=== PATIENT | female | born 1935 | race Caucasian/White ===

== ENCOUNTER 2016-12-28 15:11 | Emergency (ER) | payer BC ==
[2016-12-28 15:56] VITALS: TEMP 98; BMI 20.1
[2016-12-28] MEDS ORDERED: ACETAMINOPHEN 325 MG TABLET (FP) PO ONE (16:03)
--- NOTE | 2016-12-28 16:12 | PDOC ---
History of Present Illness - General Chief Complaint: Injury Stated Complaint: FALL (PCP SENT) Time Seen by Provider: 12/28/16 15:20 History Source: Patient Exam Limitations: No Limitations - History of Present Illness Initial Comments: 81 yo female with h/o Parkinsons (on levodopa-carbidopa) and chronic back pain ( on Toradol) who was brought in by her neighbor 7 days after suffering a GLF. She tripped and fell last Saturday and landed on her left lower ribs, and also hit her left forehead lightly. Her neighbor visited her on Saturday and noted mild bruising to the left forehead and eyebrow at that time. The patient states that she had no pain until this morning when she awoke. She now notes 4/10 pain to her left lower ribs directly under the armpit. It is throbbing, worsening since the onset this morning, and radiating to her back. It worsens with deep breathing, and improves with hot compress or shower and with Toradol. She states that it feels the same as her prior rib fracture on the opposite side. She denies any new symptoms of illness or any change in her baseline frequency of falls. She has struggled with frequent falls for the past 7 years and attributes these to her Parkinsons disease. She has been having her normal baseline constipation (last BM 3-4 days ago), but denies any fever, chills, nausea, vomiting, diarrhea, bloody urine, painful urination, black/bloody stool , cough, sore throat, runny nose, chest pain, or shortness of breath. The patient was seen Neurologist Dr. Shoemaker but she recently learned that he is no longer available to be her doctor, and she would like contact info for a new neurologist. Past History - Past Medical History Allergies/Adverse Reactions: Allergies Allergy/AdvReac Type Severity Reaction Status Date / Time No Known Allergies Allergy Verified 12/28/16 15:32 Home Medications: Ambulatory Orders Alprazolam [Xanax] 0.25 mg PO DAILY PRN 03/25/12 Carbidopa/Levodopa 25/100 [Sinemet 25/100 -] 1 each PO BID 12/28/16 Anemia: No Asthma: No Cancer: No Cardiac Disorders: Yes (SVT) CVA: No COPD: No CHF: No Dementia: No Diabetes: No GI Disorders: Yes (?stomach ulcer) Disorders: No HTN: Yes (NO MED) Hypercholesterolemia: No Liver Disease: No Suicide Attempt (Hx): No Seizures: No Thyroid Disease: No Other medical history: parkinson - Surgical History Abdominal Surgery: Yes (ulcers) Appendectomy: No Cardiac Surgery: No Cholecystectomy: No Lung Surgery: No Neurologic Surgery: No Orthopedic Surgery: No - Psycho/Social/Smoking Cessation Hx Anxiety: No Suicidal Ideation: No Smoking Status: No Smoking History: Never smoked Have you smoked in the past 12 months: No Number of Cigarettes Smoked Daily: 0 Information on smoking cessation initiated: No Hx Alcohol Use: No Drug/Substance Use Hx: No Substance Use Type: None Hx Substance Use Treatment: No Review of Systems - Review of Systems Able to Perform ROS?: Yes Constitutional: No: Chills, Fever, Unexplained wgt Loss HEENTM: No: Nose Congestion, Throat Pain Respiratory: No: Cough, Shortness of Breath Cardiac (ROS): Yes: Other (left rib pain). No: Palpitations ABD/GI: Yes: Constipated (per baseline). No: Diarrhea, Nausea, Vomiting : No: Burning, Dysuria, Hematuria, Pain Musculoskeletal: Yes: Back Pain. No: Neck Pain Integumentary: No: Bruising, Rash Neurological: No: Headache, Numbness, Tingling, Weakness, Dizziness Endocrine: No: Unexplained Weight Gain, Unexplained Weight Loss *Physical Exam - Vital Signs Last Vital Signs Temp Pulse Resp BP Pulse Ox 98.0 F 96 H 18 140/73 96 12/28/16 15:33 12/28/16 15:33 12/28/16 15:33 12/28/16 15:33 12/28/16 15:33 - Physical Exam General Appearance: Yes: Nourished, Appropriately Dressed, Other (nontoxic and well-appearing, left upper eyelid and left frontal area with almost-completely- healed ecchymosis which is now light yellow, answering questions appropriately) . No: Apparent Distress HEENT: positive: EOMI, TRINID[place], Normal Voice, Hearing Grossly Normal, Other (no hemotympanum, no gonzalez sign, no raccoon eyes). negative: Scleral Icterus (R), Scleral Icterus (L), Nasal Congestion Neck: positive: Trachea midline, Supple. negative: Tender, Rigid, Tender midline Respiratory/Chest: positive: Lungs Clear, Normal Breath Sounds, Other (left inferolateral ribs with overlying 6x6 cm healing ecchymosis with tenderness to palpation of the inferolateral costal margin, no crepitus, no bony deformity). negative: Respiratory Distress, Crackles, Rhonchi, Stridor, Wheezing Cardiovascular: positive: Regular Rhythm, Regular Rate. negative: Murmur Gastrointestinal/Abdominal: positive: Normal Bowel Sounds, Soft. negative: Tender, Organomegaly, Pulsatile Mass, Guarding Musculoskeletal: positive: Normal Inspection. negative: Decreased Range of Motion, Vertebral Tenderness Extremity: positive: Normal Capillary Refill, Normal Inspection, Normal Range of Motion. negative: Tender, Cyanosis Integumentary: positive: Normal Color, Dry, Warm. negative: Erythema, Rash, Bruising Neurologic: positive: manager lighting II-XII NML intact, Fully Oriented, Alert, Normal Mood/ Affect, Normal Response, Motor Strength 5/5 ED Treatment Course - RADIOLOGY Radiograph Interpretation: EXAM#: TYPE/EXAM: RESULT: RAD/CHEST PA LAT RAD/RIBS-LEFT SIDE Chest 3 views Left RIBS 5 views Clinical information: left chest pain; status post fall No pneumothorax is seen. There is no discrete infiltrate or pleural effusion. The heart, froylan and mediastinum demonstrate no obvious abnormality. Evaluation the left ribs demonstrates no radiographic evidence of fracture. Several healed right-sided rib fractures are noted. IMPRESSION: The left ribs demonstrate no radiographic abnormality. Healed right rib fractures are seen. There is no evidence of pneumothorax, pleural fluid or pulmonary contusion. Small stable bilateral pulmonary nodules described on CT studies of 04/15/2016 and 12/02/2014 cannot be appreciated on radiography. Reported By: Darian Alcaraz MD 12/28/16 9733 Medical Decision Making - Medical Decision Making 81 yo female with Parkinson's disease and frequent mechanical falls presents 1 week s/p GLF. Left lower rib pain, healing bruises to left lower lateral ribs and left forehead. Vitals are wnl, heart and lungs normal with symmetric breath sounds, no crepitus , no rib deformities palpable. Mild tenderness to palpation of left lateral costal margin, no CVA tenderness, no abdominal tenderness. Pt's neuro exam is normal, no raccoon eyes, no gonzalez sign, no hemotympanum. Ordered is CXR PA and Lat and Left Rib X-ray, also Tylenol for sxs control. Pt's pain is well controlled with Tylenol. Her CXR PA/Lat and left rib xrays return without e/o rib fracture or acute cardiopulmonary process. She wishes to go home, return precautions are discussed, and she will follow up as outpatient. *DC/Admit/Observation/Transfer Diagnosis at time of Disposition: Rib contusion Qualifiers: Encounter type: initial encounter Laterality: left Qualified Code(s): S20.212A - Contusion of left front wall of thorax, initial encounter - Discharge Dispostion Disposition: HOME Condition at time of disposition: Stable Admit: No - Referrals Referrals: Kenroy Mcrae MD [Primary Care Provider] - - Patient Instructions Printed Discharge Instructions: DI for Rib Contusion Additional Instructions: You were seen today for left rib pain following a fall last week. We saw some bruising and ordered x-rays of the chest and left ribs. There were no fractures and no other abnormalities seen on the x-rays. Please take [id number] Tylenol and Naproxen for the pain. Please follow up with your regular doctor, or return to the emergency room for any shortness of breath or other new or worsening symptoms. - Attestations Physician Attestion: I, Dr. Ludmila Chambers, attest that this document has been prepared under my direction and personally reviewed by me in its entirety. I further attest, that it accurately reflects all work, treatment, procedures and medical decision -making performed by me.
[2016-12-28] MEDS ORDERED: ACETAMINOPHEN 325 MG TABLET (FP) ONE (16:18)
--- NOTE | 2016-12-28 16:34 | PDOC ---
Attending Attestation - Resident Resident Name: ChambersLudmila - ED Attending Attestation I have performed the following: I have examined & evaluated the patient, The case was reviewed & discussed with the resident, I agree w/resident's findings & plan, Exceptions are as noted - HPI HPI: 12/28/16 16:30 81-year-old female with past medical history of Parkinson's disease, prior falls , chronic back pain presents with mechanical fall. 5 days ago, patient had a mechanical fall and landed on her left ribs. Stated complaint of persistent left rib pain since then. Denies loss of consciousness. Patient has mild ecchymosis of the left forehead but denies headache. Does not take any anticoagulants and denies any neurological deficits. Patient was concerned for rib fracture and came to the ED. Denies chest pain or difficulty breathing. - Physicial Exam PE: 12/28/16 16:32 GENERAL: Awake, alert, and fully oriented, in no acute distress. HEAD: No signs of trauma EYES: PERRLA, EOMI, sclera anicteric, conjunctiva clear ENT: Auricles normal inspection, hearing grossly normal, nares patent, oropharynx clear without exudates. NECK: Normal ROM, supple, no lymphadenopathy, JVD, or masses LUNGS: Breath sounds equal, clear to auscultation bilaterally. No wheezes, and no crackles HEART: Regular rate and rhythm, normal S1 and S2, no murmurs, rubs or gallops ABDOMEN: Soft, nontender, normoactive bowel sounds. No guarding, no rebound. No masses EXTREMITIES: Normal range of motion, no edema. No clubbing or cyanosis. No cords, erythema, or tenderness NEUROLOGICAL: Cranial nerves II through XII grossly intact. Normal speech, normal gait SKIN: Warm, Dry, normal turgor, no rashes or lesions noted. Small 2x2 cm healing left forehead ecchymosis. BONES: Approx Rib 7 to 8 TTP. no step offs or flail chest appreciated. - Medical Decision Making 12/28/16 16:33 Vital Signs Temp Pulse Resp BP Pulse Ox 98.0 F 96 H 18 140/73 96 12/28/16 15:33 12/28/16 15:33 12/28/16 15:33 12/28/16 15:33 12/28/16 15:33 Patient is otherwise well-appearing. We'll obtain a repeat chest x-ray rule out rib fractures. Patient has been 5 days and without symptoms. We'll defer a head CT at this time. 12/28/16 17:30 Xray reviewed. No acute fractures. Likely rib contusion. Supportive care
[2016-12-28 17:50] VITALS: BP 137/78; PULSE 78
== END 2016-12-28 17:49 | disposition home or self-care (01) ==
LOC: JER 15:11
DX: S20.212A Contusion of left front wall of thorax, initial encounter (principal); W18.39XA Other fall on same level, initial encounter; Y93.89 Activity, other specified; Y92.9 Unspecified place or not applicable; G20 Parkinson's disease; Z91.81 History of falling; I10 Essential (primary) hypertension; I47.1 Supraventricular tachycardia
CPT/HCPCS: 71020-TC; 71101-TC; 99282-25

== ENCOUNTER 2017-01-24 10:29 | Inpatient (IN) | payer BC, OTHER ==
[2017-01-24 10:39] VITALS: BMI 20.9
[2017-01-24] MEDS ORDERED: SODIUM CHLORIDE 1,000 ML IV STA (11:16)
[2017-01-24 11:32] LABS: BASOPHIL 0.2 % (0-2.0); MCH 32.6 pg (25.7-33.7); MCHC 33.4 g/dl (32.0-36.0); MEAN CELL VOLUME 97.6 fl (80-96); PLATELET COUNT 164 K/MM3 (134-434); RDW 13.1 % (11.6-15.6); WHITE BLOOD COUNT 14.3 K/mm3 (4.0-10.0)
[2017-01-24 12:02] LABS: ALBUMIN 4.2 g/dl (3.4-5.0); ALK PHOS 87 U/L (45-117); ANION GAP 8 (8-16); BILIRUBIN,TOTAL 0.5 mg/dL (0.2-1.0); CALCIUM 9.1 mg/dL (8.5-10.1); CO2 27 mmol/L (21-32); GLUCOSE,RANDOM 98 mg/dL (74-106); MAGNESIUM 2.2 mg/dL (1.8-2.4); SGOT/AST 29 U/L (15-37); SGPT/ALT 10 U/L (12-78); TOT PROT 6.9 g/dl (6.4-8.2)
--- NOTE | 2017-01-24 12:05 | PDOC ---
History of Present Illness - General Chief Complaint: Back Pain Stated Complaint: BACK PAIN,AMS,ALTERED BALANCE Time Seen by Provider: 01/24/17 10:55 History Source: Patient Exam Limitations: No Limitations - History of Present Illness Initial Comments: 01/24/17 11:06 81-year-old female brought in by daughter for evaluation of worsening low back pain for the past 6 years now associated with decreased sleep and decreased appetite secondary to the pain unrelieved by tramadol. Patient states was followed by Dr. Shoemaker but has not followed up with a new doctor since then and is otherwise seen by her primary care physician Dr. Mcrae. Patient has no urinary complaints, bowel complaints, skin complaints, difficulty breathing, chest pain, radiation of pain. 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 Occurred: reports: other (6 years) Severity: reports: moderate Pain Location: reports: back Method of Injury: Yes: unknown Associated Symptoms (Fall): denies symptoms Past History - Travel Traveled outside of the country in the last 30 days: No Close contact w/someone who was outside of country & ill: No - Past Medical History Allergies/Adverse Reactions: Allergies Allergy/AdvReac Type Severity Reaction Status Date / Time No Known Allergies Allergy Verified 01/24/17 10:34 Home Medications: Ambulatory Orders Carbidopa/Levodopa 25/100 [Sinemet 25/100 -] 1 each PO TID 12/28/16 Tramadol HCl 50 mg PO PRN PRN 01/24/17 Anemia: No Asthma: No Cancer: No Cardiac Disorders: Yes (SVT) CVA: No COPD: No CHF: No Dementia: No Diabetes: Yes (parkinsons) GI Disorders: Yes (?stomach ulcer) Disorders: No HTN: Yes (NO MED) Hypercholesterolemia: No Liver Disease: No Suicide Attempt (Hx): No Seizures: No Thyroid Disease: No - Surgical History Abdominal Surgery: Yes (ulcers) Appendectomy: No Cardiac Surgery: No Cholecystectomy: No Lung Surgery: No Neurologic Surgery: No Orthopedic Surgery: No - Psycho/Social/Smoking Cessation Hx Anxiety: No Suicidal Ideation: No Smoking Status: No Smoking History: Former smoker Have you smoked in the past 12 months: No Number of Cigarettes Smoked Daily: 0 Information on smoking cessation initiated: No Hx Alcohol Use: No Drug/Substance Use Hx: No Substance Use Type: None Hx Substance Use Treatment: No Patient Lives Alone: Yes Lives with/in: lives alone Review of Systems - Review of Systems Able to Perform ROS?: No Is the patient limited Nepali proficient: No Constitutional: No: Symptoms Reported HEENTM: No: Symptoms Reported Respiratory: No: Symptoms reported Cardiac (ROS): No: Symptoms Reported ABD/GI: No: Symptoms Reported : No: Symptoms Reported Musculoskeletal: Yes: Back Pain Integumentary: No: Symptoms Reported Neurological: No: Symptoms reported Endocrine: No: Symptoms Reported Hematologic/Lymphatic: No: Symptoms Reported *Physical Exam - Vital Signs Last Vital Signs Temp Pulse Resp BP Pulse Ox 97.9 F 98 H 19 142/77 96 01/24/17 10:34 01/24/17 10:34 01/24/17 10:34 01/24/17 10:34 01/24/17 10:34 - Physical Exam General Appearance: Yes: Nourished, Appropriately Dressed. No: Apparent Distress HEENT: negative: Pale Conjunctivae Neck: positive: Supple Respiratory/Chest: positive: Lungs Clear, Normal Breath Sounds. negative: Respiratory Distress, Accessory Muscle Use Cardiovascular: positive: Regular Rhythm, Regular Rate. negative: Murmur Gastrointestinal/Abdominal: positive: Soft. negative: Tenderness Musculoskeletal: negative: CVA Tenderness, Vertebral Tenderness, Other (no posterior pelvis pain (although she points to her left posterior iliac crest) ) Extremity: positive: Normal Capillary Refill. negative: Pedal Edema Integumentary: positive: Dry, Warm, Pale Neurologic: positive: Normal Mood/Affect, Motor Strength 5/5 (AMBULATORY) Heart Score/ECG Review - History History: Slightly suspicious - Electrocardiogram EKG: Normal - Risk Factors Based on the list above the patient has:: No risk factors known - Troponin Troponin: </= normal limit - ECG Intrepretation Rhythm: Regular Rhythm (rate 95.) ED Treatment Course - LABORATORY CBC & Chemistry Diagram: 01/24/17 11:19 01/24/17 11:19 - ADDITIONAL ORDERS Additional order review: 01/24/17 11:19 RBC 3.88 MCV 97.6 H MCHC 33.4 RDW 13.1 MPV 7.0 L Neutrophils % 90.0 H Lymphocytes % 3.5 L D Monocytes % 6.3 Eosinophils % 0.0 D Basophils % 0.2 Medical Decision Making - Medical Decision Making 01/24/17 13:06 Patient here for worsening low back pain over the past 6 years. Patient is also complaints at this time but daughter feels she is eating and sleeping adequately and feels she is getting weaker due to the pain that is now unrelieved by tramadol. Patient on exam had no acute findings and was able to transfer from the wheelchair with minimal assistance. After interviewing the daughter disclose that she is concerned of her mother's health stating that mother has refused home care and did not call physical therapy for evaluation as prescribed by Dr. Mcrae. Patient ordered for labs including imaging of her pelvis, urine and IV fluids. 01/24/17 14:13 Laboratory Tests 01/24/17 01/24/17 01/24/17 11:19 11:19 14:16 WBC 14.3 H D Hgb 12.7 D Hct 37.9 Neutrophils % 90.0 H Sodium 141 Potassium 4.4 D Chloride 106 Carbon Dioxide 27 Anion Gap 8 BUN 32 H Creatinine 1.0 Random Glucose 98 Magnesium 2.2 AST 29 D ALT 10 L D Urine Glucose (UA) 1+ H Urine Blood 1+ H Urine Nitrite Positive Urine Urobilinogen Negative Ur Leukocyte Esterase 1+ H Urine RBC 3 Urine WBC 4 The patient meets sepsis criteria based on leukocytosis and elevated heart rate. Patient also with noted UTI. Patient of IV ceftriaxone. No previous urine culture on file. Patient will benefit from neurology consult, PT even now, and IV antibiotics/IV fluids. Patient discussed with Dr. Encarnacion and will be admitted. *DC/Admit/Observation/Transfer Diagnosis at time of Disposition: Weakness, Decrease in appetite Sepsis Qualifiers: Sepsis type: sepsis due to unspecified organism Qualified Code(s): A41.9 - Sepsis, unspecified organism Urinary tract infection Qualifiers: Urinary tract infection type: acute cystitis - Discharge Dispostion Admit: Yes
--- NOTE | 2017-01-24 12:26 | EKG ---
Test Reason : Blood Pressure : / mmHG Vent. Rate : 095 BPM Atrial Rate : 095 BPM P-R Int : 132 ms QRS Dur : 066 ms QT Int : 332 ms P-R-T Axes : 055 025 021 degrees QTc Int : 417 ms NORMAL SINUS RHYTHM ANTEROSEPTAL INFARCT (CITED ON OR BEFORE 02-DEC-2012) ABNORMAL ECG WHEN COMPARED WITH ECG OF 02-DEC-2012 17:35, [place] INTERVAL HAS INCREASED Confirmed by MAHESH MENA, BRANDAN ([id number]) on 01/24/2017 12:26:19 PM Referred By: Confirmed By:BRANDAN ARAGON MD
[2017-01-24 14:31] LABS: URINE APPEARANCE SLCLOUDY; URINE BILIRUBIN NEGATIVE (NEGATIVE); URINE BLOOD 1+ (NEGATIVE); URINE COLOR LTYELLOW; URINE GLUCOSE (UA) 1+ (NEGATIVE); URINE KETONE NEGATIVE (NEGATIVE); URINE NITRITE POSITIVE (NEGATIVE); URINE PROTEIN NEGATIVE (NEGATIVE); URINE UROBILINOGEN NEGATIVE mg/dL (0.2-1.0)
[2017-01-24 14:34] LABS: URINE LEUK ESTERASE 1+ (NEGATIVE)
[2017-01-24 14:36] LABS: URINE BACTERIA MANY /hpf (NONE SEEN); URINE MUCUS RARE; URINE RBC 3 /hpf (0-3); URINE WBC 4 /hpf (3-5)
[2017-01-24] MEDS ORDERED: CEFTRIAXONE 1 GM in DEXTROSE 5%-WATER - 50 ML IVPB ONE (14:59)
[2017-01-24] MEDS ORDERED: CEFTRIAXONE 50 ML ONE (15:05)
[2017-01-24] MEDS ORDERED: ONDANSETRON 4 MG/2 ML VIAL IVPB PRN (16:00)
--- NOTE | 2017-01-24 16:03 | HP ---
Admitting History and Physical - Primary Care Physician PCP: Kenroy Mcrae - Admission Chief Complaint: I'm in incredible pain History of Present Illness: Ms Colbert is an 81 year old female who comes in with worsening chronic pain. She has a history of spinal stenosis and Parkinsons with pain over the past 6 years. She says the pain is mainly in her spine and in her bilateral thighs. Yesterday she says she had worsening pain in her lumbar spine area and across the shoulder blades. She says the pain is sharp and excruciating. It is hard to distinguish whether it radiates as she has multiple areas of pain and describes them separately but will not say whether there is radiation or not. She complains of worsening balance and difficulty standing up. She also says she has pain and burning with urination for about 2 weeks. She denies fevers, chills , lightheadedness, dizziness, passing out, chest pain, shortness of breath, nausea, vomiting, diarrhea, constipation, or swelling. 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 Musculoskeletal: Yes: Other (spinal stenosis) - Past Surgical History Past Surgical History: Yes: None - Smoking History Smoking history: Former smoker Have you smoked in the past 12 months: No Aproximately how many cigarettes per day: 0 - Alcohol/Substance Use Hx Alcohol Use: No History of Substance Use: reports: None - Social History Usual Living Arrangement: Yes: With Child ADL: Family Assistance History of Recent Travel: No Home Medications - Allergies Allergies/Adverse Reactions: Allergies Allergy/AdvReac Type Severity Reaction Status Date / Time No Known Allergies Allergy Verified 01/24/17 10:34 - Home Medications Home Medications: Ambulatory Orders Carbidopa/Levodopa 25/100 [Sinemet 25/100 -] 1 each PO TID 12/28/16 Tramadol HCl 50 mg PO PRN PRN 01/24/17 Family Disease History - Family Disease History Family Disease History: Other: Mother (rheumatoid arthritis) Review of Systems Findings/Remarks: Full review of systems obtained, as per HPI and otherwise negative Physical Examination Vital Signs: Vital Signs Temperature 36.6 C 01/24/17 10:34 Pulse Rate 98 H 01/24/17 10:34 Respiratory Rate 19 01/24/17 10:34 Blood Pressure 142/77 01/24/17 10:34 O2 Sat by Pulse Oximetry (%) 96 01/24/17 10:34 Constitutional: Yes: No Distress, Calm, Thin Eyes: Yes: Conjunctiva Clear, EOM Intact, PERRL HENT: Yes: Atraumatic, Normocephalic Cardiovascular: Yes: Regular Rate and Rhythm. No: Gallop, Murmur, Rub Respiratory: Yes: Regular, CTA Bilaterally. No: Rales, Rhonchi, Wheezes Gastrointestinal: Yes: Normal Bowel Sounds, Soft. No: Distention, Tenderness Extremities: Yes: WNL Edema: No Labs: CBC, BMP 01/24/17 11:19 01/24/17 11:19 Imaging - Results X-ray: Report Reviewed, Image Reviewed Problem List - Problems (1) UTI (urinary tract infection) Assessment/Plan: -admit to the hospital for UTI with leukocytosis -hydrate with IVF -rocephin 1gm daily, day 1/7 -lactobacillus -monitor for improvement Code(s): N39.0 - URINARY TRACT INFECTION, SITE NOT SPECIFIED Qualifiers: Urinary tract infection type: acute cystitis Hematuria presence: without hematuria Qualified Code(s): N30.00 - Acute cystitis without hematuria (2) Chronic pain Assessment/Plan: -secondary to spinal stenosis -however with difficulty getting up, will consider possibility of polymyalgia rheumatica -check ESR and CRP -pain control with oxycodone Code(s): G89.29 - OTHER CHRONIC PAIN Qualifiers: Chronic pain type: chronic pain syndrome Qualified Code(s): G89.4 - Chronic pain syndrome (3) Spinal stenosis Assessment/Plan: -history of spinal stenosis -will need intermodal customer service plan for pain management and physical therapy -consult neurology and PT Code(s): M48.00 - SPINAL STENOSIS, SITE UNSPECIFIED Qualifiers: Spinal region: lumbosacral Qualified Code(s): M48.07 - Spinal stenosis, lumbosacral region (4) Parkinson disease Assessment/Plan: -continue sinemet -neurology consult Code(s): G20 - PARKINSON'S DISEASE
--- NOTE | 2017-01-24 16:34 | PDOC ---
*Physical Exam - Vital Signs Last Vital Signs Temp Pulse Resp BP Pulse Ox 97.9 F 98 H 19 142/77 96 01/24/17 10:34 01/24/17 10:34 01/24/17 10:34 01/24/17 10:34 01/24/17 10:34 ED Treatment Course - LABORATORY CBC & Chemistry Diagram: 01/24/17 11:19 01/24/17 11:19 - ADDITIONAL ORDERS Additional order review: Laboratory Results 01/24/17 01/24/17 14:16 11:19 Sodium 141 Potassium 4.4 D Chloride 106 Carbon Dioxide 27 Anion Gap 8 BUN 32 H Creatinine 1.0 Creat Clearance w eGFR 53.08 Random Glucose 98 Calcium 9.1 Magnesium 2.2 Total Bilirubin 0.5 D AST 29 D ALT 10 L D Alkaline Phosphatase 87 D Total Protein 6.9 Albumin 4.2 Urine Color Ltyellow Urine Appearance Slcloudy Urine pH 6.0 Urine Protein Negative Urine Glucose (UA) 1+ H Urine Ketones Negative Urine Blood 1+ H Urine Nitrite Positive Urine Bilirubin Negative Urine Urobilinogen Negative Ur Leukocyte Esterase 1+ H Urine RBC 3 Urine WBC 4 Ur Epithelial Cells Rare Urine Bacteria Many Urine Mucus Rare 01/24/17 11:19 RBC 3.88 MCV 97.6 H MCHC 33.4 RDW 13.1 MPV 7.0 L Neutrophils % 90.0 H Lymphocytes % 3.5 L D Monocytes % 6.3 Eosinophils % 0.0 D Basophils % 0.2 - Medications Given in the ED: ED Medications Discontinued Medications Generic Name Dose Route Start Last Admin Trade Name Trevinq PRN Reason Stop Dose Admin Sodium Chloride 1,000 mls @ 250 mls/hr 01/24/17 11:16 01/24/17 12:00 Normal Saline - IV 01/24/17 15:15 250 mls/hr ASDIR STA Administration Ceftriaxone Sodium 1 gm/ 50 mls @ 100 mls/hr 01/24/17 14:59 01/24/17 15:15 Dextrose IVPB 01/24/17 15:28 100 mls/hr ONCE ONE Administration Oxycodone/Acetaminophen 1 combo 01/24/17 12:59 01/24/17 13:41 Percocet 5/325 - PO 01/24/17 13:00 1 combo ONCE ONE Administration Medical Decision Making - Medical Decision Making 01/24/17 16:33 My MLP note 81-year-old female brought in by her daughter for worsening low back pain and possible falls. Workup as noted with white count of 14, admitted for further management. *DC/Admit/Observation/Transfer Diagnosis at time of Disposition: Weakness, Poor appetite Sepsis Qualifiers: Sepsis type: sepsis due to unspecified organism Qualified Code(s): A41.9 - Sepsis, unspecified organism UTI (urinary tract infection) Qualifiers: Urinary tract infection type: acute cystitis Hematuria presence: without hematuria Qualified Code(s): N30.00 - Acute cystitis without hematuria - Referrals Referrals: Kenroy Mcrae MD [Primary Care Provider] - - Patient Instructions - Post Discharge Activity
[2017-01-24] MEDS: SODIUM CHLORIDE 1,000 ML IV SCH (18:14)
[2017-01-24] MEDS: CARBIDOPA/LEVODOPA 25/100 TABLET (FP) PO SCH (22:56)
[2017-01-24] MEDS: DOCUSATE SODIUM 100 MG CAPSULE (FP) PO SCH (22:56)
[2017-01-25] MEDS: CARBIDOPA/LEVODOPA 25/100 TABLET (FP) PO SCH ×3 (05:56→22:43)
[2017-01-25 07:21] LABS: BASOPHIL 0.4 % (0-2.0); EOSINOPHIL 0.4 % (0-4.5); MCH 33.3 pg (25.7-33.7); MCHC 33.9 g/dl (32.0-36.0); MEAN CELL VOLUME 98.4 fl (80-96); MEAN PLT VOLUME 7.3 fl (7.5-11.1); NEUTROPHILS 72.9 % (42.8-82.8); PLATELET COUNT 130 K/MM3 (134-434); RDW 13.1 % (11.6-15.6); WHITE BLOOD COUNT 7.7 K/mm3 (4.0-10.0)
[2017-01-25 07:45] LABS: ANION GAP 8 (8-16); CALCIUM 8.6 mg/dL (8.5-10.1); CO2 26 mmol/L (21-32); CREATININE 0.8 mg/dL (0.55-1.02); GLUCOSE,RANDOM 94 mg/dL (74-106); MAGNESIUM 2.1 mg/dL (1.8-2.4); PHOSPHOROUS 2.4 mg/dL (2.5-4.9)
--- NOTE | 2017-01-25 10:19 | CONSULT ---
Consult - text type - Consultation Consultation Note: Neurology History of Present Illness 81-year-old female brought in by daughter for evaluation of worsening low back pain for the past 6 years now associated with decreased sleep and decreased appetite secondary to the pain unrelieved by tramadol. Patient states was followed by Dr. Shoemaker but has not followed up with a new doctor since then and is otherwise seen by her primary care physician Dr. Mcrae. Patient has no urinary complaints, bowel complaints, skin complaints, difficulty breathing, chest pain, radiation of pain. 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 She was comfortable appearing in bed without significant discomfort. She reports history of Parkinson's Diease as well with slow movements. She has been having falls but did not have recent physical therapy. Of note, she has a cane but is unsure how to use it correctly. Past History - Travel Traveled outside of the country in the last 30 days: No Close contact w/someone who was outside of country & ill: No - Past Medical History Allergies/Adverse Reactions: Allergies Allergy/AdvReac Type Severity Reaction Status Date / Time No Known Allergies Allergy Verified 01/24/17 10:34 Home Medications: Ambulatory Orders Carbidopa/Levodopa 25/100 [Sinemet 25/100 -] 1 each PO TID 12/28/16 Tramadol HCl 50 mg PO PRN PRN 01/24/17 Anemia: No Asthma: No Cancer: No Cardiac Disorders: Yes (SVT) CVA: No COPD: No CHF: No Dementia: No Diabetes: Yes (parkinsons) GI Disorders: Yes (?stomach ulcer) Disorders: No HTN: Yes (NO MED) Hypercholesterolemia: No Liver Disease: No Suicide Attempt (Hx): No Seizures: No Thyroid Disease: No - Surgical History Abdominal Surgery: Yes (ulcers) Appendectomy: No Cardiac Surgery: No Cholecystectomy: No Lung Surgery: No Neurologic Surgery: No Orthopedic Surgery: No - Psycho/Social/Smoking Cessation Hx Anxiety: No Suicidal Ideation: No Smoking Status: No Smoking History: Former smoker Have you smoked in the past 12 months: No Number of Cigarettes Smoked Daily: 0 Information on smoking cessation initiated: No Hx Alcohol Use: No Drug/Substance Use Hx: No Substance Use Type: None Hx Substance Use Treatment: No Patient Lives Alone: Yes Lives with/in: lives alone Review of Systems - Review of Systems Able to Perform ROS?: No Is the patient limited Frisian proficient: No Constitutional: No: Symptoms Reported HEENTM: No: Symptoms Reported Respiratory: No: Symptoms reported Cardiac (ROS): No: Symptoms Reported ABD/GI: No: Symptoms Reported : No: Symptoms Reported Musculoskeletal: Yes: Back Pain Integumentary: No: Symptoms Reported Neurological: No: Symptoms reported Endocrine: No: Symptoms Reported Hematologic/Lymphatic: No: Symptoms Reported *Physical Exam Last Vital Signs Temp Pulse Resp BP Pulse Ox 98.2 F 83 16 136/85 96 01/25/17 07:00 01/25/17 07:00 01/25/17 07:00 01/25/17 07:00 01/24/17 22:00 - Physical Exam General Appearance: Yes: Nourished, Appropriately Dressed. No: Apparent Distress HEENT: negative: Pale Conjunctivae Neck: positive: Supple Respiratory/Chest: positive: Lungs Clear, Normal Breath Sounds. negative: Respiratory Distress, Accessory Muscle Use Cardiovascular: positive: Regular Rhythm, Regular Rate. negative: Murmur Gastrointestinal/Abdominal: positive: Soft. negative: Tenderness Musculoskeletal: negative: CVA Tenderness, Vertebral Tenderness, Other (no posterior pelvis pain (although she points to her left posterior iliac crest) ) Extremity: positive: Normal Capillary Refill. negative: Pedal Edema Integumentary: positive: Dry, Warm, Pale Neurologic: CN intact, no facial droop, sensory normal, strength 5/5 in b/l lower extremities, finger to nose normal CBCD WBC 7.7 K/mm3 (4.0-10.0) D 01/25/17 06:15 RBC 3.37 M/mm3 (3.60-5.2) L 01/25/17 06:15 Hgb 11.2 GM/dL (10.7-15.3) D 01/25/17 06:15 Hct 33.2 % (32.4-45.2) 01/25/17 06:15 MCV 98.4 fl (80-96) H 01/25/17 06:15 MCHC 33.9 g/dl (32.0-36.0) 01/25/17 06:15 RDW 13.1 % (11.6-15.6) 01/25/17 06:15 Plt Count 130 K/MM3 (134-434) L D 01/25/17 06:15 MPV 7.3 fl (7.5-11.1) L 01/25/17 06:15 CMP Sodium 144 mmol/L (136-145) 01/25/17 06:15 Potassium 3.8 mmol/L (3.5-5.1) 01/25/17 06:15 Chloride 110 mmol/L (98-107) H 01/25/17 06:15 Carbon Dioxide 26 mmol/L (21-32) 01/25/17 06:15 Anion Gap 8 (8-16) 01/25/17 06:15 BUN 22 mg/dL (7-18) H D 01/25/17 06:15 Creatinine 0.8 mg/dL (0.55-1.02) 01/25/17 06:15 Creat Clearance w eGFR 53.08 (>60) 01/24/17 11:19 Calcium 8.6 mg/dL (8.5-10.1) 01/25/17 06:15 Total Bilirubin 0.5 mg/dL (0.2-1.0) D 01/24/17 11:19 AST 29 U/L (15-37) D 01/24/17 11:19 ALT 10 U/L (12-78) L D 01/24/17 11:19 Alkaline Phosphatase 87 U/L (45-117) D 01/24/17 11:19 Total Protein 6.9 g/dl (6.4-8.2) 01/24/17 11:19 Albumin 4.2 g/dl (3.4-5.0) 01/24/17 11:19 MRI L spine reviewed Medical Decision Making 81-year-old female brought in by daughter for evaluation of worsening low back pain for the past 6 years now associated with decreased sleep and decreased appetite secondary to the pain unrelieved by tramadol. Stenosis in the lumbar spine as per previous imaging including an MRI which I reviewed from May. Can repeat MRI L spine as outpatient if needed She was comfortable appearing in bed without significant discomfort. Would benefit from physical therapy and gait training. Will need to use cane more effective Continue Abx for UTI Continue sinemet for Parkinson's Fall precautions discussed
[2017-01-25] MEDS ORDERED: DEXTROSE 5%-WATER - 50 ML IVPB ONE (11:00)
[2017-01-25] MEDS ORDERED: cefTRIAXone SODIUM 1 GM VIAL ONE (11:00)
[2017-01-25] MEDS: CEFTRIAXONE 1 GM in DEXTROSE 5%-WATER - 50 ML IVPB SCH (11:06)
[2017-01-25] MEDS: ENOXAPARIN NA (PORCINE) 40 MG/0.4 ML DISP.SYRIN SQ SCH (11:06)
[2017-01-25] MEDS: DOCUSATE SODIUM 100 MG CAPSULE (FP) PO SCH ×2 (11:07→22:43)
[2017-01-25] MEDS: LACTOBACILLUS ACIDOPHILUS 1 EACH TAB (FP) PO SCH (11:07)
[2017-01-25] MEDS: POLYETHYLENE GLYCOL 3350 119 GM BTL PO SCH (11:09)
[2017-01-25] MEDS: SODIUM CHLORIDE 1,000 ML IV SCH ×2 (12:13→16:41)
--- NOTE | 2017-01-25 14:39 | PN ---
Progress Note, Physician Chief Complaint: Ms Colbert says her back pain is better. No cp, sob, n/v. - Current Medication List Current Medications: Active Medications Acetaminophen (Tylenol -) 650 mg PO Q4H PRN PRN Reason: FEVER OR PAIN Alprazolam (Xanax -) 0.25 mg PO Q8H PRN PRN Reason: ANXIETY Carbidopa/Levodopa (Sinemet 25/100 -) 1 each PO TID [facility] Last Admin: 01/25/17 14:14 Dose: 1 each Docusate Sodium (Colace -) 100 mg PO BID [facility] Last Admin: 01/25/17 11:07 Dose: 100 mg Enoxaparin Sodium (Lovenox -) 40 mg SQ DAILY [facility] Last Admin: 01/25/17 11:06 Dose: 40 mg Sodium Chloride (Normal Saline -) 1,000 mls @ 75 mls/hr IV ASDIR [facility] Last Admin: 01/25/17 12:13 Dose: 75 mls/hr Ceftriaxone Sodium 1 gm/ (Dextrose) 50 mls @ 100 mls/hr IVPB DAILY [facility] Last Admin: 01/25/17 11:06 Dose: 100 mls/hr Lactobacillus Acidophilus (Bacid -) 1 tab PO DAILY [facility] Last Admin: 01/25/17 11:07 Dose: 1 tab Ondansetron HCl (Zofran Injection) 4 mg IVPB Q6H PRN PRN Reason: NAUSEA Oxycodone HCl (Roxicodone -) 5 mg PO Q4H PRN PRN Reason: PAIN Polyethylene Glycol (Miralax (For Daily Use) -) 17 gm PO DAILY [facility] Last Admin: 01/25/17 11:09 Dose: 17 grams - Objective Vital Signs: Vital Signs Temperature 36.9 C 01/25/17 10:00 Pulse Rate 89 01/25/17 10:00 Respiratory Rate 20 01/25/17 10:00 Blood Pressure 156/85 01/25/17 10:00 O2 Sat by Pulse Oximetry (%) 96 01/24/17 22:00 Constitutional: Yes: No Distress, Calm, Thin Cardiovascular: Yes: Regular Rate and Rhythm. No: Gallop, Murmur, Rub Respiratory: Yes: Regular, CTA Bilaterally. No: Rales, Rhonchi, Wheezes Gastrointestinal: Yes: Normal Bowel Sounds, Soft. No: Distention, Tenderness Extremities: Yes: WNL Edema: No Labs: CBC, BMP 01/25/17 06:15 01/25/17 06:15 Problem List - Problems (1) UTI (urinary tract infection) Code(s): N39.0 - URINARY TRACT INFECTION, SITE NOT SPECIFIED Qualifiers: Urinary tract infection type: acute cystitis Hematuria presence: without hematuria Qualified Code(s): N30.00 - Acute cystitis without hematuria (2) Chronic pain Code(s): G89.29 - OTHER CHRONIC PAIN Qualifiers: Chronic pain type: chronic pain syndrome Qualified Code(s): G89.4 - Chronic pain syndrome (3) Spinal stenosis Code(s): M48.00 - SPINAL STENOSIS, SITE UNSPECIFIED Qualifiers: Spinal region: lumbosacral Qualified Code(s): M48.07 - Spinal stenosis, lumbosacral region (4) Parkinson disease Code(s): G20 - PARKINSON'S DISEASE Assessment/Plan (1) UTI (urinary tract infection) Assessment/Plan: -urine cultures positive, await results -continue rocephin day 2/7 -can change to oral cephalosporin if sensitive to finish course Code(s): N39.0 - URINARY TRACT INFECTION, SITE NOT SPECIFIED Qualifiers: Urinary tract infection type: acute cystitis Hematuria presence: without hematuria Qualified Code(s): N30.00 - Acute cystitis without hematuria (2) Chronic pain Assessment/Plan: -secondary to spinal stenosis -continue oxycodone Code(s): G89.29 - OTHER CHRONIC PAIN Qualifiers: Chronic pain type: chronic pain syndrome Qualified Code(s): G89.4 - Chronic pain syndrome (3) Spinal stenosis Assessment/Plan: -appreciate neurology and PT -continue pain management -continue outpatient neurology follow up Code(s): M48.00 - SPINAL STENOSIS, SITE UNSPECIFIED Qualifiers: Spinal region: lumbosacral Qualified Code(s): M48.07 - Spinal stenosis, lumbosacral region (4) Parkinson disease Assessment/Plan: -continue sinemet -neurology consulted -outpatient follow up Code(s): G20 - PARKINSON'S DISEASE Dispo -possible discharge in next 24-48 hours pending cultures
[2017-01-26] MEDS: SODIUM CHLORIDE 1,000 ML IV SCH ×2 (01:55→16:22)
[2017-01-26] MEDS: amLODIPine BESYLATE 2.5 MG TABLET (FP) PO ONE ×2 (02:53→04:02)
[2017-01-26] MEDS: ALPRAZolam 0.25 MG TABLET PO PRN ×3 (03:06→21:24)
--- NOTE | 2017-01-26 04:29 | HOSP ---
Subjective - Review of Symptoms Events since last encounter: Nurse called to report elevated BP. Subjective: Pt reports that she became agitated when she awoke and there were "2 people" in her room trying to get her arm to take a blood pressure and then was further upset when the reading was elevated as she has always had normal blood pressure. Pt denies headache, dizziness. Reports that her back pain is resolved. General: No: Chills HEENT: No: Head Aches Pulmonary: No: Cough Cardiovascular: No: Chest Pain, Palpitations Musculoskeletal: No: No Symptoms Physical Examination Vital Signs: Vital Signs Temperature 98.4 F 01/25/17 22:00 Pulse Rate 92 H 01/26/17 02:00 Respiratory Rate 18 01/26/17 02:00 Blood Pressure 168/72 01/26/17 04:02 O2 Sat by Pulse Oximetry (%) 96 01/25/17 22:00 Constitutional: Yes: No Distress, Anxious (mildly) Cardiovascular: Yes: WNL Respiratory: Yes: WNL Gastrointestinal: Yes: WNL Labs: CBC, BMP 01/25/17 06:15 01/25/17 06:15 Hospitalist Encounter Assessment: elevated BP - BP throughout stay have been elevated, highest in 180s earlier this evening. BP taken manually right arm, 168/72 - will give norvasc 2.5mg po x1, cont to monitor VS.
[2017-01-26] MEDS: CARBIDOPA/LEVODOPA 25/100 TABLET (FP) PO SCH ×3 (06:09→21:24)
[2017-01-26 08:49] LABS: BASOPHIL 0.5 % (0-2.0); EOSINOPHIL 1.3 % (0-4.5); MCH 33.2 pg (25.7-33.7); MEAN CELL VOLUME 97.9 fl (80-96); MEAN PLT VOLUME 7.4 fl (7.5-11.1); NEUTROPHILS 63.8 % (42.8-82.8); PLATELET COUNT 138 K/MM3 (134-434); RDW 12.8 % (11.6-15.6); WHITE BLOOD COUNT 7.9 K/mm3 (4.0-10.0)
[2017-01-26 09:19] LABS: ANION GAP 7 (8-16); CALCIUM 8.1 mg/dL (8.5-10.1); CO2 26 mmol/L (21-32); CREATININE 0.7 mg/dL (0.55-1.02); GLUCOSE,RANDOM 95 mg/dL (74-106); MAGNESIUM 1.9 mg/dL (1.8-2.4); PHOSPHOROUS 2.5 mg/dL (2.5-4.9)
[2017-01-26] MEDS ORDERED: DEXTROSE 5%-WATER - 50 ML IVPB ONE (11:13)
[2017-01-26] MEDS ORDERED: cefTRIAXone SODIUM 1 GM VIAL ONE (11:13)
[2017-01-26] MEDS: DOCUSATE SODIUM 100 MG CAPSULE (FP) PO SCH ×2 (11:20→21:25)
[2017-01-26] MEDS: CEFTRIAXONE 1 GM in DEXTROSE 5%-WATER - 50 ML IVPB SCH (11:20)
[2017-01-26] MEDS: ENOXAPARIN NA (PORCINE) 40 MG/0.4 ML DISP.SYRIN SQ SCH (11:20)
[2017-01-26] MEDS: POLYETHYLENE GLYCOL 3350 119 GM BTL PO SCH (11:21)
[2017-01-26] MEDS: LACTOBACILLUS ACIDOPHILUS 1 EACH TAB (FP) PO SCH (11:21)
[2017-01-26] MEDS: oxyCODONE HCL 5 MG TABLET PO PRN (11:32)
--- NOTE | 2017-01-26 13:39 | PN ---
Physical Exam: SUBJECTIVE: Patient seen and examined. She has L middle back pain, said she was startled in the middle of the night and now is fine. Events: - Overnight events noted, BP improved this AM OBJECTIVE: Vital Signs Period Temp Pulse Resp BP Sys/Tee Pulse Ox Last 24 Hr 98.4 F-98.9 F 82-92 18-20 137-189/68-88 96 PE Neuro: alert, awake, cn 2-12intact Pulm: CTAB CV: s1 s2 rrr no mrg Abd: s nt nd +bs MSK: lower left back tenderness Ext: no le edema Laboratory Results - last 24 hr 01/26/17 01/26/17 07:35 07:35 WBC 7.9 RBC 3.39 L Hgb 11.3 Hct 33.2 MCV 97.9 H MCH 33.2 MCHC 34.0 RDW 12.8 Plt Count 138 MPV 7.4 L Neutrophils % 63.8 Lymphocytes % 24.5 D Monocytes % 9.9 Eosinophils % 1.3 D Basophils % 0.5 Sodium 143 Potassium 3.5 Chloride 110 H Carbon Dioxide 26 Anion Gap 7 L BUN 17 D Creatinine 0.7 Random Glucose 95 Calcium 8.1 L Phosphorus 2.5 Magnesium 1.9 Active Medications Generic Name Dose Route Start Last Admin Trade Name Freq PRN Reason Stop Dose Admin Acetaminophen 650 mg 01/24/17 16:00 Tylenol - PO Q4H PRN FEVER OR PAIN Alprazolam 0.25 mg 01/24/17 16:00 01/26/17 13:35 Xanax - PO 0.25 mg Q8H PRN Administration ANXIETY Carbidopa/Levodopa 1 each 01/24/17 22:00 01/26/17 13:35 Sinemet 25/100 - PO 1 each TID [facility] Administration Docusate Sodium 100 mg 01/24/17 22:00 01/26/17 11:20 Colace - PO 100 mg BID [facility] Administration Enoxaparin Sodium 40 mg 01/25/17 10:00 01/26/17 11:20 Lovenox - SQ 40 mg DAILY [facility] Administration Sodium Chloride 1,000 mls @ 75 mls/hr 01/24/17 16:00 01/26/17 01:55 Normal Saline - IV 75 mls/hr ASDIR [facility] Administration Ertapenem 1 gm/ Sodium 50 mls @ 50 mls/hr 01/26/17 13:45 Chloride IVPB 01/27/17 13:44 DAILY [facility] Protocol Lactobacillus Acidophilus 1 tab 01/25/17 10:00 01/26/17 11:21 Bacid - PO 1 tab DAILY [facility] Administration Ondansetron HCl 4 mg 01/24/17 16:00 Zofran Injection IVPB Q6H PRN NAUSEA Oxycodone HCl 5 mg 01/24/17 16:00 01/26/17 11:32 Roxicodone - PO 5 mg Q4H PRN Administration PAIN Polyethylene Glycol 17 gm 01/25/17 10:00 01/26/17 11:21 Miralax (For Daily Use) - PO Not Given DAILY [facility] 01/24/17 14:16 Urine Culture - Final Urine - Urine Clean Catch Escherichia Coli 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 01/24/17 15:27 Blood Culture - Preliminary Blood - Peripheral Venous NO GROWTH OBTAINED AFTER 24 HOURS, INCUBATION TO CONTINUE FOR 4 DAYS. Assessment: 81 year old female admitted with worsening chronic pain and UTI. Plan: 1. ESBL E coli - Stop Ceftriaxone - Start ertapenem, ID requested - Isolation precautions 2. Chronic pain -secondary to spinal stenosis -continue oxycodone 3. Spinal stenosis of Lumbar spine - Continue daily PT and gait training - Continue pain management - Neuro outpatient f/u repeat MRI L spine as outpt 4. Parkinson disease - Continue sinemet Visit type - Emergency Visit Emergency Visit: Yes ED Registration Date: 01/24/17 Care time: The patient presented to the Emergency Department on the above date and was hospitalized for further evaluation of their emergent condition. - New Patient This patient is new to me today: Yes Date on this admission: 01/26/17 - Critical Care Critical Care patient: No
[2017-01-26] MEDS ORDERED: ERTAPENEM SODIUM 1 GM in SODIUM CHLORIDE 50 ML IVPB SCH (13:45)
--- NOTE | 2017-01-26 14:32 | CON.ID ---
Consult Consult Specialty:: infectious diseases Reason for Consultation:: uti,weakness - History of Present Illness Chief Complaint: weakness History of Present Illness: 81 year old female who was admitted with worsening chronic pain. She has a history of spinal stenosis and Parkinsons with pain over the past 6 years. She says the pain is mainly in her spine and in her bilateral thighs.. 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 ...: No Musculoskeletal: Yes: Other (spinal stenosis) - Past Surgical History Past Surgical History: Yes: None - Alcohol/Substance Use Hx Alcohol Use: No History of Substance Use: reports: None - Smoking History Smoking history: Former smoker Have you smoked in the past 12 months: No Aproximately how many cigarettes per day: 0 - Social History ADL: Family Assistance History of Recent Travel: No Home Medications - Allergies Allergies/Adverse Reactions: Allergies Allergy/AdvReac Type Severity Reaction Status Date / Time No Known Allergies Allergy Verified 01/24/17 10:34 - Home Medications Home Medications: Ambulatory Orders Carbidopa/Levodopa 25/100 [Sinemet 25/100 -] 1 each PO TID 12/28/16 Alprazolam [Xanax] 0.25 mg PO BID PRN 01/24/17 Tramadol HCl 50 mg PO PRN PRN 01/24/17 Family Disease History - Family Disease History Family Disease History: Other: Mother (rheumatoid arthritis) Review of Systems - Review of Systems Constitutional: reports: Weakness Eyes: reports: No Symptoms HENT: reports: No Symptoms Neck: reports: No Symptoms Cardiovascular: reports: No Symptoms Respiratory: reports: No Symptoms Gastrointestinal: reports: No Symptoms Musculoskeletal: reports: Muscle Weakness Integumentary: reports: No Symptoms Neurological: reports: No Symptoms Endocrine: reports: No Symptoms Hematology/Lymphatic: reports: No Symptoms Psychiatric: reports: No Symptoms Physical Exam Vital Signs: Vital Signs Temperature 98.9 F 01/26/17 09:00 Pulse Rate 82 01/26/17 09:00 Respiratory Rate 18 01/26/17 09:00 Blood Pressure 137/73 01/26/17 09:00 O2 Sat by Pulse Oximetry (%) 96 09/09/17 10:00 Constitutional: Yes: Calm, Mild Distress, Thin, Other Eyes: Yes: Conjunctiva Clear Cardiovascular: Yes: Regular Rate and Rhythm Respiratory: Yes: Regular, CTA Bilaterally Gastrointestinal: Yes: Normal Bowel Sounds, Soft Musculoskeletal: Yes: Other Extremities: Yes: Other Neurological: Yes: Alert, Oriented Psychiatric: Yes: Alert Labs: CBC, BMP 01/26/17 07:35 01/26/17 07:35 Assessment/Plan Problem List - Problems (1) UTI (urinary tract infection) Code(s): N39.0 - URINARY TRACT INFECTION, SITE NOT SPECIFIED Qualifiers: Urinary tract infection type: acute cystitis Hematuria presence: without hematuria Qualified Code(s): N30.00 - Acute cystitis without hematuria (2) Chronic pain Code(s): G89.29 - OTHER CHRONIC PAIN Qualifiers: Chronic pain type: chronic pain syndrome Qualified Code(s): G89.4 - Chronic pain syndrome (3) Spinal stenosis Code(s): M48.00 - SPINAL STENOSIS, SITE UNSPECIFIED Qualifiers: Spinal region: lumbosacral Qualified Code(s): M48.07 - Spinal stenosis, lumbosacral region (4) Parkinson disease Code(s): G20 - PARKINSON'S DISEASE patient was started on rocaphin the cx show esbl plan i am going to stop ceftriaxone will switch to ertapenam discussed with daughter nutrition
[2017-01-27] MEDS: CARBIDOPA/LEVODOPA 25/100 TABLET (FP) PO SCH ×3 (06:22→21:58)
[2017-01-27 08:36] LABS: ANION GAP 11 (8-16); CALCIUM 8.3 mg/dL (8.5-10.1); CO2 24 mmol/L (21-32); CREATININE 0.8 mg/dL (0.55-1.02); GLUCOSE,RANDOM 82 mg/dL (74-106)
[2017-01-27] MEDS ORDERED: PT OWN MED DRAWER 7, Y5N ONE ×2 (10:27→11:05)
[2017-01-27] MEDS: DOCUSATE SODIUM 100 MG CAPSULE (FP) PO SCH ×2 (10:35→22:00)
[2017-01-27] MEDS: LACTOBACILLUS ACIDOPHILUS 1 EACH TAB (FP) PO SCH (10:35)
[2017-01-27] MEDS: POLYETHYLENE GLYCOL 3350 119 GM BTL PO SCH (10:36)
[2017-01-27] MEDS: ENOXAPARIN NA (PORCINE) 40 MG/0.4 ML DISP.SYRIN SQ SCH (10:36)
[2017-01-27] MEDS: ERTAPENEM SODIUM 1 GM in SODIUM CHLORIDE 50 ML IVPB SCH (10:36)
--- NOTE | 2017-01-27 14:12 | PN ---
Progress Note, Physician History of Present Illness: stable no new issues - Current Medication List Current Medications: Active Medications Acetaminophen (Tylenol -) 650 mg PO Q4H PRN PRN Reason: FEVER OR PAIN Alprazolam (Xanax -) 0.25 mg PO Q8H PRN PRN Reason: ANXIETY Last Admin: 01/26/17 21:24 Dose: 0.25 mg Carbidopa/Levodopa (Sinemet 25/100 -) 1 each PO TID [facility] Last Admin: 01/27/17 13:54 Dose: 1 each Docusate Sodium (Colace -) 100 mg PO BID [facility] Last Admin: 01/27/17 10:35 Dose: 100 mg Enoxaparin Sodium (Lovenox -) 40 mg SQ DAILY [facility] Last Admin: 01/27/17 10:36 Dose: 40 mg Sodium Chloride (Normal Saline -) 1,000 mls @ 75 mls/hr IV ASDIR [facility] Last Admin: 01/26/17 16:22 Dose: 75 mls/hr Ertapenem 1 gm/ Sodium (Chloride) 50 mls @ 100 mls/hr IVPB DAILY [facility] PRN Reason: Protocol Last Admin: 01/27/17 10:36 Dose: 100 mls/hr Lactobacillus Acidophilus (Bacid -) 1 tab PO DAILY [facility] Last Admin: 01/27/17 10:35 Dose: 1 tab Ondansetron HCl (Zofran Injection) 4 mg IVPB Q6H PRN PRN Reason: NAUSEA Oxycodone HCl (Roxicodone -) 5 mg PO Q4H PRN PRN Reason: PAIN Last Admin: 01/26/17 11:32 Dose: 5 mg Polyethylene Glycol (Miralax (For Daily Use) -) 17 gm PO DAILY [facility] Last Admin: 01/27/17 10:36 Dose: Not Given - Objective Vital Signs: Vital Signs Temperature 98.1 F 01/27/17 14:00 Pulse Rate 90 01/27/17 14:00 Respiratory Rate 20 01/27/17 14:00 Blood Pressure 149/88 01/27/17 14:00 O2 Sat by Pulse Oximetry (%) 96 01/26/17 21:00 Constitutional: Yes: No Distress, Calm, Thin Cardiovascular: Yes: Regular Rate and Rhythm Respiratory: Yes: Regular, CTA Bilaterally Gastrointestinal: Yes: Normal Bowel Sounds, Soft Musculoskeletal: Yes: Other Extremities: Yes: Other Neurological: Yes: Alert, Oriented Psychiatric: Yes: Alert, Oriented Labs: CBC, BMP 01/26/17 07:35 01/27/17 06:45 Assessment/Plan Problem List - Problems (1) UTI (urinary tract infection) Code(s): N39.0 - URINARY TRACT INFECTION, SITE NOT SPECIFIED Qualifiers: Urinary tract infection type: acute cystitis Hematuria presence: without hematuria Qualified Code(s): N30.00 - Acute cystitis without hematuria (2) Chronic pain Code(s): G89.29 - OTHER CHRONIC PAIN Qualifiers: Chronic pain type: chronic pain syndrome Qualified Code(s): G89.4 - Chronic pain syndrome (3) Spinal stenosis Code(s): M48.00 - SPINAL STENOSIS, SITE UNSPECIFIED Qualifiers: Spinal region: lumbosacral Qualified Code(s): M48.07 - Spinal stenosis, lumbosacral region (4) Parkinson disease Code(s): G20 - PARKINSON'S DISEASE patient was started on rocaphin the cx show esbl plan continue abx nutrition
--- NOTE | 2017-01-27 15:24 | PN ---
Physical Exam: SUBJECTIVE: Patient seen and examined, Sitting comfortably in bed. States first time in 6 years she has been pain free. OBJECTIVE: Vital Signs Period Temp Pulse Resp BP Sys/Tee Pulse Ox Last 24 Hr 96.8 F-99.7 F 81-93 18-20 149-177/84-94 96 GENERAL: The patient is awake, alert, and fully oriented, in no acute distress. HEAD: Normal with no signs of trauma. LUNGS: Breath sounds equal, clear to auscultation bilaterally, no wheezes, no crackles, no accessory muscle use. HEART: Regular rate and rhythm, S1, S2 without murmur, rub or gallop. ABDOMEN: Soft, nontender, nondistended, normoactive bowel sounds, no guarding, no rebound. EXTREMITIES: 2+ pulses, warm, well-perfused, no edema. NEUROLOGICAL: Cranial nerves II through XII grossly intact. Normal speech, gait not observed. Laboratory Results - last 24 hr 01/27/17 06:45 Sodium 143 Potassium 3.5 Chloride 108 H Carbon Dioxide 24 Anion Gap 11 BUN 17 Creatinine 0.8 Random Glucose 82 Calcium 8.3 L Active Medications Generic Name Dose Route Start Last Admin Trade Name Freq PRN Reason Stop Dose Admin Acetaminophen 650 mg 01/24/17 16:00 Tylenol - PO Q4H PRN FEVER OR PAIN Alprazolam 0.25 mg 01/24/17 16:00 01/26/17 21:24 Xanax - PO 0.25 mg Q8H PRN Administration ANXIETY Carbidopa/Levodopa 1 each 01/24/17 22:00 01/27/17 13:54 Sinemet 25/100 - PO 1 each TID [facility] Administration Docusate Sodium 100 mg 01/24/17 22:00 01/27/17 10:35 Colace - PO 100 mg BID [facility] Administration Enoxaparin Sodium 40 mg 01/25/17 10:00 01/27/17 10:36 Lovenox - SQ 40 mg DAILY [facility] Administration Sodium Chloride 1,000 mls @ 75 mls/hr 01/24/17 16:00 01/26/17 16:22 Normal Saline - IV 75 mls/hr ASDIR [facility] Administration Ertapenem 1 gm/ Sodium 50 mls @ 100 mls/hr 01/27/17 10:00 01/27/17 10:36 Chloride IVPB 100 mls/hr DAILY [facility] Administration Protocol Lactobacillus Acidophilus 1 tab 01/25/17 10:00 01/27/17 10:35 Bacid - PO 1 tab DAILY [facility] Administration Ondansetron HCl 4 mg 01/24/17 16:00 Zofran Injection IVPB Q6H PRN NAUSEA Oxycodone HCl 5 mg 01/24/17 16:00 01/26/17 11:32 Roxicodone - PO 5 mg Q4H PRN Administration PAIN Polyethylene Glycol 17 gm 01/25/17 10:00 01/27/17 10:36 Miralax (For Daily Use) - PO Not Given DAILY [facility] ASSESSMENT/PLAN Assessment: 81 year old female admitted with worsening chronic pain and UTI. 1. ESBL E coli UTI - afebrile, leukocytosis resolved - continue ertapenem - ID following 2. Chronic pain secondary to spinal stenosis -continue oxycodone PRN 3. Spinal stenosis of Lumbar spine - Continue daily PT and gait training - Continue pain management - Neuro outpatient f/u repeat MRI L spine as outpt 4. Parkinson disease - Continue sinemet DVT prophylaxis: lovenox, oob, ambulation Visit type - Emergency Visit Emergency Visit: Yes ED Registration Date: 01/24/17 Care time: The patient presented to the Emergency Department on the above date and was hospitalized for further evaluation of their emergent condition. - New Patient This patient is new to me today: Yes Date on this admission: 01/27/17 - Critical Care Critical Care patient: No
[2017-01-27] MEDS: SODIUM CHLORIDE 1,000 ML IV SCH (18:43)
[2017-01-27] MEDS: ALPRAZolam 0.25 MG TABLET PO PRN (23:03)
[2017-01-28] MEDS: CARBIDOPA/LEVODOPA 25/100 TABLET (FP) PO SCH ×3 (06:37→21:49)
[2017-01-28] MEDS: ACETAMINOPHEN 325 MG TABLET (FP) PO PRN (06:38)
[2017-01-28 08:03] LABS: BASOPHIL 0.5 % (0-2.0); EOSINOPHIL 2.3 % (0-4.5); MCH 33.4 pg (25.7-33.7); MCHC 33.9 g/dl (32.0-36.0); MEAN CELL VOLUME 98.5 fl (80-96); MEAN PLT VOLUME 7.5 fl (7.5-11.1); NEUTROPHILS 61.5 % (42.8-82.8); PLATELET COUNT 154 K/MM3 (134-434); RDW 13.1 % (11.6-15.6); WHITE BLOOD COUNT 8.1 K/mm3 (4.0-10.0)
[2017-01-28 08:22] LABS: ALBUMIN 3.5 g/dl (3.4-5.0); ANION GAP 12 (8-16); CALCIUM 8.2 mg/dL (8.5-10.1); CO2 24 mmol/L (21-32); GLUCOSE,RANDOM 82 mg/dL (74-106); MAGNESIUM 1.9 mg/dL (1.8-2.4)
[2017-01-28 08:26] LABS: ALK PHOS 72 U/L (45-117); BILIRUBIN,TOTAL 1.1 mg/dL (0.2-1.0); CREATININE 0.7 mg/dL (0.55-1.02); SGOT/AST 15 U/L (15-37); SGPT/ALT 10 U/L (12-78); TOT PROT 5.9 g/dl (6.4-8.2)
--- NOTE | 2017-01-28 09:54 | PN ---
Progress Note (short form) - Note Progress Note: Neurology History of Present Illness 81-year-old female brought in by daughter for evaluation of worsening low back pain for the past 6 years now associated with decreased sleep and decreased appetite secondary to the pain unrelieved by tramadol. Patient states was followed by Dr. Shoemaker but has not followed up with a new doctor since then and is otherwise seen by her primary care physician Dr. Mcrae. Patient has no urinary complaints, bowel complaints, skin complaints, difficulty breathing, chest pain, radiation of pain. 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 She was comfortable appearing in bed without significant discomfort on pain medication. She reports history of Parkinson's Diease as well with slow movements and on Sinemet. She has been having falls but did not have recent physical therapy. Of note, she has a cane but is unsure how to use it correctly. Over the weekend, no significant neurologic issues and looks more comfortable. Active Medications Acetaminophen (Tylenol -) 650 mg PO Q4H PRN PRN Reason: FEVER OR PAIN Last Admin: 01/28/17 06:38 Dose: 650 mg Alprazolam (Xanax -) 0.25 mg PO Q8H PRN PRN Reason: ANXIETY Last Admin: 01/27/17 23:03 Dose: 0.25 mg Carbidopa/Levodopa (Sinemet 25/100 -) 1 each PO TID [facility] Last Admin: 01/28/17 06:37 Dose: 1 each Docusate Sodium (Colace -) 100 mg PO BID [facility] Last Admin: 01/27/17 22:00 Dose: Not Given Enoxaparin Sodium (Lovenox -) 40 mg SQ DAILY [facility] Last Admin: 01/27/17 10:36 Dose: 40 mg Sodium Chloride (Normal Saline -) 1,000 mls @ 75 mls/hr IV ASDIR [facility] Last Admin: 01/27/17 18:43 Dose: Not Given Ertapenem 1 gm/ Sodium (Chloride) 50 mls @ 100 mls/hr IVPB DAILY [facility] PRN Reason: Protocol Last Admin: 01/27/17 10:36 Dose: 100 mls/hr Lactobacillus Acidophilus (Bacid -) 1 tab PO DAILY [facility] Last Admin: 01/27/17 10:35 Dose: 1 tab Ondansetron HCl (Zofran Injection) 4 mg IVPB Q6H PRN PRN Reason: NAUSEA Oxycodone HCl (Roxicodone -) 5 mg PO Q4H PRN PRN Reason: PAIN Last Admin: 01/26/17 11:32 Dose: 5 mg Polyethylene Glycol (Miralax (For Daily Use) -) 17 gm PO DAILY [facility] Last Admin: 01/27/17 10:36 Dose: Not Given *Physical Exam Vital Signs Temperature 98.2 F 01/28/17 06:49 Pulse Rate 74 01/28/17 06:49 Respiratory Rate 20 01/28/17 06:49 Blood Pressure 169/89 01/28/17 06:49 O2 Sat by Pulse Oximetry (%) 96 01/27/17 21:00 - Physical Exam General Appearance: Yes: Nourished, Appropriately Dressed. No: Apparent Distress HEENT: negative: Pale Conjunctivae Neck: positive: Supple Respiratory/Chest: positive: Lungs Clear, Normal Breath Sounds. negative: Respiratory Distress, Accessory Muscle Use Cardiovascular: positive: Regular Rhythm, Regular Rate. negative: Murmur Gastrointestinal/Abdominal: positive: Soft. negative: Tenderness Musculoskeletal: negative: CVA Tenderness, Vertebral Tenderness, Other (no posterior pelvis pain (although she points to her left posterior iliac crest) ) Extremity: positive: Normal Capillary Refill. negative: Pedal Edema Integumentary: positive: Dry, Warm, Pale Neurologic: CN intact, no facial droop, sensory normal, strength 5/5 in b/l lower extremities, finger to nose normal CBCD WBC 8.1 K/mm3 (4.0-10.0) 01/28/17 07:15 RBC 3.57 M/mm3 (3.60-5.2) L 01/28/17 07:15 Hgb 11.9 GM/dL (10.7-15.3) 01/28/17 07:15 Hct 35.2 % (32.4-45.2) 01/28/17 07:15 MCV 98.5 fl (80-96) H 01/28/17 07:15 MCHC 33.9 g/dl (32.0-36.0) 01/28/17 07:15 RDW 13.1 % (11.6-15.6) 01/28/17 07:15 Plt Count 154 K/MM3 (134-434) 01/28/17 07:15 MPV 7.5 fl (7.5-11.1) 01/28/17 07:15 CMP Sodium 144 mmol/L (136-145) 01/28/17 07:15 Potassium 3.5 mmol/L (3.5-5.1) 01/28/17 07:15 Chloride 108 mmol/L (98-107) H 01/28/17 07:15 Carbon Dioxide 24 mmol/L (21-32) 01/28/17 07:15 Anion Gap 12 (8-16) 01/28/17 07:15 BUN 20 mg/dL (7-18) H 01/28/17 07:15 Creatinine 0.7 mg/dL (0.55-1.02) 01/28/17 07:15 Creat Clearance w eGFR > 60 (>60) 01/28/17 07:15 Calcium 8.2 mg/dL (8.5-10.1) L 01/28/17 07:15 Total Bilirubin 1.1 mg/dL (0.2-1.0) H D 01/28/17 07:15 AST 15 U/L (15-37) D 01/28/17 07:15 ALT 10 U/L (12-78) L 01/28/17 07:15 Alkaline Phosphatase 72 U/L (45-117) 01/28/17 07:15 Total Protein 5.9 g/dl (6.4-8.2) L 01/28/17 07:15 Albumin 3.5 g/dl (3.4-5.0) 01/28/17 07:15 MRI L spine reviewed Medical Decision Making 81-year-old female brought in by daughter for evaluation of worsening low back pain for the past 6 years now associated with decreased sleep and decreased appetite secondary to the pain unrelieved by tramadol. Stenosis in the lumbar spine as per previous imaging including an MRI which I reviewed from May. Can repeat MRI L spine as outpatient if needed She was comfortable appearing in bed without significant discomfort. Continue Abx for UTI Continue sinemet for Parkinson's Remains on Roxicodone for pain Monitor for sedation or mental status changes with opiod medication, taper as able Would benefit from physical therapy and gait training. Will need to use cane more effective Fall precautions discussed
[2017-01-28] MEDS: ERTAPENEM SODIUM 1 GM in SODIUM CHLORIDE 50 ML IVPB SCH (11:36)
[2017-01-28] MEDS: DOCUSATE SODIUM 100 MG CAPSULE (FP) PO SCH ×2 (11:37→21:49)
[2017-01-28] MEDS: LACTOBACILLUS ACIDOPHILUS 1 EACH TAB (FP) PO SCH (11:37)
[2017-01-28] MEDS: ENOXAPARIN NA (PORCINE) 40 MG/0.4 ML DISP.SYRIN SQ SCH (11:37)
[2017-01-28] MEDS: POLYETHYLENE GLYCOL 3350 119 GM BTL PO SCH (11:37)
--- NOTE | 2017-01-28 13:04 | PN ---
Progress Note, Physician History of Present Illness: stable dong well daughter in room patient says she is starting to feel better - Current Medication List Current Medications: Active Medications Acetaminophen (Tylenol -) 650 mg PO Q4H PRN PRN Reason: FEVER OR PAIN Last Admin: 01/28/17 06:38 Dose: 650 mg Alprazolam (Xanax -) 0.25 mg PO Q8H PRN PRN Reason: ANXIETY Last Admin: 01/27/17 23:03 Dose: 0.25 mg Carbidopa/Levodopa (Sinemet 25/100 -) 1 each PO TID [facility] Last Admin: 01/28/17 06:37 Dose: 1 each Docusate Sodium (Colace -) 100 mg PO BID [facility] Last Admin: 01/28/17 11:37 Dose: Not Given Enoxaparin Sodium (Lovenox -) 40 mg SQ DAILY [facility] Last Admin: 01/28/17 11:37 Dose: 40 mg Sodium Chloride (Normal Saline -) 1,000 mls @ 75 mls/hr IV ASDIR [facility] Last Admin: 01/27/17 18:43 Dose: Not Given Ertapenem 1 gm/ Sodium (Chloride) 50 mls @ 100 mls/hr IVPB DAILY [facility] PRN Reason: Protocol Last Admin: 01/28/17 11:36 Dose: 100 mls/hr Lactobacillus Acidophilus (Bacid -) 1 tab PO DAILY [facility] Last Admin: 01/28/17 11:37 Dose: 1 tab Ondansetron HCl (Zofran Injection) 4 mg IVPB Q6H PRN PRN Reason: NAUSEA Oxycodone HCl (Roxicodone -) 5 mg PO Q4H PRN PRN Reason: PAIN Last Admin: 01/26/17 11:32 Dose: 5 mg Polyethylene Glycol (Miralax (For Daily Use) -) 17 gm PO DAILY [facility] Last Admin: 01/28/17 11:37 Dose: Not Given - Objective Vital Signs: Vital Signs Temperature 96.4 F L 01/28/17 10:12 Pulse Rate 78 01/28/17 10:12 Respiratory Rate 18 01/28/17 10:12 Blood Pressure 144/74 01/28/17 10:12 O2 Sat by Pulse Oximetry (%) 96 01/27/17 21:00 Constitutional: Yes: No Distress, Calm, Thin Cardiovascular: Yes: Regular Rate and Rhythm Respiratory: Yes: Regular, CTA Bilaterally Gastrointestinal: Yes: Normal Bowel Sounds, Soft Musculoskeletal: Yes: WNL Extremities: Yes: WNL Neurological: Yes: Alert, Oriented Psychiatric: Yes: Alert Labs: CBC, BMP 01/28/17 07:15 01/28/17 07:15 Assessment/Plan Problem List - Problems (1) UTI (urinary tract infection) Code(s): N39.0 - URINARY TRACT INFECTION, SITE NOT SPECIFIED Qualifiers: Urinary tract infection type: acute cystitis Hematuria presence: without hematuria Qualified Code(s): N30.00 - Acute cystitis without hematuria (2) Chronic pain Code(s): G89.29 - OTHER CHRONIC PAIN Qualifiers: Chronic pain type: chronic pain syndrome Qualified Code(s): G89.4 - Chronic pain syndrome (3) Spinal stenosis Code(s): M48.00 - SPINAL STENOSIS, SITE UNSPECIFIED Qualifiers: Spinal region: lumbosacral Qualified Code(s): M48.07 - Spinal stenosis, lumbosacral region (4) Parkinson disease Code(s): G20 - PARKINSON'S DISEASE patient was started on rocaphin the cx show esbl plan continue abx nutrition patient duration will be for 14 days rest as per primary
--- NOTE | 2017-01-28 15:03 | PN ---
Progress Note, Physician Chief Complaint: Ms Colbert says she feels tired but is without pain. Denies cp, sob, n/v. Subjective is a bit vague as patient says she is currently pain free but her pain is not controlled. however when asked if she is having pain she says no and does not clarify as to what she means about her pain not being controlled - Current Medication List Current Medications: Active Medications Acetaminophen (Tylenol -) 650 mg PO Q4H PRN PRN Reason: FEVER OR PAIN Last Admin: 01/28/17 06:38 Dose: 650 mg Alprazolam (Xanax -) 0.25 mg PO Q8H PRN PRN Reason: ANXIETY Last Admin: 01/27/17 23:03 Dose: 0.25 mg Carbidopa/Levodopa (Sinemet 25/100 -) 1 each PO TID [facility] Last Admin: 01/28/17 06:37 Dose: 1 each Docusate Sodium (Colace -) 100 mg PO BID [facility] Last Admin: 01/28/17 11:37 Dose: Not Given Enoxaparin Sodium (Lovenox -) 40 mg SQ DAILY [facility] Last Admin: 01/28/17 11:37 Dose: 40 mg Sodium Chloride (Normal Saline -) 1,000 mls @ 75 mls/hr IV ASDIR [facility] Last Admin: 01/27/17 18:43 Dose: Not Given Ertapenem 1 gm/ Sodium (Chloride) 50 mls @ 100 mls/hr IVPB DAILY [facility] PRN Reason: Protocol Last Admin: 01/28/17 11:36 Dose: 100 mls/hr Lactobacillus Acidophilus (Bacid -) 1 tab PO DAILY [facility] Last Admin: 01/28/17 11:37 Dose: 1 tab Ondansetron HCl (Zofran Injection) 4 mg IVPB Q6H PRN PRN Reason: NAUSEA Oxycodone HCl (Roxicodone -) 5 mg PO Q4H PRN PRN Reason: PAIN Last Admin: 01/26/17 11:32 Dose: 5 mg Polyethylene Glycol (Miralax (For Daily Use) -) 17 gm PO DAILY [facility] Last Admin: 01/28/17 11:37 Dose: Not Given - Objective Vital Signs: Vital Signs Temperature 35.8 C L 01/28/17 10:12 Pulse Rate 78 09/11/17 10:12 Respiratory Rate 18 01/28/17 10:12 Blood Pressure 144/74 01/28/17 10:12 O2 Sat by Pulse Oximetry (%) 96 01/27/17 21:00 Constitutional: Yes: Well Nourished, No Distress, Calm Cardiovascular: Yes: Regular Rate and Rhythm. No: Gallop, Murmur, Rub Respiratory: Yes: Regular, CTA Bilaterally. No: Rales, Rhonchi, Wheezes Gastrointestinal: Yes: Normal Bowel Sounds, Soft. No: Distention, Tenderness Extremities: Yes: WNL Edema: No Labs: CBC, BMP 01/28/17 07:15 01/28/17 07:15 Problem List - Problems (1) UTI (urinary tract infection) Code(s): N39.0 - URINARY TRACT INFECTION, SITE NOT SPECIFIED Qualifiers: Urinary tract infection type: acute cystitis Hematuria presence: without hematuria Qualified Code(s): N30.00 - Acute cystitis without hematuria (2) Chronic pain Code(s): G89.29 - OTHER CHRONIC PAIN Qualifiers: Chronic pain type: chronic pain syndrome Qualified Code(s): G89.4 - Chronic pain syndrome (3) Spinal stenosis Code(s): M48.00 - SPINAL STENOSIS, SITE UNSPECIFIED Qualifiers: Spinal region: lumbosacral Qualified Code(s): M48.07 - Spinal stenosis, lumbosacral region (4) Parkinson disease Code(s): G20 - PARKINSON'S DISEASE Assessment/Plan (1) UTI (urinary tract infection) Assessment/Plan: -urine cultures growing ESBL e coli -appreciate ID assistance -on ertapenem -will need 14 day course, will d/w Dr Harris but plan for PICC line and SNF placement Code(s): N39.0 - URINARY TRACT INFECTION, SITE NOT SPECIFIED Qualifiers: Urinary tract infection type: acute cystitis Hematuria presence: without hematuria Qualified Code(s): N30.00 - Acute cystitis without hematuria (2) Chronic pain Assessment/Plan: -secondary to spinal stenosis -continue oxycodone -says pain is well controlled -does not desire oxycodone in the outpatient as has concerns about addiction -states takes tramadol once a day prior to coming in and that can be increased -however may need stronger pain medication Code(s): G89.29 - OTHER CHRONIC PAIN Qualifiers: Chronic pain type: chronic pain syndrome Qualified Code(s): G89.4 - Chronic pain syndrome (3) Spinal stenosis Assessment/Plan: -appreciate neurology and PT -continue pain management -continue outpatient neurology follow up -would benefit from SNF Code(s): M48.00 - SPINAL STENOSIS, SITE UNSPECIFIED Qualifiers: Spinal region: lumbosacral Qualified Code(s): M48.07 - Spinal stenosis, lumbosacral region (4) Parkinson disease Assessment/Plan: -continue sinemet -neurology consulted -outpatient follow up Code(s): G20 - PARKINSON'S DISEASE Dispo -possible discharge in next 24-48 hours to SNF for PT and antibiotics
[2017-01-28] MEDS: ALPRAZolam 0.25 MG TABLET PO PRN (15:36)
[2017-01-28] MEDS: SODIUM CHLORIDE 1,000 ML IV SCH (18:50)
[2017-01-29] MEDS: oxyCODONE HCL 5 MG TABLET PO PRN (04:02)
[2017-01-29] MEDS: SODIUM CHLORIDE 1,000 ML IV SCH ×2 (04:09→22:55)
[2017-01-29] MEDS: CARBIDOPA/LEVODOPA 25/100 TABLET (FP) PO SCH ×3 (06:25→22:55)
[2017-01-29 07:25] LABS: BASOPHIL 0.4 % (0-2.0); EOSINOPHIL 1.8 % (0-4.5); MCH 33.4 pg (25.7-33.7); MCHC 34.1 g/dl (32.0-36.0); MEAN CELL VOLUME 97.8 fl (80-96); MEAN PLT VOLUME 7.1 fl (7.5-11.1); NEUTROPHILS 64.9 % (42.8-82.8); PLATELET COUNT 148 K/MM3 (134-434)
[2017-01-29 07:56] LABS: ANION GAP 7 (8-16); CALCIUM 8.3 mg/dL (8.5-10.1); CO2 27 mmol/L (21-32); CREATININE 0.7 mg/dL (0.55-1.02); GLUCOSE,RANDOM 95 mg/dL (74-106); MAGNESIUM 1.8 mg/dL (1.8-2.4); PHOSPHOROUS 2.8 mg/dL (2.5-4.9)
[2017-01-29] MEDS: DOCUSATE SODIUM 100 MG CAPSULE (FP) PO SCH ×2 (09:54→22:55)
[2017-01-29] MEDS: LACTOBACILLUS ACIDOPHILUS 1 EACH TAB (FP) PO SCH (09:54)
[2017-01-29] MEDS: ERTAPENEM SODIUM 1 GM in SODIUM CHLORIDE 50 ML IVPB SCH (09:55)
[2017-01-29] MEDS: ENOXAPARIN NA (PORCINE) 40 MG/0.4 ML DISP.SYRIN SQ SCH (09:55)
[2017-01-29] MEDS: POLYETHYLENE GLYCOL 3350 119 GM BTL PO SCH ×2 (10:00→10:01)
--- NOTE | 2017-01-29 10:49 | PN ---
Progress Note (short form) - Note Progress Note: Neurology History of Present Illness 81-year-old female brought in by daughter for evaluation of worsening low back pain for the past 6 years now associated with decreased sleep and decreased appetite secondary to the pain unrelieved by tramadol. Patient states was followed by Dr. Shoemaker but has not followed up with a new doctor since then and is otherwise seen by her primary care physician Dr. Mcrae. Patient has no urinary complaints, bowel complaints, skin complaints, difficulty breathing, chest pain, radiation of pain. 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 She was comfortable appearing in bed without significant discomfort on pain medication. She reports history of Parkinson's Diease as well with slow movements and on Sinemet. She has been having falls but did not have recent physical therapy. Of note, she has a cane but is unsure how to use it correctly. Over the weekend, no significant neurologic issues and looks more comfortable. No specific complaints at this time. Spoke to nurse in detail and patient has been calm and cooperative. Active Medications Generic Name Dose Route Start Last Admin Trade Name Freq PRN Reason Stop Dose Admin Acetaminophen 650 mg 01/24/17 16:00 01/28/17 06:38 Tylenol - PO 650 mg Q4H PRN Administration FEVER OR PAIN Alprazolam 0.25 mg 01/24/17 16:00 01/28/17 15:36 Xanax - PO 0.25 mg Q8H PRN Administration ANXIETY Carbidopa/Levodopa 1 each 01/24/17 22:00 01/29/17 06:25 Sinemet 25/100 - PO 1 each TID [facility] Administration Docusate Sodium 100 mg 01/24/17 22:00 01/29/17 09:54 Colace - PO 100 mg BID [facility] Administration Enoxaparin Sodium 40 mg 01/25/17 10:00 01/29/17 09:55 Lovenox - SQ 40 mg DAILY [facility] Administration Sodium Chloride 1,000 mls @ 75 mls/hr 01/24/17 16:00 01/29/17 04:09 Normal Saline - IV 75 mls/hr ASDIR [facility] Administration Ertapenem 1 gm/ Sodium 50 mls @ 100 mls/hr 01/27/17 10:00 01/29/17 09:55 Chloride IVPB 100 mls/hr DAILY [facility] Administration Protocol Lactobacillus Acidophilus 1 tab 01/25/17 10:00 01/29/17 09:54 Bacid - PO 1 tab DAILY [facility] Administration Ondansetron HCl 4 mg 01/24/17 16:00 Zofran Injection IVPB Q6H PRN NAUSEA Oxycodone HCl 5 mg 01/24/17 16:00 01/29/17 04:02 Roxicodone - PO 5 mg Q4H PRN Administration PAIN Polyethylene Glycol 17 gm 01/25/17 10:00 01/29/17 10:01 Miralax (For Daily Use) - PO Not Given DAILY [facility] *Physical Exam Vital Signs Temperature 98 F 01/29/17 06:52 Pulse Rate 87 01/29/17 06:52 Respiratory Rate 20 01/29/17 06:52 Blood Pressure 156/81 01/28/17 17:22 O2 Sat by Pulse Oximetry (%) 97 01/28/17 21:00 - Physical Exam General Appearance: Yes: Nourished, Appropriately Dressed. No: Apparent Distress HEENT: negative: Pale Conjunctivae Neck: positive: Supple Respiratory/Chest: positive: Lungs Clear, Normal Breath Sounds. negative: Respiratory Distress, Accessory Muscle Use Cardiovascular: positive: Regular Rhythm, Regular Rate. negative: Murmur Gastrointestinal/Abdominal: positive: Soft. negative: Tenderness Musculoskeletal: negative: CVA Tenderness, Vertebral Tenderness, Other (no posterior pelvis pain (although she points to her left posterior iliac crest) ) Extremity: positive: Normal Capillary Refill. negative: Pedal Edema Integumentary: positive: Dry, Warm, Pale Neurologic: CN intact, no facial droop, sensory normal, strength 5/5 in b/l lower extremities, finger to nose normal CBCD WBC 8.0 K/mm3 (4.0-10.0) 01/29/17 06:00 RBC 3.55 M/mm3 (3.60-5.2) L 01/29/17 06:00 Hgb 11.8 GM/dL (10.7-15.3) 01/29/17 06:00 Hct 34.7 % (32.4-45.2) 01/29/17 06:00 MCV 97.8 fl (80-96) H 01/29/17 06:00 MCHC 34.1 g/dl (32.0-36.0) 01/29/17 06:00 RDW 13.0 % (11.6-15.6) 01/29/17 06:00 Plt Count 148 K/MM3 (134-434) 01/29/17 06:00 MPV 7.1 fl (7.5-11.1) L 01/29/17 06:00 CMP Sodium 144 mmol/L (136-145) 01/29/17 06:00 Potassium 3.5 mmol/L (3.5-5.1) 01/29/17 06:00 Chloride 110 mmol/L (98-107) H 01/29/17 06:00 Carbon Dioxide 27 mmol/L (21-32) 01/29/17 06:00 Anion Gap 7 (8-16) L 01/29/17 06:00 BUN 18 mg/dL (7-18) 01/29/17 06:00 Creatinine 0.7 mg/dL (0.55-1.02) 01/29/17 06:00 Creat Clearance w eGFR > 60 (>60) 01/28/17 07:15 Calcium 8.3 mg/dL (8.5-10.1) L 01/29/17 06:00 Total Bilirubin 1.1 mg/dL (0.2-1.0) H D 01/28/17 07:15 AST 15 U/L (15-37) D 01/28/17 07:15 ALT 10 U/L (12-78) L 01/28/17 07:15 Alkaline Phosphatase 72 U/L (45-117) 01/28/17 07:15 Total Protein 5.9 g/dl (6.4-8.2) L 01/28/17 07:15 Albumin 3.5 g/dl (3.4-5.0) 01/28/17 07:15 MRI L spine reviewed Medical Decision Making 81-year-old female brought in by daughter for evaluation of worsening low back pain for the past 6 years now associated with decreased sleep and decreased appetite secondary to the pain unrelieved by tramadol. Stenosis in the lumbar spine as per previous imaging including an MRI which I reviewed from May. Can repeat MRI L spine as outpatient if needed She was comfortable appearing in bed without significant discomfort. Continue Abx for UTI Continue sinemet for Parkinson's Remains on Roxicodone for pain Monitor for sedation or mental status changes with opiod medication, taper as able Would benefit from physical therapy and gait training. Will need to use cane more effective Fall precautions discussed
--- NOTE | 2017-01-29 11:55 | PN ---
Progress Note, Physician Chief Complaint: Ms Colbert says she feels well. Currently without back pain. No cp, sob, n/v. - Current Medication List Current Medications: Active Medications Acetaminophen (Tylenol -) 650 mg PO Q4H PRN PRN Reason: FEVER OR PAIN Last Admin: 01/28/17 06:38 Dose: 650 mg Alprazolam (Xanax -) 0.25 mg PO Q8H PRN PRN Reason: ANXIETY Last Admin: 01/28/17 15:36 Dose: 0.25 mg Carbidopa/Levodopa (Sinemet 25/100 -) 1 each PO TID [facility] Last Admin: 01/29/17 06:25 Dose: 1 each Docusate Sodium (Colace -) 100 mg PO BID [facility] Last Admin: 01/29/17 09:54 Dose: 100 mg Enoxaparin Sodium (Lovenox -) 40 mg SQ DAILY [facility] Last Admin: 01/29/17 09:55 Dose: 40 mg Sodium Chloride (Normal Saline -) 1,000 mls @ 75 mls/hr IV ASDIR [facility] Last Admin: 01/29/17 04:09 Dose: 75 mls/hr Ertapenem 1 gm/ Sodium (Chloride) 50 mls @ 100 mls/hr IVPB DAILY [facility] PRN Reason: Protocol Last Admin: 01/29/17 09:55 Dose: 100 mls/hr Lactobacillus Acidophilus (Bacid -) 1 tab PO DAILY [facility] Last Admin: 01/29/17 09:54 Dose: 1 tab Ondansetron HCl (Zofran Injection) 4 mg IVPB Q6H PRN PRN Reason: NAUSEA Oxycodone HCl (Roxicodone -) 5 mg PO Q4H PRN PRN Reason: PAIN Last Admin: 01/29/17 04:02 Dose: 5 mg Polyethylene Glycol (Miralax (For Daily Use) -) 17 gm PO DAILY [facility] Last Admin: 01/29/17 10:01 Dose: Not Given - Objective Vital Signs: Vital Signs Temperature 36.6 C 01/29/17 06:52 Pulse Rate 87 01/29/17 06:52 Respiratory Rate 20 01/29/17 06:52 Blood Pressure 156/81 01/28/17 17:22 O2 Sat by Pulse Oximetry (%) 97 01/28/17 21:00 Constitutional: Yes: Well Nourished, No Distress, Calm Cardiovascular: Yes: Regular Rate and Rhythm. No: Gallop, Murmur, Rub Respiratory: Yes: Regular, CTA Bilaterally. No: Rales, Rhonchi, Wheezes Gastrointestinal: Yes: Normal Bowel Sounds, Soft. No: Distention, Tenderness Extremities: Yes: WNL Edema: No Labs: CBC, BMP 01/29/17 06:00 01/29/17 06:00 Problem List - Problems (1) UTI (urinary tract infection) Code(s): N39.0 - URINARY TRACT INFECTION, SITE NOT SPECIFIED Qualifiers: Urinary tract infection type: acute cystitis Hematuria presence: without hematuria Qualified Code(s): N30.00 - Acute cystitis without hematuria (2) Chronic pain Code(s): G89.29 - OTHER CHRONIC PAIN Qualifiers: Chronic pain type: chronic pain syndrome Qualified Code(s): G89.4 - Chronic pain syndrome (3) Spinal stenosis Code(s): M48.00 - SPINAL STENOSIS, SITE UNSPECIFIED Qualifiers: Spinal region: lumbosacral Qualified Code(s): M48.07 - Spinal stenosis, lumbosacral region (4) Parkinson disease Code(s): G20 - PARKINSON'S DISEASE Assessment/Plan (1) UTI (urinary tract infection) Assessment/Plan: -urine cultures growing ESBL e coli -appreciate ID assistance -on ertapenem, day 3 -needs 14 day total course of ertapenem Code(s): N39.0 - URINARY TRACT INFECTION, SITE NOT SPECIFIED Qualifiers: Urinary tract infection type: acute cystitis Hematuria presence: without hematuria Qualified Code(s): N30.00 - Acute cystitis without hematuria (2) Chronic pain Assessment/Plan: -secondary to spinal stenosis -continue oxycodone -says pain is well controlled Code(s): G89.29 - OTHER CHRONIC PAIN Qualifiers: Chronic pain type: chronic pain syndrome Qualified Code(s): G89.4 - Chronic pain syndrome (3) Spinal stenosis Assessment/Plan: -appreciate neurology and PT -continue pain management -continue outpatient neurology follow up -would benefit from SNF Code(s): M48.00 - SPINAL STENOSIS, SITE UNSPECIFIED Qualifiers: Spinal region: lumbosacral Qualified Code(s): M48.07 - Spinal stenosis, lumbosacral region (4) Parkinson disease Assessment/Plan: -continue sinemet -neurology consulted -outpatient follow up Code(s): G20 - PARKINSON'S DISEASE Dispo -plan for discharge to SNF -awaiting approval
--- NOTE | 2017-01-29 13:47 | PN ---
Progress Note, Physician History of Present Illness: stable dong well - Current Medication List Current Medications: Active Medications Acetaminophen (Tylenol -) 650 mg PO Q4H PRN PRN Reason: FEVER OR PAIN Last Admin: 01/28/17 06:38 Dose: 650 mg Alprazolam (Xanax -) 0.25 mg PO Q8H PRN PRN Reason: ANXIETY Last Admin: 01/28/17 15:36 Dose: 0.25 mg Carbidopa/Levodopa (Sinemet 25/100 -) 1 each PO TID [facility] Last Admin: 01/29/17 06:25 Dose: 1 each Docusate Sodium (Colace -) 100 mg PO BID [facility] Last Admin: 01/29/17 09:54 Dose: 100 mg Enoxaparin Sodium (Lovenox -) 40 mg SQ DAILY [facility] Last Admin: 01/29/17 09:55 Dose: 40 mg Sodium Chloride (Normal Saline -) 1,000 mls @ 75 mls/hr IV ASDIR [facility] Last Admin: 01/29/17 04:09 Dose: 75 mls/hr Ertapenem 1 gm/ Sodium (Chloride) 50 mls @ 100 mls/hr IVPB DAILY [facility] PRN Reason: Protocol Last Admin: 01/29/17 09:55 Dose: 100 mls/hr Lactobacillus Acidophilus (Bacid -) 1 tab PO DAILY [facility] Last Admin: 01/29/17 09:54 Dose: 1 tab Ondansetron HCl (Zofran Injection) 4 mg IVPB Q6H PRN PRN Reason: NAUSEA Oxycodone HCl (Roxicodone -) 5 mg PO Q4H PRN PRN Reason: PAIN Last Admin: 01/29/17 04:02 Dose: 5 mg Polyethylene Glycol (Miralax (For Daily Use) -) 17 gm PO DAILY [facility] Last Admin: 01/29/17 10:01 Dose: Not Given - Objective Vital Signs: Vital Signs Temperature 98 F 01/29/17 06:52 Pulse Rate 87 01/29/17 06:52 Respiratory Rate 20 01/29/17 06:52 Blood Pressure 156/81 01/28/17 17:22 O2 Sat by Pulse Oximetry (%) 97 01/28/17 21:00 Constitutional: Yes: No Distress, Calm Cardiovascular: Yes: Regular Rate and Rhythm Respiratory: Yes: Regular, CTA Bilaterally Gastrointestinal: Yes: Normal Bowel Sounds, Soft Musculoskeletal: Yes: WNL Extremities: Yes: WNL Neurological: Yes: Alert, Oriented Psychiatric: Yes: Alert, Oriented Labs: CBC, BMP 01/29/17 06:00 01/29/17 06:00 Assessment/Plan Problem List - Problems (1) UTI (urinary tract infection) Code(s): N39.0 - URINARY TRACT INFECTION, SITE NOT SPECIFIED Qualifiers: Urinary tract infection type: acute cystitis Hematuria presence: without hematuria Qualified Code(s): N30.00 - Acute cystitis without hematuria (2) Chronic pain Code(s): G89.29 - OTHER CHRONIC PAIN Qualifiers: Chronic pain type: chronic pain syndrome Qualified Code(s): G89.4 - Chronic pain syndrome (3) Spinal stenosis Code(s): M48.00 - SPINAL STENOSIS, SITE UNSPECIFIED Qualifiers: Spinal region: lumbosacral Qualified Code(s): M48.07 - Spinal stenosis, lumbosacral region (4) Parkinson disease Code(s): G20 - PARKINSON'S DISEASE patient was started on rocaphin the cx show esbl plan continue abx nutrition patient duration will be for 14 days rest as per primary
[2017-01-30] MEDS: oxyCODONE HCL 5 MG TABLET PO PRN (06:07)
[2017-01-30] MEDS: CARBIDOPA/LEVODOPA 25/100 TABLET (FP) PO SCH ×3 (06:11→21:43)
[2017-01-30 07:20] LABS: BASOPHIL 0.6 % (0-2.0); EOSINOPHIL 2.6 % (0-4.5); MCH 33.2 pg (25.7-33.7); MCHC 34.2 g/dl (32.0-36.0); MEAN PLT VOLUME 7.3 fl (7.5-11.1); NEUTROPHILS 57.9 % (42.8-82.8); PLATELET COUNT 149 K/MM3 (134-434); RDW 12.9 % (11.6-15.6); WHITE BLOOD COUNT 7.2 K/mm3 (4.0-10.0)
[2017-01-30 07:34] LABS: ANION GAP 6 (8-16); CALCIUM 8.2 mg/dL (8.5-10.1); CO2 27 mmol/L (21-32); GLUCOSE,RANDOM 85 mg/dL (74-106); MAGNESIUM 1.8 mg/dL (1.8-2.4)
[2017-01-30 07:36] LABS: CREATININE 0.6 mg/dL (0.55-1.02); PHOSPHOROUS 2.9 mg/dL (2.5-4.9)
[2017-01-30] MEDS: POLYETHYLENE GLYCOL 3350 119 GM BTL PO SCH (09:43)
[2017-01-30] MEDS: LACTOBACILLUS ACIDOPHILUS 1 EACH TAB (FP) PO SCH (09:43)
[2017-01-30] MEDS: DOCUSATE SODIUM 100 MG CAPSULE (FP) PO SCH ×2 (09:43→21:43)
[2017-01-30] MEDS: ENOXAPARIN NA (PORCINE) 40 MG/0.4 ML DISP.SYRIN SQ SCH (09:44)
[2017-01-30] MEDS: ERTAPENEM SODIUM 1 GM in SODIUM CHLORIDE 50 ML IVPB SCH (10:18)
--- NOTE | 2017-01-30 10:22 | PN ---
Progress Note (short form) - Note Progress Note: Neurology History of Present Illness 81-year-old female brought in by daughter for evaluation of worsening low back pain for the past 6 years now associated with decreased sleep and decreased appetite secondary to the pain unrelieved by tramadol. Patient states was followed by Dr. Shoemaker but has not followed up with a new doctor since then and is otherwise seen by her primary care physician Dr. Mcrae. Patient has no urinary complaints, bowel complaints, skin complaints, difficulty breathing, chest pain, radiation of pain. 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 She was comfortable appearing in bed without significant discomfort on pain medication. She reports history of Parkinson's Diease as well with slow movements and on Sinemet. She has been having falls but did not have recent physical therapy. No specific complaints at this time. Getting ongoing medical care. Active Medications Acetaminophen (Tylenol -) 650 mg PO Q4H PRN PRN Reason: FEVER OR PAIN Last Admin: 01/28/17 06:38 Dose: 650 mg Alprazolam (Xanax -) 0.25 mg PO Q8H PRN PRN Reason: ANXIETY Last Admin: 01/28/17 15:36 Dose: 0.25 mg Carbidopa/Levodopa (Sinemet 25/100 -) 1 each PO TID [facility] Last Admin: 01/30/17 06:11 Dose: 1 each Docusate Sodium (Colace -) 100 mg PO BID [facility] Last Admin: 01/30/17 09:43 Dose: 100 mg Enoxaparin Sodium (Lovenox -) 40 mg SQ DAILY [facility] Last Admin: 01/30/17 09:44 Dose: 40 mg Sodium Chloride (Normal Saline -) 1,000 mls @ 75 mls/hr IV ASDIR [facility] Last Admin: 01/29/17 22:55 Dose: Not Given Ertapenem 1 gm/ Sodium (Chloride) 50 mls @ 100 mls/hr IVPB DAILY [facility] PRN Reason: Protocol Last Admin: 01/30/17 10:18 Dose: 100 mls/hr Lactobacillus Acidophilus (Bacid -) 1 tab PO DAILY [facility] Last Admin: 01/30/17 09:43 Dose: 1 tab Ondansetron HCl (Zofran Injection) 4 mg IVPB Q6H PRN PRN Reason: NAUSEA Oxycodone HCl (Roxicodone -) 5 mg PO Q4H PRN PRN Reason: PAIN Last Admin: 01/30/17 06:07 Dose: 5 mg Polyethylene Glycol (Miralax (For Daily Use) -) 17 gm PO DAILY [facility] Last Admin: 01/30/17 09:43 Dose: Not Given *Physical Exam Vital Signs Temperature 97.6 F 01/30/17 07:38 Pulse Rate 84 01/30/17 07:38 Respiratory Rate 20 01/30/17 07:38 Blood Pressure 152/77 01/30/17 07:38 O2 Sat by Pulse Oximetry (%) 97 01/29/17 21:00 - Physical Exam General Appearance: Yes: Nourished, Appropriately Dressed. No: Apparent Distress HEENT: negative: Pale Conjunctivae Neck: positive: Supple Respiratory/Chest: positive: Lungs Clear, Normal Breath Sounds. negative: Respiratory Distress, Accessory Muscle Use Cardiovascular: positive: Regular Rhythm, Regular Rate. negative: Murmur Gastrointestinal/Abdominal: positive: Soft. negative: Tenderness Musculoskeletal: negative: CVA Tenderness, Vertebral Tenderness, Other (no posterior pelvis pain (although she points to her left posterior iliac crest) ) Extremity: positive: Normal Capillary Refill. negative: Pedal Edema Integumentary: positive: Dry, Warm, Pale Neurologic: CN intact, no facial droop, sensory normal, strength 5/5 in b/l lower extremities, finger to nose normal CBCD WBC 7.2 K/mm3 (4.0-10.0) 01/30/17 06:00 RBC 3.42 M/mm3 (3.60-5.2) L 01/30/17 06:00 Hgb 11.4 GM/dL (10.7-15.3) 01/30/17 06:00 Hct 33.2 % (32.4-45.2) 01/30/17 06:00 MCV 97.0 fl (80-96) H 01/30/17 06:00 MCHC 34.2 g/dl (32.0-36.0) 01/30/17 06:00 RDW 12.9 % (11.6-15.6) 01/30/17 06:00 Plt Count 149 K/MM3 (134-434) 01/30/17 06:00 MPV 7.3 fl (7.5-11.1) L 01/30/17 06:00 CMP Sodium 142 mmol/L (136-145) 01/30/17 06:00 Potassium 3.5 mmol/L (3.5-5.1) 01/30/17 06:00 Chloride 109 mmol/L (98-107) H 01/30/17 06:00 Carbon Dioxide 27 mmol/L (21-32) 01/30/17 06:00 Anion Gap 6 (8-16) L 01/30/17 06:00 BUN 15 mg/dL (7-18) 01/30/17 06:00 Creatinine 0.6 mg/dL (0.55-1.02) 01/30/17 06:00 Creat Clearance w eGFR > 60 (>60) 01/28/17 07:15 Calcium 8.2 mg/dL (8.5-10.1) L 01/30/17 06:00 Total Bilirubin 1.1 mg/dL (0.2-1.0) H D 01/28/17 07:15 AST 15 U/L (15-37) D 01/28/17 07:15 ALT 10 U/L (12-78) L 01/28/17 07:15 Alkaline Phosphatase 72 U/L (45-117) 01/28/17 07:15 Total Protein 5.9 g/dl (6.4-8.2) L 01/28/17 07:15 Albumin 3.5 g/dl (3.4-5.0) 01/28/17 07:15 MRI L spine reviewed Medical Decision Making 81-year-old female brought in by daughter for evaluation of worsening low back pain for the past 6 years now associated with decreased sleep and decreased appetite secondary to the pain unrelieved by tramadol. Stenosis in the lumbar spine as per previous imaging including an MRI which I reviewed from May. Can repeat MRI L spine as outpatient if needed She was comfortable appearing in bed without significant discomfort. Continue Abx for UTI Continue sinemet for Parkinson's Remains on Roxicodone for pain, monitor for any sedative effects Continue therapy Will need to use cane more effective Fall precautions discussed
--- NOTE | 2017-01-30 12:31 | PN ---
Progress Note, Physician History of Present Illness: stable dong well no issues sitting in chair - Current Medication List Current Medications: Active Medications Acetaminophen (Tylenol -) 650 mg PO Q4H PRN PRN Reason: FEVER OR PAIN Last Admin: 01/28/17 06:38 Dose: 650 mg Alprazolam (Xanax -) 0.25 mg PO Q8H PRN PRN Reason: ANXIETY Last Admin: 01/28/17 15:36 Dose: 0.25 mg Carbidopa/Levodopa (Sinemet 25/100 -) 1 each PO TID [facility] Last Admin: 01/30/17 06:11 Dose: 1 each Docusate Sodium (Colace -) 100 mg PO BID [facility] Last Admin: 01/30/17 09:43 Dose: 100 mg Enoxaparin Sodium (Lovenox -) 40 mg SQ DAILY [facility] Last Admin: 01/30/17 09:44 Dose: 40 mg Sodium Chloride (Normal Saline -) 1,000 mls @ 75 mls/hr IV ASDIR [facility] Last Admin: 01/29/17 22:55 Dose: Not Given Ertapenem 1 gm/ Sodium (Chloride) 50 mls @ 100 mls/hr IVPB DAILY [facility] PRN Reason: Protocol Last Admin: 01/30/17 10:18 Dose: 100 mls/hr Lactobacillus Acidophilus (Bacid -) 1 tab PO DAILY [facility] Last Admin: 01/30/17 09:43 Dose: 1 tab Ondansetron HCl (Zofran Injection) 4 mg IVPB Q6H PRN PRN Reason: NAUSEA Oxycodone HCl (Roxicodone -) 5 mg PO Q4H PRN PRN Reason: PAIN Last Admin: 01/30/17 06:07 Dose: 5 mg Polyethylene Glycol (Miralax (For Daily Use) -) 17 gm PO DAILY [facility] Last Admin: 01/30/17 09:43 Dose: Not Given - Objective Vital Signs: Vital Signs Temperature 97.6 F 01/30/17 07:38 Pulse Rate 84 01/30/17 07:38 Respiratory Rate 20 01/30/17 07:38 Blood Pressure 152/77 01/30/17 07:38 O2 Sat by Pulse Oximetry (%) 97 01/29/17 21:00 Constitutional: Yes: No Distress, Calm Cardiovascular: Yes: Regular Rate and Rhythm Respiratory: Yes: Regular, CTA Bilaterally Gastrointestinal: Yes: Normal Bowel Sounds, Soft Musculoskeletal: Yes: WNL Extremities: Yes: WNL Neurological: Yes: Alert, Oriented Psychiatric: Yes: Alert, Oriented Labs: CBC, BMP 01/30/17 06:00 01/30/17 06:00 Assessment/Plan Problem List - Problems (1) UTI (urinary tract infection) Code(s): N39.0 - URINARY TRACT INFECTION, SITE NOT SPECIFIED Qualifiers: Urinary tract infection type: acute cystitis Hematuria presence: without hematuria Qualified Code(s): N30.00 - Acute cystitis without hematuria (2) Chronic pain Code(s): G89.29 - OTHER CHRONIC PAIN Qualifiers: Chronic pain type: chronic pain syndrome Qualified Code(s): G89.4 - Chronic pain syndrome (3) Spinal stenosis Code(s): M48.00 - SPINAL STENOSIS, SITE UNSPECIFIED Qualifiers: Spinal region: lumbosacral Qualified Code(s): M48.07 - Spinal stenosis, lumbosacral region (4) Parkinson disease Code(s): G20 - PARKINSON'S DISEASE patient was started on rocaphin the cx show esbl plan continue abx as planned nutrition
[2017-01-30] MEDS ORDERED: PICC LINE 8 ML FLUSH PROTOCOL IVPUSH PRN (15:25)
--- NOTE | 2017-01-30 15:29 | PN ---
Progress Note, Physician Chief Complaint: Ms Colbert says she feels well. Currently without back pain. No cp, sob, n/v. - Current Medication List Current Medications: Active Medications Acetaminophen (Tylenol -) 650 mg PO Q4H PRN PRN Reason: FEVER OR PAIN Last Admin: 01/28/17 06:38 Dose: 650 mg Alprazolam (Xanax -) 0.25 mg PO Q8H PRN PRN Reason: ANXIETY Last Admin: 01/28/17 15:36 Dose: 0.25 mg Carbidopa/Levodopa (Sinemet 25/100 -) 1 each PO TID [facility] Last Admin: 01/30/17 14:07 Dose: 1 each Docusate Sodium (Colace -) 100 mg PO BID [facility] Last Admin: 01/30/17 09:43 Dose: 100 mg Enoxaparin Sodium (Lovenox -) 40 mg SQ DAILY [facility] Last Admin: 01/30/17 09:44 Dose: 40 mg IV Flush (Picc Line Flush) 8 ml IVPUSH PRN PRN PRN Reason: Protocol Sodium Chloride (Normal Saline -) 1,000 mls @ 75 mls/hr IV ASDIR [facility] Last Admin: 01/29/17 22:55 Dose: Not Given Ertapenem 1 gm/ Sodium (Chloride) 50 mls @ 100 mls/hr IVPB DAILY [facility] PRN Reason: Protocol Last Admin: 01/30/17 10:18 Dose: 100 mls/hr Lactobacillus Acidophilus (Bacid -) 1 tab PO DAILY [facility] Last Admin: 01/30/17 09:43 Dose: 1 tab Ondansetron HCl (Zofran Injection) 4 mg IVPB Q6H PRN PRN Reason: NAUSEA Oxycodone HCl (Roxicodone -) 5 mg PO Q4H PRN PRN Reason: PAIN Last Admin: 01/30/17 06:07 Dose: 5 mg Polyethylene Glycol (Miralax (For Daily Use) -) 17 gm PO DAILY [facility] Last Admin: 01/30/17 09:43 Dose: Not Given - Objective Vital Signs: Vital Signs Temperature 36.7 C 01/30/17 08:30 Pulse Rate 82 01/30/17 08:30 Respiratory Rate 20 01/30/17 08:30 Blood Pressure 145/77 01/30/17 08:30 O2 Sat by Pulse Oximetry (%) 97 01/29/17 21:00 Constitutional: Yes: Well Nourished, No Distress, Calm Cardiovascular: Yes: Regular Rate and Rhythm. No: Gallop, Murmur, Rub Respiratory: Yes: Regular, CTA Bilaterally. No: Rales, Rhonchi, Wheezes Gastrointestinal: Yes: Normal Bowel Sounds, Soft. No: Distention, Tenderness Extremities: Yes: WNL Edema: No Labs: CBC, BMP 01/30/17 06:00 01/30/17 06:00 Problem List - Problems (1) UTI (urinary tract infection) Code(s): N39.0 - URINARY TRACT INFECTION, SITE NOT SPECIFIED Qualifiers: Urinary tract infection type: acute cystitis Hematuria presence: without hematuria Qualified Code(s): N30.00 - Acute cystitis without hematuria (2) Chronic pain Code(s): G89.29 - OTHER CHRONIC PAIN Qualifiers: Chronic pain type: chronic pain syndrome Qualified Code(s): G89.4 - Chronic pain syndrome (3) Spinal stenosis Code(s): M48.00 - SPINAL STENOSIS, SITE UNSPECIFIED Qualifiers: Spinal region: lumbosacral Qualified Code(s): M48.07 - Spinal stenosis, lumbosacral region (4) Parkinson disease Code(s): G20 - PARKINSON'S DISEASE Assessment/Plan (1) UTI (urinary tract infection) Assessment/Plan: -urine cultures growing ESBL e coli -appreciate ID assistance -on ertapenem, day 4 -needs 14 day total course of ertapenem Code(s): N39.0 - URINARY TRACT INFECTION, SITE NOT SPECIFIED Qualifiers: Urinary tract infection type: acute cystitis Hematuria presence: without hematuria Qualified Code(s): N30.00 - Acute cystitis without hematuria (2) Chronic pain Assessment/Plan: -secondary to spinal stenosis -continue oxycodone -says pain is well controlled Code(s): G89.29 - OTHER CHRONIC PAIN Qualifiers: Chronic pain type: chronic pain syndrome Qualified Code(s): G89.4 - Chronic pain syndrome (3) Spinal stenosis Assessment/Plan: -appreciate neurology and PT -continue pain management -continue outpatient neurology follow up -would benefit from SNF Code(s): M48.00 - SPINAL STENOSIS, SITE UNSPECIFIED Qualifiers: Spinal region: lumbosacral Qualified Code(s): M48.07 - Spinal stenosis, lumbosacral region (4) Parkinson disease Assessment/Plan: -continue sinemet -neurology consulted -outpatient follow up Code(s): G20 - PARKINSON'S DISEASE Dispo -plan for discharge to SNF -PICC line placement tomorrow -case d/w daughter
[2017-01-30] MEDS: SODIUM CHLORIDE 1,000 ML IV SCH (21:44)
[2017-01-30] MEDS: ALPRAZolam 0.25 MG TABLET PO PRN (21:45)
[2017-01-31] MEDS: CARBIDOPA/LEVODOPA 25/100 TABLET (FP) PO SCH ×3 (06:17→21:39)
[2017-01-31 07:57] LABS: BASOPHIL 0.5 % (0-2.0); EOSINOPHIL 2.6 % (0-4.5); MCH 33.4 pg (25.7-33.7); MCHC 34.2 g/dl (32.0-36.0); MEAN CELL VOLUME 97.4 fl (80-96); MEAN PLT VOLUME 7.3 fl (7.5-11.1); NEUTROPHILS 60.8 % (42.8-82.8); PLATELET COUNT 154 K/MM3 (134-434); RDW 13.1 % (11.6-15.6); WHITE BLOOD COUNT 6.4 K/mm3 (4.0-10.0)
[2017-01-31 08:19] LABS: INR 1.05 (0.82-1.09); PROTHROMBIN TIME (PATIENT) 11.6 SEC (9.98-11.88)
[2017-01-31 08:23] LABS: ANION GAP 6 (8-16); CALCIUM 8.8 mg/dL (8.5-10.1); CO2 29 mmol/L (21-32); GLUCOSE,RANDOM 81 mg/dL (74-106); MAGNESIUM 1.9 mg/dL (1.8-2.4)
[2017-01-31 08:24] LABS: CREATININE 0.7 mg/dL (0.55-1.02); PHOSPHOROUS 2.4 mg/dL (2.5-4.9)
[2017-01-31] MEDS: DOCUSATE SODIUM 100 MG CAPSULE (FP) PO SCH ×2 (10:31→21:40)
[2017-01-31] MEDS: LACTOBACILLUS ACIDOPHILUS 1 EACH TAB (FP) PO SCH (10:31)
[2017-01-31] MEDS: ENOXAPARIN NA (PORCINE) 40 MG/0.4 ML DISP.SYRIN SQ SCH (10:31)
[2017-01-31] MEDS: POLYETHYLENE GLYCOL 3350 119 GM BTL PO SCH (10:32)
[2017-01-31] MEDS: ALPRAZolam 0.25 MG TABLET PO PRN (10:47)
--- NOTE | 2017-01-31 10:50 | PN ---
Progress Note (short form) - Note Progress Note: Neurology History of Present Illness 81-year-old female brought in by daughter for evaluation of worsening low back pain for the past 6 years now associated with decreased sleep and decreased appetite secondary to the pain unrelieved by tramadol. Patient states was followed by Dr. Shoemaker but has not followed up with a new doctor since then and is otherwise seen by her primary care physician Dr. Mcrae. Patient has no urinary complaints, bowel complaints, skin complaints, difficulty breathing, chest pain, radiation of pain. 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 She was comfortable appearing in bed without significant discomfort on pain medication. She reports history of Parkinson's Diease as well with slow movements and on Sinemet. She has been having falls but did not have recent physical therapy. No specific complaints at this time. Getting ongoing medical care. Her back feels better. She is inquiring about Rehab and spoke to social work nurse and is in process of placement at [place] if all goes through. Otherwise family has chosen a few other faclities. Active Medications Acetaminophen (Tylenol -) 650 mg PO Q4H PRN PRN Reason: FEVER OR PAIN Last Admin: 01/28/17 06:38 Dose: 650 mg Alprazolam (Xanax -) 0.25 mg PO Q8H PRN PRN Reason: ANXIETY Last Admin: 01/31/17 10:47 Dose: 0.25 mg Carbidopa/Levodopa (Sinemet 25/100 -) 1 each PO TID [facility] Last Admin: 01/31/17 06:17 Dose: 1 each Docusate Sodium (Colace -) 100 mg PO BID [facility] Last Admin: 01/31/17 10:31 Dose: 100 mg Enoxaparin Sodium (Lovenox -) 40 mg SQ DAILY [facility] Last Admin: 01/31/17 10:31 Dose: 40 mg IV Flush (Picc Line Flush) 8 ml IVPUSH PRN PRN PRN Reason: Protocol Sodium Chloride (Normal Saline -) 1,000 mls @ 75 mls/hr IV ASDIR [facility] Last Admin: 01/30/17 21:44 Dose: 75 mls/hr Ertapenem 1 gm/ Sodium (Chloride) 50 mls @ 100 mls/hr IVPB DAILY [facility] PRN Reason: Protocol Last Admin: 01/30/17 10:18 Dose: 100 mls/hr Lactobacillus Acidophilus (Bacid -) 1 tab PO DAILY [facility] Last Admin: 01/31/17 10:31 Dose: 1 tab Ondansetron HCl (Zofran Injection) 4 mg IVPB Q6H PRN PRN Reason: NAUSEA Oxycodone HCl (Roxicodone -) 5 mg PO Q4H PRN PRN Reason: PAIN Last Admin: 01/30/17 06:07 Dose: 5 mg Polyethylene Glycol (Miralax (For Daily Use) -) 17 gm PO DAILY [facility] Last Admin: 01/31/17 10:32 Dose: Not Given *Physical Exam Vital Signs Temperature 97.5 F L 01/31/17 06:34 Pulse Rate 72 01/31/17 06:34 Respiratory Rate 20 01/31/17 06:34 Blood Pressure 154/84 01/31/17 06:34 O2 Sat by Pulse Oximetry (%) 95 01/30/17 21:00 - Physical Exam General Appearance: Yes: Nourished, Appropriately Dressed. No: Apparent Distress HEENT: negative: Pale Conjunctivae Neck: positive: Supple Respiratory/Chest: positive: Lungs Clear, Normal Breath Sounds. negative: Respiratory Distress, Accessory Muscle Use Cardiovascular: positive: Regular Rhythm, Regular Rate. negative: Murmur Gastrointestinal/Abdominal: positive: Soft. negative: Tenderness Musculoskeletal: negative: CVA Tenderness, Vertebral Tenderness, Other (no posterior pelvis pain (although she points to her left posterior iliac crest) ) Extremity: positive: Normal Capillary Refill. negative: Pedal Edema Integumentary: positive: Dry, Warm, Pale Neurologic: CN intact, no facial droop, sensory normal, strength 5/5 in b/l lower extremities, finger to nose normal CBCD WBC 6.4 K/mm3 (4.0-10.0) 01/31/17 06:00 RBC 3.50 M/mm3 (3.60-5.2) L 01/31/17 06:00 Hgb 11.7 GM/dL (10.7-15.3) 01/31/17 06:00 Hct 34.1 % (32.4-45.2) 01/31/17 06:00 MCV 97.4 fl (80-96) H 01/31/17 06:00 MCHC 34.2 g/dl (32.0-36.0) 01/31/17 06:00 RDW 13.1 % (11.6-15.6) 01/31/17 06:00 Plt Count 154 K/MM3 (134-434) 01/31/17 06:00 MPV 7.3 fl (7.5-11.1) L 01/31/17 06:00 CMP Sodium 143 mmol/L (136-145) 01/31/17 06:00 Potassium 3.4 mmol/L (3.5-5.1) L 01/31/17 06:00 Chloride 108 mmol/L (98-107) H 01/31/17 06:00 Carbon Dioxide 29 mmol/L (21-32) 01/31/17 06:00 Anion Gap 6 (8-16) L 01/31/17 06:00 BUN 14 mg/dL (7-18) 01/31/17 06:00 Creatinine 0.7 mg/dL (0.55-1.02) 01/31/17 06:00 Creat Clearance w eGFR > 60 (>60) 01/28/17 07:15 Calcium 8.8 mg/dL (8.5-10.1) 01/31/17 06:00 Total Bilirubin 1.1 mg/dL (0.2-1.0) H D 01/28/17 07:15 AST 15 U/L (15-37) D 01/28/17 07:15 ALT 10 U/L (12-78) L 01/28/17 07:15 Alkaline Phosphatase 72 U/L (45-117) 01/28/17 07:15 Total Protein 5.9 g/dl (6.4-8.2) L 01/28/17 07:15 Albumin 3.5 g/dl (3.4-5.0) 01/28/17 07:15 MRI L spine reviewed Medical Decision Making 81-year-old female brought in by daughter for evaluation of worsening low back pain for the past 6 years now associated with decreased sleep and decreased appetite secondary to the pain unrelieved by tramadol. Stenosis in the lumbar spine as per previous imaging including an MRI which I reviewed from May. Can repeat MRI L spine as outpatient if needed She was comfortable appearing in bed without significant discomfort. Back has improved Continue sinemet for Parkinson's Remains on Roxicodone for pain, monitor for any sedative effects Continue therapy Will need to use cane more effective Possibly placement at [place] or other facility of family's choosing
[2017-01-31] MEDS: ERTAPENEM SODIUM 1 GM in SODIUM CHLORIDE 50 ML IVPB SCH (11:03)
--- NOTE | 2017-01-31 14:30 | PN ---
Progress Note, Physician History of Present Illness: stable dong well - Current Medication List Current Medications: Active Medications Acetaminophen (Tylenol -) 650 mg PO Q4H PRN PRN Reason: FEVER OR PAIN Last Admin: 01/28/17 06:38 Dose: 650 mg Alprazolam (Xanax -) 0.25 mg PO Q8H PRN PRN Reason: ANXIETY Last Admin: 01/31/17 10:47 Dose: 0.25 mg Carbidopa/Levodopa (Sinemet 25/100 -) 1 each PO TID [facility] Last Admin: 01/31/17 06:17 Dose: 1 each Docusate Sodium (Colace -) 100 mg PO BID [facility] Last Admin: 01/31/17 10:31 Dose: 100 mg Enoxaparin Sodium (Lovenox -) 40 mg SQ DAILY [facility] Last Admin: 01/31/17 10:31 Dose: 40 mg IV Flush (Picc Line Flush) 8 ml IVPUSH PRN PRN PRN Reason: Protocol Sodium Chloride (Normal Saline -) 1,000 mls @ 75 mls/hr IV ASDIR [facility] Last Admin: 01/30/17 21:44 Dose: 75 mls/hr Ertapenem 1 gm/ Sodium (Chloride) 50 mls @ 100 mls/hr IVPB DAILY [facility] PRN Reason: Protocol Last Admin: 01/31/17 11:03 Dose: 100 mls/hr Lactobacillus Acidophilus (Bacid -) 1 tab PO DAILY [facility] Last Admin: 01/31/17 10:31 Dose: 1 tab Ondansetron HCl (Zofran Injection) 4 mg IVPB Q6H PRN PRN Reason: NAUSEA Oxycodone HCl (Roxicodone -) 5 mg PO Q4H PRN PRN Reason: PAIN Last Admin: 01/30/17 06:07 Dose: 5 mg Polyethylene Glycol (Miralax (For Daily Use) -) 17 gm PO DAILY [facility] Last Admin: 01/31/17 10:32 Dose: Not Given - Objective Vital Signs: Vital Signs Temperature 97.5 F L 01/31/17 06:34 Pulse Rate 72 01/31/17 06:34 Respiratory Rate 20 01/31/17 06:34 Blood Pressure 154/84 01/31/17 06:34 O2 Sat by Pulse Oximetry (%) 95 01/30/17 21:00 Constitutional: Yes: No Distress, Calm Cardiovascular: Yes: Regular Rate and Rhythm Respiratory: Yes: Regular, CTA Bilaterally Gastrointestinal: Yes: Normal Bowel Sounds, Soft Musculoskeletal: Yes: WNL Extremities: Yes: WNL Neurological: Yes: Alert, Oriented Psychiatric: Yes: Alert, Oriented Labs: CBC, BMP 01/31/17 06:00 01/31/17 06:00 INR, PTT INR 1.05 (0.82-1.09) 01/31/17 06:00 Assessment/Plan Problem List - Problems (1) UTI (urinary tract infection) Code(s): N39.0 - URINARY TRACT INFECTION, SITE NOT SPECIFIED Qualifiers: Urinary tract infection type: acute cystitis Hematuria presence: without hematuria Qualified Code(s): N30.00 - Acute cystitis without hematuria (2) Chronic pain Code(s): G89.29 - OTHER CHRONIC PAIN Qualifiers: Chronic pain type: chronic pain syndrome Qualified Code(s): G89.4 - Chronic pain syndrome (3) Spinal stenosis Code(s): M48.00 - SPINAL STENOSIS, SITE UNSPECIFIED Qualifiers: Spinal region: lumbosacral Qualified Code(s): M48.07 - Spinal stenosis, lumbosacral region (4) Parkinson disease Code(s): G20 - PARKINSON'S DISEASE patient was started on rocaphin the cx show esbl plan continue abx as planned nutrition
[2017-01-31] MEDS ORDERED: NAPH,MB-DB/K PH,MBDB POWDER PACKET PO ONE (14:59)
[2017-01-31] MEDS ORDERED: POTASSIUM CHLORIDE TABS 20 MEQ TABLET.ER (FP) PO ONE (14:59)
[2017-01-31] MEDS: SODIUM CHLORIDE 1,000 ML IV SCH (15:03)
--- NOTE | 2017-01-31 15:06 | PN ---
Progress Note, Physician Chief Complaint: Ms Colbert says she feels well. Currently without back pain. No cp, sob, n/v. - Current Medication List Current Medications: Active Medications Acetaminophen (Tylenol -) 650 mg PO Q4H PRN PRN Reason: FEVER OR PAIN Last Admin: 01/28/17 06:38 Dose: 650 mg Alprazolam (Xanax -) 0.25 mg PO Q8H PRN PRN Reason: ANXIETY Last Admin: 01/31/17 10:47 Dose: 0.25 mg Carbidopa/Levodopa (Sinemet 25/100 -) 1 each PO TID [facility] Last Admin: 01/31/17 15:02 Dose: 1 each Docusate Sodium (Colace -) 100 mg PO BID [facility] Last Admin: 01/31/17 10:31 Dose: 100 mg Enoxaparin Sodium (Lovenox -) 40 mg SQ DAILY [facility] Last Admin: 01/31/17 10:31 Dose: 40 mg IV Flush (Picc Line Flush) 8 ml IVPUSH PRN PRN PRN Reason: Protocol Ertapenem 1 gm/ Sodium (Chloride) 50 mls @ 100 mls/hr IVPB DAILY [facility] PRN Reason: Protocol Last Admin: 01/31/17 11:03 Dose: 100 mls/hr Lactobacillus Acidophilus (Bacid -) 1 tab PO DAILY [facility] Last Admin: 01/31/17 10:31 Dose: 1 tab Ondansetron HCl (Zofran Injection) 4 mg IVPB Q6H PRN PRN Reason: NAUSEA Oxycodone HCl (Roxicodone -) 5 mg PO Q4H PRN PRN Reason: PAIN Last Admin: 01/30/17 06:07 Dose: 5 mg Polyethylene Glycol (Miralax (For Daily Use) -) 17 gm PO DAILY [facility] Last Admin: 01/31/17 10:32 Dose: Not Given - Objective Vital Signs: Vital Signs Temperature 36.7 C 01/31/17 09:00 Pulse Rate 87 01/31/17 09:00 Respiratory Rate 20 01/31/17 09:00 Blood Pressure 140/64 01/31/17 09:00 O2 Sat by Pulse Oximetry (%) 95 01/31/17 09:00 Constitutional: Yes: No Distress, Calm, Thin Cardiovascular: Yes: Regular Rate and Rhythm. No: Gallop, Murmur, Rub Respiratory: Yes: Regular, CTA Bilaterally. No: Rales, Rhonchi, Wheezes Gastrointestinal: Yes: Normal Bowel Sounds, Soft. No: Distention, Tenderness Extremities: Yes: WNL Edema: No Labs: CBC, BMP 01/31/17 06:00 01/31/17 06:00 INR, PTT INR 1.05 (0.82-1.09) 01/31/17 06:00 Problem List - Problems (1) UTI (urinary tract infection) Code(s): N39.0 - URINARY TRACT INFECTION, SITE NOT SPECIFIED Qualifiers: Urinary tract infection type: acute cystitis Hematuria presence: without hematuria Qualified Code(s): N30.00 - Acute cystitis without hematuria (2) Chronic pain Code(s): G89.29 - OTHER CHRONIC PAIN Qualifiers: Chronic pain type: chronic pain syndrome Qualified Code(s): G89.4 - Chronic pain syndrome (3) Spinal stenosis Code(s): M48.00 - SPINAL STENOSIS, SITE UNSPECIFIED Qualifiers: Spinal region: lumbosacral Qualified Code(s): M48.07 - Spinal stenosis, lumbosacral region (4) Parkinson disease Code(s): G20 - PARKINSON'S DISEASE (5) Hypokalemia Code(s): E87.6 - HYPOKALEMIA (6) Hypophosphatemia Code(s): E83.39 - OTHER DISORDERS OF PHOSPHORUS METABOLISM Assessment/Plan (1) UTI (urinary tract infection) Assessment/Plan: -urine cultures growing ESBL e coli -appreciate ID assistance -on ertapenem, day 5 -needs 14 day total course of ertapenem Code(s): N39.0 - URINARY TRACT INFECTION, SITE NOT SPECIFIED Qualifiers: Urinary tract infection type: acute cystitis Hematuria presence: without hematuria Qualified Code(s): N30.00 - Acute cystitis without hematuria (2) Chronic pain Assessment/Plan: -secondary to spinal stenosis -continue oxycodone -says pain is well controlled Code(s): G89.29 - OTHER CHRONIC PAIN Qualifiers: Chronic pain type: chronic pain syndrome Qualified Code(s): G89.4 - Chronic pain syndrome (3) Spinal stenosis Assessment/Plan: -appreciate neurology and PT -continue pain management -continue outpatient neurology follow up -would benefit from SNF Code(s): M48.00 - SPINAL STENOSIS, SITE UNSPECIFIED Qualifiers: Spinal region: lumbosacral Qualified Code(s): M48.07 - Spinal stenosis, lumbosacral region (4) Parkinson disease Assessment/Plan: -continue sinemet -neurology consulted -outpatient follow up Code(s): G20 - PARKINSON'S DISEASE (5) FEN -replace K and phosphorus -recheck in a, Dispo -unsafe discharge home, will need SNF placement
[2017-02-01] MEDS: CARBIDOPA/LEVODOPA 25/100 TABLET (FP) PO SCH ×3 (06:23→21:49)
[2017-02-01 08:21] LABS: ANION GAP 10 (8-16); CALCIUM 8.9 mg/dL (8.5-10.1); CO2 26 mmol/L (21-32); CREATININE 0.7 mg/dL (0.55-1.02); GLUCOSE,RANDOM 86 mg/dL (74-106); PHOSPHOROUS 2.3 mg/dL (2.5-4.9)
[2017-02-01] MEDS: oxyCODONE HCL 5 MG TABLET PO PRN (11:33)
[2017-02-01] MEDS: LACTOBACILLUS ACIDOPHILUS 1 EACH TAB (FP) PO SCH (11:33)
[2017-02-01] MEDS: ERTAPENEM SODIUM 1 GM in SODIUM CHLORIDE 50 ML IVPB SCH (11:33)
[2017-02-01] MEDS: DOCUSATE SODIUM 100 MG CAPSULE (FP) PO SCH ×2 (11:33→21:49)
[2017-02-01] MEDS: ENOXAPARIN NA (PORCINE) 40 MG/0.4 ML DISP.SYRIN SQ SCH (11:38)
[2017-02-01] MEDS: POLYETHYLENE GLYCOL 3350 119 GM BTL PO SCH (11:40)
--- NOTE | 2017-02-01 14:00 | DS ---
Physical Examination Vital Signs: Vital Signs Temperature 36.8 C 02/01/17 09:00 Pulse Rate 84 02/01/17 09:00 Respiratory Rate 20 02/01/17 09:00 Blood Pressure 160/88 02/01/17 09:00 O2 Sat by Pulse Oximetry (%) 95 02/01/17 09:00 Constitutional: Yes: Well Nourished, No Distress, Calm Cardiovascular: Yes: Regular Rate and Rhythm. No: Gallop, Murmur, Rub Respiratory: Yes: Regular, CTA Bilaterally. No: Rales, Rhonchi, Wheezes Gastrointestinal: Yes: Normal Bowel Sounds, Soft. No: Distention, Tenderness Extremities: Yes: WNL Edema: No Labs: CBC, BMP 01/31/17 06:00 02/01/17 06:30 Discharge Summary Reason For Visit: URINARY TRACT INFECTION; SEPSIS Current Active Problems Chronic pain (Acute) Hypokalemia (Acute) Hypophosphatemia (Acute) Parkinson disease (Acute) Poor appetite (Acute) Sepsis (Acute) Spinal stenosis (Acute) UTI (urinary tract infection) (Acute) Weakness (Acute) Hospital Course: (1) UTI (urinary tract infection) Code(s): N39.0 - URINARY TRACT INFECTION, SITE NOT SPECIFIED Qualifiers: Urinary tract infection type: acute cystitis Hematuria presence: without hematuria Qualified Code(s): N30.00 - Acute cystitis without hematuria (2) Chronic pain Code(s): G89.29 - OTHER CHRONIC PAIN Qualifiers: Chronic pain type: chronic pain syndrome Qualified Code(s): G89.4 - Chronic pain syndrome (3) Spinal stenosis Code(s): M48.00 - SPINAL STENOSIS, SITE UNSPECIFIED Qualifiers: Spinal region: lumbosacral Qualified Code(s): M48.07 - Spinal stenosis, lumbosacral region (4) Parkinson disease Code(s): G20 - PARKINSON'S DISEASE (5) Hypokalemia Code(s): E87.6 - HYPOKALEMIA (6) Hypophosphatemia Code(s): E83.39 - OTHER DISORDERS OF PHOSPHORUS METABOLISM Ms Colbert is a very pleasant 81 year old female with history of worsening back pain and was found to have an ESBL e coli UTI. She was admitted to the hospital and originally started on rocephin. However her urine cultures came back positive for an ESBL e coli UTI. ID was consulted and she was changed to ertapenem. Her symptoms improved with this. She will need a full 14 day course, she is currently day 6 at the time of this discharge summary. She was also seen by neurology for her Parkinsons and continued on her sinemet. Her tramadol was changed to oxycodone for pain control and she was able to ambulate and work with PT. Patient is still very debilitated but has good rehabilitation potential. She is discharged to a SNF for further PT and to finish her antibiotic course. 36 minutes was spent in preparation of this discharge Condition: Good - Instructions Diet, Activity, Other Instructions: regular diet. Up with assistance, further activity per PT at SNF. Continue ertapenem for 8 more days starting 02/02 Referrals: Kenroy Mcrae MD [Primary Care Provider] - Goyo Arroyo MD [Staff Physician] - Disposition: [facility] - Home Medications Comprehensive Discharge Medication List: Ambulatory Orders Carbidopa/Levodopa 25/100 [Sinemet 25/100 -] 1 each PO TID 12/28/16 Acetaminophen [Tylenol .Regular Strength -] 650 mg PO Q4H PRN #0 tablet Alprazolam [Xanax] 0.25 mg PO Q8H PRN #0 tablet MDD 1mg 02/01/17 Docusate Sodium [Colace -] 100 mg PO BID cap 02/01/17 Ertapenem Sodium [Invanz -] 1 gm IVPB DAILY vial 02/01/17 Lactobacillus Acidophilus [Bacid -] 1 tab PO DAILY tab 02/01/17 Oxycodone HCl [Roxicodone -] 5 mg PO Q4H PRN #0 tablet MDD 30mg 02/01/17 Picc Line Flush [Picc Line Flush -] 8 ml IVPUSH PRN PRN #0 ml 02/01/17 Polyethylene Glycol 3350 [Miralax 119 gm Btl -] 17 gm PO DAILY #1 bottle
--- NOTE | 2017-02-01 15:03 | PN ---
Progress Note, Physician History of Present Illness: doing well no issues - Current Medication List Current Medications: Active Medications Acetaminophen (Tylenol -) 650 mg PO Q4H PRN PRN Reason: FEVER OR PAIN Last Admin: 01/28/17 06:38 Dose: 650 mg Alprazolam (Xanax -) 0.25 mg PO Q8H PRN PRN Reason: ANXIETY Last Admin: 01/31/17 10:47 Dose: 0.25 mg Carbidopa/Levodopa (Sinemet 25/100 -) 1 each PO TID [facility] Last Admin: 02/01/17 14:56 Dose: 1 each Docusate Sodium (Colace -) 100 mg PO BID [facility] Last Admin: 02/01/17 11:33 Dose: 100 mg Enoxaparin Sodium (Lovenox -) 40 mg SQ DAILY [facility] Last Admin: 02/01/17 11:38 Dose: 40 mg IV Flush (Picc Line Flush) 8 ml IVPUSH PRN PRN PRN Reason: Protocol Ertapenem 1 gm/ Sodium (Chloride) 50 mls @ 100 mls/hr IVPB DAILY [facility] PRN Reason: Protocol Last Admin: 02/01/17 11:33 Dose: 100 mls/hr Lactobacillus Acidophilus (Bacid -) 1 tab PO DAILY [facility] Last Admin: 02/01/17 11:33 Dose: 1 tab Ondansetron HCl (Zofran Injection) 4 mg IVPB Q6H PRN PRN Reason: NAUSEA Oxycodone HCl (Roxicodone -) 5 mg PO Q4H PRN PRN Reason: PAIN Last Admin: 02/01/17 11:33 Dose: 5 mg Polyethylene Glycol (Miralax (For Daily Use) -) 17 gm PO DAILY [facility] Last Admin: 02/01/17 11:40 Dose: Not Given - Objective Vital Signs: Vital Signs Temperature 98.2 F 02/01/17 09:00 Pulse Rate 84 02/01/17 09:00 Respiratory Rate 20 02/01/17 09:00 Blood Pressure 160/88 02/01/17 09:00 O2 Sat by Pulse Oximetry (%) 95 02/01/17 09:00 Constitutional: Yes: No Distress, Calm HENT: Yes: Atraumatic, Normocephalic Cardiovascular: Yes: Regular Rate and Rhythm Respiratory: Yes: Regular, CTA Bilaterally Gastrointestinal: Yes: Normal Bowel Sounds, Soft Neurological: Yes: Alert, Oriented Psychiatric: Yes: Alert, Oriented Labs: CBC, BMP 01/31/17 06:00 02/01/17 06:30 INR, PTT INR 1.05 (0.82-1.09) 01/31/17 06:00 Assessment/Plan Problem List - Problems (1) UTI (urinary tract infection) Code(s): N39.0 - URINARY TRACT INFECTION, SITE NOT SPECIFIED Qualifiers: Urinary tract infection type: acute cystitis Hematuria presence: without hematuria Qualified Code(s): N30.00 - Acute cystitis without hematuria (2) Chronic pain Code(s): G89.29 - OTHER CHRONIC PAIN Qualifiers: Chronic pain type: chronic pain syndrome Qualified Code(s): G89.4 - Chronic pain syndrome (3) Spinal stenosis Code(s): M48.00 - SPINAL STENOSIS, SITE UNSPECIFIED Qualifiers: Spinal region: lumbosacral Qualified Code(s): M48.07 - Spinal stenosis, lumbosacral region (4) Parkinson disease Code(s): G20 - PARKINSON'S DISEASE patient was started on rocaphin the cx show esbl plan continue abx as planned nutrition
[2017-02-01] MEDS: NAPH,MB-DB/K PH,MBDB POWDER PACKET PO SCH (21:49)
[2017-02-02] MEDS: CARBIDOPA/LEVODOPA 25/100 TABLET (FP) PO SCH ×3 (06:35→21:50)
[2017-02-02] MEDS: oxyCODONE HCL 5 MG TABLET PO PRN (06:37)
[2017-02-02] MEDS: ACETAMINOPHEN 325 MG TABLET (FP) PO PRN (06:37)
[2017-02-02] MEDS ORDERED: PT OWN MED DRAWER 7, Y5N ONE (10:18)
[2017-02-02] MEDS: ENOXAPARIN NA (PORCINE) 40 MG/0.4 ML DISP.SYRIN SQ SCH (10:25)
[2017-02-02] MEDS: DOCUSATE SODIUM 100 MG CAPSULE (FP) PO SCH ×2 (10:26→21:53)
[2017-02-02] MEDS: LACTOBACILLUS ACIDOPHILUS 1 EACH TAB (FP) PO SCH (10:26)
[2017-02-02] MEDS: NAPH,MB-DB/K PH,MBDB POWDER PACKET PO SCH ×2 (10:27→21:50)
[2017-02-02] MEDS: POLYETHYLENE GLYCOL 3350 119 GM BTL PO SCH (10:27)
[2017-02-02] MEDS: ERTAPENEM SODIUM 1 GM in SODIUM CHLORIDE 50 ML IVPB SCH (10:28)
--- NOTE | 2017-02-02 15:47 | PN ---
Progress Note, Physician History of Present Illness: Pt feeling well, no specific complaints - Current Medication List Current Medications: Active Medications Acetaminophen (Tylenol -) 650 mg PO Q4H PRN PRN Reason: FEVER OR PAIN Last Admin: 02/02/17 06:37 Dose: 650 mg Alprazolam (Xanax -) 0.25 mg PO Q8H PRN PRN Reason: ANXIETY Last Admin: 01/31/17 10:47 Dose: 0.25 mg Carbidopa/Levodopa (Sinemet 25/100 -) 1 each PO TID [facility] Last Admin: 02/02/17 14:20 Dose: 1 each Docusate Sodium (Colace -) 100 mg PO BID [facility] Last Admin: 02/02/17 10:26 Dose: Not Given Enoxaparin Sodium (Lovenox -) 40 mg SQ DAILY [facility] Last Admin: 02/02/17 10:25 Dose: 40 mg IV Flush (Picc Line Flush) 8 ml IVPUSH PRN PRN PRN Reason: Protocol Ertapenem 1 gm/ Sodium (Chloride) 50 mls @ 100 mls/hr IVPB DAILY [facility] PRN Reason: Protocol Last Admin: 02/02/17 10:28 Dose: 100 mls/hr Lactobacillus Acidophilus (Bacid -) 1 tab PO DAILY [facility] Last Admin: 02/02/17 10:26 Dose: 1 tab Ondansetron HCl (Zofran Injection) 4 mg IVPB Q6H PRN PRN Reason: NAUSEA Oxycodone HCl (Roxicodone -) 5 mg PO Q4H PRN PRN Reason: PAIN Last Admin: 02/02/17 06:37 Dose: 5 mg Polyethylene Glycol (Miralax (For Daily Use) -) 17 gm PO DAILY [facility] Last Admin: 02/02/17 10:27 Dose: Not Given Potassium Phos/Sodium Phos (Phos-Nak Packet -) 1 packet PO BID [facility] Last Admin: 02/02/17 10:27 Dose: 1 packet - Objective Vital Signs: Vital Signs Temperature 97.8 F 02/02/17 14:00 Pulse Rate 100 H 02/02/17 14:00 Respiratory Rate 20 02/02/17 14:00 Blood Pressure 124/80 02/02/17 14:00 O2 Sat by Pulse Oximetry (%) 95 02/01/17 20:03 Constitutional: Yes: No Distress Cardiovascular: Yes: Regular Rate and Rhythm Respiratory: Yes: CTA Bilaterally Gastrointestinal: Yes: Normal Bowel Sounds, Soft Genitourinary: Yes: WNL Musculoskeletal: Yes: WNL Extremities: Yes: WNL Integumentary: Yes: WNL Neurological: Yes: Alert, Oriented Labs: CBC, BMP 01/31/17 06:00 02/01/17 06:30 INR, PTT INR 1.05 (0.82-1.09) 01/31/17 06:00 Problem List - Problems (1) Parkinson disease Code(s): G20 - PARKINSON'S DISEASE (2) Poor appetite Code(s): R63.0 - ANOREXIA (3) Sepsis Code(s): A41.9 - SEPSIS, UNSPECIFIED ORGANISM Qualifiers: Sepsis type: sepsis due to unspecified organism Qualified Code(s): A41.9 - Sepsis, unspecified organism (4) UTI (urinary tract infection) Code(s): N39.0 - URINARY TRACT INFECTION, SITE NOT SPECIFIED Qualifiers: Urinary tract infection type: acute cystitis Hematuria presence: without hematuria Qualified Code(s): N30.00 - Acute cystitis without hematuria (5) Weakness Code(s): R53.1 - WEAKNESS Assessment/Plan ESBL + E.coli UTI - continue antibiotics pt doing well
--- NOTE | 2017-02-02 17:38 | PN ---
Progress Note (short form) - Note Progress Note: Patient is feeling better, with no acute distress. having problems with walking due to her parkinsonism. Feels unstable on her feet. Temperature 97.8 F 02/02/17 14:00 Pulse Rate 100 H 02/02/17 14:00 Respiratory Rate 20 02/02/17 14:00 Blood Pressure 124/80 02/02/17 14:00 O2 Sat by Pulse Oximetry (%) 95 02/02/17 09:00 GENERAL: The patient is awake, alert, and fully oriented, in no acute distress. HEAD: Normal with no signs of trauma. LUNGS: Breath sounds equal, clear to auscultation bilaterally, no wheezes, no crackles, no accessory muscle use. HEART: Regular rate and rhythm, S1, S2 without murmur, rub or gallop. ABDOMEN: Soft, nontender, nondistended, normoactive bowel sounds, no guarding, no rebound. EXTREMITIES: 2+ pulses, warm, well-perfused, no edema. NEUROLOGICAL: Cranial nerves II through XII grossly intact. Normal speech, gait not observed. CBCD WBC 6.4 K/mm3 (4.0-10.0) 01/31/17 06:00 RBC 3.50 M/mm3 (3.60-5.2) L 01/31/17 06:00 Hgb 11.7 GM/dL (10.7-15.3) 01/31/17 06:00 Hct 34.1 % (32.4-45.2) 01/31/17 06:00 MCV 97.4 fl (80-96) H 01/31/17 06:00 MCHC 34.2 g/dl (32.0-36.0) 01/31/17 06:00 RDW 13.1 % (11.6-15.6) 01/31/17 06:00 Plt Count 154 K/MM3 (134-434) 01/31/17 06:00 MPV 7.3 fl (7.5-11.1) L 01/31/17 06:00 CMP Sodium 143 mmol/L (136-145) 02/01/17 06:30 Potassium 4.0 mmol/L (3.5-5.1) 02/01/17 06:30 Chloride 107 mmol/L (98-107) 02/01/17 06:30 Carbon Dioxide 26 mmol/L (21-32) 02/01/17 06:30 Anion Gap 10 (8-16) 02/01/17 06:30 BUN 11 mg/dL (7-18) D 02/01/17 06:30 Creatinine 0.7 mg/dL (0.55-1.02) 02/01/17 06:30 Creat Clearance w eGFR > 60 (>60) 01/28/17 07:15 Random Glucose 86 mg/dL (74-106) 02/01/17 06:30 Calcium 8.9 mg/dL (8.5-10.1) 02/01/17 06:30 Total Bilirubin 1.1 mg/dL (0.2-1.0) H D 01/28/17 07:15 AST 15 U/L (15-37) D 01/28/17 07:15 ALT 10 U/L (12-78) L 01/28/17 07:15 Alkaline Phosphatase 72 U/L (45-117) 01/28/17 07:15 Total Protein 5.9 g/dl (6.4-8.2) L 01/28/17 07:15 Albumin 3.5 g/dl (3.4-5.0) 01/28/17 07:15 Current Medications Generic Name Dose Route Start Last Admin Trade Name Pasha PRN Reason Stop Dose Admin Acetaminophen 650 mg 01/24/17 16:00 02/02/17 06:37 Tylenol - PO 650 mg Q4H PRN Administration FEVER OR PAIN Alprazolam 0.25 mg 01/24/17 16:00 01/31/17 10:47 Xanax - PO 0.25 mg Q8H PRN Administration ANXIETY Carbidopa/Levodopa 1 each 01/24/17 22:00 02/02/17 14:20 Sinemet 25/100 - PO 1 each TID [facility] Administration Docusate Sodium 100 mg 01/24/17 22:00 02/02/17 10:26 Colace - PO Not Given BID [facility] Enoxaparin Sodium 40 mg 01/25/17 10:00 02/02/17 10:25 Lovenox - SQ 40 mg DAILY [facility] Administration IV Flush 8 ml 01/30/17 15:25 Picc Line Flush IVPUSH PRN PRN Protocol Ertapenem 1 gm/ Sodium 50 mls @ 100 mls/hr 01/27/17 10:00 02/02/17 10:28 Chloride IVPB 100 mls/hr DAILY [facility] Administration Protocol Lactobacillus Acidophilus 1 tab 01/25/17 10:00 02/02/17 10:26 Bacid - PO 1 tab DAILY [facility] Administration Ondansetron HCl 4 mg 01/24/17 16:00 Zofran Injection IVPB Q6H PRN NAUSEA Oxycodone HCl 5 mg 01/24/17 16:00 02/02/17 06:37 Roxicodone - PO 5 mg Q4H PRN Administration PAIN Polyethylene Glycol 17 gm 01/25/17 10:00 02/02/17 10:27 Miralax (For Daily Use) - PO Not Given DAILY [facility] Potassium Phos/Sodium Phos 1 packet 02/01/17 22:00 02/02/17 10:27 Phos-Nak Packet - PO 1 packet BID [facility] Administration Home Medications Medication Instructions Recorded Carbidopa/Levodopa 25/100 [Sinemet 1 each PO TID 12/28/16 25/100 -] Acetaminophen [Tylenol .Regular 650 mg PO Q4H PRN #0 tablet 02/01/17 Strength -] Alprazolam [Xanax] 0.25 mg PO Q8H PRN #0 tablet MDD 02/01/17 1mg Docusate Sodium [Colace -] 100 mg PO BID cap 02/01/17 Ertapenem Sodium [Invanz -] 1 gm IVPB DAILY vial 02/01/17 Lactobacillus Acidophilus [Bacid -] 1 tab PO DAILY tab 02/01/17 Oxycodone HCl [Roxicodone -] 5 mg PO Q4H PRN #0 tablet MDD 30mg 02/01/17 Picc Line Flush [Picc Line Flush -] 8 ml IVPUSH PRN PRN #0 ml 02/01/17 Polyethylene Glycol 3350 [Miralax 17 gm PO DAILY #1 bottle 02/01/17 119 gm Btl -] Microbiology 01/24/17 15:27 Blood - Peripheral Venous Blood Culture - Final NO GROWTH AFTER 5 DAYS INCUBATION 01/24/17 15:27 Blood - Peripheral Venous Blood Culture - Final NO GROWTH AFTER 5 DAYS INCUBATION 01/24/17 14:16 Urine - Urine Clean Catch Urine Culture - Final Escherichia Coli Esbl [employer] A/P: Ms Colbert is an 81 year old female who comes in with worsening chronic pain. She has a history of spinal stenosis and Parkinsons with pain over the past 6 years. presented with ESBL UTI: # ESBL E coli s/p Ceftriaxone , continue ertapenem, ID on the case, Isolation precautions # Chronic pain due to spinal stenosis continue oxycodone #Spinal stenosis of Lumbar spine Continue daily PT and gait training , pain meds. Neuro outpatient f/u repeat MRI L spine as outpt # Parkinson disease Continue sinemet DVT Px: Lovenox Visit type - Emergency Visit Emergency Visit: Yes ED Registration Date: 01/24/17 Care time: The patient presented to the Emergency Department on the above date and was hospitalized for further evaluation of their emergent condition. - New Patient This patient is new to me today: Yes Date on this admission: 02/02/17 - Critical Care Critical Care patient: No
[2017-02-03] MEDS: CARBIDOPA/LEVODOPA 25/100 TABLET (FP) PO SCH ×3 (06:12→21:21)
[2017-02-03] MEDS ORDERED: PT OWN MED DRAWER 7, Y5N ONE (09:49)
[2017-02-03] MEDS: POLYETHYLENE GLYCOL 3350 119 GM BTL PO SCH (09:58)
[2017-02-03] MEDS: LACTOBACILLUS ACIDOPHILUS 1 EACH TAB (FP) PO SCH (09:58)
[2017-02-03] MEDS: ENOXAPARIN NA (PORCINE) 40 MG/0.4 ML DISP.SYRIN SQ SCH (09:58)
[2017-02-03] MEDS: DOCUSATE SODIUM 100 MG CAPSULE (FP) PO SCH ×2 (09:58→21:21)
[2017-02-03] MEDS: ERTAPENEM SODIUM 1 GM in SODIUM CHLORIDE 50 ML IVPB SCH (09:58)
[2017-02-03] MEDS: NAPH,MB-DB/K PH,MBDB POWDER PACKET PO SCH ×2 (09:59→21:21)
[2017-02-03] MEDS: ALPRAZolam 0.25 MG TABLET PO PRN (12:11)
--- NOTE | 2017-02-03 12:47 | PN ---
Progress Note, Physician History of Present Illness: Pt states she feels ok. No new events. Denies having any specific complaints. Sitting in chair. - Current Medication List Current Medications: Active Medications Acetaminophen (Tylenol -) 650 mg PO Q4H PRN PRN Reason: FEVER OR PAIN Last Admin: 02/02/17 06:37 Dose: 650 mg Alprazolam (Xanax -) 0.25 mg PO Q8H PRN PRN Reason: ANXIETY Last Admin: 02/03/17 12:11 Dose: 0.25 mg Carbidopa/Levodopa (Sinemet 25/100 -) 1 each PO TID [facility] Last Admin: 02/03/17 06:12 Dose: 1 each Docusate Sodium (Colace -) 100 mg PO BID [facility] Last Admin: 02/03/17 09:58 Dose: 100 mg Enoxaparin Sodium (Lovenox -) 40 mg SQ DAILY [facility] Last Admin: 02/03/17 09:58 Dose: 40 mg IV Flush (Picc Line Flush) 8 ml IVPUSH PRN PRN PRN Reason: Protocol Ertapenem 1 gm/ Sodium (Chloride) 50 mls @ 100 mls/hr IVPB DAILY [facility] PRN Reason: Protocol Last Admin: 02/03/17 09:58 Dose: 100 mls/hr Lactobacillus Acidophilus (Bacid -) 1 tab PO DAILY [facility] Last Admin: 02/03/17 09:58 Dose: 1 tab Ondansetron HCl (Zofran Injection) 4 mg IVPB Q6H PRN PRN Reason: NAUSEA Oxycodone HCl (Roxicodone -) 5 mg PO Q4H PRN PRN Reason: PAIN Last Admin: 02/02/17 06:37 Dose: 5 mg Polyethylene Glycol (Miralax (For Daily Use) -) 17 gm PO DAILY [facility] Last Admin: 02/03/17 09:58 Dose: Not Given Potassium Phos/Sodium Phos (Phos-Nak Packet -) 1 packet PO BID [facility] Last Admin: 02/03/17 09:59 Dose: 1 packet - Objective Vital Signs: Vital Signs Temperature 98.0 F 02/03/17 08:25 Pulse Rate 100 H 02/03/17 08:25 Respiratory Rate 18 02/03/17 08:25 Blood Pressure 160/84 02/03/17 08:25 O2 Sat by Pulse Oximetry (%) 95 09/16/17 21:00 Constitutional: Yes: No Distress, Calm Neck: Yes: Supple Cardiovascular: Yes: Regular Rate and Rhythm Respiratory: Yes: Regular Gastrointestinal: Yes: Normal Bowel Sounds, Soft Genitourinary: Yes: WNL Extremities: Yes: WNL Neurological: Yes: Alert, Oriented Labs: CBC, BMP 01/31/17 06:00 02/01/17 06:30 INR, PTT INR 1.05 (0.82-1.09) 01/31/17 06:00 Problem List - Problems (1) Parkinson disease Code(s): G20 - PARKINSON'S DISEASE (2) Poor appetite Code(s): R63.0 - ANOREXIA (3) Sepsis Code(s): A41.9 - SEPSIS, UNSPECIFIED ORGANISM Qualifiers: Sepsis type: sepsis due to unspecified organism Qualified Code(s): A41.9 - Sepsis, unspecified organism (4) UTI (urinary tract infection) Code(s): N39.0 - URINARY TRACT INFECTION, SITE NOT SPECIFIED Qualifiers: Urinary tract infection type: acute cystitis Hematuria presence: without hematuria Qualified Code(s): N30.00 - Acute cystitis without hematuria (5) Weakness Code(s): R53.1 - WEAKNESS Assessment/Plan Pt stable continue antibiotics, on contact precautions
--- NOTE | 2017-02-03 16:07 | PN ---
Progress Note (short form) - Note Progress Note: Patient is feeling better, with no acute distress. Vital Signs Temperature 97.9 F 02/03/17 14:03 Pulse Rate 99 H 02/03/17 14:03 Respiratory Rate 20 02/03/17 14:03 Blood Pressure 127/73 02/03/17 14:03 O2 Sat by Pulse Oximetry (%) 95 02/02/17 21:00 GENERAL: The patient is awake, alert, and fully oriented, in no acute distress. positive for cachexia HEAD: Normal with no signs of trauma. LUNGS: Breath sounds equal, clear to auscultation bilaterally, no wheezes, no crackles, no accessory muscle use. HEART: Regular rate and rhythm, S1, S2 without murmur, rub or gallop. ABDOMEN: Soft, nontender, nondistended, normoactive bowel sounds, no guarding, no rebound. EXTREMITIES: 2+ pulses, warm, well-perfused, no edema. NEUROLOGICAL: Cranial nerves II through XII grossly intact. Normal speech, gait not observed. CBCD WBC 6.4 K/mm3 (4.0-10.0) 01/31/17 06:00 RBC 3.50 M/mm3 (3.60-5.2) L 01/31/17 06:00 Hgb 11.7 GM/dL (10.7-15.3) 01/31/17 06:00 Hct 34.1 % (32.4-45.2) 01/31/17 06:00 MCV 97.4 fl (80-96) H 01/31/17 06:00 MCHC 34.2 g/dl (32.0-36.0) 01/31/17 06:00 RDW 13.1 % (11.6-15.6) 01/31/17 06:00 Plt Count 154 K/MM3 (134-434) 01/31/17 06:00 MPV 7.3 fl (7.5-11.1) L 01/31/17 06:00 CMP Sodium 143 mmol/L (136-145) 02/01/17 06:30 Potassium 4.0 mmol/L (3.5-5.1) 02/01/17 06:30 Chloride 107 mmol/L (98-107) 02/01/17 06:30 Carbon Dioxide 26 mmol/L (21-32) 02/01/17 06:30 Anion Gap 10 (8-16) 02/01/17 06:30 BUN 11 mg/dL (7-18) D 02/01/17 06:30 Creatinine 0.7 mg/dL (0.55-1.02) 02/01/17 06:30 Creat Clearance w eGFR > 60 (>60) 01/28/17 07:15 Random Glucose 86 mg/dL (74-106) 02/01/17 06:30 Calcium 8.9 mg/dL (8.5-10.1) 02/01/17 06:30 Total Bilirubin 1.1 mg/dL (0.2-1.0) H D 01/28/17 07:15 AST 15 U/L (15-37) D 01/28/17 07:15 ALT 10 U/L (12-78) L 01/28/17 07:15 Alkaline Phosphatase 72 U/L (45-117) 01/28/17 07:15 Total Protein 5.9 g/dl (6.4-8.2) L 01/28/17 07:15 Albumin 3.5 g/dl (3.4-5.0) 01/28/17 07:15 Current Medications Generic Name Dose Route Start Last Admin Trade Name Freq PRN Reason Stop Dose Admin Acetaminophen 650 mg 01/24/17 16:00 02/02/17 06:37 Tylenol - PO 650 mg Q4H PRN Administration FEVER OR PAIN Alprazolam 0.25 mg 01/24/17 16:00 02/03/17 12:11 Xanax - PO 0.25 mg Q8H PRN Administration ANXIETY Carbidopa/Levodopa 1 each 01/24/17 22:00 02/03/17 14:06 Sinemet 25/100 - PO 1 each TID MILLIE Administration Docusate Sodium 100 mg 01/24/17 22:00 02/03/17 09:58 Colace - PO 100 mg BID MILLIE Administration Enoxaparin Sodium 40 mg 01/25/17 10:00 02/03/17 09:58 Lovenox - SQ 40 mg DAILY MILLIE Administration IV Flush 8 ml 01/30/17 15:25 Picc Line Flush IVPUSH PRN PRN Protocol Ertapenem 1 gm/ Sodium 50 mls @ 100 mls/hr 01/27/17 10:00 02/03/17 09:58 Chloride IVPB 100 mls/hr DAILY MILLIE Administration Protocol Lactobacillus Acidophilus 1 tab 01/25/17 10:00 02/03/17 09:58 Bacid - PO 1 tab DAILY MILLIE Administration Ondansetron HCl 4 mg 01/24/17 16:00 Zofran Injection IVPB Q6H PRN NAUSEA Oxycodone HCl 5 mg 01/24/17 16:00 02/02/17 06:37 Roxicodone - PO 5 mg Q4H PRN Administration PAIN Polyethylene Glycol 17 gm 01/25/17 10:00 02/03/17 09:58 Miralax (For Daily Use) - PO Not Given DAILY MILLIE Potassium Phos/Sodium Phos 1 packet 02/01/17 22:00 02/03/17 09:59 Phos-Nak Packet - PO 1 packet BID MILLIE Administration Home Medications Medication Instructions Recorded Carbidopa/Levodopa 25/100 [Sinemet 1 each PO TID 12/28/16 25/100 -] Acetaminophen [Tylenol .Regular 650 mg PO Q4H PRN #0 tablet 02/01/17 Strength -] Alprazolam [Xanax] 0.25 mg PO Q8H PRN #0 tablet MDD 02/01/17 1mg Docusate Sodium [Colace -] 100 mg PO BID cap 02/01/17 Ertapenem Sodium [Invanz -] 1 gm IVPB DAILY vial 02/01/17 Lactobacillus Acidophilus [Bacid -] 1 tab PO DAILY tab 02/01/17 Oxycodone HCl [Roxicodone -] 5 mg PO Q4H PRN #0 tablet MDD 30mg 02/01/17 Picc Line Flush [Picc Line Flush -] 8 ml IVPUSH PRN PRN #0 ml 02/01/17 Polyethylene Glycol 3350 [Miralax 17 gm PO DAILY #1 bottle 02/01/17 119 gm Btl -] A/P: Ms Colbert is an 81 year old female who comes in with worsening chronic pain. She has a history of spinal stenosis and Parkinsons with pain over the past 6 years. presented with ESBL UTI: # ESBL E coli s/p Ceftriaxone , continue ertapenem as per ID ,Cr. Harris , Isolation precautions # Chronic pain due to spinal stenosis continue oxycodone #Spinal stenosis of Lumbar spine Continue daily PT and gait training , pain meds. Neuro outpatient f/u repeat MRI L spine as outpt # Parkinson disease Continue sinemet DVT Px: Lovenox possible rehab in am Visit type - Emergency Visit Emergency Visit: Yes ED Registration Date: 01/24/17 Care time: The patient presented to the Emergency Department on the above date and was hospitalized for further evaluation of their emergent condition. - New Patient This patient is new to me today: No - Critical Care Critical Care patient: No
[2017-02-04] MEDS: CARBIDOPA/LEVODOPA 25/100 TABLET (FP) PO SCH ×3 (05:36→22:21)
[2017-02-04] MEDS ORDERED: PT OWN MED DRAWER 7, Y5N ONE ×2 (09:43→13:37)
[2017-02-04] MEDS: LACTOBACILLUS ACIDOPHILUS 1 EACH TAB (FP) PO SCH (09:47)
[2017-02-04] MEDS: DOCUSATE SODIUM 100 MG CAPSULE (FP) PO SCH ×2 (09:47→22:21)
[2017-02-04] MEDS: ERTAPENEM SODIUM 1 GM in SODIUM CHLORIDE 50 ML IVPB SCH (09:48)
[2017-02-04] MEDS: POLYETHYLENE GLYCOL 3350 119 GM BTL PO SCH (09:48)
[2017-02-04] MEDS: ENOXAPARIN NA (PORCINE) 40 MG/0.4 ML DISP.SYRIN SQ SCH (09:49)
--- NOTE | 2017-02-04 10:10 | PN ---
Progress Note (short form) - Note Progress Note: Neurology History of Present Illness 81-year-old female brought in by daughter for evaluation of worsening low back pain for the past 6 years now associated with decreased sleep and decreased appetite secondary to the pain unrelieved by tramadol. Patient states was followed by Dr. Shoemaker but has not followed up with a new doctor since then and is otherwise seen by her primary care physician Dr. Mcrae. Patient has no urinary complaints, bowel complaints, skin complaints, difficulty breathing, chest pain, radiation of pain. 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 She remains comfortable appearing in bed without significant discomfort on pain medication. No specific complaints at this time. On Sinemet for parkinson's. No acute events overnight and stable at this time. Active Medications Acetaminophen (Tylenol -) 650 mg PO Q4H PRN PRN Reason: FEVER OR PAIN Last Admin: 02/02/17 06:37 Dose: 650 mg Alprazolam (Xanax -) 0.25 mg PO Q8H PRN PRN Reason: ANXIETY Last Admin: 02/03/17 12:11 Dose: 0.25 mg Carbidopa/Levodopa (Sinemet 25/100 -) 1 each PO TID [facility]IE Last Admin: 02/04/17 05:36 Dose: 1 each Docusate Sodium (Colace -) 100 mg PO BID [facility]IE Last Admin: 02/04/17 09:47 Dose: 100 mg Enoxaparin Sodium (Lovenox -) 40 mg SQ DAILY [facility] Last Admin: 02/04/17 09:49 Dose: 40 mg IV Flush (Picc Line Flush) 8 ml IVPUSH PRN PRN PRN Reason: Protocol Ertapenem 1 gm/ Sodium (Chloride) 50 mls @ 100 mls/hr IVPB DAILY MILLIE PRN Reason: Protocol Last Admin: 02/04/17 09:48 Dose: 100 mls/hr Lactobacillus Acidophilus (Bacid -) 1 tab PO DAILY [facility] Last Admin: 02/04/17 09:47 Dose: 1 tab Ondansetron HCl (Zofran Injection) 4 mg IVPB Q6H PRN PRN Reason: NAUSEA Oxycodone HCl (Roxicodone -) 5 mg PO Q4H PRN PRN Reason: PAIN Last Admin: 02/02/17 06:37 Dose: 5 mg Polyethylene Glycol (Miralax (For Daily Use) -) 17 gm PO DAILY [facility] Last Admin: 02/04/17 09:48 Dose: Not Given Potassium Phos/Sodium Phos (Phos-Nak Packet -) 1 packet PO BID [facility] Last Admin: 02/03/17 21:21 Dose: 1 packet *Physical Exam Vital Signs Period Temp Pulse Resp BP Sys/Tee Pulse Ox Last 24 Hr 97.8 F-98.0 F 89-99 20-20 127-150/69-77 - Physical Exam General Appearance: Yes: Nourished, Appropriately Dressed. No: Apparent Distress HEENT: negative: Pale Conjunctivae Neck: positive: Supple Respiratory/Chest: positive: Lungs Clear, Normal Breath Sounds. negative: Respiratory Distress, Accessory Muscle Use Cardiovascular: positive: Regular Rhythm, Regular Rate. negative: Murmur Gastrointestinal/Abdominal: positive: Soft. negative: Tenderness Musculoskeletal: negative: CVA Tenderness, Vertebral Tenderness, Other (no posterior pelvis pain (although she points to her left posterior iliac crest) ) Extremity: positive: Normal Capillary Refill. negative: Pedal Edema Integumentary: positive: Dry, Warm, Pale Neurologic: CN intact, no facial droop, sensory normal, strength 5/5 in b/l lower extremities, finger to nose normal CBCD WBC 6.4 K/mm3 (4.0-10.0) 01/31/17 06:00 RBC 3.50 M/mm3 (3.60-5.2) L 01/31/17 06:00 Hgb 11.7 GM/dL (10.7-15.3) 01/31/17 06:00 Hct 34.1 % (32.4-45.2) 01/31/17 06:00 MCV 97.4 fl (80-96) H 01/31/17 06:00 MCHC 34.2 g/dl (32.0-36.0) 01/31/17 06:00 RDW 13.1 % (11.6-15.6) 01/31/17 06:00 Plt Count 154 K/MM3 (134-434) 01/31/17 06:00 MPV 7.3 fl (7.5-11.1) L 01/31/17 06:00 CMP Sodium 143 mmol/L (136-145) 02/01/17 06:30 Potassium 4.0 mmol/L (3.5-5.1) 02/01/17 06:30 Chloride 107 mmol/L (98-107) 02/01/17 06:30 Carbon Dioxide 26 mmol/L (21-32) 02/01/17 06:30 Anion Gap 10 (8-16) 02/01/17 06:30 BUN 11 mg/dL (7-18) D 02/01/17 06:30 Creatinine 0.7 mg/dL (0.55-1.02) 02/01/17 06:30 Creat Clearance w eGFR > 60 (>60) 01/28/17 07:15 Calcium 8.9 mg/dL (8.5-10.1) 02/01/17 06:30 Total Bilirubin 1.1 mg/dL (0.2-1.0) H D 01/28/17 07:15 AST 15 U/L (15-37) D 01/28/17 07:15 ALT 10 U/L (12-78) L 01/28/17 07:15 Alkaline Phosphatase 72 U/L (45-117) 01/28/17 07:15 Total Protein 5.9 g/dl (6.4-8.2) L 01/28/17 07:15 Albumin 3.5 g/dl (3.4-5.0) 01/28/17 07:15 Previous MRI L spine reviewed Medical Decision Making 81-year-old female brought in by daughter for evaluation of worsening low back pain for the past 6 years now associated with decreased sleep and decreased appetite secondary to the pain unrelieved by tramadol. Stenosis in the lumbar spine as per previous imaging including an MRI which I reviewed from May. Can repeat MRI L spine as outpatient if needed Continue sinemet for Parkinson's Remains on Roxicodone for pain, monitor for any sedative effects Continue therapy Will need to use cane more effective Possibly placement at [facility] or other facility of family's choosing No acute events while admitted She was comfortable appearing in bed without significant discomfort. Back has improved
[2017-02-04] MEDS: NAPH,MB-DB/K PH,MBDB POWDER PACKET PO SCH ×3 (12:23→22:21)
--- NOTE | 2017-02-04 14:47 | PN ---
Progress Note, Physician History of Present Illness: doing well no issues - Current Medication List Current Medications: Active Medications Acetaminophen (Tylenol -) 650 mg PO Q4H PRN PRN Reason: FEVER OR PAIN Last Admin: 02/02/17 06:37 Dose: 650 mg Alprazolam (Xanax -) 0.25 mg PO Q8H PRN PRN Reason: ANXIETY Last Admin: 02/03/17 12:11 Dose: 0.25 mg Carbidopa/Levodopa (Sinemet 25/100 -) 1 each PO TID [facility] Last Admin: 02/04/17 13:02 Dose: 1 each Docusate Sodium (Colace -) 100 mg PO BID [facility] Last Admin: 02/04/17 09:47 Dose: 100 mg Enoxaparin Sodium (Lovenox -) 40 mg SQ DAILY [facility] Last Admin: 02/04/17 09:49 Dose: 40 mg IV Flush (Picc Line Flush) 8 ml IVPUSH PRN PRN PRN Reason: Protocol Ertapenem 1 gm/ Sodium (Chloride) 50 mls @ 100 mls/hr IVPB DAILY MILLIE PRN Reason: Protocol Last Admin: 02/04/17 09:48 Dose: 100 mls/hr Lactobacillus Acidophilus (Bacid -) 1 tab PO DAILY [facility] Last Admin: 02/04/17 09:47 Dose: 1 tab Ondansetron HCl (Zofran Injection) 4 mg IVPB Q6H PRN PRN Reason: NAUSEA Oxycodone HCl (Roxicodone -) 5 mg PO Q4H PRN PRN Reason: PAIN Last Admin: 02/02/17 06:37 Dose: 5 mg Polyethylene Glycol (Miralax (For Daily Use) -) 17 gm PO DAILY [facility] Last Admin: 02/04/17 09:48 Dose: Not Given Potassium Phos/Sodium Phos (Phos-Nak Packet -) 1 packet PO BID [facility] Last Admin: 02/04/17 13:34 Dose: 1 packet - Objective Vital Signs: Vital Signs Temperature 97.5 F L 02/04/17 08:30 Pulse Rate 85 02/04/17 08:30 Respiratory Rate 18 02/04/17 08:30 Blood Pressure 137/75 02/04/17 08:30 O2 Sat by Pulse Oximetry (%) 95 02/02/17 21:00 Constitutional: Yes: No Distress, Calm Cardiovascular: Yes: Regular Rate and Rhythm Respiratory: Yes: Regular, CTA Bilaterally Gastrointestinal: Yes: Normal Bowel Sounds, Soft Musculoskeletal: Yes: WNL Extremities: Yes: WNL Neurological: Yes: Alert, Oriented Psychiatric: Yes: Alert Labs: CBC, BMP 01/31/17 06:00 02/01/17 06:30 INR, PTT INR 1.05 (0.82-1.09) 01/31/17 06:00 Assessment/Plan Problem List - Problems (1) UTI (urinary tract infection) Code(s): N39.0 - URINARY TRACT INFECTION, SITE NOT SPECIFIED Qualifiers: Urinary tract infection type: acute cystitis Hematuria presence: without hematuria Qualified Code(s): N30.00 - Acute cystitis without hematuria (2) Chronic pain Code(s): G89.29 - OTHER CHRONIC PAIN Qualifiers: Chronic pain type: chronic pain syndrome Qualified Code(s): G89.4 - Chronic pain syndrome (3) Spinal stenosis Code(s): M48.00 - SPINAL STENOSIS, SITE UNSPECIFIED Qualifiers: Spinal region: lumbosacral Qualified Code(s): M48.07 - Spinal stenosis, lumbosacral region (4) Parkinson disease Code(s): G20 - PARKINSON'S DISEASE patient was started on rocaphin the cx show esbl plan continue abx as planned nutrition total duration of 14 days
--- NOTE | 2017-02-04 18:03 | PN ---
Progress Note (short form) - Note Progress Note: Patient is feeling better with no acute distress Vital Signs Temperature 98.0 F 02/04/17 15:53 Pulse Rate 94 H 02/04/17 15:53 Respiratory Rate 20 02/04/17 15:53 Blood Pressure 155/79 02/04/17 15:53 O2 Sat by Pulse Oximetry (%) 95 02/02/17 21:00 GENERAL: The patient is awake, alert, and fully oriented, in no acute distress. positive for cachexia HEAD: Normal with no signs of trauma. LUNGS: Breath sounds equal, clear to auscultation bilaterally, no wheezes, no crackles, no accessory muscle use. HEART: Regular rate and rhythm, S1, S2 without murmur, rub or gallop. ABDOMEN: Soft, nontender, nondistended, normoactive bowel sounds, no guarding, no rebound. EXTREMITIES: 2+ pulses, warm, well-perfused, no edema. NEUROLOGICAL: Cranial nerves II through XII grossly intact. Normal speech, gait not observed. CBCD WBC 6.4 K/mm3 (4.0-10.0) 01/31/17 06:00 RBC 3.50 M/mm3 (3.60-5.2) L 01/31/17 06:00 Hgb 11.7 GM/dL (10.7-15.3) 01/31/17 06:00 Hct 34.1 % (32.4-45.2) 01/31/17 06:00 MCV 97.4 fl (80-96) H 01/31/17 06:00 MCHC 34.2 g/dl (32.0-36.0) 01/31/17 06:00 RDW 13.1 % (11.6-15.6) 01/31/17 06:00 Plt Count 154 K/MM3 (134-434) 01/31/17 06:00 MPV 7.3 fl (7.5-11.1) L 01/31/17 06:00 CMP Sodium 143 mmol/L (136-145) 02/01/17 06:30 Potassium 4.0 mmol/L (3.5-5.1) 02/01/17 06:30 Chloride 107 mmol/L (98-107) 02/01/17 06:30 Carbon Dioxide 26 mmol/L (21-32) 02/01/17 06:30 Anion Gap 10 (8-16) 02/01/17 06:30 BUN 11 mg/dL (7-18) D 02/01/17 06:30 Creatinine 0.7 mg/dL (0.55-1.02) 02/01/17 06:30 Creat Clearance w eGFR > 60 (>60) 01/28/17 07:15 Random Glucose 86 mg/dL (74-106) 02/01/17 06:30 Calcium 8.9 mg/dL (8.5-10.1) 02/01/17 06:30 Total Bilirubin 1.1 mg/dL (0.2-1.0) H D 01/28/17 07:15 AST 15 U/L (15-37) D 01/28/17 07:15 ALT 10 U/L (12-78) L 01/28/17 07:15 Alkaline Phosphatase 72 U/L (45-117) 01/28/17 07:15 Total Protein 5.9 g/dl (6.4-8.2) L 01/28/17 07:15 Albumin 3.5 g/dl (3.4-5.0) 01/28/17 07:15 Current Medications Generic Name Dose Route Start Last Admin Trade Name Freq PRN Reason Stop Dose Admin Acetaminophen 650 mg 01/24/17 16:00 02/02/17 06:37 Tylenol - PO 650 mg Q4H PRN Administration FEVER OR PAIN Alprazolam 0.25 mg 01/24/17 16:00 02/03/17 12:11 Xanax - PO 0.25 mg Q8H PRN Administration ANXIETY Carbidopa/Levodopa 1 each 01/24/17 22:00 02/04/17 13:02 Sinemet 25/100 - PO 1 each TID MILLIE Administration Docusate Sodium 100 mg 01/24/17 22:00 02/04/17 09:47 Colace - PO 100 mg BID MILLIE Administration Enoxaparin Sodium 40 mg 01/25/17 10:00 02/04/17 09:49 Lovenox - SQ 40 mg DAILY MILLIE Administration IV Flush 8 ml 01/30/17 15:25 Picc Line Flush IVPUSH PRN PRN Protocol Ertapenem 1 gm/ Sodium 50 mls @ 100 mls/hr 01/27/17 10:00 02/04/17 09:48 Chloride IVPB 100 mls/hr DAILY MILLIE Administration Protocol Lactobacillus Acidophilus 1 tab 01/25/17 10:00 02/04/17 09:47 Bacid - PO 1 tab DAILY [facility]IE Administration Ondansetron HCl 4 mg 01/24/17 16:00 Zofran Injection IVPB Q6H PRN NAUSEA Oxycodone HCl 5 mg 01/24/17 16:00 02/02/17 06:37 Roxicodone - PO 5 mg Q4H PRN Administration PAIN Polyethylene Glycol 17 gm 01/25/17 10:00 02/04/17 09:48 Miralax (For Daily Use) - PO Not Given DAILY MILLIE Potassium Phos/Sodium Phos 1 packet 02/01/17 22:00 02/04/17 13:34 Phos-Nak Packet - PO 1 packet BID MILLIE Administration Home Medications Medication Instructions Recorded Carbidopa/Levodopa 25/100 [Sinemet 1 each PO TID 12/28/16 25/100 -] Acetaminophen [Tylenol .Regular 650 mg PO Q4H PRN #0 tablet 02/01/17 Strength -] Alprazolam [Xanax] 0.25 mg PO Q8H PRN #0 tablet MDD 02/01/17 1mg Docusate Sodium [Colace -] 100 mg PO BID cap 02/01/17 Ertapenem Sodium [Invanz -] 1 gm IVPB DAILY vial 02/01/17 Lactobacillus Acidophilus [Bacid -] 1 tab PO DAILY tab 02/01/17 Oxycodone HCl [Roxicodone -] 5 mg PO Q4H PRN #0 tablet MDD 30mg 02/01/17 Picc Line Flush [Picc Line Flush -] 8 ml IVPUSH PRN PRN #0 ml 02/01/17 Polyethylene Glycol 3350 [Miralax 17 gm PO DAILY #1 bottle 02/01/17 119 gm Btl -] A/P: Ms Colbert is an 81 year old female who comes in with worsening chronic pain. She has a history of spinal stenosis and Parkinsons with pain over the past 6 years. presented with ESBL UTI: # ESBL E coli on IV antibiotic ,continue as per Dr. Harris's recommedation, Isolation precautions # Chronic pain due to spinal stenosis continue oxycodone #Spinal stenosis of Lumbar spine; Continue daily PT and gait training , pain meds. Neuro outpatient f/u repeat MRI L spine as outpatient # Parkinson disease Continue sinemet DVT Px: Lovenox possible rehab in am Visit type - Emergency Visit Emergency Visit: Yes ED Registration Date: 01/24/17 Care time: The patient presented to the Emergency Department on the above date and was hospitalized for further evaluation of their emergent condition. - New Patient This patient is new to me today: No - Critical Care Critical Care patient: No - Discharge Referral Referred to [facility] Med P.C.: No
[2017-02-04] MEDS: ALPRAZolam 0.25 MG TABLET PO PRN (19:51)
[2017-02-05] MEDS: CARBIDOPA/LEVODOPA 25/100 TABLET (FP) PO SCH ×3 (06:33→21:51)
[2017-02-05] MEDS ORDERED: PT OWN MED DRAWER 7, Y5N ONE (09:56)
[2017-02-05] MEDS: DOCUSATE SODIUM 100 MG CAPSULE (FP) PO SCH ×2 (10:02→21:51)
[2017-02-05] MEDS: LACTOBACILLUS ACIDOPHILUS 1 EACH TAB (FP) PO SCH (10:02)
[2017-02-05] MEDS: ERTAPENEM SODIUM 1 GM in SODIUM CHLORIDE 50 ML IVPB SCH (10:02)
[2017-02-05] MEDS: NAPH,MB-DB/K PH,MBDB POWDER PACKET PO SCH ×2 (10:02→21:52)
[2017-02-05] MEDS: POLYETHYLENE GLYCOL 3350 119 GM BTL PO SCH (10:02)
[2017-02-05] MEDS: ENOXAPARIN NA (PORCINE) 40 MG/0.4 ML DISP.SYRIN SQ SCH (10:03)
--- NOTE | 2017-02-05 13:12 | PN ---
Progress Note, Physician History of Present Illness: doing well no issues - Current Medication List Current Medications: Active Medications Acetaminophen (Tylenol -) 650 mg PO Q4H PRN PRN Reason: FEVER OR PAIN Last Admin: 02/02/17 06:37 Dose: 650 mg Alprazolam (Xanax -) 0.25 mg PO Q8H PRN PRN Reason: ANXIETY Last Admin: 02/04/17 19:51 Dose: 0.25 mg Carbidopa/Levodopa (Sinemet 25/100 -) 1 each PO TID [facility] Last Admin: 02/05/17 06:33 Dose: 1 each Docusate Sodium (Colace -) 100 mg PO BID [facility] Last Admin: 02/05/17 10:02 Dose: 100 mg Enoxaparin Sodium (Lovenox -) 40 mg SQ DAILY [facility] Last Admin: 02/05/17 10:03 Dose: 40 mg IV Flush (Picc Line Flush) 8 ml IVPUSH PRN PRN PRN Reason: Protocol Ertapenem 1 gm/ Sodium (Chloride) 50 mls @ 100 mls/hr IVPB DAILY [facility] PRN Reason: Protocol Last Admin: 02/05/17 10:02 Dose: 100 mls/hr Lactobacillus Acidophilus (Bacid -) 1 tab PO DAILY [facility] Last Admin: 02/05/17 10:02 Dose: 1 tab Ondansetron HCl (Zofran Injection) 4 mg IVPB Q6H PRN PRN Reason: NAUSEA Oxycodone HCl (Roxicodone -) 5 mg PO Q4H PRN PRN Reason: PAIN Last Admin: 02/02/17 06:37 Dose: 5 mg Polyethylene Glycol (Miralax (For Daily Use) -) 17 gm PO DAILY [facility] Last Admin: 02/05/17 10:02 Dose: Not Given Potassium Phos/Sodium Phos (Phos-Nak Packet -) 1 packet PO BID [facility] Last Admin: 02/05/17 10:02 Dose: 1 packet - Objective Vital Signs: Vital Signs Temperature 97.4 F L 02/05/17 06:57 Pulse Rate 90 02/05/17 06:57 Respiratory Rate 20 02/05/17 06:57 Blood Pressure 162/94 02/05/17 06:57 O2 Sat by Pulse Oximetry (%) 95 02/02/17 21:00 Constitutional: Yes: No Distress, Calm Cardiovascular: Yes: Regular Rate and Rhythm Respiratory: Yes: Regular, CTA Bilaterally Gastrointestinal: Yes: Normal Bowel Sounds, Soft Musculoskeletal: Yes: WNL Extremities: Yes: WNL Psychiatric: Yes: Alert, Oriented Labs: CBC, BMP 01/31/17 06:00 02/01/17 06:30 INR, PTT INR 1.05 (0.82-1.09) 01/31/17 06:00 Assessment/Plan Problem List - Problems (1) UTI (urinary tract infection) Code(s): N39.0 - URINARY TRACT INFECTION, SITE NOT SPECIFIED Qualifiers: Urinary tract infection type: acute cystitis Hematuria presence: without hematuria Qualified Code(s): N30.00 - Acute cystitis without hematuria (2) Chronic pain Code(s): G89.29 - OTHER CHRONIC PAIN Qualifiers: Chronic pain type: chronic pain syndrome Qualified Code(s): G89.4 - Chronic pain syndrome (3) Spinal stenosis Code(s): M48.00 - SPINAL STENOSIS, SITE UNSPECIFIED Qualifiers: Spinal region: lumbosacral Qualified Code(s): M48.07 - Spinal stenosis, lumbosacral region (4) Parkinson disease Code(s): G20 - PARKINSON'S DISEASE patient was started on rocaphin the cx show esbl plan continue abx as planned nutrition total duration of 14 days awaiting placement
--- NOTE | 2017-02-05 16:34 | PN ---
Progress Note, Physician Chief Complaint: Ms Colbert says she feels well. Currently without back pain. No cp, sob, n/v. Family concerned about mental status earlier today, says very confused this morning but improved today. - Current Medication List Current Medications: Active Medications Acetaminophen (Tylenol -) 650 mg PO Q4H PRN PRN Reason: FEVER OR PAIN Last Admin: 02/02/17 06:37 Dose: 650 mg Alprazolam (Xanax -) 0.25 mg PO Q8H PRN PRN Reason: ANXIETY Last Admin: 02/04/17 19:51 Dose: 0.25 mg Carbidopa/Levodopa (Sinemet 25/100 -) 1 each PO TID COUNTS INCLUDE 234 BEDS AT THE [facility] Last Admin: 02/05/17 14:09 Dose: 1 each Docusate Sodium (Colace -) 100 mg PO BID COUNTS INCLUDE 234 BEDS AT THE [facility] Last Admin: 02/05/17 10:02 Dose: 100 mg Enoxaparin Sodium (Lovenox -) 40 mg SQ DAILY [facility]S INCLUDE 234 BEDS AT THE [facility] Last Admin: 02/05/17 10:03 Dose: 40 mg IV Flush (Picc Line Flush) 8 ml IVPUSH PRN PRN PRN Reason: Protocol Ertapenem 1 gm/ Sodium (Chloride) 50 mls @ 100 mls/hr IVPB DAILY [facility] PRN Reason: Protocol Last Admin: 02/05/17 10:02 Dose: 100 mls/hr Lactobacillus Acidophilus (Bacid -) 1 tab PO DAILY [facility]S INCLUDE 234 BEDS AT THE [facility] Last Admin: 02/05/17 10:02 Dose: 1 tab Ondansetron HCl (Zofran Injection) 4 mg IVPB Q6H PRN PRN Reason: NAUSEA Polyethylene Glycol (Miralax (For Daily Use) -) 17 gm PO DAILY [facility]S INCLUDE 234 BEDS AT THE [facility] Last Admin: 02/05/17 10:02 Dose: Not Given Potassium Phos/Sodium Phos (Phos-Nak Packet -) 1 packet PO BID COUNTS INCLUDE 234 BEDS AT THE [facility] Last Admin: 02/05/17 10:02 Dose: 1 packet - Objective Vital Signs: Vital Signs Temperature 36.7 C 02/05/17 14:49 Pulse Rate 102 H 02/05/17 14:49 Respiratory Rate 18 02/05/17 14:49 Blood Pressure 133/72 02/05/17 14:49 O2 Sat by Pulse Oximetry (%) 95 02/02/17 21:00 Constitutional: Yes: Well Nourished, No Distress, Calm Cardiovascular: Yes: Regular Rate and Rhythm. No: Gallop, Murmur, Rub Respiratory: Yes: Regular, CTA Bilaterally. No: Rales, Rhonchi, Wheezes Gastrointestinal: Yes: Normal Bowel Sounds, Soft. No: Distention, Tenderness Extremities: Yes: WNL Edema: No Labs: CBC, BMP 01/31/17 06:00 02/01/17 06:30 INR, PTT INR 1.05 (0.82-1.09) 01/31/17 06:00 Problem List - Problems (1) UTI (urinary tract infection) Code(s): N39.0 - URINARY TRACT INFECTION, SITE NOT SPECIFIED Qualifiers: Urinary tract infection type: acute cystitis Hematuria presence: without hematuria Qualified Code(s): N30.00 - Acute cystitis without hematuria (2) Chronic pain Code(s): G89.29 - OTHER CHRONIC PAIN Qualifiers: Chronic pain type: chronic pain syndrome Qualified Code(s): G89.4 - Chronic pain syndrome (3) Spinal stenosis Code(s): M48.00 - SPINAL STENOSIS, SITE UNSPECIFIED Qualifiers: Spinal region: lumbosacral Qualified Code(s): M48.07 - Spinal stenosis, lumbosacral region (4) Parkinson disease Code(s): G20 - PARKINSON'S DISEASE (5) Hypokalemia Code(s): E87.6 - HYPOKALEMIA (6) Hypophosphatemia Code(s): E83.39 - OTHER DISORDERS OF PHOSPHORUS METABOLISM Assessment/Plan (1) UTI (urinary tract infection) Assessment/Plan: -urine cultures growing ESBL e coli -appreciate ID assistance -on ertapenem, day 9 -needs 14 day total course of ertapenem Code(s): N39.0 - URINARY TRACT INFECTION, SITE NOT SPECIFIED Qualifiers: Urinary tract infection type: acute cystitis Hematuria presence: without hematuria Qualified Code(s): N30.00 - Acute cystitis without hematuria (2) Chronic pain Assessment/Plan: -secondary to spinal stenosis -concern that narcotics are contributing to AMS -will stop oxycodone -will trial scheduled tramadol dose Code(s): G89.29 - OTHER CHRONIC PAIN Qualifiers: Chronic pain type: chronic pain syndrome Qualified Code(s): G89.4 - Chronic pain syndrome (3) Spinal stenosis Assessment/Plan: -appreciate neurology and PT -continue pain management -continue outpatient neurology follow up -would benefit from SNF Code(s): M48.00 - SPINAL STENOSIS, SITE UNSPECIFIED Qualifiers: Spinal region: lumbosacral Qualified Code(s): M48.07 - Spinal stenosis, lumbosacral region (4) Parkinson disease Assessment/Plan: -continue sinemet -neurology consulted -outpatient follow up Code(s): G20 - PARKINSON'S DISEASE (5) FEN -replaced Dispo -unsafe discharge home, will need SNF placement
[2017-02-05] MEDS: traMADol HCL 50 MG TABLET PO SCH (17:27)
[2017-02-06] MEDS: traMADol HCL 50 MG TABLET PO SCH ×4 (01:00→17:29)
[2017-02-06] MEDS: CARBIDOPA/LEVODOPA 25/100 TABLET (FP) PO SCH ×3 (06:03→22:02)
[2017-02-06] MEDS: LACTOBACILLUS ACIDOPHILUS 1 EACH TAB (FP) PO SCH (09:46)
[2017-02-06] MEDS: ERTAPENEM SODIUM 1 GM in SODIUM CHLORIDE 50 ML IVPB SCH (09:47)
[2017-02-06] MEDS: DOCUSATE SODIUM 100 MG CAPSULE (FP) PO SCH ×2 (09:47→22:02)
[2017-02-06] MEDS: ENOXAPARIN NA (PORCINE) 40 MG/0.4 ML DISP.SYRIN SQ SCH (09:47)
[2017-02-06] MEDS: POLYETHYLENE GLYCOL 3350 119 GM BTL PO SCH (09:47)
[2017-02-06] MEDS: NAPH,MB-DB/K PH,MBDB POWDER PACKET PO SCH ×2 (09:47→22:02)
--- NOTE | 2017-02-06 10:34 | PN ---
Progress Note, Physician Chief Complaint: Ms Colbert is without physical complaint today. No cp, sob, n/v. However very anxious this morning about her discharge plan. - Current Medication List Current Medications: Active Medications Acetaminophen (Tylenol -) 650 mg PO Q4H PRN PRN Reason: FEVER OR PAIN Last Admin: 02/02/17 06:37 Dose: 650 mg Alprazolam (Xanax -) 0.25 mg PO Q8H PRN PRN Reason: ANXIETY Last Admin: 02/04/17 19:51 Dose: 0.25 mg Carbidopa/Levodopa (Sinemet 25/100 -) 1 each PO TID [facility] Last Admin: 02/06/17 06:03 Dose: 1 each Docusate Sodium (Colace -) 100 mg PO BID [facility] Last Admin: 02/06/17 09:47 Dose: 100 mg Enoxaparin Sodium (Lovenox -) 40 mg SQ DAILY [facility] Last Admin: 02/06/17 09:47 Dose: 40 mg IV Flush (Picc Line Flush) 8 ml IVPUSH PRN PRN PRN Reason: Protocol Ertapenem 1 gm/ Sodium (Chloride) 50 mls @ 100 mls/hr IVPB DAILY [facility] PRN Reason: Protocol Last Admin: 02/06/17 09:47 Dose: 100 mls/hr Lactobacillus Acidophilus (Bacid -) 1 tab PO DAILY [facility] Last Admin: 02/06/17 09:46 Dose: 1 tab Ondansetron HCl (Zofran Injection) 4 mg IVPB Q6H PRN PRN Reason: NAUSEA Polyethylene Glycol (Miralax (For Daily Use) -) 17 gm PO DAILY [facility] Last Admin: 02/06/17 09:47 Dose: Not Given Potassium Phos/Sodium Phos (Phos-Nak Packet -) 1 packet PO BID [facility] Last Admin: 02/06/17 09:47 Dose: 1 packet Tramadol HCl (Ultram -) 50 mg PO Q8H [facility] Last Admin: 02/06/17 10:03 Dose: 50 mg - Objective Vital Signs: Vital Signs Temperature 36.7 C 02/06/17 08:13 Pulse Rate 94 H 02/06/17 08:13 Respiratory Rate 20 02/06/17 08:13 Blood Pressure 115/72 02/06/17 08:13 O2 Sat by Pulse Oximetry (%) 93 L 02/06/17 09:00 Constitutional: Yes: No Distress, Calm, Thin Cardiovascular: Yes: Regular Rate and Rhythm. No: Gallop, Murmur, Rub Respiratory: Yes: Regular, CTA Bilaterally. No: Rales, Rhonchi, Wheezes Gastrointestinal: Yes: Normal Bowel Sounds, Soft. No: Distention, Tenderness Extremities: Yes: WNL Edema: No Labs: CBC, BMP 01/31/17 06:00 02/01/17 06:30 INR, PTT INR 1.05 (0.82-1.09) 01/31/17 06:00 Problem List - Problems (1) UTI (urinary tract infection) Code(s): N39.0 - URINARY TRACT INFECTION, SITE NOT SPECIFIED Qualifiers: Urinary tract infection type: acute cystitis Hematuria presence: without hematuria Qualified Code(s): N30.00 - Acute cystitis without hematuria (2) Chronic pain Code(s): G89.29 - OTHER CHRONIC PAIN Qualifiers: Chronic pain type: chronic pain syndrome Qualified Code(s): G89.4 - Chronic pain syndrome (3) Spinal stenosis Code(s): M48.00 - SPINAL STENOSIS, SITE UNSPECIFIED Qualifiers: Spinal region: lumbosacral Qualified Code(s): M48.07 - Spinal stenosis, lumbosacral region (4) Parkinson disease Code(s): G20 - PARKINSON'S DISEASE (5) Hypokalemia Code(s): E87.6 - HYPOKALEMIA (6) Hypophosphatemia Code(s): E83.39 - OTHER DISORDERS OF PHOSPHORUS METABOLISM Assessment/Plan (1) UTI (urinary tract infection) Assessment/Plan: -urine cultures growing ESBL e coli -appreciate ID assistance -on ertapenem, day 10 -needs 14 day total course of ertapenem Code(s): N39.0 - URINARY TRACT INFECTION, SITE NOT SPECIFIED Qualifiers: Urinary tract infection type: acute cystitis Hematuria presence: without hematuria Qualified Code(s): N30.00 - Acute cystitis without hematuria (2) Chronic pain Assessment/Plan: -secondary to spinal stenosis -continue tramadol, patient currently not complaining of pain to me -however will monitor as patient may develop pain later or discuss this with RN or family Code(s): G89.29 - OTHER CHRONIC PAIN Qualifiers: Chronic pain type: chronic pain syndrome Qualified Code(s): G89.4 - Chronic pain syndrome (3) Spinal stenosis Assessment/Plan: -appreciate neurology and PT -continue pain management -continue outpatient neurology follow up -would benefit from SNF Code(s): M48.00 - SPINAL STENOSIS, SITE UNSPECIFIED Qualifiers: Spinal region: lumbosacral Qualified Code(s): M48.07 - Spinal stenosis, lumbosacral region (4) Parkinson disease Assessment/Plan: -continue sinemet -neurology consulted -outpatient follow up Code(s): G20 - PARKINSON'S DISEASE (5) FEN -replaced Dispo -multiple calls placed to [facility] concerning rehab -patient is requiring IV antibiotics and also is high fall risk at the moment -however now that pain is controlled is good rehab candidate -will d/w [facility] need for SNF as needs PT/gait/strength training and lives alone
--- NOTE | 2017-02-06 15:10 | PN ---
Progress Note, Physician History of Present Illness: doing well no issues - Current Medication List Current Medications: Active Medications Acetaminophen (Tylenol -) 650 mg PO Q4H PRN PRN Reason: FEVER OR PAIN Last Admin: 02/02/17 06:37 Dose: 650 mg Alprazolam (Xanax -) 0.25 mg PO Q8H PRN PRN Reason: ANXIETY Last Admin: 02/04/17 19:51 Dose: 0.25 mg Carbidopa/Levodopa (Sinemet 25/100 -) 1 each PO TID [facility] Last Admin: 02/06/17 13:09 Dose: 1 each Docusate Sodium (Colace -) 100 mg PO BID [facility] Last Admin: 02/06/17 09:47 Dose: 100 mg Enoxaparin Sodium (Lovenox -) 40 mg SQ DAILY [facility] Last Admin: 02/06/17 09:47 Dose: 40 mg IV Flush (Picc Line Flush) 8 ml IVPUSH PRN PRN PRN Reason: Protocol Ertapenem 1 gm/ Sodium (Chloride) 50 mls @ 100 mls/hr IVPB DAILY [facility] PRN Reason: Protocol Last Admin: 02/06/17 09:47 Dose: 100 mls/hr Lactobacillus Acidophilus (Bacid -) 1 tab PO DAILY [facility] Last Admin: 02/06/17 09:46 Dose: 1 tab Ondansetron HCl (Zofran Injection) 4 mg IVPB Q6H PRN PRN Reason: NAUSEA Polyethylene Glycol (Miralax (For Daily Use) -) 17 gm PO DAILY [facility] Last Admin: 02/06/17 09:47 Dose: Not Given Potassium Phos/Sodium Phos (Phos-Nak Packet -) 1 packet PO BID [facility] Last Admin: 02/06/17 09:47 Dose: 1 packet Tramadol HCl (Ultram -) 50 mg PO Q8H [facility] Last Admin: 02/06/17 10:03 Dose: 50 mg - Objective Vital Signs: Vital Signs Temperature 98.0 F 02/06/17 08:13 Pulse Rate 94 H 02/06/17 08:13 Respiratory Rate 02/06/17 08:13 Blood Pressure 115/72 02/06/17 08:13 O2 Sat by Pulse Oximetry (%) 93 L 02/06/17 09:00 Constitutional: Yes: No Distress, Calm Cardiovascular: Yes: Regular Rate and Rhythm Respiratory: Yes: Regular, CTA Bilaterally Gastrointestinal: Yes: Normal Bowel Sounds, Soft Neurological: Yes: Alert, Oriented Psychiatric: Yes: Alert, Oriented Labs: CBC, BMP 01/31/17 06:00 02/01/17 06:30 INR, PTT INR 1.05 (0.82-1.09) 01/31/17 06:00 Assessment/Plan Problem List - Problems (1) UTI (urinary tract infection) Code(s): N39.0 - URINARY TRACT INFECTION, SITE NOT SPECIFIED Qualifiers: Urinary tract infection type: acute cystitis Hematuria presence: without hematuria Qualified Code(s): N30.00 - Acute cystitis without hematuria (2) Chronic pain Code(s): G89.29 - OTHER CHRONIC PAIN Qualifiers: Chronic pain type: chronic pain syndrome Qualified Code(s): G89.4 - Chronic pain syndrome (3) Spinal stenosis Code(s): M48.00 - SPINAL STENOSIS, SITE UNSPECIFIED Qualifiers: Spinal region: lumbosacral Qualified Code(s): M48.07 - Spinal stenosis, lumbosacral region (4) Parkinson disease Code(s): G20 - PARKINSON'S DISEASE patient was started on rocaphin the cx show esbl plan doing well continue abx rest as per primary
[2017-02-06] MEDS: ALPRAZolam 0.25 MG TABLET PO PRN (15:24)
--- NOTE | 2017-02-06 19:06 | PN ---
Progress Note (short form) - Note Progress Note: Neurology History of Present Illness 81-year-old female brought in by daughter for evaluation of worsening low back pain for the past 6 years now associated with decreased sleep and decreased appetite secondary to the pain unrelieved by tramadol. Patient states was followed by Dr. Shoemaker but has not followed up with a new doctor since then and is otherwise seen by her primary care physician Dr. Mcrae. Patient has no urinary complaints, bowel complaints, skin complaints, difficulty breathing, chest pain, radiation of pain. 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 On Sinemet for parkinson's. No acute events overnight. Daughter/family concerned about patient's mental status. They believe she is confused and when I saw the patient she was awake, alert, conversive, would trail off in conversation but was coherent. I requested CT head which the patient initally hesitated but eventually agreed. CT head reviewed and not acute changes since prior, mild age related changes noted. Is getting ongoing care for UTI. Family also asking about pain medication and seemed concerned about opioids. Of note, seems her pain medication has been downgraded from Roxicodone to Ultram since my previous follow up. Active Medications Acetaminophen (Tylenol -) 650 mg PO Q4H PRN PRN Reason: FEVER OR PAIN Last Admin: 02/02/17 06:37 Dose: 650 mg Alprazolam (Xanax -) 0.25 mg PO Q8H PRN PRN Reason: ANXIETY Last Admin: 02/06/17 15:24 Dose: 0.25 mg Carbidopa/Levodopa (Sinemet 25/100 -) 1 each PO TID [facility] Last Admin: 02/06/17 13:09 Dose: 1 each Docusate Sodium (Colace -) 100 mg PO BID [facility] Last Admin: 02/06/17 09:47 Dose: 100 mg Enoxaparin Sodium (Lovenox -) 40 mg SQ DAILY [facility] Last Admin: 02/06/17 09:47 Dose: 40 mg IV Flush (Picc Line Flush) 8 ml IVPUSH PRN PRN PRN Reason: Protocol Ertapenem 1 gm/ Sodium (Chloride) 50 mls @ 100 mls/hr IVPB DAILY [facility] PRN Reason: Protocol Last Admin: 02/06/17 09:47 Dose: 100 mls/hr Lactobacillus Acidophilus (Bacid -) 1 tab PO DAILY [facility] Last Admin: 02/06/17 09:46 Dose: 1 tab Ondansetron HCl (Zofran Injection) 4 mg IVPB Q6H PRN PRN Reason: NAUSEA Polyethylene Glycol (Miralax (For Daily Use) -) 17 gm PO DAILY [facility] Last Admin: 02/06/17 09:47 Dose: Not Given Potassium Phos/Sodium Phos (Phos-Nak Packet -) 1 packet PO BID [facility] Last Admin: 02/06/17 09:47 Dose: 1 packet Tramadol HCl (Ultram -) 50 mg PO Q8H [facility] Last Admin: 02/06/17 17:29 Dose: Not Given *Physical Exam Vital Signs Period Temp Pulse Resp BP Sys/Tee Pulse Ox Last 24 Hr 97.9 F-98.1 F 90-97 18-20 115-144/72-102 93 - Physical Exam General Appearance: Yes: Nourished, Appropriately Dressed. No: Apparent Distress HEENT: negative: Pale Conjunctivae Neck: positive: Supple Respiratory/Chest: positive: Lungs Clear, Normal Breath Sounds. negative: Respiratory Distress, Accessory Muscle Use Cardiovascular: positive: Regular Rhythm, Regular Rate. negative: Murmur Gastrointestinal/Abdominal: positive: Soft. negative: Tenderness Musculoskeletal: negative: CVA Tenderness, Vertebral Tenderness, Other (no posterior pelvis pain (although she points to her left posterior iliac crest) ) Extremity: positive: Normal Capillary Refill. negative: Pedal Edema Integumentary: positive: Dry, Warm, Pale Neurologic: CN intact, no facial droop, sensory normal, strength 5/5 in b/l lower extremities, finger to nose normal CBCD WBC 6.4 K/mm3 (4.0-10.0) 01/31/17 06:00 RBC 3.50 M/mm3 (3.60-5.2) L 01/31/17 06:00 Hgb 11.7 GM/dL (10.7-15.3) 01/31/17 06:00 Hct 34.1 % (32.4-45.2) 01/31/17 06:00 MCV 97.4 fl (80-96) H 01/31/17 06:00 MCHC 34.2 g/dl (32.0-36.0) 01/31/17 06:00 RDW 13.1 % (11.6-15.6) 01/31/17 06:00 Plt Count 154 K/MM3 (134-434) 01/31/17 06:00 MPV 7.3 fl (7.5-11.1) L 01/31/17 06:00 CMP Sodium 143 mmol/L (136-145) 02/01/17 06:30 Potassium 4.0 mmol/L (3.5-5.1) 02/01/17 06:30 Chloride 107 mmol/L (98-107) 02/01/17 06:30 Carbon Dioxide 26 mmol/L (21-32) 02/01/17 06:30 Anion Gap 10 (8-16) 02/01/17 06:30 BUN 11 mg/dL (7-18) D 02/01/17 06:30 Creatinine 0.7 mg/dL (0.55-1.02) 02/01/17 06:30 Creat Clearance w eGFR > 60 (>60) 01/28/17 07:15 Calcium 8.9 mg/dL (8.5-10.1) 02/01/17 06:30 Total Bilirubin 1.1 mg/dL (0.2-1.0) H D 01/28/17 07:15 AST 15 U/L (15-37) D 01/28/17 07:15 ALT 10 U/L (12-78) L 01/28/17 07:15 Alkaline Phosphatase 72 U/L (45-117) 01/28/17 07:15 Total Protein 5.9 g/dl (6.4-8.2) L 01/28/17 07:15 Albumin 3.5 g/dl (3.4-5.0) 01/28/17 07:15 Previous MRI L spine reviewed Medical Decision Making 81-year-old female brought in by daughter for evaluation of worsening low back pain for the past 6 years Stenosis in the lumbar spine as per previous imaging including an MRI which I reviewed from May. Can repeat MRI L spine as outpatient if needed Continue sinemet for Parkinson's No longer on Roxicodone for pain, is on Tramadol which is less potent CT head reviewed and no acute changes She was comfortable appearing in bed without significant discomfort. Back has improved Continue medical mgmt
[2017-02-07] MEDS: traMADol HCL 50 MG TABLET PO SCH ×2 (01:03→09:30)
[2017-02-07] MEDS: ALPRAZolam 0.25 MG TABLET PO PRN (03:27)
[2017-02-07] MEDS: CARBIDOPA/LEVODOPA 25/100 TABLET (FP) PO SCH ×3 (05:22→21:01)
[2017-02-07] MEDS ORDERED: PT OWN MED DRAWER 7, Y5N ONE (09:08)
[2017-02-07] MEDS: DOCUSATE SODIUM 100 MG CAPSULE (FP) PO SCH ×2 (09:29→21:01)
[2017-02-07] MEDS: LACTOBACILLUS ACIDOPHILUS 1 EACH TAB (FP) PO SCH (09:29)
[2017-02-07] MEDS: NAPH,MB-DB/K PH,MBDB POWDER PACKET PO SCH ×2 (09:30→21:01)
[2017-02-07] MEDS: ENOXAPARIN NA (PORCINE) 40 MG/0.4 ML DISP.SYRIN SQ SCH (09:31)
[2017-02-07] MEDS: POLYETHYLENE GLYCOL 3350 119 GM BTL PO SCH (09:36)
[2017-02-07] MEDS: ERTAPENEM SODIUM 1 GM in SODIUM CHLORIDE 50 ML IVPB SCH (09:39)
--- NOTE | 2017-02-07 10:54 | PN ---
Progress Note (short form) - Note Progress Note: Neurology History of Present Illness 81-year-old female brought in by daughter for evaluation of worsening low back pain for the past 6 years now associated with decreased sleep and decreased appetite secondary to the pain unrelieved by tramadol. Patient states was followed by Dr. Shoemaker but has not followed up with a new doctor since then and is otherwise seen by her primary care physician Dr. Mcrae. Patient has no urinary complaints, bowel complaints, skin complaints, difficulty breathing, chest pain, radiation of pain. 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 On Sinemet for parkinson's. No acute events overnight. Daughter/family concerned about patient's mental status. They felt she is confused and compelted CT head which did not show acute changes. This morning was awake, alert, conversive, would trail off in conversation. Was in wheelchair in hallway having breakfast. Is getting ongoing care for UTI. Family also asking about pain medication and seemed concerned about opioids. Of note, seems her pain medication has been downgraded from Roxicodone to Ultram since my previous follow up. Active Medications Acetaminophen (Tylenol -) 650 mg PO Q4H PRN PRN Reason: FEVER OR PAIN Last Admin: 02/02/17 06:37 Dose: 650 mg Alprazolam (Xanax -) 0.25 mg PO Q8H PRN PRN Reason: ANXIETY Last Admin: 02/07/17 03:27 Dose: 0.25 mg Carbidopa/Levodopa (Sinemet 25/100 -) 1 each PO TID [facility] Last Admin: 02/07/17 05:22 Dose: 1 each Docusate Sodium (Colace -) 100 mg PO BID [facility] Last Admin: 02/07/17 09:29 Dose: 100 mg Enoxaparin Sodium (Lovenox -) 40 mg SQ DAILY [facility] Last Admin: 02/07/17 09:31 Dose: 40 mg IV Flush (Picc Line Flush) 8 ml IVPUSH PRN PRN PRN Reason: Protocol Ertapenem 1 gm/ Sodium (Chloride) 50 mls @ 100 mls/hr IVPB DAILY [facility] PRN Reason: Protocol Last Admin: 02/07/17 09:39 Dose: 100 mls/hr Lactobacillus Acidophilus (Bacid -) 1 tab PO DAILY [facility] Last Admin: 02/07/17 09:29 Dose: 1 tab Ondansetron HCl (Zofran Injection) 4 mg IVPB Q6H PRN PRN Reason: NAUSEA Polyethylene Glycol (Miralax (For Daily Use) -) 17 gm PO DAILY [facility] Last Admin: 02/07/17 09:36 Dose: Not Given Potassium Phos/Sodium Phos (Phos-Nak Packet -) 1 packet PO BID [facility] Last Admin: 02/07/17 09:30 Dose: 1 packet Tramadol HCl (Ultram -) 50 mg PO Q8H [facility] Last Admin: 02/07/17 09:30 Dose: 50 mg *Physical Exam Vital Signs Temperature 98 F 02/07/17 06:17 Pulse Rate 98 H 02/07/17 06:17 Respiratory Rate 20 02/07/17 06:17 Blood Pressure 124/76 02/07/17 06:17 O2 Sat by Pulse Oximetry (%) 94 L 02/06/17 21:00 - Physical Exam General Appearance: Yes: Nourished, Appropriately Dressed. No: Apparent Distress HEENT: negative: Pale Conjunctivae Neck: positive: Supple Respiratory/Chest: positive: Lungs Clear, Normal Breath Sounds. negative: Respiratory Distress, Accessory Muscle Use Cardiovascular: positive: Regular Rhythm, Regular Rate. negative: Murmur Gastrointestinal/Abdominal: positive: Soft. negative: Tenderness Musculoskeletal: negative: CVA Tenderness, Vertebral Tenderness, Other (no posterior pelvis pain (although she points to her left posterior iliac crest) ) Extremity: positive: Normal Capillary Refill. negative: Pedal Edema Integumentary: positive: Dry, Warm, Pale Neurologic: CN intact, no facial droop, sensory normal, strength 5/5 in b/l lower extremities, finger to nose normal CBCD WBC 6.4 K/mm3 (4.0-10.0) 01/31/17 06:00 RBC 3.50 M/mm3 (3.60-5.2) L 01/31/17 06:00 Hgb 11.7 GM/dL (10.7-15.3) 01/31/17 06:00 Hct 34.1 % (32.4-45.2) 01/31/17 06:00 MCV 97.4 fl (80-96) H 01/31/17 06:00 MCHC 34.2 g/dl (32.0-36.0) 01/31/17 06:00 RDW 13.1 % (11.6-15.6) 01/31/17 06:00 Plt Count 154 K/MM3 (134-434) 01/31/17 06:00 MPV 7.3 fl (7.5-11.1) L 01/31/17 06:00 CMP Sodium 143 mmol/L (136-145) 02/01/17 06:30 Potassium 4.0 mmol/L (3.5-5.1) 02/01/17 06:30 Chloride 107 mmol/L (98-107) 02/01/17 06:30 Carbon Dioxide 26 mmol/L (21-32) 02/01/17 06:30 Anion Gap 10 (8-16) 02/01/17 06:30 BUN 11 mg/dL (7-18) D 02/01/17 06:30 Creatinine 0.7 mg/dL (0.55-1.02) 02/01/17 06:30 Creat Clearance w eGFR > 60 (>60) 01/28/17 07:15 Calcium 8.9 mg/dL (8.5-10.1) 02/01/17 06:30 Total Bilirubin 1.1 mg/dL (0.2-1.0) H D 01/28/17 07:15 AST 15 U/L (15-37) D 01/28/17 07:15 ALT 10 U/L (12-78) L 01/28/17 07:15 Alkaline Phosphatase 72 U/L (45-117) 01/28/17 07:15 Total Protein 5.9 g/dl (6.4-8.2) L 01/28/17 07:15 Albumin 3.5 g/dl (3.4-5.0) 01/28/17 07:15 Previous MRI L spine reviewed Medical Decision Making 81-year-old female brought in by daughter for evaluation of worsening low back pain for the past 6 years Stenosis in the lumbar spine as per previous imaging including an MRI which I reviewed from May. Can repeat MRI L spine as outpatient if needed Continue sinemet for Parkinson's No longer on Roxicodone for pain, is on Tramadol which is less potent CT head reviewed and no acute changes Back has improved Ongoing medical management
[2017-02-07] MEDS ORDERED: traMADol HCL 50 MG TABLET PO PRN (12:51)
--- NOTE | 2017-02-07 12:56 | PN ---
Progress Note, Physician Chief Complaint: Ms Colbert is acutely confused today. [place] oriented to place easily. However unable to obtain subjective. - Current Medication List Current Medications: Active Medications Acetaminophen (Tylenol -) 650 mg PO Q4H PRN PRN Reason: FEVER OR PAIN Last Admin: 02/02/17 06:37 Dose: 650 mg Carbidopa/Levodopa (Sinemet 25/100 -) 1 each PO TID [facility] Last Admin: 02/07/17 05:22 Dose: 1 each Docusate Sodium (Colace -) 100 mg PO BID [facility] Last Admin: 02/07/17 09:29 Dose: 100 mg Enoxaparin Sodium (Lovenox -) 40 mg SQ DAILY [facility] Last Admin: 02/07/17 09:31 Dose: 40 mg IV Flush (Picc Line Flush) 8 ml IVPUSH PRN PRN PRN Reason: Protocol Ertapenem 1 gm/ Sodium (Chloride) 50 mls @ 100 mls/hr IVPB DAILY [facility] PRN Reason: Protocol Last Admin: 02/07/17 09:39 Dose: 100 mls/hr Lactobacillus Acidophilus (Bacid -) 1 tab PO DAILY [facility] Last Admin: 02/07/17 09:29 Dose: 1 tab Ondansetron HCl (Zofran Injection) 4 mg IVPB Q6H PRN PRN Reason: NAUSEA Polyethylene Glycol (Miralax (For Daily Use) -) 17 gm PO DAILY [facility] Last Admin: 02/07/17 09:36 Dose: Not Given Potassium Phos/Sodium Phos (Phos-Nak Packet -) 1 packet PO BID [facility] Last Admin: 02/07/17 09:30 Dose: 1 packet Temazepam (Restoril -) 15 mg PO HS [facility] Tramadol HCl (Ultram -) 50 mg PO Q8H PRN PRN Reason: PAIN - Objective Vital Signs: Vital Signs Temperature 36.5 C 02/07/17 08:10 Pulse Rate 104 H 02/07/17 08:10 Respiratory Rate 20 02/07/17 08:10 Blood Pressure 141/73 02/07/17 08:10 O2 Sat by Pulse Oximetry (%) 94 L 02/06/17 21:00 Constitutional: Yes: No Distress, Calm, Other (confused) Cardiovascular: Yes: Regular Rate and Rhythm. No: Gallop, Murmur, Rub Respiratory: Yes: Regular, CTA Bilaterally. No: Rales, Rhonchi, Wheezes Gastrointestinal: Yes: Normal Bowel Sounds, Soft. No: Distention, Tenderness Extremities: Yes: WNL Edema: No Labs: CBC, BMP 01/31/17 06:00 02/01/17 06:30 INR, PTT INR 1.05 (0.82-1.09) 01/31/17 06:00 Problem List - Problems (1) UTI (urinary tract infection) Code(s): N39.0 - URINARY TRACT INFECTION, SITE NOT SPECIFIED Qualifiers: Urinary tract infection type: acute cystitis Hematuria presence: without hematuria Qualified Code(s): N30.00 - Acute cystitis without hematuria (2) Chronic pain Code(s): G89.29 - OTHER CHRONIC PAIN Qualifiers: Chronic pain type: chronic pain syndrome Qualified Code(s): G89.4 - Chronic pain syndrome (3) Spinal stenosis Code(s): M48.00 - SPINAL STENOSIS, SITE UNSPECIFIED Qualifiers: Spinal region: lumbosacral Qualified Code(s): M48.07 - Spinal stenosis, lumbosacral region (4) Parkinson disease Code(s): G20 - PARKINSON'S DISEASE (5) Hypokalemia Code(s): E87.6 - HYPOKALEMIA (6) Hypophosphatemia Code(s): E83.39 - OTHER DISORDERS OF PHOSPHORUS METABOLISM (7) Code(s): F05 - DELIRIUM DUE TO KNOWN PHYSIOLOGICAL CONDITION Assessment/Plan (1) UTI (urinary tract infection) Assessment/Plan: -urine cultures growing ESBL e coli -appreciate ID assistance -on ertapenem, day 11 -needs 14 day total course of ertapenem Code(s): N39.0 - URINARY TRACT INFECTION, SITE NOT SPECIFIED Qualifiers: Urinary tract infection type: acute cystitis Hematuria presence: without hematuria Qualified Code(s): N30.00 - Acute cystitis without hematuria (2) Chronic pain Assessment/Plan: -secondary to spinal stenosis -continue tramadol but make prn Code(s): G89.29 - OTHER CHRONIC PAIN Qualifiers: Chronic pain type: chronic pain syndrome Qualified Code(s): G89.4 - Chronic pain syndrome (3) Spinal stenosis Assessment/Plan: -appreciate neurology and PT -continue pain management -continue outpatient neurology follow up -would benefit from SNF Code(s): M48.00 - SPINAL STENOSIS, SITE UNSPECIFIED Qualifiers: Spinal region: lumbosacral Qualified Code(s): M48.07 - Spinal stenosis, lumbosacral region (4) Parkinson disease Assessment/Plan: -continue sinemet -neurology consulted -outpatient follow up Code(s): G20 - PARKINSON'S DISEASE (5) FEN -replaced (6) Sundowning -per RN patient did not sleep last night AND is not responding to xanax -suspect patient is having a paradoxical response to xanax -will stop xanax -instructed daughter to not let patient sleep and continue to orient her through the day -instructed RN why stopping sedatives or anxiolytics during the day as will worsen her sundowning if she sleeps during the day -begin low dose temazepam at night to help sleep
--- NOTE | 2017-02-07 14:09 | PN ---
Progress Note, Physician History of Present Illness: doing well no issues events noted from yesterday - Current Medication List Current Medications: Active Medications Acetaminophen (Tylenol -) 650 mg PO Q4H PRN PRN Reason: FEVER OR PAIN Last Admin: 02/02/17 06:37 Dose: 650 mg Carbidopa/Levodopa (Sinemet 25/100 -) 1 each PO TID [facility] Last Admin: 02/07/17 14:04 Dose: 1 each Docusate Sodium (Colace -) 100 mg PO BID [facility] Last Admin: 02/07/17 09:29 Dose: 100 mg Enoxaparin Sodium (Lovenox -) 40 mg SQ DAILY [facility] Last Admin: 02/07/17 09:31 Dose: 40 mg IV Flush (Picc Line Flush) 8 ml IVPUSH PRN PRN PRN Reason: Protocol Ertapenem 1 gm/ Sodium (Chloride) 50 mls @ 100 mls/hr IVPB DAILY [facility] PRN Reason: Protocol Last Admin: 02/07/17 09:39 Dose: 100 mls/hr Lactobacillus Acidophilus (Bacid -) 1 tab PO DAILY [facility] Last Admin: 02/07/17 09:29 Dose: 1 tab Ondansetron HCl (Zofran Injection) 4 mg IVPB Q6H PRN PRN Reason: NAUSEA Polyethylene Glycol (Miralax (For Daily Use) -) 17 gm PO DAILY [facility] Last Admin: 02/07/17 09:36 Dose: Not Given Potassium Phos/Sodium Phos (Phos-Nak Packet -) 1 packet PO BID [facility] Last Admin: 02/07/17 09:30 Dose: 1 packet Temazepam (Restoril -) 15 mg PO HS [facility] Tramadol HCl (Ultram -) 50 mg PO Q8H PRN PRN Reason: PAIN - Objective Vital Signs: Vital Signs Temperature 97.7 F 02/07/17 08:10 Pulse Rate 104 H 02/07/17 08:10 Respiratory Rate 20 02/07/17 08:10 Blood Pressure 141/73 02/07/17 08:10 O2 Sat by Pulse Oximetry (%) 94 L 02/06/17 21:00 Constitutional: Yes: No Distress, Calm Cardiovascular: Yes: Regular Rate and Rhythm Respiratory: Yes: Regular, CTA Bilaterally Gastrointestinal: Yes: Normal Bowel Sounds, Soft Musculoskeletal: Yes: WNL Extremities: Yes: WNL Neurological: Yes: Alert, Other Psychiatric: Yes: Alert Labs: CBC, BMP 01/31/17 06:00 02/01/17 06:30 INR, PTT INR 1.05 (0.82-1.09) 01/31/17 06:00 Assessment/Plan Problem List - Problems (1) UTI (urinary tract infection) Code(s): N39.0 - URINARY TRACT INFECTION, SITE NOT SPECIFIED Qualifiers: Urinary tract infection type: acute cystitis Hematuria presence: without hematuria Qualified Code(s): N30.00 - Acute cystitis without hematuria (2) Chronic pain Code(s): G89.29 - OTHER CHRONIC PAIN Qualifiers: Chronic pain type: chronic pain syndrome Qualified Code(s): G89.4 - Chronic pain syndrome (3) Spinal stenosis Code(s): M48.00 - SPINAL STENOSIS, SITE UNSPECIFIED Qualifiers: Spinal region: lumbosacral Qualified Code(s): M48.07 - Spinal stenosis, lumbosacral region (4) Parkinson disease Code(s): G20 - PARKINSON'S DISEASE patient was started on rocaphin the cx show esbl plan doing well continue abx rest as per primary await to finish the course
[2017-02-07] MEDS ORDERED: TEMAZEPAM 15 MG CAPSULE PO SCH (22:00)
[2017-02-08] MEDS: CARBIDOPA/LEVODOPA 25/100 TABLET (FP) PO SCH ×3 (06:11→21:00)
[2017-02-08 07:50] LABS: BASOPHIL 0.8 % (0-2.0); EOSINOPHIL 2.2 % (0-4.5); MCHC 33.7 g/dl (32.0-36.0); MEAN CELL VOLUME 98.1 fl (80-96); MEAN PLT VOLUME 7.4 fl (7.5-11.1); NEUTROPHILS 54.7 % (42.8-82.8); PLATELET COUNT 208 K/MM3 (134-434); RDW 12.5 % (11.6-15.6); WHITE BLOOD COUNT 5.8 K/mm3 (4.0-10.0)
[2017-02-08 08:54] LABS: ANION GAP 12 (8-16); CALCIUM 8.9 mg/dL (8.5-10.1); CO2 27 mmol/L (21-32); CREATININE 0.8 mg/dL (0.55-1.02); GLUCOSE,RANDOM 70 mg/dL (74-106); MAGNESIUM 2.3 mg/dL (1.8-2.4); PHOSPHOROUS 3.9 mg/dL (2.5-4.9)
[2017-02-08] MEDS ORDERED: PT OWN MED DRAWER 7, Y5N ONE ×2 (09:43→10:31)
[2017-02-08] MEDS: DOCUSATE SODIUM 100 MG CAPSULE (FP) PO SCH ×2 (09:59→21:00)
[2017-02-08] MEDS: POLYETHYLENE GLYCOL 3350 119 GM BTL PO SCH (09:59)
[2017-02-08] MEDS: LACTOBACILLUS ACIDOPHILUS 1 EACH TAB (FP) PO SCH (09:59)
[2017-02-08] MEDS: ENOXAPARIN NA (PORCINE) 40 MG/0.4 ML DISP.SYRIN SQ SCH (10:00)
[2017-02-08] MEDS: NAPH,MB-DB/K PH,MBDB POWDER PACKET PO SCH (10:00)
[2017-02-08] MEDS ORDERED: SODIUM CHLORIDE 1,000 ML IV SCH (11:00)
[2017-02-08] MEDS: ERTAPENEM SODIUM 1 GM in SODIUM CHLORIDE 50 ML IVPB SCH (11:30)
--- NOTE | 2017-02-08 11:36 | PN ---
Progress Note (short form) - Note Progress Note: Neurology History of Present Illness 81-year-old female brought in by daughter for evaluation of worsening low back pain for the past 6 years now associated with decreased sleep and decreased appetite secondary to the pain unrelieved by tramadol. Patient states was followed by Dr. Shoemaker but has not followed up with a new doctor since then and is otherwise seen by her primary care physician Dr. Mcrae. Patient has no urinary complaints, bowel complaints, skin complaints, difficulty breathing, chest pain, radiation of pain. 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 On Sinemet for parkinson's. Patient seen at bedside and mentating well today. Xanax was changed to Restoril by hospitalist with patient being lucid this morning. Carrying on conversation and maintaining thought process. Active Medications Acetaminophen (Tylenol -) 650 mg PO Q4H PRN PRN Reason: FEVER OR PAIN Last Admin: 02/02/17 06:37 Dose: 650 mg Carbidopa/Levodopa (Sinemet 25/100 -) 1 each PO TID [facility] Last Admin: 02/08/17 06:11 Dose: Not Given Docusate Sodium (Colace -) 100 mg PO BID [facility] Last Admin: 02/08/17 09:59 Dose: 100 mg Enoxaparin Sodium (Lovenox -) 40 mg SQ DAILY [facility] Last Admin: 02/08/17 10:00 Dose: 40 mg IV Flush (Picc Line Flush) 8 ml IVPUSH PRN PRN PRN Reason: Protocol Ertapenem 1 gm/ Sodium (Chloride) 50 mls @ 100 mls/hr IVPB DAILY [facility] PRN Reason: Protocol Last Admin: 02/08/17 11:30 Dose: 100 mls/hr Sodium Chloride (Normal Saline -) 1,000 mls @ 50 mls/hr IV ASDIR [facility] Stop: 02/09/17 10:50 Last Admin: 02/08/17 11:31 Dose: 50 mls/hr Lactobacillus Acidophilus (Bacid -) 1 tab PO DAILY [facility] Last Admin: 02/08/17 09:59 Dose: 1 tab Ondansetron HCl (Zofran Injection) 4 mg IVPB Q6H PRN PRN Reason: NAUSEA Polyethylene Glycol (Miralax (For Daily Use) -) 17 gm PO DAILY [facility] Last Admin: 02/08/17 09:59 Dose: 17 grams Temazepam (Restoril -) 15 mg PO HS [facility] Last Admin: 02/07/17 21:01 Dose: 15 mg Tramadol HCl (Ultram -) 50 mg PO Q8H PRN PRN Reason: PAIN *Physical Exam Vital Signs Temperature 97.2 F L 02/08/17 08:10 Pulse Rate 84 02/08/17 08:10 Respiratory Rate 18 02/08/17 08:10 Blood Pressure 141/76 02/08/17 08:10 O2 Sat by Pulse Oximetry (%) 94 L 02/07/17 21:00 - Physical Exam General Appearance: Yes: Nourished, Appropriately Dressed. No: Apparent Distress HEENT: negative: Pale Conjunctivae Neck: positive: Supple Respiratory/Chest: positive: Lungs Clear, Normal Breath Sounds. negative: Respiratory Distress, Accessory Muscle Use Cardiovascular: positive: Regular Rhythm, Regular Rate. negative: Murmur Gastrointestinal/Abdominal: positive: Soft. negative: Tenderness Musculoskeletal: negative: CVA Tenderness, Vertebral Tenderness, Other (no posterior pelvis pain (although she points to her left posterior iliac crest) ) Extremity: positive: Normal Capillary Refill. negative: Pedal Edema Integumentary: positive: Dry, Warm, Pale Neurologic: CN intact, cooperative, awake, alert, no facial droop, sensory normal, strength 5/5 in b/l lower extremities, CBCD WBC 5.8 K/mm3 (4.0-10.0) 02/08/17 06:30 RBC 3.59 M/mm3 (3.60-5.2) L 02/08/17 06:30 Hgb 11.9 GM/dL (10.7-15.3) 02/08/17 06:30 Hct 35.2 % (32.4-45.2) 02/08/17 06:30 MCV 98.1 fl (80-96) H 02/08/17 06:30 MCHC 33.7 g/dl (32.0-36.0) 02/08/17 06:30 RDW 12.5 % (11.6-15.6) 02/08/17 06:30 Plt Count 208 K/MM3 (134-434) D 02/08/17 06:30 MPV 7.4 fl (7.5-11.1) L 02/08/17 06:30 CMP Sodium 143 mmol/L (136-145) 02/08/17 06:30 Potassium 3.8 mmol/L (3.5-5.1) 02/08/17 06:30 Chloride 104 mmol/L (98-107) 02/08/17 06:30 Carbon Dioxide 27 mmol/L (21-32) 02/08/17 06:30 Anion Gap 12 (8-16) 02/08/17 06:30 BUN 26 mg/dL (7-18) H D 02/08/17 06:30 Creatinine 0.8 mg/dL (0.55-1.02) 02/08/17 06:30 Creat Clearance w eGFR > 60 (>60) 01/28/17 07:15 Calcium 8.9 mg/dL (8.5-10.1) 02/08/17 06:30 Total Bilirubin 1.1 mg/dL (0.2-1.0) H D 01/28/17 07:15 AST 15 U/L (15-37) D 01/28/17 07:15 ALT 10 U/L (12-78) L 01/28/17 07:15 Alkaline Phosphatase 72 U/L (45-117) 01/28/17 07:15 Total Protein 5.9 g/dl (6.4-8.2) L 01/28/17 07:15 Albumin 3.5 g/dl (3.4-5.0) 01/28/17 07:15 Previous MRI L spine reviewed Medical Decision Making 81-year-old female brought in by daughter for evaluation of worsening low back pain for the past 6 years Stenosis in the lumbar spine as per previous imaging including an MRI which I reviewed from May. Can repeat MRI L spine as outpatient if needed Continue sinemet for Parkinson's No longer on Roxicodone for pain, is on Tramadol which is less potent Tempazepam for sleep was helpful, patient lucid today CT head reviewed and no acute changes Back has improved Ongoing medical management
--- NOTE | 2017-02-08 11:40 | PN ---
Progress Note, Physician Chief Complaint: Ms Colbert sleeping on exam but easily arousable. Says she is tired but is otherwise without complaint. No cp, sob, n/v. - Current Medication List Current Medications: Active Medications Acetaminophen (Tylenol -) 650 mg PO Q4H PRN PRN Reason: FEVER OR PAIN Last Admin: 02/02/17 06:37 Dose: 650 mg Carbidopa/Levodopa (Sinemet 25/100 -) 1 each PO TID [facility] Last Admin: 02/08/17 06:11 Dose: Not Given Docusate Sodium (Colace -) 100 mg PO BID [facility] Last Admin: 02/08/17 09:59 Dose: 100 mg Enoxaparin Sodium (Lovenox -) 40 mg SQ DAILY [facility] Last Admin: 02/08/17 10:00 Dose: 40 mg IV Flush (Picc Line Flush) 8 ml IVPUSH PRN PRN PRN Reason: Protocol Ertapenem 1 gm/ Sodium (Chloride) 50 mls @ 100 mls/hr IVPB DAILY [facility] PRN Reason: Protocol Last Admin: 02/08/17 11:30 Dose: 100 mls/hr Sodium Chloride (Normal Saline -) 1,000 mls @ 50 mls/hr IV ASDIR [facility] Stop: 02/09/17 10:50 Last Admin: 02/08/17 11:31 Dose: 50 mls/hr Lactobacillus Acidophilus (Bacid -) 1 tab PO DAILY [facility] Last Admin: 02/08/17 09:59 Dose: 1 tab Ondansetron HCl (Zofran Injection) 4 mg IVPB Q6H PRN PRN Reason: NAUSEA Polyethylene Glycol (Miralax (For Daily Use) -) 17 gm PO DAILY [facility] Last Admin: 02/08/17 09:59 Dose: 17 grams Tramadol HCl (Ultram -) 50 mg PO Q8H PRN PRN Reason: PAIN - Objective Vital Signs: Vital Signs Temperature 36.2 C L 02/08/17 08:10 Pulse Rate 84 02/08/17 08:10 Respiratory Rate 18 02/08/17 08:10 Blood Pressure 141/76 02/08/17 08:10 O2 Sat by Pulse Oximetry (%) 94 L 02/07/17 21:00 Constitutional: Yes: No Distress, Calm, Thin Cardiovascular: Yes: Regular Rate and Rhythm. No: Gallop, Murmur, Rub Respiratory: Yes: Regular, CTA Bilaterally. No: Rales, Rhonchi, Wheezes Gastrointestinal: Yes: Normal Bowel Sounds, Soft. No: Distention, Tenderness Extremities: Yes: WNL Edema: No Labs: CBC, BMP 02/08/17 06:30 02/08/17 06:30 INR, PTT INR 1.05 (0.82-1.09) 01/31/17 06:00 Problem List - Problems (1) UTI (urinary tract infection) Code(s): N39.0 - URINARY TRACT INFECTION, SITE NOT SPECIFIED Qualifiers: Urinary tract infection type: acute cystitis Hematuria presence: without hematuria Qualified Code(s): N30.00 - Acute cystitis without hematuria (2) Chronic pain Code(s): G89.29 - OTHER CHRONIC PAIN Qualifiers: Chronic pain type: chronic pain syndrome Qualified Code(s): G89.4 - Chronic pain syndrome (3) Spinal stenosis Code(s): M48.00 - SPINAL STENOSIS, SITE UNSPECIFIED Qualifiers: Spinal region: lumbosacral Qualified Code(s): M48.07 - Spinal stenosis, lumbosacral region (4) Parkinson disease Code(s): G20 - PARKINSON'S DISEASE (5) Hypokalemia Code(s): E87.6 - HYPOKALEMIA (6) Hypophosphatemia Code(s): E83.39 - OTHER DISORDERS OF PHOSPHORUS METABOLISM (7) ing Code(s): F05 - DELIRIUM DUE TO KNOWN PHYSIOLOGICAL CONDITION Assessment/Plan (1) UTI (urinary tract infection) Assessment/Plan: -urine cultures growing ESBL e coli -appreciate ID assistance -on ertapenem, day 12 -needs 14 day total course of ertapenem Code(s): N39.0 - URINARY TRACT INFECTION, SITE NOT SPECIFIED Qualifiers: Urinary tract infection type: acute cystitis Hematuria presence: without hematuria Qualified Code(s): N30.00 - Acute cystitis without hematuria (2) Chronic pain Assessment/Plan: -secondary to spinal stenosis -prn tramadol Code(s): G89.29 - OTHER CHRONIC PAIN Qualifiers: Chronic pain type: chronic pain syndrome Qualified Code(s): G89.4 - Chronic pain syndrome (3) Spinal stenosis Assessment/Plan: -appreciate neurology and PT -continue pain management -continue outpatient neurology follow up -would benefit from SNF Code(s): M48.00 - SPINAL STENOSIS, SITE UNSPECIFIED Qualifiers: Spinal region: lumbosacral Qualified Code(s): M48.07 - Spinal stenosis, lumbosacral region (4) Parkinson disease Assessment/Plan: -continue sinemet -neurology consulted -outpatient follow up Code(s): G20 - PARKINSON'S DISEASE (5) FEN -replaced -will start on IVF for 24 hours secondary to elevated BUN (6) Sundowning -patient much improved today, fatigued but mental status is back to baseline -would avoid short acting benzodiazepines as has paradoxical response -will continue temazepam but make prn, patient is sleeping today secondary to suspected sleep deficit -however do not want to oversedate the patient either -monitor -daytime stimulation, avoid excessive sleep during daytime hours
--- NOTE | 2017-02-08 12:23 | PN ---
Progress Note, Physician History of Present Illness: doing well no new issues - Current Medication List Current Medications: Active Medications Acetaminophen (Tylenol -) 650 mg PO Q4H PRN PRN Reason: FEVER OR PAIN Last Admin: 02/02/17 06:37 Dose: 650 mg Carbidopa/Levodopa (Sinemet 25/100 -) 1 each PO TID [facility] Last Admin: 02/08/17 06:11 Dose: Not Given Docusate Sodium (Colace -) 100 mg PO BID [facility] Last Admin: 02/08/17 09:59 Dose: 100 mg Enoxaparin Sodium (Lovenox -) 40 mg SQ DAILY [facility] Last Admin: 02/08/17 10:00 Dose: 40 mg IV Flush (Picc Line Flush) 8 ml IVPUSH PRN PRN PRN Reason: Protocol Ertapenem 1 gm/ Sodium (Chloride) 50 mls @ 100 mls/hr IVPB DAILY [facility] PRN Reason: Protocol Last Admin: 02/08/17 11:30 Dose: 100 mls/hr Sodium Chloride (Normal Saline -) 1,000 mls @ 50 mls/hr IV ASDIR [facility] Stop: 02/09/17 10:50 Last Admin: 02/08/17 11:31 Dose: 50 mls/hr Lactobacillus Acidophilus (Bacid -) 1 tab PO DAILY [facility] Last Admin: 02/08/17 09:59 Dose: 1 tab Ondansetron HCl (Zofran Injection) 4 mg IVPB Q6H PRN PRN Reason: NAUSEA Polyethylene Glycol (Miralax (For Daily Use) -) 17 gm PO DAILY [facility] Last Admin: 02/08/17 09:59 Dose: 17 grams Tramadol HCl (Ultram -) 50 mg PO Q8H PRN PRN Reason: PAIN - Objective Vital Signs: Vital Signs Temperature 97.2 F L 02/08/17 08:10 Pulse Rate 84 02/08/17 08:10 Respiratory Rate 18 02/08/17 08:10 Blood Pressure 141/76 02/08/17 08:10 O2 Sat by Pulse Oximetry (%) 94 L 02/07/17 21:00 Constitutional: Yes: No Distress, Calm, Thin Cardiovascular: Yes: Regular Rate and Rhythm Respiratory: Yes: Regular, CTA Bilaterally Gastrointestinal: Yes: Normal Bowel Sounds, Soft Musculoskeletal: Yes: WNL Extremities: Yes: WNL Neurological: Yes: Alert Psychiatric: Yes: Alert Labs: CBC, BMP 02/08/17 06:30 02/08/17 06:30 INR, PTT INR 1.05 (0.82-1.09) 01/31/17 06:00 Assessment/Plan Problem List - Problems (1) UTI (urinary tract infection) Code(s): N39.0 - URINARY TRACT INFECTION, SITE NOT SPECIFIED Qualifiers: Urinary tract infection type: acute cystitis Hematuria presence: without hematuria Qualified Code(s): N30.00 - Acute cystitis without hematuria (2) Chronic pain Code(s): G89.29 - OTHER CHRONIC PAIN Qualifiers: Chronic pain type: chronic pain syndrome Qualified Code(s): G89.4 - Chronic pain syndrome (3) Spinal stenosis Code(s): M48.00 - SPINAL STENOSIS, SITE UNSPECIFIED Qualifiers: Spinal region: lumbosacral Qualified Code(s): M48.07 - Spinal stenosis, lumbosacral region (4) Parkinson disease Code(s): G20 - PARKINSON'S DISEASE patient was started on rocaphin the cx show esbl plan doing well continue abx rest as per primary finish the course
[2017-02-08] MEDS ORDERED: TEMAZEPAM 15 MG CAPSULE PO PRN (14:45)
[2017-02-09] MEDS: CARBIDOPA/LEVODOPA 25/100 TABLET (FP) PO SCH ×3 (05:24→22:35)
[2017-02-09 08:40] LABS: ANION GAP 5 (8-16); CALCIUM 8.8 mg/dL (8.5-10.1); CO2 30 mmol/L (21-32); CREATININE 0.8 mg/dL (0.55-1.02); GLUCOSE,RANDOM 84 mg/dL (74-106)
[2017-02-09] MEDS ORDERED: PT OWN MED DRAWER 7, Y5N ONE (09:52)
[2017-02-09] MEDS: DOCUSATE SODIUM 100 MG CAPSULE (FP) PO SCH ×3 (10:04→22:35)
[2017-02-09] MEDS: LACTOBACILLUS ACIDOPHILUS 1 EACH TAB (FP) PO SCH (10:04)
[2017-02-09] MEDS: ENOXAPARIN NA (PORCINE) 40 MG/0.4 ML DISP.SYRIN SQ SCH (10:04)
[2017-02-09] MEDS: POLYETHYLENE GLYCOL 3350 119 GM BTL PO SCH (10:08)
[2017-02-09] MEDS: ERTAPENEM SODIUM 1 GM in SODIUM CHLORIDE 50 ML IVPB SCH (10:21)
--- NOTE | 2017-02-09 10:30 | PN ---
Progress Note, Physician History of Present Illness: Feeling OK today, back pain has been better controlled and getting better sleep now. Aware that she was confused when she was on the narcotic medication for her back. - Current Medication List Current Medications: Active Medications Acetaminophen (Tylenol -) 650 mg PO Q4H PRN PRN Reason: FEVER OR PAIN Last Admin: 02/02/17 06:37 Dose: 650 mg Carbidopa/Levodopa (Sinemet 25/100 -) 1 each PO TID [facility] Last Admin: 02/09/17 05:24 Dose: 1 each Docusate Sodium (Colace -) 100 mg PO BID [facility] Last Admin: 02/09/17 10:06 Dose: Not Given Enoxaparin Sodium (Lovenox -) 40 mg SQ DAILY [facility] Last Admin: 02/09/17 10:04 Dose: 40 mg IV Flush (Picc Line Flush) 8 ml IVPUSH PRN PRN PRN Reason: Protocol Ertapenem 1 gm/ Sodium (Chloride) 50 mls @ 100 mls/hr IVPB DAILY [facility] PRN Reason: Protocol Last Admin: 02/09/17 10:21 Dose: 100 mls/hr Sodium Chloride (Normal Saline -) 1,000 mls @ 50 mls/hr IV ASDIR [facility] Stop: 02/09/17 10:50 Last Admin: 02/08/17 11:31 Dose: 50 mls/hr Lactobacillus Acidophilus (Bacid -) 1 tab PO DAILY [facility] Last Admin: 02/09/17 10:04 Dose: 1 tab Ondansetron HCl (Zofran Injection) 4 mg IVPB Q6H PRN PRN Reason: NAUSEA Polyethylene Glycol (Miralax (For Daily Use) -) 17 gm PO DAILY [facility] Last Admin: 02/09/17 10:08 Dose: Not Given Temazepam (Restoril -) 15 mg PO HS PRN PRN Reason: INSOMNIA Tramadol HCl (Ultram -) 50 mg PO Q8H PRN PRN Reason: PAIN - Objective Vital Signs: Vital Signs Temperature 97.7 F 02/09/17 05:23 Pulse Rate 81 02/09/17 05:23 Respiratory Rate 20 02/09/17 05:23 Blood Pressure 157/96 02/09/17 05:23 O2 Sat by Pulse Oximetry (%) 94 L 02/08/17 20:53 Constitutional: Yes: No Distress, Calm HENT: Yes: Atraumatic, Normocephalic Neck: Yes: Supple, Trachea Midline Cardiovascular: Yes: Regular Rate and Rhythm, S1, S2. No: Murmur Respiratory: Yes: Regular, CTA Bilaterally. No: Rales, Rhonchi, Wheezes Gastrointestinal: Yes: Normal Bowel Sounds, Soft. No: Distention, Tenderness Edema: No Neurological: Yes: Alert, Oriented Labs: CBC, BMP 02/08/17 06:30 02/09/17 06:35 INR, PTT INR 1.05 (0.82-1.09) 01/31/17 06:00 Assessment/Plan Current Active Problems Chronic pain (Acute) Hypokalemia (Acute) Hypophosphatemia (Acute) Parkinson disease (Acute) Poor appetite (Acute) Sepsis (Acute) Spinal stenosis (Acute) Sundowning (Acute) UTI (urinary tract infection) (Acute) with resistant organism Weakness (Acute) -continue course of abx, then plan for SNF for ambulation therapy/ reconditioning with Parkinsons disease and acute illness
--- NOTE | 2017-02-09 12:11 | PN ---
Progress Note, Physician History of Present Illness: doing well no new issues - Current Medication List Current Medications: Active Medications Acetaminophen (Tylenol -) 650 mg PO Q4H PRN PRN Reason: FEVER OR PAIN Last Admin: 02/02/17 06:37 Dose: 650 mg Carbidopa/Levodopa (Sinemet 25/100 -) 1 each PO TID [facility] Last Admin: 02/09/17 05:24 Dose: 1 each Docusate Sodium (Colace -) 100 mg PO BID [facility] Last Admin: 02/09/17 10:06 Dose: Not Given Enoxaparin Sodium (Lovenox -) 40 mg SQ DAILY [facility] Last Admin: 02/09/17 10:04 Dose: 40 mg IV Flush (Picc Line Flush) 8 ml IVPUSH PRN PRN PRN Reason: Protocol Ertapenem 1 gm/ Sodium (Chloride) 50 mls @ 100 mls/hr IVPB DAILY [facility] PRN Reason: Protocol Last Admin: 02/09/17 10:21 Dose: 100 mls/hr Lactobacillus Acidophilus (Bacid -) 1 tab PO DAILY [facility] Last Admin: 02/09/17 10:04 Dose: 1 tab Ondansetron HCl (Zofran Injection) 4 mg IVPB Q6H PRN PRN Reason: NAUSEA Polyethylene Glycol (Miralax (For Daily Use) -) 17 gm PO DAILY [facility] Last Admin: 02/09/17 10:08 Dose: Not Given Temazepam (Restoril -) 15 mg PO HS PRN PRN Reason: INSOMNIA Tramadol HCl (Ultram -) 50 mg PO Q8H PRN PRN Reason: PAIN - Objective Vital Signs: Vital Signs Temperature 97.7 F 02/09/17 05:23 Pulse Rate 81 02/09/17 05:23 Respiratory Rate 20 02/09/17 05:23 Blood Pressure 157/96 02/09/17 05:23 O2 Sat by Pulse Oximetry (%) 94 L 02/08/17 20:53 Constitutional: Yes: No Distress, Calm Neck: Yes: Supple, Trachea Midline Cardiovascular: Yes: Regular Rate and Rhythm Respiratory: Yes: Regular, CTA Bilaterally Gastrointestinal: Yes: Normal Bowel Sounds, Soft Musculoskeletal: Yes: WNL Extremities: Yes: WNL Neurological: Yes: Alert, Oriented Psychiatric: Yes: Alert, Oriented Labs: CBC, BMP 02/08/17 06:30 02/09/17 06:35 INR, PTT INR 1.05 (0.82-1.09) 01/31/17 06:00 Assessment/Plan Problem List - Problems (1) UTI (urinary tract infection) Code(s): N39.0 - URINARY TRACT INFECTION, SITE NOT SPECIFIED Qualifiers: Urinary tract infection type: acute cystitis Hematuria presence: without hematuria Qualified Code(s): N30.00 - Acute cystitis without hematuria (2) Chronic pain Code(s): G89.29 - OTHER CHRONIC PAIN Qualifiers: Chronic pain type: chronic pain syndrome Qualified Code(s): G89.4 - Chronic pain syndrome (3) Spinal stenosis Code(s): M48.00 - SPINAL STENOSIS, SITE UNSPECIFIED Qualifiers: Spinal region: lumbosacral Qualified Code(s): M48.07 - Spinal stenosis, lumbosacral region (4) Parkinson disease Code(s): G20 - PARKINSON'S DISEASE patient was started on rocaphin the cx show esbl plan doing well continue abx rest as per primary finish the course of 14 days
[2017-02-10] MEDS: CARBIDOPA/LEVODOPA 25/100 TABLET (FP) PO SCH ×3 (06:47→21:41)
[2017-02-10] MEDS ORDERED: QUEtiapine FUMARATE 25 MG TABLET (FP) PO ONE (09:15)
[2017-02-10] MEDS ORDERED: PT OWN MED DRAWER 7, Y5N ONE (09:23)
[2017-02-10] MEDS: LACTOBACILLUS ACIDOPHILUS 1 EACH TAB (FP) PO SCH (09:26)
[2017-02-10] MEDS: ERTAPENEM SODIUM 1 GM in SODIUM CHLORIDE 50 ML IVPB SCH (09:26)
[2017-02-10] MEDS: ENOXAPARIN NA (PORCINE) 40 MG/0.4 ML DISP.SYRIN SQ SCH (09:26)
[2017-02-10] MEDS: DOCUSATE SODIUM 100 MG CAPSULE (FP) PO SCH ×2 (09:26→09:27)
[2017-02-10] MEDS: POLYETHYLENE GLYCOL 3350 119 GM BTL PO SCH (09:34)
--- NOTE | 2017-02-10 10:31 | PN ---
Progress Note, Physician History of Present Illness: Had a very restless night, not physically in distress but confused, hallucinating, getting up from bed all night. Currently sitting in chair outside nursing statin, not oriented to where she is or why she is in hospital ( seemed to recognize me). No shortness fo breath or pain now. Received temazepam last night with no effect. - Current Medication List Current Medications: Active Medications Acetaminophen (Tylenol -) 650 mg PO Q4H PRN PRN Reason: FEVER OR PAIN Last Admin: 02/02/17 06:37 Dose: 650 mg Carbidopa/Levodopa (Sinemet 25/100 -) 1 each PO TID [facility] Last Admin: 02/10/17 06:47 Dose: 1 each Enoxaparin Sodium (Lovenox -) 40 mg SQ DAILY [facility] Last Admin: 02/10/17 09:26 Dose: 40 mg IV Flush (Picc Line Flush) 8 ml IVPUSH PRN PRN PRN Reason: Protocol Ertapenem 1 gm/ Sodium (Chloride) 50 mls @ 100 mls/hr IVPB DAILY [facility] PRN Reason: Protocol Last Admin: 02/10/17 09:26 Dose: 100 mls/hr Lactobacillus Acidophilus (Bacid -) 1 tab PO DAILY [facility] Last Admin: 02/10/17 09:26 Dose: 1 tab Ondansetron HCl (Zofran Injection) 4 mg IVPB Q6H PRN PRN Reason: NAUSEA Quetiapine Fumarate (Seroquel -) 25 mg PO HS [facility] Temazepam (Restoril -) 15 mg PO HS PRN PRN Reason: INSOMNIA Last Admin: 02/10/17 00:48 Dose: 15 mg Tramadol HCl (Ultram -) 50 mg PO Q8H PRN PRN Reason: PAIN - Objective Vital Signs: Vital Signs Temperature 98.7 F 02/10/17 06:42 Pulse Rate 96 H 02/10/17 06:42 Respiratory Rate 20 02/10/17 06:42 Blood Pressure 157/72 02/10/17 06:42 O2 Sat by Pulse Oximetry (%) 98 02/09/17 21:00 Constitutional: Yes: No Distress, Calm Neck: Yes: Supple, Trachea Midline Cardiovascular: Yes: Regular Rate and Rhythm, S1, S2. No: Murmur Respiratory: Yes: Regular, CTA Bilaterally. No: Rales, Rhonchi, Wheezes Gastrointestinal: Yes: Normal Bowel Sounds, Soft. No: Distention, Tenderness Edema: No Neurological: Yes: Alert. No: Oriented Labs: CBC, BMP 02/08/17 06:30 02/09/17 06:35 INR, PTT INR 1.05 (0.82-1.09) 01/31/17 06:00 Assessment/Plan Current Active Problems Chronic pain (Acute) Hypokalemia (Acute) Hypophosphatemia (Acute) Parkinson disease (Acute) Poor appetite (Acute) Sepsis (Acute) Spinal stenosis (Acute) Sundowning (Acute) UTI (urinary tract infection) (Acute) with resistant organism Weakness (Acute) Confusion/ altered mental status/ Sundowning -continue course of abx for resistant organism in urine -appears to be having sundowning effect (underlying Parkinson's Dementia becoming expressed?), acutely agitated now -discussed with dtr that will start Seroquel for the "psychosis" currently and will continue even when she leaves the hospital -will need another PT eval, because not strong enough to go home directly form here (will need short term rehab) -discussed with dtr that acute hospitalization also contributing to altered mental status (ICU/Hospital Psychosis effect, which dtr had read about) so may take some time to resolve
--- NOTE | 2017-02-10 12:06 | PN ---
Progress Note, Physician History of Present Illness: patient extremely confused no sleep over night currently calm - Current Medication List Current Medications: Active Medications Acetaminophen (Tylenol -) 650 mg PO Q4H PRN PRN Reason: FEVER OR PAIN Last Admin: 02/02/17 06:37 Dose: 650 mg Carbidopa/Levodopa (Sinemet 25/100 -) 1 each PO TID [facility] Last Admin: 02/10/17 06:47 Dose: 1 each Enoxaparin Sodium (Lovenox -) 40 mg SQ DAILY [facility] Last Admin: 02/10/17 09:26 Dose: 40 mg IV Flush (Picc Line Flush) 8 ml IVPUSH PRN PRN PRN Reason: Protocol Ertapenem 1 gm/ Sodium (Chloride) 50 mls @ 100 mls/hr IVPB DAILY [facility] PRN Reason: Protocol Last Admin: 02/10/17 09:26 Dose: 100 mls/hr Lactobacillus Acidophilus (Bacid -) 1 tab PO DAILY [facility] Last Admin: 02/10/17 09:26 Dose: 1 tab Ondansetron HCl (Zofran Injection) 4 mg IVPB Q6H PRN PRN Reason: NAUSEA Quetiapine Fumarate (Seroquel -) 25 mg PO HS [facility] Temazepam (Restoril -) 15 mg PO HS PRN PRN Reason: INSOMNIA Last Admin: 02/10/17 00:48 Dose: 15 mg Tramadol HCl (Ultram -) 50 mg PO Q8H PRN PRN Reason: PAIN - Objective Vital Signs: Vital Signs Temperature 98.7 F 02/10/17 06:42 Pulse Rate 96 H 02/10/17 06:42 Respiratory Rate 20 02/10/17 06:42 Blood Pressure 157/72 02/10/17 06:42 O2 Sat by Pulse Oximetry (%) 98 02/09/17 21:00 Constitutional: Yes: No Distress, Calm Cardiovascular: Yes: Regular Rate and Rhythm Respiratory: Yes: Regular, CTA Bilaterally Musculoskeletal: Yes: WNL Extremities: Yes: WNL Neurological: Yes: Confusion Psychiatric: Yes: Other Labs: CBC, BMP 02/08/17 06:30 02/09/17 06:35 INR, PTT INR 1.05 (0.82-1.09) 01/31/17 06:00 Assessment/Plan Problem List - Problems (1) UTI (urinary tract infection) Code(s): N39.0 - URINARY TRACT INFECTION, SITE NOT SPECIFIED Qualifiers: Urinary tract infection type: acute cystitis Hematuria presence: without hematuria Qualified Code(s): N30.00 - Acute cystitis without hematuria (2) Chronic pain Code(s): G89.29 - OTHER CHRONIC PAIN Qualifiers: Chronic pain type: chronic pain syndrome Qualified Code(s): G89.4 - Chronic pain syndrome (3) Spinal stenosis Code(s): M48.00 - SPINAL STENOSIS, SITE UNSPECIFIED Qualifiers: Spinal region: lumbosacral Qualified Code(s): M48.07 - Spinal stenosis, lumbosacral region (4) Parkinson disease Code(s): G20 - PARKINSON'S DISEASE patient was started on rocaphin the cx show esbl plan confusion' finish abx course
[2017-02-10] MEDS: QUEtiapine FUMARATE 25 MG TABLET (FP) PO SCH (21:41)
[2017-02-11] MEDS: CARBIDOPA/LEVODOPA 25/100 TABLET (FP) PO SCH ×3 (06:00→21:04)
[2017-02-11 07:56] LABS: BASOPHIL 0.7 % (0-2.0); EOSINOPHIL 2.6 % (0-4.5); MCH 33.2 pg (25.7-33.7); MCHC 33.7 g/dl (32.0-36.0); MEAN CELL VOLUME 98.4 fl (80-96); MEAN PLT VOLUME 7.7 fl (7.5-11.1); PLATELET COUNT 206 K/MM3 (134-434); RDW 12.6 % (11.6-15.6); WHITE BLOOD COUNT 5.6 K/mm3 (4.0-10.0)
[2017-02-11 09:02] LABS: ALBUMIN 3.6 g/dl (3.4-5.0); ALK PHOS 99 U/L (45-117); ANION GAP 11 (8-16); BILIRUBIN,TOTAL 0.8 mg/dL (0.2-1.0); CALCIUM 8.6 mg/dL (8.5-10.1); CO2 24 mmol/L (21-32); CREATININE 0.8 mg/dL (0.55-1.02); GLUCOSE,RANDOM 71 mg/dL (74-106); SGOT/AST 16 U/L (15-37); SGPT/ALT 11 U/L (12-78); TOT PROT 6.1 g/dl (6.4-8.2)
--- NOTE | 2017-02-11 10:45 | PN ---
Progress Note (short form) - Note Progress Note: Neurology History of Present Illness 81-year-old female brought in by daughter for evaluation of worsening low back pain for the past 6 years now associated with decreased sleep and decreased appetite secondary to the pain unrelieved by tramadol. Patient states was followed by Dr. Shoemaker but has not followed up with a new doctor since then and is otherwise seen by her primary care physician Dr. Mcrae. Patient has no urinary complaints, bowel complaints, skin complaints, difficulty breathing, chest pain, radiation of pain. 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 On Sinemet for parkinson's. Patient seen at bedside and mentating well today. Xanax was changed to Restoril by hospitalist with patient being lucid. Carrying on conversation and maintaining thought process with me today. Able tell me it' s Jan 2017 and name of President. Was started on Seroquel over the weekend. Active Medications Acetaminophen (Tylenol -) 650 mg PO Q4H PRN PRN Reason: FEVER OR PAIN Last Admin: 02/02/17 06:37 Dose: 650 mg Carbidopa/Levodopa (Sinemet 25/100 -) 1 each PO TID [facility] Last Admin: 02/11/17 06:00 Dose: 1 each Enoxaparin Sodium (Lovenox -) 40 mg SQ DAILY [facility] Last Admin: 02/10/17 09:26 Dose: 40 mg IV Flush (Picc Line Flush) 8 ml IVPUSH PRN PRN PRN Reason: Protocol Ertapenem 1 gm/ Sodium (Chloride) 50 mls @ 100 mls/hr IVPB DAILY [facility] PRN Reason: Protocol Last Admin: 02/10/17 09:26 Dose: 100 mls/hr Lactobacillus Acidophilus (Bacid -) 1 tab PO DAILY [facility] Last Admin: 02/10/17 09:26 Dose: 1 tab Ondansetron HCl (Zofran Injection) 4 mg IVPB Q6H PRN PRN Reason: NAUSEA Quetiapine Fumarate (Seroquel -) 25 mg PO HS [facility] Last Admin: 02/10/17 21:41 Dose: 25 mg Tramadol HCl (Ultram -) 50 mg PO Q8H PRN PRN Reason: PAIN *Physical Exam Vital Signs Temperature 100 F H 02/11/17 09:24 Pulse Rate 80 02/11/17 09:24 Respiratory Rate 20 02/11/17 09:24 Blood Pressure 150/85 02/11/17 09:24 O2 Sat by Pulse Oximetry (%) 98 02/10/17 21:00 - Physical Exam General Appearance: Yes: Nourished, Appropriately Dressed. No: Apparent Distress HEENT: negative: Pale Conjunctivae Neck: positive: Supple Respiratory/Chest: positive: Lungs Clear, Normal Breath Sounds. negative: Respiratory Distress, Accessory Muscle Use Cardiovascular: positive: Regular Rhythm, Regular Rate. negative: Murmur Gastrointestinal/Abdominal: positive: Soft. negative: Tenderness Musculoskeletal: negative: CVA Tenderness, Vertebral Tenderness, Other (no posterior pelvis pain (although she points to her left posterior iliac crest) ) Extremity: positive: Normal Capillary Refill. negative: Pedal Edema Integumentary: positive: Dry, Warm, Pale Neurologic: CN intact, cooperative, awake, alert, no facial droop, sensory normal, strength 5/5 in b/l lower extremities, CBCD WBC 5.6 K/mm3 (4.0-10.0) 02/11/17 06:00 RBC 3.64 M/mm3 (3.60-5.2) 02/11/17 06:00 Hgb 12.1 GM/dL (10.7-15.3) 02/11/17 06:00 Hct 35.8 % (32.4-45.2) 02/11/17 06:00 MCV 98.4 fl (80-96) H 02/11/17 06:00 MCHC 33.7 g/dl (32.0-36.0) 02/11/17 06:00 RDW 12.6 % (11.6-15.6) 02/11/17 06:00 Plt Count 206 K/MM3 (134-434) 02/11/17 06:00 MPV 7.7 fl (7.5-11.1) 02/11/17 06:00 CMP Sodium 144 mmol/L (136-145) 02/11/17 06:00 Potassium 3.9 mmol/L (3.5-5.1) 02/11/17 06:00 Chloride 109 mmol/L (98-107) H 02/11/17 06:00 Carbon Dioxide 24 mmol/L (21-32) 02/11/17 06:00 Anion Gap 11 (8-16) 02/11/17 06:00 BUN 20 mg/dL (7-18) H 02/11/17 06:00 Creatinine 0.8 mg/dL (0.55-1.02) 02/11/17 06:00 Creat Clearance w eGFR > 60 (>60) 02/11/17 06:00 Calcium 8.6 mg/dL (8.5-10.1) 02/11/17 06:00 Total Bilirubin 0.8 mg/dL (0.2-1.0) D 02/11/17 06:00 AST 16 U/L (15-37) 02/11/17 06:00 ALT 11 U/L (12-78) L 02/11/17 06:00 Alkaline Phosphatase 99 U/L (45-117) D 02/11/17 06:00 Total Protein 6.1 g/dl (6.4-8.2) L 02/11/17 06:00 Albumin 3.6 g/dl (3.4-5.0) 02/11/17 06:00 Previous MRI L spine reviewed Medical Decision Making 81-year-old female brought in by daughter for evaluation of worsening low back pain for the past 6 years Stenosis in the lumbar spine as per previous imaging including an MRI which I reviewed from May. Can repeat MRI L spine as outpatient if needed Continue sinemet for Parkinson's No longer on Roxicodone for pain, is on Tramadol which is less potent Tempazepam for sleep was helpful Also started on Seroquel Lucid this morning Back has improved Ongoing medical management
[2017-02-11] MEDS ORDERED: PT OWN MED DRAWER 7, Y5N ONE (10:47)
[2017-02-11] MEDS: ENOXAPARIN NA (PORCINE) 40 MG/0.4 ML DISP.SYRIN SQ SCH (10:49)
[2017-02-11] MEDS: ERTAPENEM SODIUM 1 GM in SODIUM CHLORIDE 50 ML IVPB SCH (10:49)
[2017-02-11] MEDS: LACTOBACILLUS ACIDOPHILUS 1 EACH TAB (FP) PO SCH (10:50)
--- NOTE | 2017-02-11 12:09 | PN ---
Progress Note, Physician History of Present Illness: stable doing well no issues completed abx course - Current Medication List Current Medications: Active Medications Acetaminophen (Tylenol -) 650 mg PO Q4H PRN PRN Reason: FEVER OR PAIN Last Admin: 02/02/17 06:37 Dose: 650 mg Carbidopa/Levodopa (Sinemet 25/100 -) 1 each PO TID [facility] Last Admin: 02/11/17 06:00 Dose: 1 each Enoxaparin Sodium (Lovenox -) 40 mg SQ DAILY [facility] Last Admin: 02/11/17 10:49 Dose: 40 mg IV Flush (Picc Line Flush) 8 ml IVPUSH PRN PRN PRN Reason: Protocol Lactobacillus Acidophilus (Bacid -) 1 tab PO DAILY [facility] Last Admin: 02/11/17 10:50 Dose: 1 tab Ondansetron HCl (Zofran Injection) 4 mg IVPB Q6H PRN PRN Reason: NAUSEA Quetiapine Fumarate (Seroquel -) 25 mg PO HS [facility] Last Admin: 02/10/17 21:41 Dose: 25 mg Tramadol HCl (Ultram -) 50 mg PO Q8H PRN PRN Reason: PAIN - Objective Vital Signs: Vital Signs Temperature 100 F H 02/11/17 09:24 Pulse Rate 80 02/11/17 09:24 Respiratory Rate 20 02/11/17 09:24 Blood Pressure 150/85 02/11/17 09:24 O2 Sat by Pulse Oximetry (%) 98 02/10/17 21:00 Constitutional: Yes: No Distress, Calm Cardiovascular: Yes: Regular Rate and Rhythm Respiratory: Yes: Regular, CTA Bilaterally Gastrointestinal: Yes: Normal Bowel Sounds, Soft Musculoskeletal: Yes: WNL Extremities: Yes: WNL Neurological: Yes: Alert, Oriented Psychiatric: Yes: Alert, Oriented Labs: CBC, BMP 02/11/17 06:00 02/11/17 06:00 INR, PTT INR 1.05 (0.82-1.09) 01/31/17 06:00 Assessment/Plan Problem List - Problems (1) UTI (urinary tract infection) Code(s): N39.0 - URINARY TRACT INFECTION, SITE NOT SPECIFIED Qualifiers: Urinary tract infection type: acute cystitis Hematuria presence: without hematuria Qualified Code(s): N30.00 - Acute cystitis without hematuria (2) Chronic pain Code(s): G89.29 - OTHER CHRONIC PAIN Qualifiers: Chronic pain type: chronic pain syndrome Qualified Code(s): G89.4 - Chronic pain syndrome (3) Spinal stenosis Code(s): M48.00 - SPINAL STENOSIS, SITE UNSPECIFIED Qualifiers: Spinal region: lumbosacral Qualified Code(s): M48.07 - Spinal stenosis, lumbosacral region (4) Parkinson disease Code(s): G20 - PARKINSON'S DISEASE patient was started on rocaphin the cx show esbl plan doing well stopped abx can remove the picc line rest as per primary
--- NOTE | 2017-02-11 16:47 | PN ---
Progress Note, Physician Chief Complaint: Ms Colbert says she feels well today. No cp, sob, n/v. - Current Medication List Current Medications: Active Medications Acetaminophen (Tylenol -) 650 mg PO Q4H PRN PRN Reason: FEVER OR PAIN Last Admin: 02/02/17 06:37 Dose: 650 mg Carbidopa/Levodopa (Sinemet 25/100 -) 1 each PO TID [facility] Last Admin: 02/11/17 13:25 Dose: 1 each Enoxaparin Sodium (Lovenox -) 40 mg SQ DAILY [facility] Last Admin: 02/11/17 10:49 Dose: 40 mg IV Flush (Picc Line Flush) 8 ml IVPUSH PRN PRN PRN Reason: Protocol Lactobacillus Acidophilus (Bacid -) 1 tab PO DAILY [facility] Last Admin: 02/11/17 10:50 Dose: 1 tab Ondansetron HCl (Zofran Injection) 4 mg IVPB Q6H PRN PRN Reason: NAUSEA Quetiapine Fumarate (Seroquel -) 25 mg PO HS [facility] Last Admin: 02/10/17 21:41 Dose: 25 mg Tramadol HCl (Ultram -) 50 mg PO Q8H PRN PRN Reason: PAIN - Objective Vital Signs: Vital Signs Temperature 36.8 C 02/11/17 15:37 Pulse Rate 93 H 02/11/17 15:37 Respiratory Rate 20 02/11/17 15:37 Blood Pressure 139/67 02/11/17 15:37 O2 Sat by Pulse Oximetry (%) 98 02/11/17 09:00 Constitutional: Yes: No Distress, Calm, Thin Cardiovascular: Yes: Regular Rate and Rhythm. No: Gallop, Murmur, Rub Respiratory: Yes: Regular, CTA Bilaterally. No: Rales, Rhonchi, Wheezes Gastrointestinal: Yes: Normal Bowel Sounds, Soft. No: Distention, Tenderness Extremities: Yes: WNL Edema: No Labs: CBC, BMP 02/11/17 06:00 02/11/17 06:00 INR, PTT INR 1.05 (0.82-1.09) 01/31/17 06:00 Problem List - Problems (1) UTI (urinary tract infection) Code(s): N39.0 - URINARY TRACT INFECTION, SITE NOT SPECIFIED Qualifiers: Urinary tract infection type: acute cystitis Hematuria presence: without hematuria Qualified Code(s): N30.00 - Acute cystitis without hematuria (2) Chronic pain Code(s): G89.29 - OTHER CHRONIC PAIN Qualifiers: Chronic pain type: chronic pain syndrome Qualified Code(s): G89.4 - Chronic pain syndrome (3) Spinal stenosis Code(s): M48.00 - SPINAL STENOSIS, SITE UNSPECIFIED Qualifiers: Spinal region: lumbosacral Qualified Code(s): M48.07 - Spinal stenosis, lumbosacral region (4) Parkinson disease Code(s): G20 - PARKINSON'S DISEASE (5) Hypokalemia Code(s): E87.6 - HYPOKALEMIA (6) Hypophosphatemia Code(s): E83.39 - OTHER DISORDERS OF PHOSPHORUS METABOLISM (7) owning Code(s): F05 - DELIRIUM DUE TO KNOWN PHYSIOLOGICAL CONDITION Assessment/Plan (1) UTI (urinary tract infection) Assessment/Plan: -urine cultures growing ESBL e coli -appreciate ID assistance -on ertapenem, day 14 -finished after today's dose Code(s): N39.0 - URINARY TRACT INFECTION, SITE NOT SPECIFIED Qualifiers: Urinary tract infection type: acute cystitis Hematuria presence: without hematuria Qualified Code(s): N30.00 - Acute cystitis without hematuria (2) Chronic pain Assessment/Plan: -secondary to spinal stenosis -prn tramadol Code(s): G89.29 - OTHER CHRONIC PAIN Qualifiers: Chronic pain type: chronic pain syndrome Qualified Code(s): G89.4 - Chronic pain syndrome (3) Spinal stenosis Assessment/Plan: -appreciate neurology and PT -continue pain management -continue outpatient neurology follow up -would benefit from SNF Code(s): M48.00 - SPINAL STENOSIS, SITE UNSPECIFIED Qualifiers: Spinal region: lumbosacral Qualified Code(s): M48.07 - Spinal stenosis, lumbosacral region (4) Parkinson disease Assessment/Plan: -continue sinemet -neurology consulted -outpatient follow up Code(s): G20 - PARKINSON'S DISEASE (5) FEN -stable (6) Sundowning -patient back to baseline -continue evening seroquel
[2017-02-11] MEDS: QUEtiapine FUMARATE 25 MG TABLET (FP) PO SCH (21:04)
[2017-02-12] MEDS: CARBIDOPA/LEVODOPA 25/100 TABLET (FP) PO SCH ×3 (05:48→21:04)
--- NOTE | 2017-02-12 10:31 | PN ---
Progress Note (short form) - Note Progress Note: Neurology History of Present Illness 81-year-old female brought in by daughter for evaluation of worsening low back pain for the past 6 years now associated with decreased sleep and decreased appetite secondary to the pain unrelieved by tramadol. Patient states was followed by Dr. Shoemaker but has not followed up with a new doctor since then and is otherwise seen by her primary care physician Dr. Mcrae. Patient has no urinary complaints, bowel complaints, skin complaints, difficulty breathing, chest pain, radiation of pain. 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 On Sinemet for parkinson's. Patient seen at bedside and mentating well today. Xanax was changed to Restoril by hospitalist with patient being lucid. Carrying on conversation and maintaining thought process with me today. Able tell me it' s Jan 2017 and name of President. Was started on Seroquel over the weekend. Is comfortable appearing and pleasantly interactive. Active Medications Acetaminophen (Tylenol -) 650 mg PO Q4H PRN PRN Reason: FEVER OR PAIN Last Admin: 02/02/17 06:37 Dose: 650 mg Carbidopa/Levodopa (Sinemet 25/100 -) 1 each PO TID [facility] Last Admin: 02/12/17 05:48 Dose: 1 each Enoxaparin Sodium (Lovenox -) 40 mg SQ DAILY [facility] Last Admin: 02/11/17 10:49 Dose: 40 mg Lactobacillus Acidophilus (Bacid -) 1 tab PO DAILY [facility] Last Admin: 02/11/17 10:50 Dose: 1 tab Ondansetron HCl (Zofran Injection) 4 mg IVPB Q6H PRN PRN Reason: NAUSEA Quetiapine Fumarate (Seroquel -) 25 mg PO HS [facility] Last Admin: 02/11/17 21:04 Dose: 25 mg Tramadol HCl (Ultram -) 50 mg PO Q8H PRN PRN Reason: PAIN *Physical Exam Vital Signs Temperature 97.8 F 02/12/17 09:14 Pulse Rate 73 02/12/17 09:14 Respiratory Rate 20 02/12/17 09:14 Blood Pressure 145/80 02/12/17 09:14 O2 Sat by Pulse Oximetry (%) 98 02/11/17 21:00 - Physical Exam General Appearance: Yes: Nourished, Appropriately Dressed. No: Apparent Distress HEENT: negative: Pale Conjunctivae Neck: positive: Supple Respiratory/Chest: positive: Lungs Clear, Normal Breath Sounds. negative: Respiratory Distress, Accessory Muscle Use Cardiovascular: positive: Regular Rhythm, Regular Rate. negative: Murmur Gastrointestinal/Abdominal: positive: Soft. negative: Tenderness Musculoskeletal: negative: CVA Tenderness, Vertebral Tenderness, Other (no posterior pelvis pain (although she points to her left posterior iliac crest) ) Extremity: positive: Normal Capillary Refill. negative: Pedal Edema Integumentary: positive: Dry, Warm, Pale Neurologic: CN intact, cooperative, awake, alert, no facial droop, sensory normal, strength 5/5 in b/l lower extremities, CBCD WBC 5.6 K/mm3 (4.0-10.0) 02/11/17 06:00 RBC 3.64 M/mm3 (3.60-5.2) 02/11/17 06:00 Hgb 12.1 GM/dL (10.7-15.3) 02/11/17 06:00 Hct 35.8 % (32.4-45.2) 02/11/17 06:00 MCV 98.4 fl (80-96) H 02/11/17 06:00 MCHC 33.7 g/dl (32.0-36.0) 02/11/17 06:00 RDW 12.6 % (11.6-15.6) 02/11/17 06:00 Plt Count 206 K/MM3 (134-434) 02/11/17 06:00 MPV 7.7 fl (7.5-11.1) 02/11/17 06:00 CMP Sodium 144 mmol/L (136-145) 02/11/17 06:00 Potassium 3.9 mmol/L (3.5-5.1) 02/11/17 06:00 Chloride 109 mmol/L (98-107) H 02/11/17 06:00 Carbon Dioxide 24 mmol/L (21-32) 02/11/17 06:00 Anion Gap 11 (8-16) 02/11/17 06:00 BUN 20 mg/dL (7-18) H 02/11/17 06:00 Creatinine 0.8 mg/dL (0.55-1.02) 02/11/17 06:00 Creat Clearance w eGFR > 60 (>60) 02/11/17 06:00 Calcium 8.6 mg/dL (8.5-10.1) 02/11/17 06:00 Total Bilirubin 0.8 mg/dL (0.2-1.0) D 02/11/17 06:00 AST 16 U/L (15-37) 02/11/17 06:00 ALT 11 U/L (12-78) L 02/11/17 06:00 Alkaline Phosphatase 99 U/L (45-117) D 02/11/17 06:00 Total Protein 6.1 g/dl (6.4-8.2) L 02/11/17 06:00 Albumin 3.6 g/dl (3.4-5.0) 02/11/17 06:00 Previous MRI L spine reviewed Medical Decision Making 81-year-old female brought in by daughter for evaluation of worsening low back pain for the past 6 years Stenosis in the lumbar spine as per previous imaging including an MRI which I reviewed from May. Can repeat MRI L spine as outpatient if needed Continue sinemet for Parkinson's No longer on Roxicodone for pain, is on Tramadol which is less potent Tempazepam for sleep was helpful Also started on Seroquel Lucid this morning and maintains coherent mental status Back has improved Ongoing medical management
[2017-02-12] MEDS: ENOXAPARIN NA (PORCINE) 40 MG/0.4 ML DISP.SYRIN SQ SCH (10:54)
[2017-02-12] MEDS: LACTOBACILLUS ACIDOPHILUS 1 EACH TAB (FP) PO SCH (10:55)
--- NOTE | 2017-02-12 14:09 | PN ---
Progress Note, Physician Chief Complaint: Ms Colbert says she feels well today. No cp, sob, n/v. - Current Medication List Current Medications: Active Medications Acetaminophen (Tylenol -) 650 mg PO Q4H PRN PRN Reason: FEVER OR PAIN Last Admin: 02/02/17 06:37 Dose: 650 mg Carbidopa/Levodopa (Sinemet 25/100 -) 1 each PO TID [facility] Last Admin: 02/12/17 05:48 Dose: 1 each Enoxaparin Sodium (Lovenox -) 40 mg SQ DAILY [facility] Last Admin: 02/12/17 10:54 Dose: 40 mg Lactobacillus Acidophilus (Bacid -) 1 tab PO DAILY [facility] Last Admin: 02/12/17 10:55 Dose: 1 tab Ondansetron HCl (Zofran Injection) 4 mg IVPB Q6H PRN PRN Reason: NAUSEA Quetiapine Fumarate (Seroquel -) 25 mg PO HS [facility] Last Admin: 02/11/17 21:04 Dose: 25 mg Tramadol HCl (Ultram -) 50 mg PO Q8H PRN PRN Reason: PAIN - Objective Vital Signs: Vital Signs Temperature 36.6 C 02/12/17 09:14 Pulse Rate 73 02/12/17 09:14 Respiratory Rate 20 02/12/17 09:14 Blood Pressure 145/80 02/12/17 09:14 O2 Sat by Pulse Oximetry (%) 98 02/11/17 21:00 Constitutional: Yes: No Distress, Calm, Thin Cardiovascular: Yes: Regular Rate and Rhythm. No: Gallop, Murmur, Rub Respiratory: Yes: Regular, CTA Bilaterally. No: Rales, Rhonchi, Wheezes Gastrointestinal: Yes: Normal Bowel Sounds, Soft. No: Distention, Tenderness Extremities: Yes: WNL Edema: No Labs: CBC, BMP 02/11/17 06:00 02/11/17 06:00 INR, PTT INR 1.05 (0.82-1.09) 01/31/17 06:00 Problem List - Problems (1) UTI (urinary tract infection) Code(s): N39.0 - URINARY TRACT INFECTION, SITE NOT SPECIFIED Qualifiers: Urinary tract infection type: acute cystitis Hematuria presence: without hematuria Qualified Code(s): N30.00 - Acute cystitis without hematuria (2) Chronic pain Code(s): G89.29 - OTHER CHRONIC PAIN Qualifiers: Chronic pain type: chronic pain syndrome Qualified Code(s): G89.4 - Chronic pain syndrome (3) Spinal stenosis Code(s): M48.00 - SPINAL STENOSIS, SITE UNSPECIFIED Qualifiers: Spinal region: lumbosacral Qualified Code(s): M48.07 - Spinal stenosis, lumbosacral region (4) Parkinson disease Code(s): G20 - PARKINSON'S DISEASE (5) Hypokalemia Code(s): E87.6 - HYPOKALEMIA (6) Hypophosphatemia Code(s): E83.39 - OTHER DISORDERS OF PHOSPHORUS METABOLISM (7) Sundowning Code(s): F05 - DELIRIUM DUE TO KNOWN PHYSIOLOGICAL CONDITION Assessment/Plan (1) UTI (urinary tract infection) Assessment/Plan: -finished full course of antibiotics -recheck cbc in am Code(s): N39.0 - URINARY TRACT INFECTION, SITE NOT SPECIFIED Qualifiers: Urinary tract infection type: acute cystitis Hematuria presence: without hematuria Qualified Code(s): N30.00 - Acute cystitis without hematuria (2) Chronic pain Assessment/Plan: -secondary to spinal stenosis -prn tramadol Code(s): G89.29 - OTHER CHRONIC PAIN Qualifiers: Chronic pain type: chronic pain syndrome Qualified Code(s): G89.4 - Chronic pain syndrome (3) Spinal stenosis Assessment/Plan: -appreciate neurology and PT -continue pain management -continue outpatient neurology follow up -would benefit from SNF Code(s): M48.00 - SPINAL STENOSIS, SITE UNSPECIFIED Qualifiers: Spinal region: lumbosacral Qualified Code(s): M48.07 - Spinal stenosis, lumbosacral region (4) Parkinson disease Assessment/Plan: -continue sinemet -neurology consulted -outpatient follow up Code(s): G20 - PARKINSON'S DISEASE (5) FEN -stable (6) Sundowning -patient back to baseline -continue evening seroquel
--- NOTE | 2017-02-12 16:29 | PN ---
Progress Note, Physician History of Present Illness: stable doing well - Current Medication List Current Medications: Active Medications Acetaminophen (Tylenol -) 650 mg PO Q4H PRN PRN Reason: FEVER OR PAIN Last Admin: 02/02/17 06:37 Dose: 650 mg Carbidopa/Levodopa (Sinemet 25/100 -) 1 each PO TID [facility] Last Admin: 02/12/17 14:37 Dose: 1 each Enoxaparin Sodium (Lovenox -) 40 mg SQ DAILY [facility] Last Admin: 02/12/17 10:54 Dose: 40 mg Lactobacillus Acidophilus (Bacid -) 1 tab PO DAILY [facility] Last Admin: 02/12/17 10:55 Dose: 1 tab Ondansetron HCl (Zofran Injection) 4 mg IVPB Q6H PRN PRN Reason: NAUSEA Quetiapine Fumarate (Seroquel -) 25 mg PO HS [facility] Last Admin: 02/11/17 21:04 Dose: 25 mg Tramadol HCl (Ultram -) 50 mg PO Q8H PRN PRN Reason: PAIN - Objective Vital Signs: Vital Signs Temperature 98.2 F 02/12/17 15:02 Pulse Rate 78 02/12/17 15:02 Respiratory Rate 16 02/12/17 15:02 Blood Pressure 142/62 02/12/17 15:02 O2 Sat by Pulse Oximetry (%) 98 02/11/17 21:00 Constitutional: Yes: No Distress, Calm Cardiovascular: Yes: Regular Rate and Rhythm Respiratory: Yes: Regular, CTA Bilaterally Gastrointestinal: Yes: Normal Bowel Sounds, Soft Musculoskeletal: Yes: WNL Extremities: Yes: WNL Neurological: Yes: Alert, Oriented Psychiatric: Yes: Alert Labs: CBC, BMP 02/11/17 06:00 02/11/17 06:00 INR, PTT INR 1.05 (0.82-1.09) 01/31/17 06:00 Assessment/Plan Problem List - Problems (1) UTI (urinary tract infection) Code(s): N39.0 - URINARY TRACT INFECTION, SITE NOT SPECIFIED Qualifiers: Urinary tract infection type: acute cystitis Hematuria presence: without hematuria Qualified Code(s): N30.00 - Acute cystitis without hematuria (2) Chronic pain Code(s): G89.29 - OTHER CHRONIC PAIN Qualifiers: Chronic pain type: chronic pain syndrome Qualified Code(s): G89.4 - Chronic pain syndrome (3) Spinal stenosis Code(s): M48.00 - SPINAL STENOSIS, SITE UNSPECIFIED Qualifiers: Spinal region: lumbosacral Qualified Code(s): M48.07 - Spinal stenosis, lumbosacral region (4) Parkinson disease Code(s): G20 - PARKINSON'S DISEASE plan doing well off of abx rest as per primary team continue current mgmt
[2017-02-12] MEDS: QUEtiapine FUMARATE 25 MG TABLET (FP) PO SCH (21:04)
[2017-02-13] MEDS: CARBIDOPA/LEVODOPA 25/100 TABLET (FP) PO SCH ×3 (06:08→21:32)
[2017-02-13 07:35] LABS: BASOPHIL 0.7 % (0-2.0); EOSINOPHIL 2.3 % (0-4.5); MCH 32.9 pg (25.7-33.7); MCHC 33.6 g/dl (32.0-36.0); MEAN CELL VOLUME 97.9 fl (80-96); MEAN PLT VOLUME 8.1 fl (7.5-11.1); PLATELET COUNT 198 K/MM3 (134-434); RDW 12.4 % (11.6-15.6); WHITE BLOOD COUNT 5.1 K/mm3 (4.0-10.0)
[2017-02-13 07:56] LABS: ANION GAP 9 (8-16); CALCIUM 8.9 mg/dL (8.5-10.1); CO2 27 mmol/L (21-32); CREATININE 0.8 mg/dL (0.55-1.02); GLUCOSE,RANDOM 84 mg/dL (74-106); PHOSPHOROUS 2.7 mg/dL (2.5-4.9)
[2017-02-13 08:12] LABS: MAGNESIUM 1.9 mg/dL (1.8-2.4)
--- NOTE | 2017-02-13 09:34 | PN ---
Progress Note (short form) - Note Progress Note: Neurology History of Present Illness 81-year-old female brought in by daughter for evaluation of worsening low back pain for the past 6 years now associated with decreased sleep and decreased appetite secondary to the pain unrelieved by tramadol. Patient states was followed by Dr. Shoemaker but has not followed up with a new doctor since then and is otherwise seen by her primary care physician Dr. Mcrae. Patient has no urinary complaints, bowel complaints, skin complaints, difficulty breathing, chest pain, radiation of pain. 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 On Sinemet for parkinson's. Patient seen at bedside and mentating well again today. Carrying on conversation and maintaining thought process with me today. Was upbeat and pleasant. Was inquiring about placement status. Able tell me it' s Jan 2017 and name of President. Has been pleasant since weekend when Seroquel was started. Active Medications Acetaminophen (Tylenol -) 650 mg PO Q4H PRN PRN Reason: FEVER OR PAIN Last Admin: 02/02/17 06:37 Dose: 650 mg Carbidopa/Levodopa (Sinemet 25/100 -) 1 each PO TID [facility] Last Admin: 02/13/17 06:08 Dose: 1 each Enoxaparin Sodium (Lovenox -) 40 mg SQ DAILY [facility] Last Admin: 02/12/17 10:54 Dose: 40 mg Lactobacillus Acidophilus (Bacid -) 1 tab PO DAILY [facility] Last Admin: 02/12/17 10:55 Dose: 1 tab Ondansetron HCl (Zofran Injection) 4 mg IVPB Q6H PRN PRN Reason: NAUSEA Quetiapine Fumarate (Seroquel -) 25 mg PO HS [facility] Last Admin: 02/12/17 21:04 Dose: 25 mg Tramadol HCl (Ultram -) 50 mg PO Q8H PRN PRN Reason: PAIN *Physical Exam Vital Signs Temperature 97.7 F 02/13/17 05:00 Pulse Rate 80 02/13/17 05:00 Respiratory Rate 18 02/13/17 05:00 Blood Pressure 142/76 02/13/17 05:00 O2 Sat by Pulse Oximetry (%) 98 02/11/17 21:00 - Physical Exam General Appearance: Yes: Nourished, Appropriately Dressed. No: Apparent Distress HEENT: negative: Pale Conjunctivae Neck: positive: Supple Respiratory/Chest: positive: Lungs Clear, Normal Breath Sounds. negative: Respiratory Distress, Accessory Muscle Use Cardiovascular: positive: Regular Rhythm, Regular Rate. negative: Murmur Gastrointestinal/Abdominal: positive: Soft. negative: Tenderness Musculoskeletal: negative: CVA Tenderness, Vertebral Tenderness, Other (no posterior pelvis pain (although she points to her left posterior iliac crest) ) Extremity: positive: Normal Capillary Refill. negative: Pedal Edema Integumentary: positive: Dry, Warm, Pale Neurologic: CN intact, cooperative, awake, alert, no facial droop, sensory normal, strength 5/5 in b/l lower extremities, CBCD WBC 5.1 K/mm3 (4.0-10.0) 02/13/17 06:00 RBC 3.67 M/mm3 (3.60-5.2) 02/13/17 06:00 Hgb 12.1 GM/dL (10.7-15.3) 02/13/17 06:00 Hct 35.9 % (32.4-45.2) 02/13/17 06:00 MCV 97.9 fl (80-96) H 02/13/17 06:00 MCHC 33.6 g/dl (32.0-36.0) 02/13/17 06:00 RDW 12.4 % (11.6-15.6) 02/13/17 06:00 Plt Count 198 K/MM3 (134-434) 02/13/17 06:00 MPV 8.1 fl (7.5-11.1) 02/13/17 06:00 CMP Sodium 143 mmol/L (136-145) 02/13/17 06:00 Potassium 4.0 mmol/L (3.5-5.1) 02/13/17 06:00 Chloride 107 mmol/L (98-107) 02/13/17 06:00 Carbon Dioxide 27 mmol/L (21-32) 02/13/17 06:00 Anion Gap 9 (8-16) 02/13/17 06:00 BUN 21 mg/dL (7-18) H 02/13/17 06:00 Creatinine 0.8 mg/dL (0.55-1.02) 02/13/17 06:00 Creat Clearance w eGFR > 60 (>60) 02/11/17 06:00 Calcium 8.9 mg/dL (8.5-10.1) 02/13/17 06:00 Total Bilirubin 0.8 mg/dL (0.2-1.0) D 02/11/17 06:00 AST 16 U/L (15-37) 02/11/17 06:00 ALT 11 U/L (12-78) L 02/11/17 06:00 Alkaline Phosphatase 99 U/L (45-117) D 02/11/17 06:00 Total Protein 6.1 g/dl (6.4-8.2) L 02/11/17 06:00 Albumin 3.6 g/dl (3.4-5.0) 02/11/17 06:00 Previous MRI L spine reviewed Medical Decision Making 81-year-old female brought in by daughter for evaluation of worsening low back pain for the past 6 years Stenosis in the lumbar spine as per previous imaging including an MRI which I reviewed from May. Can repeat MRI L spine as outpatient if needed Continue sinemet for Parkinson's No longer on Roxicodone for pain, is on Tramadol which is less potent Tempazepam for sleep was helpful Also started on Seroquel and doing well with it Lucid this morning and maintains coherent mental status Back has improved Ongoing medical management
[2017-02-13] MEDS: ENOXAPARIN NA (PORCINE) 40 MG/0.4 ML DISP.SYRIN SQ SCH (10:15)
[2017-02-13] MEDS: LACTOBACILLUS ACIDOPHILUS 1 EACH TAB (FP) PO SCH (10:15)
--- NOTE | 2017-02-13 11:39 | PN ---
Progress Note, Physician Chief Complaint: Ms Colbert says she feels well today. No cp, sob, n/v. - Current Medication List Current Medications: Active Medications Acetaminophen (Tylenol -) 650 mg PO Q4H PRN PRN Reason: FEVER OR PAIN Last Admin: 02/02/17 06:37 Dose: 650 mg Carbidopa/Levodopa (Sinemet 25/100 -) 1 each PO TID [facility] Last Admin: 02/13/17 06:08 Dose: 1 each Enoxaparin Sodium (Lovenox -) 40 mg SQ DAILY [facility] Last Admin: 02/13/17 10:15 Dose: 40 mg Lactobacillus Acidophilus (Bacid -) 1 tab PO DAILY [facility] Last Admin: 02/13/17 10:15 Dose: 1 tab Ondansetron HCl (Zofran Injection) 4 mg IVPB Q6H PRN PRN Reason: NAUSEA Quetiapine Fumarate (Seroquel -) 25 mg PO HS [facility] Last Admin: 02/12/17 21:04 Dose: 25 mg Tramadol HCl (Ultram -) 50 mg PO Q8H PRN PRN Reason: PAIN - Objective Vital Signs: Vital Signs Temperature 36.5 C 02/13/17 05:00 Pulse Rate 80 02/13/17 05:00 Respiratory Rate 18 02/13/17 05:00 Blood Pressure 142/76 02/13/17 05:00 O2 Sat by Pulse Oximetry (%) 98 02/11/17 21:00 Constitutional: Yes: Well Nourished, No Distress, Calm Cardiovascular: Yes: Regular Rate and Rhythm. No: Gallop, Murmur, Rub Respiratory: Yes: Regular, CTA Bilaterally. No: Rales, Rhonchi, Wheezes Gastrointestinal: Yes: Normal Bowel Sounds, Soft. No: Distention, Tenderness Extremities: Yes: WNL Edema: No Labs: CBC, BMP 02/13/17 06:00 02/13/17 06:00 INR, PTT INR 1.05 (0.82-1.09) 01/31/17 06:00 Problem List - Problems (1) UTI (urinary tract infection) Code(s): N39.0 - URINARY TRACT INFECTION, SITE NOT SPECIFIED Qualifiers: Urinary tract infection type: acute cystitis Hematuria presence: without hematuria Qualified Code(s): N30.00 - Acute cystitis without hematuria (2) Chronic pain Code(s): G89.29 - OTHER CHRONIC PAIN Qualifiers: Chronic pain type: chronic pain syndrome Qualified Code(s): G89.4 - Chronic pain syndrome (3) Spinal stenosis Code(s): M48.00 - SPINAL STENOSIS, SITE UNSPECIFIED Qualifiers: Spinal region: lumbosacral Qualified Code(s): M48.07 - Spinal stenosis, lumbosacral region (4) Parkinson disease Code(s): G20 - PARKINSON'S DISEASE (5) Hypokalemia Code(s): E87.6 - HYPOKALEMIA (6) Hypophosphatemia Code(s): E83.39 - OTHER DISORDERS OF PHOSPHORUS METABOLISM (7) Sundowning Code(s): F05 - DELIRIUM DUE TO KNOWN PHYSIOLOGICAL CONDITION Assessment/Plan (1) UTI (urinary tract infection) Code(s): N39.0 - URINARY TRACT INFECTION, SITE NOT SPECIFIED Qualifiers: Urinary tract infection type: acute cystitis Hematuria presence: without hematuria Qualified Code(s): N30.00 - Acute cystitis without hematuria (2) Chronic pain Code(s): G89.29 - OTHER CHRONIC PAIN Qualifiers: Chronic pain type: chronic pain syndrome Qualified Code(s): G89.4 - Chronic pain syndrome (3) Spinal stenosis Code(s): M48.00 - SPINAL STENOSIS, SITE UNSPECIFIED Qualifiers: Spinal region: lumbosacral Qualified Code(s): M48.07 - Spinal stenosis, lumbosacral region (4) Parkinson disease Code(s): G20 - PARKINSON'S DISEASE (5) FEN (6) Sundowning Plan -continue current regimen -sundowning resolved, continue seroquel qhs -discharge planning, pending acceptance to SNF -plan for discharge in next 24-48 hours
--- NOTE | 2017-02-13 14:14 | PN ---
Progress Note, Physician History of Present Illness: no issues doing very well daughter in room - Current Medication List Current Medications: Active Medications Acetaminophen (Tylenol -) 650 mg PO Q4H PRN PRN Reason: FEVER OR PAIN Last Admin: 02/02/17 06:37 Dose: 650 mg Carbidopa/Levodopa (Sinemet 25/100 -) 1 each PO TID [facility] Last Admin: 02/13/17 06:08 Dose: 1 each Enoxaparin Sodium (Lovenox -) 40 mg SQ DAILY [facility] Last Admin: 02/13/17 10:15 Dose: 40 mg Lactobacillus Acidophilus (Bacid -) 1 tab PO DAILY [facility] Last Admin: 02/13/17 10:15 Dose: 1 tab Ondansetron HCl (Zofran Injection) 4 mg IVPB Q6H PRN PRN Reason: NAUSEA Quetiapine Fumarate (Seroquel -) 25 mg PO HS [facility] Last Admin: 02/12/17 21:04 Dose: 25 mg Tramadol HCl (Ultram -) 50 mg PO Q8H PRN PRN Reason: PAIN - Objective Vital Signs: Vital Signs Temperature 98.4 F 02/13/17 09:00 Pulse Rate 97 H 02/13/17 09:00 Respiratory Rate 20 02/13/17 09:00 Blood Pressure 128/73 02/13/17 09:00 O2 Sat by Pulse Oximetry (%) 95 02/13/17 09:00 Constitutional: Yes: No Distress, Calm Cardiovascular: Yes: Regular Rate and Rhythm Respiratory: Yes: Regular, CTA Bilaterally Gastrointestinal: Yes: Normal Bowel Sounds, Soft Musculoskeletal: Yes: WNL Extremities: Yes: WNL Neurological: Yes: Alert, Oriented Psychiatric: Yes: Alert, Oriented Labs: CBC, BMP 02/13/17 06:00 02/13/17 06:00 INR, PTT INR 1.05 (0.82-1.09) 01/31/17 06:00 Assessment/Plan Problem List - Problems (1) UTI (urinary tract infection) Code(s): N39.0 - URINARY TRACT INFECTION, SITE NOT SPECIFIED Qualifiers: Urinary tract infection type: acute cystitis Hematuria presence: without hematuria Qualified Code(s): N30.00 - Acute cystitis without hematuria (2) Chronic pain Code(s): G89.29 - OTHER CHRONIC PAIN Qualifiers: Chronic pain type: chronic pain syndrome Qualified Code(s): G89.4 - Chronic pain syndrome (3) Spinal stenosis Code(s): M48.00 - SPINAL STENOSIS, SITE UNSPECIFIED Qualifiers: Spinal region: lumbosacral Qualified Code(s): M48.07 - Spinal stenosis, lumbosacral region (4) Parkinson disease Code(s): G20 - PARKINSON'S DISEASE plan doing well off of abx nutrition rest as per primary
[2017-02-13] MEDS: QUEtiapine FUMARATE 25 MG TABLET (FP) PO SCH (21:32)
[2017-02-14] MEDS: CARBIDOPA/LEVODOPA 25/100 TABLET (FP) PO SCH ×3 (05:17→21:20)
--- NOTE | 2017-02-14 08:43 | HOSP ---
Subjective - Review of Symptoms Subjective: Was called by the nurse for an unwitnessed fall. As per patient, she "slid down " while attempting to go to the window. Patient denies any pain or hitting her head. Ordered stroke protocol set #1. After assessing the patient, I spoke to the patient's daughter and described known events with reccomendation for head CT given that the patient is anticoagulated with lovenox for DVT prophylaxsis as per hospital protocol. The daughter declined CT of head. Cancelled the CT of the head at the request of the patient's family. HEENT: No: Head Aches, Visual Changes, Eye Pain Pulmonary: No: Dyspnea Cardiovascular: No: Chest Pain, Palpitations Gastrointestinal: No: Abdominal Pain Musculoskeletal: No: Back Pain, Decreased ROM, Extremity Pain, Joint Pain, Joint Swelling, Muscle Pain, Muscle Cramps Neurological: No: Weakness, Numbness, Change in speech Physical Examination Vital Signs: Vital Signs Temperature 97.2 F L 02/14/17 07:39 Pulse Rate 88 02/14/17 07:39 Respiratory Rate 20 02/14/17 07:39 Blood Pressure 149/79 02/14/17 07:39 O2 Sat by Pulse Oximetry (%) 98 02/13/17 21:33 Findings/Remarks: PEERL, EOMI intact. Patient at baseline mental status. Strength 5/5 in all extremities. Mild abrasions over both elbows without surrounding erythema, tenderness or swelling. No bony tenderness over elbows, knees, shoulders or hips. Pelvis stable Full range of motion in all limbs at all joints. Feet are plantar flexed. 2+ radial and DP pulses b/l. no ecchymosis noted. Constitutional: Yes: No Distress, Calm Eyes: Yes: EOM Intact, PERRL. No: Ptosis HENT: Yes: Atraumatic, Normocephalic Neck: Yes: Supple, Trachea Midline. No: Tenderness Cardiovascular: Yes: Regular Rate and Rhythm Gastrointestinal: No: Tenderness Musculoskeletal: Yes: Other (full range of motion in all extremities. no bony tenderness at any joints). No: Back Pain, Joint Stiffness, Joint Swelling, Muscle Pain, Muscle Weakness Extremities: Yes: Erythema, External Rotation, Internal Rotation, Other (mild abrasion on both elbows. no bony tenederness). No: Deformity, Shortened Labs: CBC, BMP 02/13/17 06:00 02/13/17 06:00 Hospitalist Encounter Assessment: Patient is an 81 yo f w/ PMH back pain who is admitted for UTI. She is s/p fall. Patient denies any symptoms and denies hitting her head. Patient on lovenox for DVT prophylaxsis. Outcome: CT head ordered. Fall protocol #1 ordered. Visit type - Emergency Visit Emergency Visit: Yes ED Registration Date: 01/24/17 Care time: The patient presented to the Emergency Department on the above date and was hospitalized for further evaluation of their emergent condition. - New Patient This patient is new to me today: Yes Date on this admission: 02/15/17 - Critical Care Critical Care patient: No
--- NOTE | 2017-02-14 11:08 | PN ---
Progress Note (short form) - Note Progress Note: Neurology History of Present Illness 81-year-old female brought in by daughter for evaluation of worsening low back pain for the past 6 years now associated with decreased sleep and decreased appetite secondary to the pain unrelieved by tramadol. Patient states was followed by Dr. Shoemaker but has not followed up with a new doctor since then and is otherwise seen by her primary care physician Dr. Mcrae. 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 On Sinemet for parkinson's. Overnight with fall and patient denies head injury, Ct head was ordered but reportedly refused. Spoke with daughter today and recommended CT head. Patient in solarium carrying on conversation and maintaining thought process though mentioned a grandmother that was tangential during conversation. Daughter was inquiring about placement status and asked why appeals had been denied which I have not been involved in. Patient has been lucid last several days after Dr. Mcrae, her PCP, started her on it. Active Medications Acetaminophen (Tylenol -) 650 mg PO Q4H PRN PRN Reason: FEVER OR PAIN Last Admin: 02/02/17 06:37 Dose: 650 mg Carbidopa/Levodopa (Sinemet 25/100 -) 1 each PO TID [facility] Last Admin: 02/14/17 05:17 Dose: 1 each Enoxaparin Sodium (Lovenox -) 40 mg SQ DAILY [facility] Last Admin: 02/13/17 10:15 Dose: 40 mg Lactobacillus Acidophilus (Bacid -) 1 tab PO DAILY [facility] Last Admin: 02/13/17 10:15 Dose: 1 tab Ondansetron HCl (Zofran Injection) 4 mg IVPB Q6H PRN PRN Reason: NAUSEA Quetiapine Fumarate (Seroquel -) 25 mg PO HS [facility] Last Admin: 02/13/17 21:32 Dose: 25 mg Tramadol HCl (Ultram -) 50 mg PO Q8H PRN PRN Reason: PAIN *Physical Exam Vital Signs Temperature 97.2 F L 02/14/17 07:39 Pulse Rate 88 02/14/17 07:39 Respiratory Rate 20 02/14/17 07:39 Blood Pressure 149/79 02/14/17 07:39 O2 Sat by Pulse Oximetry (%) 98 02/13/17 21:33 - Physical Exam General Appearance: Yes: Nourished, Appropriately Dressed. No: Apparent Distress HEENT: negative: Pale Conjunctivae Neck: positive: Supple Integumentary: positive: Dry, Warm, Pale Neurologic: CN intact, cooperative, awake, alert, no facial droop, conversive, in wheelchair, moving ext grossly CBCD WBC 5.1 K/mm3 (4.0-10.0) 02/13/17 06:00 RBC 3.67 M/mm3 (3.60-5.2) 02/13/17 06:00 Hgb 12.1 GM/dL (10.7-15.3) 02/13/17 06:00 Hct 35.9 % (32.4-45.2) 02/13/17 06:00 MCV 97.9 fl (80-96) H 02/13/17 06:00 MCHC 33.6 g/dl (32.0-36.0) 02/13/17 06:00 RDW 12.4 % (11.6-15.6) 02/13/17 06:00 Plt Count 198 K/MM3 (134-434) 02/13/17 06:00 MPV 8.1 fl (7.5-11.1) 02/13/17 06:00 CMP Sodium 143 mmol/L (136-145) 02/13/17 06:00 Potassium 4.0 mmol/L (3.5-5.1) 02/13/17 06:00 Chloride 107 mmol/L (98-107) 02/13/17 06:00 Carbon Dioxide 27 mmol/L (21-32) 02/13/17 06:00 Anion Gap 9 (8-16) 02/13/17 06:00 BUN 21 mg/dL (7-18) H 02/13/17 06:00 Creatinine 0.8 mg/dL (0.55-1.02) 02/13/17 06:00 Creat Clearance w eGFR > 60 (>60) 02/11/17 06:00 Calcium 8.9 mg/dL (8.5-10.1) 02/13/17 06:00 Total Bilirubin 0.8 mg/dL (0.2-1.0) D 02/11/17 06:00 AST 16 U/L (15-37) 02/11/17 06:00 ALT 11 U/L (12-78) L 02/11/17 06:00 Alkaline Phosphatase 99 U/L (45-117) D 02/11/17 06:00 Total Protein 6.1 g/dl (6.4-8.2) L 02/11/17 06:00 Albumin 3.6 g/dl (3.4-5.0) 02/11/17 06:00 Medical Decision Making 81-year-old female brought in by daughter for evaluation of worsening low back pain for the past 6 years Stenosis in the lumbar spine as per previous imaging including an MRI which I reviewed from May. Can repeat MRI L spine as outpatient if needed Continue sinemet for Parkinson's No longer on Roxicodone for pain, is on Tramadol which is less potent Tempazepam for sleep was helpful Also started on Seroquel and had been lucid with the medication Does have falls at home and had fall overnight Maintaining conversation Ongoing medical management
[2017-02-14] MEDS: ENOXAPARIN NA (PORCINE) 40 MG/0.4 ML DISP.SYRIN SQ SCH (11:30)
--- NOTE | 2017-02-14 11:41 | PN ---
Progress Note, Physician Chief Complaint: Ms Colbert says she feels well today. No cp, sob, n/v. Alert and oriented x3 and answering questions appropriately - Current Medication List Current Medications: Active Medications Acetaminophen (Tylenol -) 650 mg PO Q4H PRN PRN Reason: FEVER OR PAIN Last Admin: 02/02/17 06:37 Dose: 650 mg Carbidopa/Levodopa (Sinemet 25/100 -) 1 each PO TID [facility] Last Admin: 02/14/17 05:17 Dose: 1 each Enoxaparin Sodium (Lovenox -) 40 mg SQ DAILY [facility] Last Admin: 02/14/17 11:30 Dose: Not Given Lactobacillus Acidophilus (Bacid -) 1 tab PO DAILY [facility] Last Admin: 02/13/17 10:15 Dose: 1 tab Ondansetron HCl (Zofran Injection) 4 mg IVPB Q6H PRN PRN Reason: NAUSEA Quetiapine Fumarate (Seroquel -) 25 mg PO HS [facility] Last Admin: 02/13/17 21:32 Dose: 25 mg Tramadol HCl (Ultram -) 50 mg PO Q8H PRN PRN Reason: PAIN - Objective Vital Signs: Vital Signs Temperature 37.0 C 02/14/17 09:39 Pulse Rate 95 H 02/14/17 09:39 Respiratory Rate 20 02/14/17 09:39 Blood Pressure 139/74 02/14/17 09:39 O2 Sat by Pulse Oximetry (%) 98 02/13/17 21:33 Constitutional: Yes: Well Nourished, No Distress, Calm Cardiovascular: Yes: Regular Rate and Rhythm. No: Gallop, Murmur, Rub Respiratory: Yes: Regular, CTA Bilaterally. No: Rales, Rhonchi, Wheezes Gastrointestinal: Yes: Normal Bowel Sounds, Soft. No: Distention, Tenderness Extremities: Yes: WNL Edema: No Labs: CBC, BMP 02/13/17 06:00 02/13/17 06:00 INR, PTT INR 1.05 (0.82-1.09) 01/31/17 06:00 Problem List - Problems (1) UTI (urinary tract infection) Code(s): N39.0 - URINARY TRACT INFECTION, SITE NOT SPECIFIED Qualifiers: Urinary tract infection type: acute cystitis Hematuria presence: without hematuria Qualified Code(s): N30.00 - Acute cystitis without hematuria (2) Chronic pain Code(s): G89.29 - OTHER CHRONIC PAIN Qualifiers: Chronic pain type: chronic pain syndrome Qualified Code(s): G89.4 - Chronic pain syndrome (3) Spinal stenosis Code(s): M48.00 - SPINAL STENOSIS, SITE UNSPECIFIED Qualifiers: Spinal region: lumbosacral Qualified Code(s): M48.07 - Spinal stenosis, lumbosacral region (4) Parkinson disease Code(s): G20 - PARKINSON'S DISEASE (5) Hypokalemia Code(s): E87.6 - HYPOKALEMIA (6) Hypophosphatemia Code(s): E83.39 - OTHER DISORDERS OF PHOSPHORUS METABOLISM (7) Sundowning Code(s): F05 - DELIRIUM DUE TO KNOWN PHYSIOLOGICAL CONDITION Assessment/Plan (1) UTI (urinary tract infection) Assessment/Plan: -finished full course of antibiotics -q48h cbc to evaluate for leukocytosis -ID following Code(s): N39.0 - URINARY TRACT INFECTION, SITE NOT SPECIFIED Qualifiers: Urinary tract infection type: acute cystitis Hematuria presence: without hematuria Qualified Code(s): N30.00 - Acute cystitis without hematuria (2) Chronic pain Assessment/Plan: -secondary to spinal stenosis -prn tramadol, patient currently is not needing Code(s): G89.29 - OTHER CHRONIC PAIN Qualifiers: Chronic pain type: chronic pain syndrome Qualified Code(s): G89.4 - Chronic pain syndrome (3) Spinal stenosis Assessment/Plan: -continue PT -patient has improved Code(s): M48.00 - SPINAL STENOSIS, SITE UNSPECIFIED Qualifiers: Spinal region: lumbosacral Qualified Code(s): M48.07 - Spinal stenosis, lumbosacral region (4) Parkinson disease Assessment/Plan: -case d/w family -will ask Dr Kennedy to consult for second opinion -continue sinemet at this time Code(s): G20 - PARKINSON'S DISEASE (5) FEN -stable (6) Sundowning -patient had episode of insomnia last night with hallucination and fall -fall was non-traumatic -however mental status upon seeing the patient was appropriate and normal -concerning though that still having insomnia with hallucinations -will consult psychiatry for assistance -also second opinion from neurology requested as well -monitor tonight -fall risk precautions Dispo -continue hospitalization currently since has recurrent episodes of insomnia with hallucinations
[2017-02-14] MEDS: LACTOBACILLUS ACIDOPHILUS 1 EACH TAB (FP) PO SCH (12:08)
--- NOTE | 2017-02-14 15:21 | PN ---
Progress Note, Physician History of Present Illness: events noted patient had a fall daughter in room discussed with her in detail - Current Medication List Current Medications: Active Medications Acetaminophen (Tylenol -) 650 mg PO Q4H PRN PRN Reason: FEVER OR PAIN Last Admin: 02/02/17 06:37 Dose: 650 mg Carbidopa/Levodopa (Sinemet 25/100 -) 1 each PO TID [facility] Last Admin: 02/14/17 14:50 Dose: 1 each Enoxaparin Sodium (Lovenox -) 40 mg SQ DAILY [facility] Last Admin: 02/14/17 11:30 Dose: Not Given Lactobacillus Acidophilus (Bacid -) 1 tab PO DAILY [facility] Last Admin: 02/14/17 12:08 Dose: 1 tab Ondansetron HCl (Zofran Injection) 4 mg IVPB Q6H PRN PRN Reason: NAUSEA Quetiapine Fumarate (Seroquel -) 25 mg PO HS [facility] Last Admin: 02/13/17 21:32 Dose: 25 mg Tramadol HCl (Ultram -) 50 mg PO Q8H PRN PRN Reason: PAIN - Objective Vital Signs: Vital Signs Temperature 97.3 F L 02/14/17 11:39 Pulse Rate 96 H 02/14/17 11:39 Respiratory Rate 20 02/14/17 11:39 Blood Pressure 139/77 02/14/17 11:39 O2 Sat by Pulse Oximetry (%) 98 02/14/17 09:00 Constitutional: Yes: No Distress, Calm Cardiovascular: Yes: Regular Rate and Rhythm Respiratory: Yes: Regular, CTA Bilaterally Gastrointestinal: Yes: Normal Bowel Sounds, Soft Musculoskeletal: Yes: WNL Extremities: Yes: Other (small bruise on the left arm) Neurological: Yes: Alert Psychiatric: Yes: Alert Labs: CBC, BMP 02/13/17 06:00 02/13/17 06:00 INR, PTT INR 1.05 (0.82-1.09) 01/31/17 06:00 Assessment/Plan Problem List - Problems (1) UTI (urinary tract infection) Code(s): N39.0 - URINARY TRACT INFECTION, SITE NOT SPECIFIED Qualifiers: Urinary tract infection type: acute cystitis Hematuria presence: without hematuria Qualified Code(s): N30.00 - Acute cystitis without hematuria (2) Chronic pain Code(s): G89.29 - OTHER CHRONIC PAIN Qualifiers: Chronic pain type: chronic pain syndrome Qualified Code(s): G89.4 - Chronic pain syndrome (3) Spinal stenosis Code(s): M48.00 - SPINAL STENOSIS, SITE UNSPECIFIED Qualifiers: Spinal region: lumbosacral Qualified Code(s): M48.07 - Spinal stenosis, lumbosacral region (4) Parkinson disease Code(s): G20 - PARKINSON'S DISEASE plan continue to monitor no abx rest as per primary
--- NOTE | 2017-02-14 18:09 | CON.NEURO ---
Consult - History of Present Illness History of Present Illness: second opinion neurology 81 yr old female admitted on 01/24/17, who came in with worsening chronic pain and found to have UTI. +ESBL and pIccs inserted .She complains of worsening balance and difficulty standing up. dx with parkinsons in 6 years and started on sinemet at that time. She denies fevers, chills, lightheadedness, dizziness , passing out, chest pain, shortness of breath, nausea, vomiting, diarrhea, constipation, or swelling. She lives alone and daughter live in [place], apparently does basic finances, cooking, cleaning. as per team daughter has more hallucinations , waxing and waning status ; baseline as per family -- worsening dementia while in hospital; poor sleep. poor response to seroquel. recent fall. CT HD : 02/06/17 age related changes - History Source History Provided By: Family Member - Past Medical History [employer]: Yes: Parkinson's ...: No Musculoskeletal: Yes: Other (spinal stenosis) - Past Surgical History Past Surgical History: Yes: None - Alcohol/Substance Use Hx Alcohol Use: No History of Substance Use: reports: None - Smoking History Smoking history: Former smoker Have you smoked in the past 12 months: No Aproximately how many cigarettes per day: 0 - Social History ADL: Family Assistance History of Recent Travel: No Home Medications - Allergies Allergies/Adverse Reactions: Allergies Allergy/AdvReac Type Severity Reaction Status Date / Time No Known Allergies Allergy Verified 01/24/17 10:34 - Home Medications Home Medications: Ambulatory Orders Carbidopa/Levodopa 25/100 [Sinemet 25/100 -] 1 each PO TID 12/28/16 Acetaminophen [Tylenol .Regular Strength -] 650 mg PO Q4H PRN #0 tablet Alprazolam [Xanax] 0.25 mg PO Q8H PRN #0 tablet MDD 1mg 02/01/17 Docusate Sodium [Colace -] 100 mg PO BID cap 02/01/17 Ertapenem Sodium [Invanz -] 1 gm IVPB DAILY vial 02/01/17 Lactobacillus Acidophilus [Bacid -] 1 tab PO DAILY tab 02/01/17 Oxycodone HCl [Roxicodone -] 5 mg PO Q4H PRN #0 tablet MDD 30mg 02/01/17 Picc Line Flush [Picc Line Flush -] 8 ml IVPUSH PRN PRN #0 ml 02/01/17 Polyethylene Glycol 3350 [Miralax 119 gm Btl -] 17 gm PO DAILY #1 bottle Family Disease History - Family Disease History Family Disease History: Other: Mother (rheumatoid arthritis) Physical Exam-Neuro Vital Signs: Vital Signs Temperature 97.7 F 02/14/17 17:41 Pulse Rate 99 H 02/14/17 17:41 Respiratory Rate 20 02/14/17 17:41 Blood Pressure 143/76 02/14/17 17:41 O2 Sat by Pulse Oximetry (%) 98 02/14/17 09:00 Labs: CBC, BMP 02/13/17 06:00 02/13/17 06:00 INR, PTT INR 1.05 (0.82-1.09) 01/31/17 06:00 - Neuro Exam Level Of Consciousness: Yes: Alert (awake , though becomes tangential during coversation, + hallucinations, EOMI, VFF, no facial , motor minor tremor, no cogwheeling, no focal weakness in UE, no clear ataxia, in wheelchair) Imaging - Results Cat Scan: Report Reviewed, Image Reviewed Problem List - Problems (1) Parkinson disease Code(s): G20 - PARKINSON'S DISEASE (2) Spinal stenosis Code(s): M48.00 - SPINAL STENOSIS, SITE UNSPECIFIED Qualifiers: Spinal region: lumbosacral Qualified Code(s): M48.07 - Spinal stenosis, lumbosacral region (3) Sundowning Code(s): F05 - DELIRIUM DUE TO KNOWN PHYSIOLOGICAL CONDITION (4) Lewy body dementia Code(s): G31.83 - DEMENTIA WITH LEWY BODIES F02.80 - DEMENTIA IN OTH DISEASES CLASSD ELSWHR W/O BEHAVRL DISTURB Assessment/Plan case reviewed and pt examined suspect constellation of her SX of soft atypical parkisonian features (very mild tremor, no cogwhelling) /dementia/ waxing and waning wakefulness/ neuroleptic senstivity may be related to LBD-- this is clinical Dx and there is no serum or radiographic confirmation of this. alterrnatively she could have ALZ/Parkinsonian dementia with progression of her dementia Sx while in house, as this is a common phenomena while being hospitalized. Sinemet maybe a culprit in her hallucinations as well. UTI also can contribute to low grade delirium. As per family she has not responded well to seroquel and does better with XANAX. spoke to both daughters about this and they understand above implications and that there is no cure regardless of the dementia syndrome. SHe is becoming more dependent on them and they express that she ideally needs more services at home vs placement, though they ate favoring the fomrer. for now will dc seroquel and restart XAnax. cont sinemet for now though may consider a trial off down the line. will speak to social work in AM if need be. Dr Kennedy
--- NOTE | 2017-02-14 20:38 | CON.PSY ---
Psychiatry Consult Chief Complaint: Asked to see this patient, an 81 year old female with hx of parkinson disease and psychotic symptoms Symptoms: reports: Sleep Disturbance, Impaired Concentration, Anxiety, Impulsivity, Disorganized/Disruptive Thoughts, Delusions, Hallucinations, Paranoia - Current Medications Current Medications: Active Medications Acetaminophen (Tylenol -) 650 mg PO Q4H PRN PRN Reason: FEVER OR PAIN Last Admin: 02/02/17 06:37 Dose: 650 mg Alprazolam (Xanax -) 0.25 mg PO Q8H PRN PRN Reason: ANXIETY Carbidopa/Levodopa (Sinemet 25/100 -) 1 each PO TID [facility] Last Admin: 02/14/17 14:50 Dose: 1 each Enoxaparin Sodium (Lovenox -) 40 mg SQ DAILY [facility] Last Admin: 02/14/17 11:30 Dose: Not Given Lactobacillus Acidophilus (Bacid -) 1 tab PO DAILY [facility] Last Admin: 02/14/17 12:08 Dose: 1 tab Ondansetron HCl (Zofran Injection) 4 mg IVPB Q6H PRN PRN Reason: NAUSEA Tramadol HCl (Ultram -) 50 mg PO Q8H PRN PRN Reason: PAIN - Allergies Allergies: Allergies Allergy/AdvReac Type Severity Reaction Status Date / Time No Known Allergies Allergy Verified 01/24/17 10:34 - Current Mental Status Evaluation Attitude: Guarded, Suspicious - Affect Affect: Labile Appropriateness: Appropriate to Content - Mood Mood: Anxious, Irritable - Speech/Language Expressive: Delayed Receptive: Unable to Receive/Comprehend Spoken Words - Psychomotor Activity Psychomotor Activity: Slowed - Thought Process Thought Process: Circumstantial, Loosening of Associations, Transgential - Thought Content Hallucinations: Present Delusions: Present Type: Bizarre - Cognition Attention: Alert Orientation: Person Memory, Immediate Recall: Impaired Memory, Short Term: 3/3 Memory, Remote: Impaired - Abstraction Proverb Interpretation: Impaired Judgement: Severely Impaired - Insight Insight: Impaired - Impulse Control Impulse Control: Severly Impaired - Suicidal Ideation Suicidal Ideation: No - Homicidal Ideation Homicidal Ideation: No Plan: Parkinson diseease with mental confusion, hallucination, delusions and visual impairment. Patiient seen by neurologist this PM. Rule out Lewy bodies disease. stop Seroquel as antipsyhotic medications can cause worsening of psychotic symptoms. Xanax.25 mgs tid ordered.
[2017-02-14] MEDS: ALPRAZolam 0.25 MG TABLET PO PRN (21:20)
[2017-02-15] MEDS ORDERED: PT OWN MED DRAWER 7, Y5N ONE (05:28)
[2017-02-15] MEDS: CARBIDOPA/LEVODOPA 25/100 TABLET (FP) PO SCH ×3 (06:59→21:46)
[2017-02-15 07:12] LABS: BASOPHIL 0.4 % (0-2.0); EOSINOPHIL 1.6 % (0-4.5); MCH 32.9 pg (25.7-33.7); MCHC 33.4 g/dl (32.0-36.0); MEAN CELL VOLUME 98.5 fl (80-96); MEAN PLT VOLUME 7.5 fl (7.5-11.1); PLATELET COUNT 187 K/MM3 (134-434); RDW 12.5 % (11.6-15.6); WHITE BLOOD COUNT 7.1 K/mm3 (4.0-10.0)
[2017-02-15 07:35] LABS: ANION GAP 5 (8-16); CALCIUM 8.8 mg/dL (8.5-10.1); CO2 30 mmol/L (21-32); CREATININE 0.9 mg/dL (0.55-1.02); GLUCOSE,RANDOM 79 mg/dL (74-106); PHOSPHOROUS 3.3 mg/dL (2.5-4.9)
--- NOTE | 2017-02-15 09:31 | PN ---
Progress Note, Physician Chief Complaint: parkinsonism, dementia, behavioral changes, hallucinations History of Present Illness: 81 yr old female admitted on 01/24/17, who came in with worsening chronic pain and found to have UTI. +ESBL and pIccs inserted .She complains of worsening balance and difficulty standing up. dx with parkinsons in 6 years and started on sinemet at that time. She denies fevers, chills, lightheadedness, dizziness , passing out, chest pain, shortness of breath, nausea, vomiting, diarrhea, constipation, or swelling. She lives alone and daughter live in [place], apparently does basic finances, cooking, cleaning. as per team daughter has more hallucinations , waxing and waning status ; baseline as per family -- worsening dementia while in hospital; poor sleep. poor response to seroquel. recent fall. CT HD : 02/06/17 age related changes - Current Medication List Current Medications: Active Medications Acetaminophen (Tylenol -) 650 mg PO Q4H PRN PRN Reason: FEVER OR PAIN Last Admin: 02/02/17 06:37 Dose: 650 mg Alprazolam (Xanax -) 0.25 mg PO Q8H PRN PRN Reason: ANXIETY Last Admin: 02/14/17 21:20 Dose: 0.25 mg Carbidopa/Levodopa (Sinemet 25/100 -) 1 each PO TID [facility] Last Admin: 02/15/17 06:59 Dose: 1 each Enoxaparin Sodium (Lovenox -) 40 mg SQ DAILY [facility] Last Admin: 02/14/17 11:30 Dose: Not Given Lactobacillus Acidophilus (Bacid -) 1 tab PO DAILY [facility] Last Admin: 02/14/17 12:08 Dose: 1 tab Ondansetron HCl (Zofran Injection) 4 mg IVPB Q6H PRN PRN Reason: NAUSEA Tramadol HCl (Ultram -) 50 mg PO Q8H PRN PRN Reason: PAIN - Objective Vital Signs: Vital Signs Temperature 98.1 F 02/15/17 08:24 Pulse Rate 82 02/15/17 08:24 Respiratory Rate 18 02/15/17 08:24 Blood Pressure 131/79 02/15/17 08:24 O2 Sat by Pulse Oximetry (%) 98 02/14/17 21:00 Neurological: Yes: Other (patient sleeping when I first walked into the room but easily aroused, and irritable upon awakening. Refused to cooperate with exam. "why the hell should I let you guys do anything to me". "I don't want you touching me". Minimal tremor. Moves both arms symmetrically. Mildly flexed position.) Labs: CBC, BMP 02/15/17 07:02 02/15/17 07:02 INR, PTT INR 1.05 (0.82-1.09) 01/31/17 06:00 Problem List - Problems (1) Lewy body dementia Assessment/Plan: I'll review further plan with my team and then we'll discuss further with family. Treatment of behavioral disturbances in dementia is one of the greatest challenges in neurology, with a need to keep patient safe. There are risks in using benzodiazepines in terms of balances of fall risk, which need to be communicated to the family, but without calming the patient, this is a risk as well. Could also look at Nuplazid, a relatively new antipsychotic that is developed to treat parkinson's psychosis symptoms, but we have to make sure that she doesn't have baseline cardiac conduction problems. Finally, I'd like to find out if the patient has ever been on a cholinesterase inhibitor such as donepezil or another in that class. Patients with Lewy Body Dementia have a more profound acethylcholine deficiency even than Alzheimer disease, and if we can correct some of that it may help reduce some of the behavioral disturbance as well. We'll folllow along with you. Thanks. Chip Conley MD [facility] [phone] Code(s): G31.83 - DEMENTIA WITH LEWY BODIES F02.80 - DEMENTIA IN OTH DISEASES CLASSD ELSWHR W/O BEHAVRL DISTURB Qualifiers : Dementia behavioral disturbance: with behavioral disturbance Qualified Code(s): G31.83 - Dementia with Lewy bodies; F02.81 - Dementia in other diseases classified elsewhere with behavioral disturbance
[2017-02-15] MEDS: LACTOBACILLUS ACIDOPHILUS 1 EACH TAB (FP) PO SCH (10:35)
--- NOTE | 2017-02-15 13:54 | PN ---
Progress Note, Physician History of Present Illness: no issues patient doing well - Current Medication List Current Medications: Active Medications Acetaminophen (Tylenol -) 650 mg PO Q4H PRN PRN Reason: FEVER OR PAIN Last Admin: 02/02/17 06:37 Dose: 650 mg Alprazolam (Xanax -) 0.25 mg PO Q8H PRN PRN Reason: ANXIETY Last Admin: 02/14/17 21:20 Dose: 0.25 mg Carbidopa/Levodopa (Sinemet 25/100 -) 1 each PO TID [facility] Last Admin: 02/15/17 13:35 Dose: 1 each Enoxaparin Sodium (Lovenox -) 40 mg SQ DAILY [facility] Last Admin: 02/14/17 11:30 Dose: Not Given Lactobacillus Acidophilus (Bacid -) 1 tab PO DAILY [facility] Last Admin: 02/15/17 10:35 Dose: 1 tab Ondansetron HCl (Zofran Injection) 4 mg IVPB Q6H PRN PRN Reason: NAUSEA Tramadol HCl (Ultram -) 50 mg PO Q8H PRN PRN Reason: PAIN - Objective Vital Signs: Vital Signs Temperature 98.0 F 02/15/17 10:00 Pulse Rate 91 H 02/15/17 10:00 Respiratory Rate 20 02/15/17 10:00 Blood Pressure 139/79 02/15/17 10:00 O2 Sat by Pulse Oximetry (%) 96 02/15/17 09:00 Constitutional: Yes: No Distress, Calm Cardiovascular: Yes: Regular Rate and Rhythm Respiratory: Yes: Regular, CTA Bilaterally Gastrointestinal: Yes: Normal Bowel Sounds, Soft Musculoskeletal: Yes: WNL Extremities: Yes: WNL Neurological: Yes: Alert, Oriented Psychiatric: Yes: Alert Labs: CBC, BMP 02/15/17 07:02 02/15/17 07:02 INR, PTT INR 1.05 (0.82-1.09) 01/31/17 06:00 Assessment/Plan Problem List - Problems (1) UTI (urinary tract infection) Code(s): N39.0 - URINARY TRACT INFECTION, SITE NOT SPECIFIED Qualifiers: Urinary tract infection type: acute cystitis Hematuria presence: without hematuria Qualified Code(s): N30.00 - Acute cystitis without hematuria (2) Chronic pain Code(s): G89.29 - OTHER CHRONIC PAIN Qualifiers: Chronic pain type: chronic pain syndrome Qualified Code(s): G89.4 - Chronic pain syndrome (3) Spinal stenosis Code(s): M48.00 - SPINAL STENOSIS, SITE UNSPECIFIED Qualifiers: Spinal region: lumbosacral Qualified Code(s): M48.07 - Spinal stenosis, lumbosacral region (4) Parkinson disease Code(s): G20 - PARKINSON'S DISEASE plan stable off of abx nutrition rest as per primary team
--- NOTE | 2017-02-15 16:35 | PN ---
Progress Note, Physician Chief Complaint: Ms Colbert says she feels well today. No cp, sob, n/v. Alert and oriented x3 and answering questions appropriately. Daughter present and says at baseline. - Current Medication List Current Medications: Active Medications Acetaminophen (Tylenol -) 650 mg PO Q4H PRN PRN Reason: FEVER OR PAIN Last Admin: 02/02/17 06:37 Dose: 650 mg Alprazolam (Xanax -) 0.25 mg PO Q8H PRN PRN Reason: ANXIETY Last Admin: 02/14/17 21:20 Dose: 0.25 mg Carbidopa/Levodopa (Sinemet 25/100 -) 1 each PO TID [facility] Last Admin: 02/15/17 13:35 Dose: 1 each Enoxaparin Sodium (Lovenox -) 40 mg SQ DAILY [facility] Last Admin: 02/14/17 11:30 Dose: Not Given Lactobacillus Acidophilus (Bacid -) 1 tab PO DAILY [facility] Last Admin: 02/15/17 10:35 Dose: 1 tab Ondansetron HCl (Zofran Injection) 4 mg IVPB Q6H PRN PRN Reason: NAUSEA Tramadol HCl (Ultram -) 50 mg PO Q8H PRN PRN Reason: PAIN - Objective Vital Signs: Vital Signs Temperature 36.7 C 02/15/17 10:00 Pulse Rate 78 02/15/17 15:57 Respiratory Rate 20 02/15/17 15:57 Blood Pressure 148/62 02/15/17 15:57 O2 Sat by Pulse Oximetry (%) 96 02/15/17 09:00 Constitutional: Yes: Well Nourished, No Distress, Calm Cardiovascular: Yes: Regular Rate and Rhythm. No: Gallop, Murmur, Rub Respiratory: Yes: Regular, CTA Bilaterally. No: Rales, Rhonchi, Wheezes Gastrointestinal: Yes: Normal Bowel Sounds, Soft. No: Distention, Tenderness Extremities: Yes: WNL Edema: No Labs: CBC, BMP 02/15/17 07:02 02/15/17 07:02 INR, PTT INR 1.05 (0.82-1.09) 01/31/17 06:00 Problem List - Problems (1) UTI (urinary tract infection) Code(s): N39.0 - URINARY TRACT INFECTION, SITE NOT SPECIFIED Qualifiers: Urinary tract infection type: acute cystitis Hematuria presence: without hematuria Qualified Code(s): N30.00 - Acute cystitis without hematuria (2) Chronic pain Code(s): G89.29 - OTHER CHRONIC PAIN Qualifiers: Chronic pain type: chronic pain syndrome Qualified Code(s): G89.4 - Chronic pain syndrome (3) Spinal stenosis Code(s): M48.00 - SPINAL STENOSIS, SITE UNSPECIFIED Qualifiers: Spinal region: lumbosacral Qualified Code(s): M48.07 - Spinal stenosis, lumbosacral region (4) Parkinson disease Code(s): G20 - PARKINSON'S DISEASE (5) Hypokalemia Code(s): E87.6 - HYPOKALEMIA (6) Hypophosphatemia Code(s): E83.39 - OTHER DISORDERS OF PHOSPHORUS METABOLISM (7) Code(s): F05 - DELIRIUM DUE TO KNOWN PHYSIOLOGICAL CONDITION Assessment/Plan (1) UTI (urinary tract infection) Assessment/Plan: -finished full course of antibiotics -ID following Code(s): N39.0 - URINARY TRACT INFECTION, SITE NOT SPECIFIED Qualifiers: Urinary tract infection type: acute cystitis Hematuria presence: without hematuria Qualified Code(s): N30.00 - Acute cystitis without hematuria (2) Chronic pain Assessment/Plan: -secondary to spinal stenosis -prn tramadol, patient currently is not needing Code(s): G89.29 - OTHER CHRONIC PAIN Qualifiers: Chronic pain type: chronic pain syndrome Qualified Code(s): G89.4 - Chronic pain syndrome (3) Spinal stenosis Assessment/Plan: -continue PT -patient has improved Code(s): M48.00 - SPINAL STENOSIS, SITE UNSPECIFIED Qualifiers: Spinal region: lumbosacral Qualified Code(s): M48.07 - Spinal stenosis, lumbosacral region (4) Parkinson disease Assessment/Plan: -appreciate Dr Kennedy's assistance -continue sinemet Code(s): G20 - PARKINSON'S DISEASE (5) FEN -stable (6) -much improved -seroquel discontinued -restarted on xanax -monitor Dispo -continue hospitalization currently since has recurrent episodes of insomnia with hallucinations -plan for discharge on Saturday -will need hospital bed, wheelchair, and bedside commode as going home with [facility] of SN[facility]
[2017-02-15] MEDS: ALPRAZolam 0.25 MG TABLET PO PRN (18:08)
[2017-02-16] MEDS: CARBIDOPA/LEVODOPA 25/100 TABLET (FP) PO SCH ×3 (06:27→21:32)
[2017-02-16] MEDS: LACTOBACILLUS ACIDOPHILUS 1 EACH TAB (FP) PO SCH (10:17)
[2017-02-16] MEDS: ENOXAPARIN NA (PORCINE) 40 MG/0.4 ML DISP.SYRIN SQ SCH (10:17)
[2017-02-16] MEDS ORDERED: PT OWN MED DRAWER 7, Y5N ONE (12:55)
--- NOTE | 2017-02-16 13:53 | PN ---
Progress Note, Physician History of Present Illness: DOING WELL - Current Medication List Current Medications: Active Medications Acetaminophen (Tylenol -) 650 mg PO Q4H PRN PRN Reason: FEVER OR PAIN Last Admin: 02/02/17 06:37 Dose: 650 mg Alprazolam (Xanax -) 0.25 mg PO Q8H PRN PRN Reason: ANXIETY Last Admin: 02/15/17 18:08 Dose: 0.25 mg Carbidopa/Levodopa (Sinemet 25/100 -) 1 each PO TID [facility] Last Admin: 02/16/17 13:13 Dose: 1 each Enoxaparin Sodium (Lovenox -) 40 mg SQ DAILY [facility] Last Admin: 02/16/17 10:17 Dose: 40 mg Lactobacillus Acidophilus (Bacid -) 1 tab PO DAILY [facility] Last Admin: 02/16/17 10:17 Dose: 1 tab Ondansetron HCl (Zofran Injection) 4 mg IVPB Q6H PRN PRN Reason: NAUSEA Tramadol HCl (Ultram -) 50 mg PO Q8H PRN PRN Reason: PAIN Last Admin: 02/15/17 21:46 Dose: 50 mg - Objective Vital Signs: Vital Signs Temperature 98.1 F 02/16/17 10:00 Pulse Rate 74 02/16/17 10:00 Respiratory Rate 16 02/16/17 10:00 Blood Pressure 136/66 02/16/17 10:00 O2 Sat by Pulse Oximetry (%) 96 02/16/17 09:00 Constitutional: Yes: No Distress HENT: Yes: Atraumatic Neck: Yes: Supple Cardiovascular: Yes: Regular Rate and Rhythm Respiratory: Yes: CTA Bilaterally Gastrointestinal: Yes: Normal Bowel Sounds Extremities: Yes: WNL Neurological: Yes: Alert Labs: CBC, BMP 02/15/17 07:02 02/15/17 07:02 INR, PTT INR 1.05 (0.82-1.09) 01/31/17 06:00 Problem List - Problems (1) Chronic pain Assessment/Plan: PRN TYLENOL Code(s): G89.29 - OTHER CHRONIC PAIN Qualifiers: Chronic pain type: chronic pain syndrome Qualified Code(s): G89.4 - Chronic pain syndrome (2) Parkinson disease Assessment/Plan: ON MEDS' STABLE Code(s): G20 - PARKINSON'S DISEASE (3) Spinal stenosis Code(s): M48.00 - SPINAL STENOSIS, SITE UNSPECIFIED Qualifiers: Spinal region: lumbosacral Qualified Code(s): M48.07 - Spinal stenosis, lumbosacral region (4) UTI (urinary tract infection) Assessment/Plan: STABLE NOT ON MEDS AT THIS POINT Code(s): N39.0 - URINARY TRACT INFECTION, SITE NOT SPECIFIED Qualifiers: Urinary tract infection type: acute cystitis Hematuria presence: without hematuria Qualified Code(s): N30.00 - Acute cystitis without hematuria Assessment/Plan COVERING DR BRISCOE
--- NOTE | 2017-02-16 15:06 | PN ---
Progress Note, Physician History of Present Illness: Pt seen and examined. Events noted. s/p fall. She denies fever/chills, dysuria , cough/chest pain, abd pain/n/v/d. - Current Medication List Current Medications: Active Medications Acetaminophen (Tylenol -) 650 mg PO Q4H PRN PRN Reason: FEVER OR PAIN Last Admin: 02/02/17 06:37 Dose: 650 mg Alprazolam (Xanax -) 0.25 mg PO Q8H PRN PRN Reason: ANXIETY Last Admin: 02/15/17 18:08 Dose: 0.25 mg Carbidopa/Levodopa (Sinemet 25/100 -) 1 each PO TID [facility] Last Admin: 02/16/17 13:13 Dose: 1 each Enoxaparin Sodium (Lovenox -) 40 mg SQ DAILY [facility] Last Admin: 02/16/17 10:17 Dose: 40 mg Lactobacillus Acidophilus (Bacid -) 1 tab PO DAILY [facility] Last Admin: 02/16/17 10:17 Dose: 1 tab Ondansetron HCl (Zofran Injection) 4 mg IVPB Q6H PRN PRN Reason: NAUSEA Tramadol HCl (Ultram -) 50 mg PO Q8H PRN PRN Reason: PAIN Last Admin: 02/15/17 21:46 Dose: 50 mg - Objective Vital Signs: Vital Signs Temperature 98.1 F 02/16/17 10:00 Pulse Rate 74 02/16/17 10:00 Respiratory Rate 16 02/16/17 10:00 Blood Pressure 136/66 02/16/17 10:00 O2 Sat by Pulse Oximetry (%) 96 02/16/17 09:00 Constitutional: Yes: No Distress HENT: Yes: WNL Neck: Yes: Supple Cardiovascular: Yes: Regular Rate and Rhythm Respiratory: Yes: Regular Gastrointestinal: Yes: Normal Bowel Sounds, Soft Genitourinary: Yes: WNL Integumentary: Yes: WNL Neurological: Yes: Alert Labs: CBC, BMP 02/15/17 07:02 02/15/17 07:02 INR, PTT INR 1.05 (0.82-1.09) 01/31/17 06:00 Problem List - Problems (1) Parkinson disease Code(s): G20 - PARKINSON'S DISEASE (2) Poor appetite Code(s): R63.0 - ANOREXIA (3) Sepsis Code(s): A41.9 - SEPSIS, UNSPECIFIED ORGANISM Qualifiers: Sepsis type: sepsis due to unspecified organism Qualified Code(s): A41.9 - Sepsis, unspecified organism (4) UTI (urinary tract infection) Code(s): N39.0 - URINARY TRACT INFECTION, SITE NOT SPECIFIED Qualifiers: Urinary tract infection type: acute cystitis Hematuria presence: without hematuria Qualified Code(s): N30.00 - Acute cystitis without hematuria (5) Weakness Code(s): R53.1 - WEAKNESS Assessment/Plan s/p ESBL + UTI - completed course of antibiotics pt currently stable
[2017-02-17] MEDS: CARBIDOPA/LEVODOPA 25/100 TABLET (FP) PO SCH ×3 (06:25→21:52)
[2017-02-17] MEDS: LACTOBACILLUS ACIDOPHILUS 1 EACH TAB (FP) PO SCH (10:07)
[2017-02-17] MEDS: ENOXAPARIN NA (PORCINE) 40 MG/0.4 ML DISP.SYRIN SQ SCH (10:07)
--- NOTE | 2017-02-17 11:40 | PN ---
Progress Note (short form) - Note Progress Note: 81 yr old female admitted on 01/24/17, who came in with worsening chronic pain and found to have UTI. +ESBL and pIccs inserted .She complains of worsening balance and difficulty standing up. dx with parkinsons in 6 years and started on sinemet at that time. She denies fevers, chills, lightheadedness, dizziness , passing out, chest pain, shortness of breath, nausea, vomiting, diarrhea, constipation, or swelling. She lives alone and daughter live in [place], apparently does basic finances, cooking, cleaning. as per team daughter has more hallucinations , waxing and waning status ; baseline as per family -- worsening dementia while in hospital; poor sleep. poor response to seroquel. recent fall. CT HD : 02/06/17 age related changes today pt. is awake, follows 2 step copmmands. She is delusuional, believes she is going shopping with attendant in the room. +bilateral UE postural, fine tremor.+ bilat. UE mild cogwheel rigidity(now several hours post. sinemet dose) . + facial hypomimia. Gait- wide based, + pull test. A&P: Agree with my colleague Dr. Conley that likely dx. is Lewy Body disease. -Would cont. sinemet/Alprazolam. -Please add Donepezil 5mg daily to target slowing down of cognitive decline. Thank you, will follow. Molly Lang MD.
--- NOTE | 2017-02-17 12:49 | PN ---
Progress Note, Physician History of Present Illness: Pt remains stable, afebrile. Denies any suprapubic or CVA tenderness. States she wants more PT. - Current Medication List Current Medications: Active Medications Acetaminophen (Tylenol -) 650 mg PO Q4H PRN PRN Reason: FEVER OR PAIN Last Admin: 02/02/17 06:37 Dose: 650 mg Alprazolam (Xanax -) 0.25 mg PO Q8H PRN PRN Reason: ANXIETY Last Admin: 02/15/17 18:08 Dose: 0.25 mg Carbidopa/Levodopa (Sinemet 25/100 -) 1 each PO TID [facility] Last Admin: 02/17/17 06:25 Dose: 1 each Enoxaparin Sodium (Lovenox -) 40 mg SQ DAILY [facility] Last Admin: 02/17/17 10:07 Dose: 40 mg Lactobacillus Acidophilus (Bacid -) 1 tab PO DAILY [facility] Last Admin: 02/17/17 10:07 Dose: 1 tab Ondansetron HCl (Zofran Injection) 4 mg IVPB Q6H PRN PRN Reason: NAUSEA - Objective Vital Signs: Vital Signs Temperature 97.9 F 02/17/17 10:00 Pulse Rate 86 02/17/17 10:00 Respiratory Rate 18 02/17/17 10:00 Blood Pressure 122/71 02/17/17 10:00 O2 Sat by Pulse Oximetry (%) 96 02/17/17 09:00 Constitutional: Yes: No Distress, Calm Neck: Yes: Supple Cardiovascular: Yes: WNL Respiratory: Yes: Regular Gastrointestinal: Yes: Normal Bowel Sounds, Soft Genitourinary: Yes: WNL Extremities: Yes: WNL Integumentary: Yes: WNL Neurological: Yes: Alert, Oriented Psychiatric: Yes: WNL Labs: CBC, BMP 02/15/17 07:02 02/15/17 07:02 INR, PTT INR 1.05 (0.82-1.09) 01/31/17 06:00 Problem List - Problems (1) Parkinson disease Code(s): G20 - PARKINSON'S DISEASE (2) Poor appetite Code(s): R63.0 - ANOREXIA (3) Sepsis Code(s): A41.9 - SEPSIS, UNSPECIFIED ORGANISM Qualifiers: Sepsis type: sepsis due to unspecified organism Qualified Code(s): A41.9 - Sepsis, unspecified organism; A41.9 - Sepsis, unspecified organism; A41.9 - Sepsis, unspecified organism (4) UTI (urinary tract infection) Code(s): N39.0 - URINARY TRACT INFECTION, SITE NOT SPECIFIED Qualifiers: Urinary tract infection type: acute cystitis Hematuria presence: without hematuria Qualified Code(s): N30.00 - Acute cystitis without hematuria; N30.00 - Acute cystitis without hematuria (5) Weakness Code(s): R53.1 - WEAKNESS Assessment/Plan ESBL + UTI - s/p treatment - remains stable at this time
--- NOTE | 2017-02-17 13:16 | PN ---
Progress Note, Physician History of Present Illness: DOING WELL - Current Medication List Current Medications: Active Medications Acetaminophen (Tylenol -) 650 mg PO Q4H PRN PRN Reason: FEVER OR PAIN Last Admin: 02/02/17 06:37 Dose: 650 mg Alprazolam (Xanax -) 0.25 mg PO Q8H PRN PRN Reason: ANXIETY Last Admin: 02/15/17 18:08 Dose: 0.25 mg Carbidopa/Levodopa (Sinemet 25/100 -) 1 each PO TID [facility] Last Admin: 02/17/17 06:25 Dose: 1 each Enoxaparin Sodium (Lovenox -) 40 mg SQ DAILY [facility] Last Admin: 02/17/17 10:07 Dose: 40 mg Lactobacillus Acidophilus (Bacid -) 1 tab PO DAILY [facility] Last Admin: 02/17/17 10:07 Dose: 1 tab Ondansetron HCl (Zofran Injection) 4 mg IVPB Q6H PRN PRN Reason: NAUSEA - Objective Vital Signs: Vital Signs Temperature 97.9 F 02/17/17 10:00 Pulse Rate 86 02/17/17 10:00 Respiratory Rate 18 02/17/17 10:00 Blood Pressure 122/71 02/17/17 10:00 O2 Sat by Pulse Oximetry (%) 96 02/17/17 09:00 Constitutional: Yes: No Distress HENT: Yes: Atraumatic Neck: Yes: Supple Cardiovascular: Yes: Regular Rate and Rhythm Respiratory: Yes: CTA Bilaterally Gastrointestinal: Yes: Normal Bowel Sounds Extremities: Yes: WNL Edema: No Peripheral Pulses WNL: Yes Neurological: Yes: Alert Labs: CBC, BMP 02/15/17 07:02 02/15/17 07:02 INR, PTT INR 1.05 (0.82-1.09) 01/31/17 06:00 Problem List - Problems (1) Chronic pain Assessment/Plan: PRN TYLENOL Code(s): G89.29 - OTHER CHRONIC PAIN Qualifiers: Chronic pain type: chronic pain syndrome Qualified Code(s): G89.4 - Chronic pain syndrome; G89.4 - Chronic pain syndrome (2) Parkinson disease Assessment/Plan: ON MEDS' STABLE Code(s): G20 - PARKINSON'S DISEASE (3) Spinal stenosis Code(s): M48.00 - SPINAL STENOSIS, SITE UNSPECIFIED Qualifiers: Spinal region: lumbosacral Qualified Code(s): M48.07 - Spinal stenosis, lumbosacral region; M48.07 - Spinal stenosis, lumbosacral region (4) UTI (urinary tract infection) Assessment/Plan: STABLE esbl...s/p treatment Code(s): N39.0 - URINARY TRACT INFECTION, SITE NOT SPECIFIED Qualifiers: Urinary tract infection type: acute cystitis Hematuria presence: without hematuria Qualified Code(s): N30.00 - Acute cystitis without hematuria; N30.00 - Acute cystitis without hematuria Assessment/Plan COVERING DR BRISCOE
[2017-02-17] MEDS ORDERED: ALPRAZolam 0.25 MG TABLET PO ONE (23:45)
[2017-02-18] MEDS: CARBIDOPA/LEVODOPA 25/100 TABLET (FP) PO SCH ×3 (06:16→21:43)
[2017-02-18 07:49] LABS: BASOPHIL 0.7 % (0-2.0); EOSINOPHIL 0.8 % (0-4.5); MCH 32.5 pg (25.7-33.7); MEAN CELL VOLUME 95.8 fl (80-96); MEAN PLT VOLUME 7.5 fl (7.5-11.1); NEUTROPHILS 70.3 % (42.8-82.8); PLATELET COUNT 187 K/MM3 (134-434); RDW 12.4 % (11.6-15.6); WHITE BLOOD COUNT 7.6 K/mm3 (4.0-10.0)
[2017-02-18 08:10] LABS: ALBUMIN 3.8 g/dl (3.4-5.0); ALK PHOS 115 U/L (45-117); ANION GAP 6 (8-16); BILIRUBIN,TOTAL 0.6 mg/dL (0.2-1.0); CALCIUM 8.7 mg/dL (8.5-10.1); CO2 28 mmol/L (21-32); CREATININE 0.9 mg/dL (0.55-1.02); GLUCOSE,RANDOM 91 mg/dL (74-106); SGOT/AST 16 U/L (15-37); SGPT/ALT 7 U/L (12-78); TOT PROT 6.6 g/dl (6.4-8.2)
--- NOTE | 2017-02-18 10:51 | PN ---
Progress Note, Physician Chief Complaint: Ms Colbert is very lethargic today. Did not sleep last night. Arousable but fatigued. - Current Medication List Current Medications: Active Medications Acetaminophen (Tylenol -) 650 mg PO Q4H PRN PRN Reason: FEVER OR PAIN Last Admin: 02/02/17 06:37 Dose: 650 mg Carbidopa/Levodopa (Sinemet 25/100 -) 1 each PO TID [facility] Last Admin: 02/18/17 06:16 Dose: 1 each Donepezil HCl (Aricept -) 5 mg PO DAILY [facility] Enoxaparin Sodium (Lovenox -) 40 mg SQ DAILY [facility] Last Admin: 02/17/17 10:07 Dose: 40 mg Lactobacillus Acidophilus (Bacid -) 1 tab PO DAILY [facility] Last Admin: 02/17/17 10:07 Dose: 1 tab Ondansetron HCl (Zofran Injection) 4 mg IVPB Q6H PRN PRN Reason: NAUSEA - Objective Vital Signs: Vital Signs Temperature 36.3 C L 02/17/17 20:49 Pulse Rate 80 02/17/17 20:49 Respiratory Rate 18 02/17/17 20:49 Blood Pressure 128/76 02/17/17 20:49 O2 Sat by Pulse Oximetry (%) 96 02/17/17 20:47 Constitutional: Yes: Thin, Other (somnolent) Cardiovascular: Yes: Regular Rate and Rhythm. No: Gallop, Murmur, Rub Respiratory: Yes: Regular, CTA Bilaterally. No: Rales, Rhonchi, Wheezes Gastrointestinal: Yes: Normal Bowel Sounds, Soft. No: Distention, Tenderness Extremities: Yes: WNL Edema: No Labs: CBC, BMP 02/18/17 07:00 02/18/17 07:00 INR, PTT INR 1.05 (0.82-1.09) 01/31/17 06:00 Problem List - Problems (1) UTI (urinary tract infection) Code(s): N39.0 - URINARY TRACT INFECTION, SITE NOT SPECIFIED Qualifiers: Urinary tract infection type: acute cystitis Hematuria presence: without hematuria Qualified Code(s): N30.00 - Acute cystitis without hematuria; N30.00 - Acute cystitis without hematuria (2) Chronic pain Code(s): G89.29 - OTHER CHRONIC PAIN Qualifiers: Chronic pain type: chronic pain syndrome Qualified Code(s): G89.4 - Chronic pain syndrome; G89.4 - Chronic pain syndrome (3) Spinal stenosis Code(s): M48.00 - SPINAL STENOSIS, SITE UNSPECIFIED Qualifiers: Spinal region: lumbosacral Qualified Code(s): M48.07 - Spinal stenosis, lumbosacral region; M48.07 - Spinal stenosis, lumbosacral region (4) Parkinson disease Code(s): G20 - PARKINSON'S DISEASE (5) Hypokalemia Code(s): E87.6 - HYPOKALEMIA (6) Hypophosphatemia Code(s): E83.39 - OTHER DISORDERS OF PHOSPHORUS METABOLISM (7) ing Code(s): F05 - DELIRIUM DUE TO KNOWN PHYSIOLOGICAL CONDITION Assessment/Plan (1) UTI (urinary tract infection) Assessment/Plan: -finished full course of antibiotics -ID following Code(s): N39.0 - URINARY TRACT INFECTION, SITE NOT SPECIFIED Qualifiers: Urinary tract infection type: acute cystitis Hematuria presence: without hematuria Qualified Code(s): N30.00 - Acute cystitis without hematuria (2) Chronic pain Assessment/Plan: -secondary to spinal stenosis -prn tramadol, patient currently is not needing Code(s): G89.29 - OTHER CHRONIC PAIN Qualifiers: Chronic pain type: chronic pain syndrome Qualified Code(s): G89.4 - Chronic pain syndrome (3) Spinal stenosis Assessment/Plan: -continue PT Code(s): M48.00 - SPINAL STENOSIS, SITE UNSPECIFIED Qualifiers: Spinal region: lumbosacral Qualified Code(s): M48.07 - Spinal stenosis, lumbosacral region (4) Parkinson disease Assessment/Plan: -appreciate Dr Kennedy's assistance -continue sinemet -read weekend notes, added aricept Code(s): G20 - PARKINSON'S DISEASE (5) FEN -stable (6) owning -patient did not sleep last night, now very fatigued -instructed staff to keep awake today -continue xanax per neurology recommendations Dispo -was planning for discharge today, but now patient is somnolent -attempt to keep awake -if mental status improves tomorrow, will plan on discharge tomorrow -on discharge patient will need a hospital bed with an alternating pressure pad mattress to prevent aspiration and prevent pressure ulcers. Patient needs frequent body position changes not feasible in a regular bed. She will also require the use of a stand wheelchair to safely perform ADL within the home.
[2017-02-18] MEDS ORDERED: ALPRAZolam 0.25 MG TABLET PO PRN (12:26)
[2017-02-18] MEDS: ENOXAPARIN NA (PORCINE) 40 MG/0.4 ML DISP.SYRIN SQ SCH (12:34)
[2017-02-18] MEDS: LACTOBACILLUS ACIDOPHILUS 1 EACH TAB (FP) PO SCH (12:34)
[2017-02-18] MEDS: DONEPEZIL HCL 5 MG TABLET (FP) PO SCH (12:34)
--- NOTE | 2017-02-18 12:56 | PN ---
Progress Note, Physician History of Present Illness: patient awake and alert currently no issues events noted from yesterday patient also it seems was lethargic in the morning but doing well now - Current Medication List Current Medications: Active Medications Acetaminophen (Tylenol -) 650 mg PO Q4H PRN PRN Reason: FEVER OR PAIN Last Admin: 02/02/17 06:37 Dose: 650 mg Alprazolam (Xanax -) 0.25 mg PO HS [facility] Alprazolam (Xanax -) 0.25 mg PO Q8H PRN PRN Reason: ANXIETY Carbidopa/Levodopa (Sinemet 25/100 -) 1 each PO TID [facility] Last Admin: 02/18/17 06:16 Dose: 1 each Donepezil HCl (Aricept -) 5 mg PO DAILY [facility] Last Admin: 02/18/17 12:34 Dose: 5 mg Enoxaparin Sodium (Lovenox -) 40 mg SQ DAILY [facility] Last Admin: 02/18/17 12:34 Dose: 40 mg Lactobacillus Acidophilus (Bacid -) 1 tab PO DAILY [facility] Last Admin: 02/18/17 12:34 Dose: 1 tab Ondansetron HCl (Zofran Injection) 4 mg IVPB Q6H PRN PRN Reason: NAUSEA - Objective Vital Signs: Vital Signs Temperature 97.4 F L 02/17/17 20:49 Pulse Rate 80 02/17/17 20:49 Respiratory Rate 18 02/17/17 20:49 Blood Pressure 128/76 02/17/17 20:49 O2 Sat by Pulse Oximetry (%) 96 02/17/17 20:47 Constitutional: Yes: No Distress, Calm Cardiovascular: Yes: Regular Rate and Rhythm Respiratory: Yes: Regular, CTA Bilaterally Gastrointestinal: Yes: Normal Bowel Sounds, Soft Musculoskeletal: Yes: WNL Extremities: Yes: WNL Neurological: Yes: Alert, Oriented Psychiatric: Yes: Alert, Oriented Labs: CBC, BMP 02/18/17 07:00 02/18/17 07:00 INR, PTT INR 1.05 (0.82-1.09) 01/31/17 06:00 Assessment/Plan Problem List - Problems (1) UTI (urinary tract infection) Code(s): N39.0 - URINARY TRACT INFECTION, SITE NOT SPECIFIED Qualifiers: Urinary tract infection type: acute cystitis Hematuria presence: without hematuria Qualified Code(s): N30.00 - Acute cystitis without hematuria (2) Chronic pain Code(s): G89.29 - OTHER CHRONIC PAIN Qualifiers: Chronic pain type: chronic pain syndrome Qualified Code(s): G89.4 - Chronic pain syndrome (3) Spinal stenosis Code(s): M48.00 - SPINAL STENOSIS, SITE UNSPECIFIED Qualifiers: Spinal region: lumbosacral Qualified Code(s): M48.07 - Spinal stenosis, lumbosacral region (4) Parkinson disease Code(s): G20 - PARKINSON'S DISEASE plan stable off of abx nutrition rest as per primary team
--- NOTE | 2017-02-18 13:50 | PN ---
Progress Note (short form) - Note Progress Note: 81 yr old female admitted on 01/24/17, who came in with worsening chronic pain and found to have UTI. +ESBL and pIccs inserted .She complains of worsening balance and difficulty standing up. dx with parkinsons in 6 years and started on sinemet at that time. She denies fevers, chills, lightheadedness, dizziness , passing out, chest pain, shortness of breath, nausea, vomiting, diarrhea, constipation, or swelling. She lives alone and daughter live in [place], apparently does basic finances, cooking, cleaning. as per team daughter has more hallucinations , waxing and waning status ; baseline as per family -- worsening dementia while in hospital; poor sleep. poor response to seroquel. recent fall. 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: Parkinson's ...: No Musculoskeletal: Yes: Other (spinal stenosis) - Past Surgical History Past Surgical History: Yes: None - Alcohol/Substance Use Hx Alcohol Use: No History of Substance Use: reports: None - Smoking History Smoking history: Former smoker Have you smoked in the past 12 months: No Aproximately how many cigarettes per day: 0 - Social History ADL: Family Assistance History of Recent Travel: No Home Medications - Allergies Allergies/Adverse Reactions: Allergies Allergy/AdvReac Type Severity Reaction Status Date / Time No Known Allergies Allergy Verified 01/24/17 10:34 - Home Medications Home Medications: Ambulatory Orders Carbidopa/Levodopa 25/100 [Sinemet 25/100 -] 1 each PO TID 12/28/16 Acetaminophen [Tylenol .Regular Strength -] 650 mg PO Q4H PRN #0 tablet Alprazolam [Xanax] 0.25 mg PO Q8H PRN #0 tablet MDD 1mg 02/01/17 Docusate Sodium [Colace -] 100 mg PO BID cap 02/01/17 Ertapenem Sodium [Invanz -] 1 gm IVPB DAILY vial 02/01/17 Lactobacillus Acidophilus [Bacid -] 1 tab PO DAILY tab 02/01/17 Oxycodone HCl [Roxicodone -] 5 mg PO Q4H PRN #0 tablet MDD 30mg 02/01/17 Picc Line Flush [Picc Line Flush -] 8 ml IVPUSH PRN PRN #0 ml 02/01/17 Polyethylene Glycol 3350 [Miralax 119 gm Btl -] 17 gm PO DAILY #1 bottle Family Disease History - Family Disease History Family Disease History: Other: Mother (rheumatoid arthritis) Physical Exam-Neuro Vital Signs: Vital Signs Temperature 97.4 F L 02/17/17 20:49 Pulse Rate 80 02/17/17 20:49 Respiratory Rate 18 02/17/17 20:49 Blood Pressure 128/76 02/17/17 20:49 O2 Sat by Pulse Oximetry (%) 96 02/17/17 20:47 Labs: CBCD WBC 7.6 K/mm3 (4.0-10.0) 02/18/17 07:00 RBC 3.72 M/mm3 (3.60-5.2) 02/18/17 07:00 Hgb 12.1 GM/dL (10.7-15.3) 02/18/17 07:00 Hct 35.7 % (32.4-45.2) 02/18/17 07:00 MCV 95.8 fl (80-96) 02/18/17 07:00 MCHC 34.0 g/dl (32.0-36.0) 02/18/17 07:00 RDW 12.4 % (11.6-15.6) 02/18/17 07:00 Plt Count 187 K/MM3 (134-434) 02/18/17 07:00 MPV 7.5 fl (7.5-11.1) 02/18/17 07:00 CMP Sodium 144 mmol/L (136-145) 02/18/17 07:00 Potassium 3.7 mmol/L (3.5-5.1) 02/18/17 07:00 Chloride 110 mmol/L (98-107) H 02/18/17 07:00 Carbon Dioxide 28 mmol/L (21-32) 02/18/17 07:00 Anion Gap 6 (8-16) L 02/18/17 07:00 BUN 22 mg/dL (7-18) H 02/18/17 07:00 Creatinine 0.9 mg/dL (0.55-1.02) 02/18/17 07:00 Creat Clearance w eGFR 59.94 (>60) 02/18/17 07:00 Calcium 8.7 mg/dL (8.5-10.1) 02/18/17 07:00 Total Bilirubin 0.6 mg/dL (0.2-1.0) D 02/18/17 07:00 AST 16 U/L (15-37) 02/18/17 07:00 ALT 7 U/L (12-78) L D 02/18/17 07:00 Alkaline Phosphatase 115 U/L (45-117) 02/18/17 07:00 Total Protein 6.6 g/dl (6.4-8.2) 02/18/17 07:00 Albumin 3.8 g/dl (3.4-5.0) 02/18/17 07:00 - Neuro Exam Level Of Consciousness: Yes: Alert (awake , though becomes tangential during coversation, + hallucinations, EOMI, VFF, no facial , motor minor tremor, no cogwheeling, no focal weakness in UE, no clear ataxia, in wheelchair) Imaging - Results Cat Scan: Report Reviewed, Image Reviewed Problem List - Problems (1) Parkinson disease Code(s): G20 - PARKINSON'S DISEASE (2) Spinal stenosis Code(s): M48.00 - SPINAL STENOSIS, SITE UNSPECIFIED Qualifiers: Spinal region: lumbosacral Qualified Code(s): M48.07 - Spinal stenosis, lumbosacral region (3) Sundowning Code(s): F05 - DELIRIUM DUE TO KNOWN PHYSIOLOGICAL CONDITION (4) Lewy body dementia Code(s): G31.83 - DEMENTIA WITH LEWY BODIES F02.80 - DEMENTIA IN OTH DISEASES CLASSD ELSWHR W/O BEHAVRL DISTURB Assessment/Plan case reviewed and pt examined suspect constellation of her SX of soft atypical parkisonian features (very mild tremor, no cogwhelling) /dementia/ waxing and waning wakefulness/ neuroleptic senstivity may be related to LBD-- this is clinical Dx and there is no serum or radiographic confirmation of this. alterrnatively she could have ALZ/Parkinsonian dementia with progression of her dementia Sx while in house, as this is a common phenomena while being hospitalized. Sinemet maybe a culprit in her hallucinations as well. UTI also can contribute to low grade delirium. As per family she has not responded well to seroquel and does better with XANAX. will taper SINEMET and see if that helps with hallucinations (changed to BID) ok to DC home with services in AM and can FU OUTPT Dr Kennedy Problem List - Problems (1) Parkinson disease Code(s): G20 - PARKINSON'S DISEASE (2) Spinal stenosis Code(s): M48.00 - SPINAL STENOSIS, SITE UNSPECIFIED Qualifiers: Spinal region: lumbosacral Qualified Code(s): M48.07 - Spinal stenosis, lumbosacral region; M48.07 - Spinal stenosis, lumbosacral region (3) Sundowning Code(s): F05 - DELIRIUM DUE TO KNOWN PHYSIOLOGICAL CONDITION (4) Lewy body dementia Code(s): G31.83 - DEMENTIA WITH LEWY BODIES F02.80 - DEMENTIA IN OTH DISEASES CLASSD ELSWHR W/O BEHAVRL DISTURB Qualifiers : Dementia behavioral disturbance: with behavioral disturbance Qualified Code(s): G31.83 - Dementia with Lewy bodies; G31.83 - Dementia with Lewy bodies; G31.83 - Dementia with Lewy bodies; F02.81 - Dementia in other diseases classified elsewhere with behavioral disturbance; F02.81 - Dementia in other diseases classified elsewhere with behavioral disturbance; F02.81 - Dementia in other diseases classified elsewhere with behavioral disturbance
[2017-02-18] MEDS: ALPRAZolam 0.25 MG TABLET PO SCH (20:29)
[2017-02-19] MEDS: ALPRAZolam 0.25 MG TABLET PO SCH (07:41)
[2017-02-19] MEDS ORDERED: PT OWN MED DRAWER 7, Y5N ONE (09:09)
[2017-02-19] MEDS: DONEPEZIL HCL 5 MG TABLET (FP) PO SCH (09:32)
[2017-02-19] MEDS: LACTOBACILLUS ACIDOPHILUS 1 EACH TAB (FP) PO SCH (09:32)
[2017-02-19] MEDS: CARBIDOPA/LEVODOPA 25/100 TABLET (FP) PO SCH (09:32)
[2017-02-19] MEDS: ENOXAPARIN NA (PORCINE) 40 MG/0.4 ML DISP.SYRIN SQ SCH (09:32)
[2017-02-19] MEDS: ACETAMINOPHEN 325 MG TABLET (FP) PO PRN (09:32)
--- NOTE | 2017-02-19 12:13 | DS ---
Physical Examination Vital Signs: Vital Signs Temperature 36.6 C 02/18/17 18:00 Pulse Rate 80 02/18/17 18:00 Respiratory Rate 18 02/18/17 21:00 Blood Pressure 135/83 02/18/17 18:00 O2 Sat by Pulse Oximetry (%) 96 02/18/17 21:00 Constitutional: Yes: Well Nourished, No Distress, Calm Cardiovascular: Yes: Regular Rate and Rhythm. No: Gallop, Murmur, Rub Respiratory: Yes: Regular, CTA Bilaterally. No: Rales, Rhonchi, Wheezes Gastrointestinal: Yes: Normal Bowel Sounds, Soft. No: Distention, Tenderness Extremities: Yes: WNL Edema: No Labs: CBC, BMP 02/18/17 07:00 02/18/17 07:00 Discharge Summary Reason For Visit: URINARY TRACT INFECTION; SEPSIS Current Active Problems Chronic pain (Acute) Hypokalemia (Acute) Hypophosphatemia (Acute) Lewy body dementia (Acute) Parkinson disease (Acute) Poor appetite (Acute) Sepsis (Acute) Spinal stenosis (Acute) Sundowning (Acute) UTI (urinary tract infection) (Acute) Weakness (Acute) Hospital Course: (1) UTI (urinary tract infection) Code(s): N39.0 - URINARY TRACT INFECTION, SITE NOT SPECIFIED Qualifiers: Urinary tract infection type: acute cystitis Hematuria presence: without hematuria Qualified Code(s): N30.00 - Acute cystitis without hematuria; N30.00 - Acute cystitis without hematuria (2) Chronic pain Code(s): G89.29 - OTHER CHRONIC PAIN Qualifiers: Chronic pain type: chronic pain syndrome Qualified Code(s): G89.4 - Chronic pain syndrome; G89.4 - Chronic pain syndrome (3) Spinal stenosis Code(s): M48.00 - SPINAL STENOSIS, SITE UNSPECIFIED Qualifiers: Spinal region: lumbosacral Qualified Code(s): M48.07 - Spinal stenosis, lumbosacral region; M48.07 - Spinal stenosis, lumbosacral region (4) Parkinson disease Code(s): G20 - PARKINSON'S DISEASE (5) Hypokalemia Code(s): E87.6 - HYPOKALEMIA (6) Hypophosphatemia Code(s): E83.39 - OTHER DISORDERS OF PHOSPHORUS METABOLISM (7) Sundowning Code(s): F05 - DELIRIUM DUE TO KNOWN PHYSIOLOGICAL CONDITION Ms Colbert is a very pleasant 81 female who came in with worsening back pain secondary to spinal stenosis and was found to have an ESBL UTI. She was admitted to the hospital and originally placed on rocephin. However the urine cultures resulted to an ESBL UTI, ID was consulted and she was treated for a total of 14 days of ertapenem. During the initial treatment, she was doing well with PT and discharge to SNF was attempted. However patient was unable to go to SNF secondary to insurance companies denying all claims, in spite of multiple attempts. She finished her antibiotics but her course was furthered complicated by sundowning. She was originally on xanax and appeared she was having a paradoxical response, she was transitioned to temazepam and at first improved significantly. However this was short lived and she began to sundown again and was placed on seroquel. Again she improved originally only to relapse again. Neurology was consulted and followed, per family request a second opinion was obtained and her care was moved to Dr Kennedy. Dr Kennedy notes her symptoms are most consistent with Lewy body dementia which has characteristics of waxing/ waning mental status. The sinemet was thought to be contributing, this was decreased and further weaning can be done as an outpatient. She was started on aricept. Currently she is stable for discharge home with home health aids and home PT. 31 minutes spent in preparation of this discharge Condition: Good - Instructions Diet, Activity, Other Instructions: regular diet. up with assistance. Discharge home with home PT and home health aid. may take shower Referrals: Goyo Arroyo MD [Staff Physician] - Kenroy Mcrae MD [Primary Care Provider] - Disposition: VNS/HOME HEALTH CARE - Home Medications Comprehensive Discharge Medication List: Ambulatory Orders Acetaminophen [Tylenol .Regular Strength -] 650 mg PO Q4H PRN #0 tablet Alprazolam [Xanax] 0.25 mg PO Q8H PRN #30 tablet MDD 1mg 02/19/17 Carbidopa/Levodopa 25/100 [Sinemet 25/100 -] 1 each PO BID #60 tablet 02/19/17 Donepezil HCl [Aricept -] 5 mg PO DAILY #30 tablet 02/19/17 Incontinence Pad,Liner,Disp [Protective Pads] 1 each MC DAILY #30 each 02/19/17
[2017-02-19 12:18] VITALS: BP 118/66; PULSE 91; TEMP 97.7
--- NOTE | 2017-02-19 12:42 | PN ---
Progress Note, Physician History of Present Illness: doing very well no issues patient with no complaints alert oriented daughter in room - Current Medication List Current Medications: Active Medications Acetaminophen (Tylenol -) 650 mg PO Q4H PRN PRN Reason: FEVER OR PAIN Last Admin: 02/19/17 09:32 Dose: 650 mg Alprazolam (Xanax -) 0.25 mg PO HS [facility] Last Admin: 02/19/17 07:41 Dose: Not Given Alprazolam (Xanax -) 0.25 mg PO Q8H PRN PRN Reason: ANXIETY Carbidopa/Levodopa (Sinemet 25/100 -) 1 each PO BID [facility] Last Admin: 02/19/17 09:32 Dose: 1 each Donepezil HCl (Aricept -) 5 mg PO DAILY [facility] Last Admin: 02/19/17 09:32 Dose: 5 mg Enoxaparin Sodium (Lovenox -) 40 mg SQ DAILY [facility] Last Admin: 02/19/17 09:32 Dose: 40 mg Lactobacillus Acidophilus (Bacid -) 1 tab PO DAILY [facility] Last Admin: 02/19/17 09:32 Dose: 1 tab Ondansetron HCl (Zofran Injection) 4 mg IVPB Q6H PRN PRN Reason: NAUSEA - Objective Vital Signs: Vital Signs Temperature 97.7 F 02/19/17 10:00 Pulse Rate 91 H 02/19/17 10:00 Respiratory Rate 16 02/19/17 10:00 Blood Pressure 118/66 02/19/17 10:00 O2 Sat by Pulse Oximetry (%) 96 02/19/17 09:00 Constitutional: Yes: No Distress, Calm HENT: Yes: Atraumatic Neck: Yes: Supple, Trachea Midline Cardiovascular: Yes: Regular Rate and Rhythm Respiratory: Yes: Regular, CTA Bilaterally Musculoskeletal: Yes: WNL Extremities: Yes: WNL Neurological: Yes: Alert, Oriented Psychiatric: Yes: Alert, Oriented Labs: CBC, BMP 02/18/17 07:00 02/18/17 07:00 INR, PTT INR 1.05 (0.82-1.09) 01/31/17 06:00 Assessment/Plan Problem List - Problems (1) UTI (urinary tract infection) Code(s): N39.0 - URINARY TRACT INFECTION, SITE NOT SPECIFIED Qualifiers: Urinary tract infection type: acute cystitis Hematuria presence: without hematuria Qualified Code(s): N30.00 - Acute cystitis without hematuria (2) Chronic pain Code(s): G89.29 - OTHER CHRONIC PAIN Qualifiers: Chronic pain type: chronic pain syndrome Qualified Code(s): G89.4 - Chronic pain syndrome (3) Spinal stenosis Code(s): M48.00 - SPINAL STENOSIS, SITE UNSPECIFIED Qualifiers: Spinal region: lumbosacral Qualified Code(s): M48.07 - Spinal stenosis, lumbosacral region (4) Parkinson disease Code(s): G20 - PARKINSON'S DISEASE plan stable off of abx nutrition rest as per primary team patient doing well discussed in detail with the family
== END 2017-02-19 14:09 | disposition home health service (06) | DRG 690 ==
LOC: JERFT 10:29 → JERBED 15:21 → J5S 17:13 → J8W 01-26 13:45
PROVIDERS: ADMIT Internal Medicine; ATTEND Internal Medicine
DX: N39.0 Urinary tract infection, site not specified (principal); Z68.1 Body mass index [BMI] 19.9 or less, adult; B96.29 Other Escherichia coli [E. coli] as the cause of diseases classified elsewhere; I10 Essential (primary) hypertension; G20 Parkinson's disease; G89.29 Other chronic pain; M48.061 Spinal stenosis, lumbar region without neurogenic claudication; Z87.891 Personal history of nicotine dependence; E83.39 Other disorders of phosphorus metabolism; E87.6 Hypokalemia; R53.1 Weakness; R63.0 Anorexia
CPT/HCPCS: 36415; 36569; 70450-TC; 72170-TC; 77001-TC; 80048; 80053; 81003; 81015; 83605; 83735; 84100; 85025; 85610; 85651; 86140; 87040; 87086; 87186; 93005; 93010; 97116-GP; 97161-GP; 99284-25; C1751

== ENCOUNTER 2017-05-10 14:41 | Observation (INO) | payer BC, OTHER ==
[2017-05-10] MEDS ORDERED: CARBIDOPA/LEVODOPA 25/100 TABLET (FP) PO ONE ×2 (15:48→20:41)
--- NOTE | 2017-05-10 16:06 | PDOC ---
History of Present Illness <Franklin Silverio - Last Filed: 05/10/17 16:36> - History of Present Illness Initial Comments: 05/10/17 16:36 The patient is an 81 year old female with a significant PMH of SVT, Parkinsons disease, spinal stenosis, and HTN who presents to the emergency department with right sided pain s/p fall at home. The patient reports being at home with her walker and reaching for an object when she fell on the kitchen floor. She reports right arm pain and right hip pain radiating to her right knee. The patients daughter notes that the patients walker was found on top of her. The patient denies hitting her head. The patient notes that she has had increased tremors when compared to baseline over the past 3-4 days. The patients daughter also notes the patient had dysuria about 3-4 weeks ago which has resolved. The patient denies chest pain, shortness of breath, headache and dizziness. Denies fever, chills, nausea, vomit, diarrhea and constipation. Denies dysuria, frequency, urgency and hematuria. Allergies: NKA Past surgical history: Ulcer removal. Social history: Former smoker. No reported alcohol or drug use. PCP: Dr. Mcrae Neurologist: Dr. Kennedy (Seen 1x). <Tino Miramontes - Last Filed: 05/10/17 16:39> - General History Source: Patient Exam Limitations: No Limitations <Tino Meza - Last Filed: 05/11/17 08:42> - General Chief Complaint: Injury Stated Complaint: FALL,GENERAL PAIN Time Seen by Provider: 05/10/17 15:05 Past History <Franklin Silverio - Last Filed: 05/10/17 16:36> <Tino Miramontes - Last Filed: 05/10/17 16:39> - Past Medical History Anemia: No Cardiac Disorders: Yes (SVT) COPD: No Diabetes: Yes (parkinsons) GI Disorders: Yes (stomach ulcer) HTN: Yes (NO MED) - Surgical History Abdominal Surgery: Yes (ulcers,removal of polyps) - Suicide/Smoking/Psychosocial Hx Smoking Status: No Smoking History: Never smoked Have you smoked in the past 12 months: No Number of Cigarettes Smoked Daily: 0 Cigars Per Day: 0 Information on smoking cessation initiated: No Hx Alcohol Use: No Drug/Substance Use Hx: No Substance Use Type: None Hx Substance Use Treatment: No <Tino Meza - Last Filed: 05/11/17 08:42> - Past Medical History Allergies/Adverse Reactions: Allergies Allergy/AdvReac Type Severity Reaction Status Date / Time No Known Allergies Allergy Verified 05/10/17 18:30 Home Medications: Ambulatory Orders Acetaminophen [Tylenol .Regular Strength -] 650 mg PO Q4H PRN #0 tablet Alprazolam [Xanax] 0.25 mg PO Q8H PRN #30 tablet MDD 1mg 02/19/17 Incontinence Pad,Liner,Disp [Protective Pads] 1 each MC DAILY #30 each 02/19/17 Carbidopa/Levodopa 25/100 [Sinemet 25/100 -] 1 each PO TID 05/10/17 Donepezil HCl [Aricept -] 10 mg PO DAILY 05/10/17 Review of Systems - Review of Systems Able to Perform ROS?: Yes Comments:: 05/10/17 16:37 GENERAL/CONSTITUTIONAL: No fever or chills. No weakness. HEAD, EYES, EARS, NOSE AND THROAT: No change in vision. No ear pain or discharge. No sore throat. CARDIOVASCULAR: No chest pain or shortness of breath. RESPIRATORY: No cough, wheezing, or hemoptysis. GASTROINTESTINAL: No nausea, vomiting, diarrhea or constipation. GENITOURINARY: No dysuria, frequency, or change in urination. MUSCULOSKELETAL: (+) Right arm pain. (+) Right hip pain radiating to the right knee. No neck or back pain. SKIN: No rash NEUROLOGIC: No headache, vertigo, or loss of consciousness. ENDOCRINE: No increased thirst. No abnormal weight change. HEMATOLOGIC/LYMPHATIC: No anemia, easy bleeding, or history of blood clots. ALLERGIC/IMMUNOLOGIC: No hives or skin allergy. <Tino Miramontes - Last Filed: 05/10/17 16:39> *Physical Exam - Vital Signs Last Vital Signs Temp Pulse Resp BP Pulse Ox 98.4 F 94 H 18 150/91 97 05/10/17 14:55 05/10/17 14:55 05/10/17 14:55 05/10/17 14:55 05/10/17 14:55 <Franklin Silverio - Last Filed: 05/10/17 16:36> - Vital Signs Last Vital Signs Temp Pulse Resp BP Pulse Ox 98.4 F 94 H 18 150/91 97 05/10/17 14:55 05/10/17 14:55 05/10/17 14:55 05/10/17 14:55 05/10/17 14:55 - Physical Exam Comments: 05/10/17 16:39 Patient is awake, alert and in no acute distress. Speech is clear and appropriate. HEAD: Atraumatic and nontender. HEENT: Pupils are equal round and reactive to light, extraocular movements are intact. The tympanic membranes are clear, no hemotympanum. No facial deformity. No facial bone tenderness or step-off. No nasal septal hematoma. The oropharynx is clear. NECK: The trachea is midline, there is no stridor. There is no midline cervical spine tenderness, full range of motion of neck. CHEST: Non-tender, no ecchymosis or abrasions. Equal chest wall expansion bilaterally. No flail segments. Lungs are clear to auscultation bilaterally. CARDIOVASCULAR: S1-S2, regular rate and rhythm. No murmurs or rubs. ABDOMEN: Soft, nontender, nondistended. Bowel sounds are normoactive. There is no abdominal or flank ecchymosis. BACK/PELVIS: There is no midline thoracic or lumbosacral spine tenderness or step-off. Pelvis is stable and nontender. EXTREMITIES: There is no extremity deformity or joint swelling. No focal bony tenderness throughout. 2+ distal pulses throughout. NEURO: Alert and oriented x3. Cranial nerves II through XII are intact. 5 out of 5 motor strength x4 extremities. No gross sensory deficits. [id number] is intact. No pronator drift. SKIN: No abrasions, hematomas, lacerations. PSYCH: Affect is appropriate <Tino Miramontes - Last Filed: 05/10/17 16:39> - Vital Signs Last Vital Signs Temp Pulse Resp BP Pulse Ox 98.4 F 94 H 18 150/91 97 05/10/17 14:55 05/10/17 14:55 05/10/17 14:55 05/10/17 14:55 05/10/17 14:55 <Tino Meza - Last Filed: 05/11/17 08:42> Heart Score/ECG Review #1 ECG reviewed & interpreted by me at: 17:25 05/10/17 17:36 NSR 96, no std/maximo, Q wave V1, V2, QTC 442 msec <Tino Meza - Last Filed: 05/11/17 08:42> ED Treatment Course - Medications Given in the ED: ED Medications Discontinued Medications Generic Name Dose Route Start Last Admin Trade Name Freq PRN Reason Stop Dose Admin Carbidopa/Levodopa 1 each 05/10/17 15:48 05/10/17 16:33 Sinemet 25/100 - PO 05/10/17 15:49 1 each ONCE ONE Administration Oxycodone/Acetaminophen 1 combo 05/10/17 15:27 05/10/17 15:59 Percocet 5/325 - PO 05/10/17 15:28 1 combo ONCE ONE Administration <Franklin Silverio - Last Filed: 05/10/17 16:36> - Medications Given in the ED: ED Medications Discontinued Medications Generic Name Dose Route Start Last Admin Trade Name Freq PRN Reason Stop Dose Admin Carbidopa/Levodopa 1 each 05/10/17 15:48 05/10/17 16:33 Sinemet 25/100 - PO 05/10/17 15:49 1 each ONCE ONE Administration Oxycodone/Acetaminophen 1 combo 05/10/17 15:27 05/10/17 15:59 Percocet 5/325 - PO 05/10/17 15:28 1 combo ONCE ONE Administration <Tino Miramontes - Last Filed: 05/10/17 16:39> - LABORATORY CBC & Chemistry Diagram: 05/10/17 17:10 05/10/17 17:04 - RADIOLOGY Radiology Studies Ordered: Category Date Time Status HEAD CT WITHOUT CONTRAST [CT] Stat CT Scan 05/10/17 15:48 Ordered <Tino Meza - Last Filed: 05/11/17 08:42> Medical Decision Making - Medical Decision Making 05/10/17 16:36 Patients daughter; Melany [phone] <Franklin Silverio - Last Filed: 05/10/17 16:36> - Medical Decision Making 05/10/17 16:08 A portion of this note was documented by scribe services under my direction. I have reviewed the details of the note, within reason, and agree with the documentation with the following case summary and management plan written by me. Patient treated in the ED. Nursing notes are reviewed and incorporated into the medical decision-making. Vital signs reviewed. Peripheral IV access obtained by the nurse, laboratory studies are drawn and sent, reviewed and interpreted by myself. Vital Signs Temp Pulse Resp BP Pulse Ox 98.4 F 94 H 18 150/91 97 05/10/17 14:55 05/10/17 14:55 05/10/17 14:55 05/10/17 14:55 05/10/17 14:55 81-year-old female with past medical history of Parkinson's disease, anxiety presents with mechanical fall. The patient was at home. She stated that she ambulate with a walker. States that she feels well enough and was by herself. Was standing with the walker reaching for a glass of wine when she fell and landed on her right side. He was unclear if she had loss of consciousness. Her neighbors had found her and the life alert button was pressed. Patient reports feeling diffuse stiffening but denies any headache, neck pain. Denies any hip pain. She denies any recent illnesses, fevers, chills, cough, vomiting, diarrhea. Patient reports adherence to her medications. She also takes Xanax at home for her anxiety. The patient had significant difficulty moving from stretcher to commode. This is secondary to muscle stiffness and pain but not bony tenderness. We'll obtain a head CT. However, given that the patient has an unsafe discharge and no home health and lives at home by herself, I had discussed the case with Dr. Mcrae. Dr. Mcrae and I agree that the patient should be admitted to the hospital for further management. <Tino Meza - Last Filed: 05/11/17 08:42> *DC/Admit/Observation/Transfer <Franklin Silverio - Last Filed: 05/10/17 16:36> - Attestations Scribe Attestion: 05/10/17 16:37 Documentation prepared by Tino Miramontes, acting as director of medical education for Tino Meza MD. <Tino Miramontes - Last Filed: 05/10/17 16:39> <Tino Meza - Last Filed: 05/11/17 08:42> Diagnosis at time of Disposition: Fall, Weakness
[2017-05-10] MEDS ORDERED: CARBIDOPA/LEVODOPA 25/100 TABLET (FP) ONE ×2 (16:32→21:11)
[2017-05-10 17:17] LABS: BASO % 0.3 % (0-2.0); EOS % 0.2 % (0-4.5); LYMPH # 1.2 (8-40); MCH 32.1 pg (25.7-33.7); MCHC 33.3 g/dl (32.0-36.0); MEAN CELL VOLUME 96.5 fl (80-96); MONO # 0.4 # (3.8-10.2); NEUT # 6.8 # (42.8-82.8); NEUT % 80.1 % (42.8-82.8); PLATELET COUNT 175 K/MM3 (134-434); WHITE BLOOD COUNT 8.5 K/mm3 (4.0-10.0)
[2017-05-10 18:08] LABS: CPK 78 IU/L (26-192); TROPONIN I < 0.02 ng/ml (0.00-0.05)
[2017-05-10 19:03] LABS: URINE APPEARANCE SLCLOUDY; URINE BILIRUBIN NEGATIVE (NEGATIVE); URINE BLOOD NEGATIVE (NEGATIVE); URINE COLOR YELLOW; URINE GLUCOSE (UA) NEGATIVE (NEGATIVE); URINE KETONE NEGATIVE (NEGATIVE); URINE NITRITE NEGATIVE (NEGATIVE); URINE PROTEIN NEGATIVE (NEGATIVE); URINE UROBILINOGEN NEGATIVE mg/dL (0.2-1.0)
[2017-05-10 19:04] LABS: URINE LEUK ESTERASE 2+ (NEGATIVE)
[2017-05-10 19:06] LABS: URINE BACTERIA RARE /hpf (NONE SEEN); URINE MUCUS RARE; URINE RBC 5 /hpf (0-3); URINE WBC 8 /hpf (3-5)
--- NOTE | 2017-05-10 19:33 | PDOC ---
*Physical Exam - Vital Signs Last Vital Signs Temp Pulse Resp BP Pulse Ox 98.4 F 94 H 18 150/91 97 05/10/17 14:55 05/10/17 14:55 05/10/17 14:55 05/10/17 14:55 05/10/17 14:55 - Physical Exam General Appearance: Yes: Nourished Neurologic: positive: Fully Oriented, Normal Mood/Affect, Motor Strength / ED Treatment Course - LABORATORY CBC & Chemistry Diagram: 05/10/17 17:10 05/10/17 17:04 - ADDITIONAL ORDERS Additional order review: Laboratory Results 05/10/17 05/10/17 18:29 17:04 Creatine Kinase 78 Troponin I < 0.02 Urine Color Yellow Urine Appearance Slcloudy Urine pH 5.0 Ur Specific [place] 1.013 Urine Protein Negative Urine Glucose (UA) Negative Urine Ketones Negative Urine Blood Negative Urine Nitrite Negative Urine Bilirubin Negative Urine Urobilinogen Negative Urine WBC (Auto) 8 Urine RBC (Auto) 5 Ur Epithelial Cells Rare Urine Bacteria Rare Urine Mucus Rare 05/10/17 17:10 RBC 4.06 MCV 96.5 H MCHC 33.3 RDW 13.0 MPV 7.0 L Neutrophils % 80.1 Lymphocytes % 14.3 D Monocytes % 5.1 Eosinophils % 0.2 Basophils % 0.3 - Medications Given in the ED: ED Medications Discontinued Medications Generic Name Dose Route Start Last Admin Trade Name Freq PRN Reason Stop Dose Admin Carbidopa/Levodopa 1 each 05/10/17 15:48 05/10/17 16:33 Sinemet 25/100 - PO 05/10/17 15:49 1 each ONCE ONE Administration Lorazepam 0.5 mg 05/10/17 16:06 05/10/17 17:08 Ativan Injection - IVPUSH 05/10/17 16:07 0.5 mg ONCE ONE Administration Oxycodone/Acetaminophen 1 combo 05/10/17 15:27 05/10/17 15:59 Percocet 5/325 - PO 05/10/17 15:28 1 combo ONCE ONE Administration Medical Decision Making - Medical Decision Making 05/10/17 23:09 Patient presents to ED status post fall and weakness. Case discussed with primary care provider recommends admission for further management P.m. Parkinson meds ordered We'll admit to medicine for further management. In the emergency department labs EKG head CT chest x-ray within normal limits, Urinalysis suspicious for early UTI. We'll treat with ceftriaxone. 05/10/17 23:10 *DC/Admit/Observation/Transfer Diagnosis at time of Disposition: Weakness Fall Qualifiers: Encounter type: initial encounter Qualified Code(s): W19.XXXA - Unspecified fall, initial encounter - Discharge Dispostion Admit: Yes - Referrals - Patient Instructions - Post Discharge Activity
[2017-05-10 19:57] LABS: URINE LEUK ESTERASE 1+ (NEGATIVE)
[2017-05-10] MEDS ORDERED: CEFTRIAXONE 1 GM in DEXTROSE 5%-WATER - 50 ML IVPB ONE (20:03)
[2017-05-10 20:08] LABS: ALBUMIN 4.3 g/dl (3.4-5.0); ALK PHOS 86 U/L (45-117); ANION GAP 10 (8-16); BILIRUBIN,TOTAL 0.5 mg/dL (0.2-1.0); CALCIUM 8.7 mg/dL (8.5-10.1); CO2 23 mmol/L (21-32); GLUCOSE,RANDOM 94 mg/dL (74-106); SGOT/AST 17 U/L (15-37); SGPT/ALT 18 U/L (12-78); TOT PROT 7.1 g/dl (6.4-8.2)
[2017-05-10] MEDS ORDERED: DONEPEZIL HCL 10 MG TABLET (FP) PO ONE (20:41)
[2017-05-10] MEDS ORDERED: DONEPEZIL HCL 5 MG TABLET (FP) ONE (21:11)
[2017-05-10] MEDS ORDERED: CEFTRIAXONE 1 GM/50 ML BAG ONE (21:11)
[2017-05-10] MEDS ORDERED: ALPRAZolam 0.25 MG TABLET PO ONE (22:39)
[2017-05-10] MEDS ORDERED: ALPRAZolam 0.25 MG TABLET ONE (22:58)
[2017-05-11 00:53] VITALS: BMI 20.1
[2017-05-11 10:31] VITALS: BP 146/94; PULSE 82; TEMP 98.2
[2017-05-11] MEDS ORDERED: ACETAMINOPHEN 325 MG TABLET (FP) PO PRN (12:09)
[2017-05-11] MEDS ORDERED: ALPRAZolam 0.25 MG TABLET PO PRN (12:09)
[2017-05-11] MEDS ORDERED: DONEPEZIL HCL 5 MG TABLET (FP) PO SCH (12:15)
[2017-05-11] MEDS ORDERED: CARBIDOPA/LEVODOPA 25/100 TABLET (FP) PO SCH (14:00)
--- NOTE | 2017-05-11 16:28 | EKG ---
Test Reason : Blood Pressure : / mmHG Vent. Rate : 096 BPM Atrial Rate : 096 BPM P-R Int : 136 ms QRS Dur : 064 ms QT Int : 350 ms P-R-T Axes : 050 054 054 degrees QTc Int : 442 ms POOR DATA QUALITY, INTERPRETATION MAY BE ADVERSELY AFFECTED NORMAL SINUS RHYTHM ANTEROSEPTAL INFARCT (CITED ON OR BEFORE 02-DEC-2012) ABNORMAL ECG WHEN COMPARED WITH ECG OF 24-JAN-2017 11:36, NO SIGNIFICANT CHANGE WAS FOUND Confirmed by MIGUEL HUBBARD MD ([id number]) on 05/11/2017 4:28:34 PM Referred By: Confirmed By:MIGUEL HUBBARD MD
--- NOTE | 2017-05-12 15:07 | HP ---
DATE OF ADMISSION: 05/11/2017 The patient is an 81-year-old female who was brought in the emergency room following a fall. Patient claims that she was walking in the kitchen with a walker, when the walker was entangled to something in the kitchen. She fell down and she was unable to extricate the walker and she alerted the alert response system and had a friend come in and the patient was brought to the emergency room. Here, she was evaluated and a possible diagnosis of urinary tract infection has been made and she had been admitted for further evaluation and treatment. She denies any head injury. She denies any loss of consciousness. Past medical history is significant for Parkinson disease, anxiety, and mild dementia. Her present medications include Tylenol on a p.r.n. basis, Aricept 10 mg p.o. daily, Sinemet 25/100 three times a day, Xanax 0.25 mg on a p.r.n. basis q.8 hours. ALLERGIES: None. SOCIAL HISTORY: She is , she has 5 children. She lives alone with 24/7 help. She is a nonsmoker. She drinks wine occasionally. Family history is significant for 1 sibling. REVIEW OF SYSTEMS: Unremarkable. Patient has some age-associated decline of her musculoskeletal function and is able to ambulate with a walker. Apart from that, he has generally been in good health. She denies any chronic headache, dizziness, chest pains, palpitations, abdominal pain, loss of weight, loss of appetite. PHYSICAL EXAMINATION: Vital Signs: She has a blood pressure of 146/94, pulse rate of 82, respiratory rate of 20, temperature 98.2. Head and Neck: She is not pale, not icteric. JVD is absent. Thyroid and carotids appear normal. Heart: Regular rhythm. No murmurs. Lungs: Vesicular breathing, clear. Abdomen: Benign. Extremities: No edema. Skin: There are no external injuries, contusions, lacerations, or abrasions seen. Blood work show a white count that is normal, a basic metabolic profile is normal. Urinalysis, apart from having 1+ leukocyte esterase, is within normal limits. ASSESSMENT AND PLAN: 1. Fall, mechanical, and there is no evidence of any pathology. No need for admission. 2. Possible urinary tract infection. There is no evidence of it. The urine appears clear. Patient is afebrile and can be discharged home. A CT scan of the head has been done that is negative. 3. Parkinson disease. Continue present medications. ELLY CORTEZ M.D. [id number]
== END 2017-05-11 13:39 | disposition home or self-care (01) ==
LOC: JER 14:41 → JERBED 19:58 → UNDOADMOB 19:58 → INTOOBSV 19:58 → J6S 05-11 00:29 → JERBED 05-11 00:29 → J6S 05-11 12:08
PROVIDERS: ADMIT Internal Medicine; ATTEND Internal Medicine
PROC: 3E03329 Introduction of Other Anti-infective into Peripheral Vein, Percutaneous Approach (ICD-10-PCS; principal; 2017-05-11)
PROC: 3E033GC Introduction of Other Therapeutic Substance into Peripheral Vein, Percutaneous Approach (ICD-10-PCS; 2017-05-11)
DX: R53.1 Weakness (principal); I10 Essential (primary) hypertension; F41.9 Anxiety disorder, unspecified; G20 Parkinson's disease; F02.80 Dementia in other diseases classified elsewhere, unspecified severity, without behavioral disturbance, psychotic disturbance, mood disturbance, and anxiety; R26.2 Difficulty in walking, not elsewhere classified; Z99.89 Dependence on other enabling machines and devices; W18.39XA Other fall on same level, initial encounter; Z91.81 History of falling; Y93.89 Activity, other specified; Y92.000 Kitchen of unspecified non-institutional (private) residence as the place of occurrence of the external cause
CPT/HCPCS: 36415; 70450-TC; 71010-TC; 80053; 81003; 81015; 82550; 84484; 85025; 87086; 87186; 93005; 93010; 96365; 96375; 99285-25; G0378

== ENCOUNTER 2017-05-17 03:52 | Inpatient (IN) | payer BC, OTHER ==
--- NOTE | 2017-05-17 03:59 | PDOC ---
History of Present Illness - General Chief Complaint: Injury Stated Complaint: FALL Time Seen by Provider: 05/17/17 03:58 History Source: EMS Exam Limitations: No Limitations - History of Present Illness Initial Comments: 05/17/17 04:22 81 year old female titia with a significant PMH of Parkinson's dz, SVT, spinal stenosis, and HTN presents complaining of right occipital headache, right sided neck pain, low back pain, right hip pain s/p mechanical glf. As per EMS, patient 's daughter called 911 after the patient's neighbor heard a thump. EMS arrived with [place] [facility] and found the patient laying on right lateral recumbent on the kitchen floor. Patient initially told EMS that while ambulating to the restroom, she stripped and fell. When asked again in the ambulance, patient states she was really walking into the kitchen to get another glass of wine when she slipped and fell. On arrival to the emergency department, patient states she was a flipped in the kitchen and fell onto her right side but cannot recall whether she broke her fall on her outstretched arm. Patient denied any loss of consciousness. She denies dizziness, lightheadedness, facial pains, neck stiffness, chest pain, shortness of breath, abdominal pains, flank pains, urinary symptoms, bladder or bowel dysfunction. Patient was seen in the emergency department 6 days ago for similar situation/ mechanical fall. Patient has had numerous mechanical falls at home. 05/17/17 05:23hrs: Daughter at bedside (Melany [phone]) Past History - Past Medical History Allergies/Adverse Reactions: Allergies Allergy/AdvReac Type Severity Reaction Status Date / Time No Known Allergies Allergy Verified 05/17/17 03:55 Home Medications: Ambulatory Orders Acetaminophen [Tylenol .Regular Strength -] 650 mg PO Q4H PRN #0 tablet Alprazolam [Xanax] 0.25 mg PO Q8H PRN #30 tablet MDD 1mg 02/19/17 Incontinence Pad,Liner,Disp [Protective Pads] 1 each MC DAILY #30 each 02/19/17 Carbidopa/Levodopa 25/100 [Sinemet 25/100 -] 1 each PO TID 05/10/17 Donepezil HCl [Aricept -] 10 mg PO DAILY 05/10/17 Acetaminophen [Tylenol .Regular Strength -] 650 mg PO Q4H PRN tablet 05/11/17 Carbidopa/Levodopa 25/100 [Sinemet 25/100 -] 1 each PO TID tablet 05/11/17 Donepezil HCl [Aricept -] 10 mg PO DAILY tablet 05/11/17 Anemia: No Cardiac Disorders: Yes (SVT) COPD: No Diabetes: Yes (parkinsons) GI Disorders: Yes (?stomach ulcer) HTN: Yes (NO MED) - Surgical History Abdominal Surgery: Yes (ulcers,removal of polyps) - Suicide/Smoking/Psychosocial Hx Smoking Status: No Smoking History: Never smoked Have you smoked in the past 12 months: No Number of Cigarettes Smoked Daily: 0 Cigars Per Day: 0 Information on smoking cessation initiated: No Hx Alcohol Use: No Drug/Substance Use Hx: No Substance Use Type: None Hx Substance Use Treatment: No Review of Systems - Review of Systems Able to Perform ROS?: Yes Comments:: 05/17/17 04:39 CONSTITUTIONAL: Absent: fever, chills, diaphoresis, generalized weakness, malaise, loss of appetite HEENT: Absent: rhinorrhea, nasal congestion, throat pain, throat swelling, difficulty swallowing, mouth swelling, ear pain, eye pain, visual Changes CARDIOVASCULAR: Absent: chest pain, loss of consciousness, palpitations, irregular heart rate, peripheral edema RESPIRATORY: Absent: cough, shortness of breath, dyspnea with exertion, orthopnea, wheezing, stridor, hemoptysis GASTROINTESTINAL: Absent: abdominal pain, abdominal distension, nausea, vomiting, diarrhea, constipation, melena, hematochezia GENITOURINARY: Absent: dysuria, frequency, urgency, hesitancy, hematuria, flank pain, genital pain MUSCULOSKELETAL: right sided paravertebral neck pain Right lumbar paravertebral pain Right hip pain Absent: myalgia, arthralgia, joint swelling SKIN: Absent: rash, itching, pallor HEMATOLOGIC/IMMUNOLOGIC: Absent: easy bleeding, easy bruising, lymphadenopathy, frequent infections ENDOCRINE: Absent: unexplained weight gain, unexplained weight loss, heat intolerance, cold intolerance NEUROLOGIC: +right sided occipital davies Absent: focal weakness or paresthesias, dizziness, unsteady gait, seizure, mental status changes, bladder or bowel incontinence Is the patient limited Romansh proficient: No *Physical Exam - Vital Signs Last Vital Signs Temp Pulse Resp BP Pulse Ox 97.6 F 98 H 18 125/70 96 05/17/17 03:55 05/17/17 03:55 05/17/17 03:55 05/17/17 03:55 05/17/17 03:55 - Physical Exam Comments: 05/17/17 04:39 GENERAL: Well developed, well nourished. Awake and alert. No acute distress. HEENT: Normocephalic, atraumatic. PERRLA, EOMI. No conjunctival pallor. Sclera are non- icteric. Moist mucous membranes. Oropharynx is clear. NECK: Supple. Full ROM. No JVD. Carotid pulses 2+ and symmetric, without bruits. No thyromegaly. No lymphadenopathy. CARDIOVASCULAR: Regular rate and rhythm. No murmurs, rubs, or gallops. Distal pulses are 2+ and symmetric. PULMONARY: No evidence of respiratory distress. Lungs clear to auscultation bilaterally. No wheezing, rales or rhonchi. ABDOMINAL: Soft. Non-tender. Non-distended. No rebound or guarding. No organomegaly. Normoactive bowel sounds. MUSCULOSKELETAL C spine: right sided paravertebral pain Lumbar paravertebral pain Right hip F.R.O.M./minimal pain on int rotation Right knee F.R.O.M. neg valgus/valrus Normal range of motion at all joints. No bony deformities or tenderness. No CVA tenderness. EXTREMITIES: No cyanosis. No clubbing. No edema. No calf tenderness. SKIN: Warm and dry. Normal capillary refill. No rashes. No jaundice. NEUROLOGICAL: Alert, awake. No deficits to light touch and temperature in face. ED Treatment Course - LABORATORY CBC & Chemistry Diagram: 05/17/17 04:15 05/17/17 04:15 - RADIOLOGY Radiograph Interpretation: 05/17/17 05:11 CT head w/o contrast: The ventricular system is midline and nondilated. The sulcal pattern is normal for the patient's age. There is no bleed, mass, extra axial fluid collection or mass effect. No skull fracture or skull lesion is identified. The visualized her nasal sinuses and mastoid ear cells are clear. No evidence of acute pathology. CT c spine w/o contrast: There is no fracture, subluxation, prevertebral soft tissue swelling or significant degenerative changes. The lung apices are clear. CXR: 2v NAD +kyphosis Xray/LS Spine: neg fx Xray/Right hip/pelvis neg fx/dislocation Progress Note - Progress Note Progress Note: 0612hrs: Called Dr. Mcrae/pt's PMD Drd. Mcrae covered by Dr. Encarnacion Hospitalist covering Dr. Encarnacion 0615hrs: Spoke to Pt's daughter, will call Dr. Mcrae at 0800hrs. for admission/ pt's daughter agrees with plan 0700hrs: Case signed out to CASTRO Sun *DC/Admit/Observation/Transfer Diagnosis at time of Disposition: Alcohol intoxication Qualifiers: Complication of substance-induced condition: uncomplicated Qualified Code(s): F10.920 - Alcohol use, unspecified with intoxication, uncomplicated Closed head injury Qualifiers: Encounter type: initial encounter Qualified Code(s): S09.90XA - Unspecified injury of head, initial encounter Neck strain Qualifiers: Encounter type: initial encounter Qualified Code(s): S16.1XXA - Strain of muscle, fascia and tendon at neck level, initial encounter Lumbar strain Qualifiers: Encounter type: initial encounter Qualified Code(s): S39.012A - Strain of muscle, fascia and tendon of lower back, initial encounter Contusion, hip Qualifiers: Encounter type: initial encounter Laterality: right Qualified Code(s): S70.01XA - Contusion of right hip, initial encounter - Referrals - Patient Instructions - Post Discharge Activity
[2017-05-17] MEDS ORDERED: SODIUM CHLORIDE 1,000 ML IV STA (04:00)
[2017-05-17 04:24] LABS: BASO % 0.8 % (0-2.0); EOS % 1.2 % (0-4.5); HEMATOCRIT 40.3 % (32.4-45.2); HEMOGLOBIN 13.4 GM/dL (10.7-15.3); LYMPH % 34.2 % (8-40); MCH 32.4 pg (25.7-33.7); MCHC 33.3 g/dl (32.0-36.0); MEAN CELL VOLUME 97.4 fl (80-96); MEAN PLT VOLUME 7.2 fl (7.5-11.1); MONO % 7.3 % (3.8-10.2); NEUT % 56.5 % (42.8-82.8); PLATELET COUNT 177 K/MM3 (134-434); RBC 4.14 M/mm3 (3.60-5.2); RDW 13.1 % (11.6-15.6); WHITE BLOOD COUNT 7.6 K/mm3 (4.0-10.0)
--- NOTE | 2017-05-17 04:24 | PDOC ---
*Physical Exam - Vital Signs Last Vital Signs Temp Pulse Resp BP Pulse Ox 97.6 F 98 H 18 125/70 96 05/17/17 03:55 05/17/17 03:55 05/17/17 03:55 05/17/17 03:55 05/17/17 03:55 <Franklin Chin - Last Filed: 05/17/17 04:24> - Vital Signs Last Vital Signs Temp Pulse Resp BP Pulse Ox 97.6 F 95 H 18 151/82 96 05/17/17 06:37 05/17/17 06:37 05/17/17 06:37 05/17/17 06:37 05/17/17 03:55 <Rudy Giron - Last Filed: 05/17/17 08:01> ED Treatment Course - LABORATORY CBC & Chemistry Diagram: 05/17/17 04:15 05/17/17 04:15 <Franklin Chin - Last Filed: 05/17/17 04:24> - LABORATORY CBC & Chemistry Diagram: 05/17/17 04:15 05/17/17 04:15 - ADDITIONAL ORDERS Additional order review: Laboratory Results 05/17/17 05/17/17 05/17/17 05:42 04:15 04:15 Sodium 144 Potassium 4.8 Chloride 109 H Carbon Dioxide 25 Anion Gap 10 BUN 28 H D Creatinine 0.8 Creat Clearance w eGFR > 60 Random Glucose 91 Calcium 8.6 Total Bilirubin 0.5 AST 39 H D ALT 25 D Alkaline Phosphatase 98 Total Protein 7.2 Albumin 4.2 Urine Color Straw Urine Appearance Clear Urine pH 5.0 Ur Specific [place] 1.008 Urine Protein Negative Urine Glucose (UA) Negative Urine Ketones Negative Urine Blood 1+ H Urine Nitrite Negative Urine Bilirubin Negative Urine Urobilinogen Negative Urine WBC (Auto) None Urine RBC (Auto) <1 Urine Bacteria Rare Hyaline Casts 1 Alcohol, Quantitative 153.8 H* 05/17/17 04:15 RBC 4.14 MCV 97.4 H MCHC 33.3 RDW 13.1 MPV 7.2 L Neutrophils % 56.5 D Lymphocytes % 34.2 D Monocytes % 7.3 Eosinophils % 1.2 D Basophils % 0.8 - Medications Given in the ED: ED Medications Discontinued Medications Generic Name Dose Route Start Last Admin Trade Name Freq PRN Reason Stop Dose Admin Acetaminophen 1,000 mg 05/17/17 05:16 05/17/17 05:35 Ofirmev Injection - IVPB 05/17/17 05:17 1,000 mg ONCE ONE Administration Sodium Chloride 1,000 mls @ 1,000 mls/hr 05/17/17 04:00 05/17/17 05:35 Normal Saline - IV 05/17/17 04:59 1,000 mls/hr ASDIR STA Administration <Rudy Giron - Last Filed: 05/17/17 08:01> Medical Decision Making - Medical Decision Making 05/17/17 04:24 agree with care from [facility] <Franklin Chin - Last Filed: 05/17/17 04:24> *DC/Admit/Observation/Transfer <Franklin Chin - Last Filed: 05/17/17 04:24> - Discharge Dispostion Admit: Yes <Rudy Giron - Last Filed: 05/17/17 08:01> Diagnosis at time of Disposition: Alcohol intoxication Qualifiers: Complication of substance-induced condition: uncomplicated Qualified Code(s): F10.920 - Alcohol use, unspecified with intoxication, uncomplicated Closed head injury Qualifiers: Encounter type: initial encounter Qualified Code(s): S09.90XA - Unspecified injury of head, initial encounter Neck strain Qualifiers: Encounter type: initial encounter Qualified Code(s): S16.1XXA - Strain of muscle, fascia and tendon at neck level, initial encounter Lumbar strain Qualifiers: Encounter type: initial encounter Qualified Code(s): S39.012A - Strain of muscle, fascia and tendon of lower back, initial encounter Contusion, hip Qualifiers: Encounter type: initial encounter Laterality: right Qualified Code(s): S70.01XA - Contusion of right hip, initial encounter
[2017-05-17 04:50] LABS: ALBUMIN 4.2 g/dl (3.4-5.0); ALK PHOS 98 U/L (45-117); ANION GAP 10 (8-16); BILIRUBIN,TOTAL 0.5 mg/dL (0.2-1.0); BLOOD UREA NITROGEN 28 mg/dL (7-18); CALCIUM 8.6 mg/dL (8.5-10.1); CHLORIDE 109 mmol/L (98-107); CO2 25 mmol/L (21-32); CREATININE 0.8 mg/dL (0.55-1.02); GLUCOSE,RANDOM 91 mg/dL (74-106); SGPT/ALT 25 U/L (12-78); SODIUM 144 mmol/L (136-145); TOT PROT 7.2 g/dl (6.4-8.2)
[2017-05-17 04:53] LABS: POTASSIUM 4.8 mmol/L (3.5-5.1); SGOT/AST 39 U/L (15-37)
[2017-05-17] MEDS ORDERED: ACETAMINOPHEN 1000 MG/100 ML VIAL (NON FORMULARY) IVPB ONE (05:16)
[2017-05-17] MEDS ORDERED: ACETAMINOPHEN INJECTION 100 ML IVPB ONE (05:17)
[2017-05-17 06:24] LABS: URINE APPEARANCE CLEAR; URINE BILIRUBIN NEGATIVE (NEGATIVE); URINE BLOOD 1+ (NEGATIVE); URINE COLOR STRAW; URINE GLUCOSE (UA) NEGATIVE (NEGATIVE); URINE KETONE NEGATIVE (NEGATIVE); URINE LEUK ESTERASE NEGATIVE (NEGATIVE); URINE NITRITE NEGATIVE (NEGATIVE); URINE PROTEIN NEGATIVE (NEGATIVE); URINE UROBILINOGEN NEGATIVE mg/dL (0.2-1.0)
[2017-05-17 06:31] LABS: URINE BACTERIA RARE /hpf (NONE SEEN); URINE HYALINE CAST 1 /lpf
--- NOTE | 2017-05-17 07:13 | PDOC ---
ED Treatment Course - LABORATORY CBC & Chemistry Diagram: 05/17/17 04:15 05/17/17 04:15 - ADDITIONAL ORDERS Additional order review: Laboratory Results 05/17/17 05/17/17 05/17/17 05:42 04:15 04:15 Sodium 144 Potassium 4.8 Chloride 109 H Carbon Dioxide 25 Anion Gap 10 BUN 28 H D Creatinine 0.8 Creat Clearance w eGFR > 60 Random Glucose 91 Calcium 8.6 Total Bilirubin 0.5 AST 39 H D ALT 25 D Alkaline Phosphatase 98 Total Protein 7.2 Albumin 4.2 Urine Color Straw Urine Appearance Clear Urine pH 5.0 Ur Specific [place] 1.008 Urine Protein Negative Urine Glucose (UA) Negative Urine Ketones Negative Urine Blood 1+ H Urine Nitrite Negative Urine Bilirubin Negative Urine Urobilinogen Negative Urine WBC (Auto) None Urine RBC (Auto) <1 Urine Bacteria Rare Hyaline Casts 1 Alcohol, Quantitative 153.8 H* 05/17/17 04:15 RBC 4.14 MCV 97.4 H MCHC 33.3 RDW 13.1 MPV 7.2 L Neutrophils % 56.5 D Lymphocytes % 34.2 D Monocytes % 7.3 Eosinophils % 1.2 D Basophils % 0.8 - Medications Given in the ED: ED Medications Discontinued Medications Generic Name Dose Route Start Last Admin Trade Name Freq PRN Reason Stop Dose Admin Acetaminophen 1,000 mg 05/17/17 05:16 05/17/17 05:35 Ofirmev Injection - IVPB 05/17/17 05:17 1,000 mg ONCE ONE Administration Sodium Chloride 1,000 mls @ 1,000 mls/hr 05/17/17 04:00 05/17/17 05:35 Normal Saline - IV 05/17/17 04:59 1,000 mls/hr ASDIR STA Administration *DC/Admit/Observation/Transfer Diagnosis at time of Disposition: Alcohol intoxication Qualifiers: Complication of substance-induced condition: uncomplicated Qualified Code(s): F10.920 - Alcohol use, unspecified with intoxication, uncomplicated Closed head injury Qualifiers: Encounter type: initial encounter Qualified Code(s): S09.90XA - Unspecified injury of head, initial encounter Neck strain Qualifiers: Encounter type: initial encounter Qualified Code(s): S16.1XXA - Strain of muscle, fascia and tendon at neck level, initial encounter Lumbar strain Qualifiers: Encounter type: initial encounter Qualified Code(s): S39.012A - Strain of muscle, fascia and tendon of lower back, initial encounter Contusion, hip Qualifiers: Encounter type: initial encounter Laterality: right Qualified Code(s): S70.01XA - Contusion of right hip, initial encounter - Referrals - Patient Instructions - Post Discharge Activity
--- NOTE | 2017-05-17 10:51 | HP ---
Admitting History and Physical - Primary Care Physician PCP: Kenroy Mcrae - Admission Chief Complaint: I fell History of Present Illness: Ms Colbert is an 81 year old female who comes in with repeated falls. She was here last weekend after sustaining a fall, she was discharged secondary to no trauma. She says she had 1 glass of wine last night and went to bed. At 3am she got up to use the bathroom and fell. She is unclear on how she fell, however she says she did not pass out or lose consciousness. She says she did not hit her head or have trauma with the fall. She says her left leg hurts, but this is more because of the position in her bed. Her other complaint is diarrhea. She says she goes 4-5 times a day and it is liquid. It is normal color and no blood. This has been present for 1 week. At first it was responsive to imodium but it returned. She denies fevers, chills, lightheadedness, headache, changes in vision, chest pain, shortness of breath, nausea, vomiting, difficulty or pain on urination, or swelling. 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 Musculoskeletal: Yes: Other (spinal stenosis) - Past Surgical History Past Surgical History: Yes: None - Smoking History Smoking history: Never smoked Have you smoked in the past 12 months: No Aproximately how many cigarettes per day: 0 - Alcohol/Substance Use Hx Alcohol Use: Yes (patient said had 2 drinks in 4 months but is intoxicated on exam) History of Substance Use: reports: None - Social History Usual Living Arrangement: Yes: Alone ADL: Family Assistance History of Recent Travel: No Home Medications - Allergies Allergies/Adverse Reactions: Allergies Allergy/AdvReac Type Severity Reaction Status Date / Time No Known Allergies Allergy Verified 05/17/17 03:55 - Home Medications Home Medications: Ambulatory Orders Acetaminophen [Tylenol .Regular Strength -] 650 mg PO Q4H PRN #0 tablet Alprazolam [Xanax] 0.25 mg PO Q8H PRN #30 tablet MDD 1mg 02/19/17 Incontinence Pad,Liner,Disp [Protective Pads] 1 each MC DAILY #30 each 02/19/17 Carbidopa/Levodopa 25/100 [Sinemet 25/100 -] 1 each PO TID 05/10/17 Donepezil HCl [Aricept -] 10 mg PO DAILY 05/10/17 Family Disease History - Family Disease History Family Disease History: Other: Mother (rheumatoid arthritis) Review of Systems Findings/Remarks: Full review of systems obtained, as per HPI and otherwise negative Physical Examination Vital Signs: Vital Signs Temperature 36.4 C 05/17/17 06:37 Pulse Rate 95 H 05/17/17 06:37 Respiratory Rate 18 05/17/17 06:37 Blood Pressure 151/82 05/17/17 06:37 O2 Sat by Pulse Oximetry (%) 96 05/17/17 03:55 Constitutional: Yes: Well Nourished, No Distress, Calm Eyes: Yes: Conjunctiva Clear, EOM Intact, PERRL HENT: Yes: Atraumatic, Normocephalic Cardiovascular: Yes: Tachycardia. No: Pulse Irregular, Gallop, Murmur, Rub Respiratory: Yes: Regular, CTA Bilaterally. No: Rales, Rhonchi, Wheezes Gastrointestinal: Yes: Normal Bowel Sounds, Soft. No: Distention, Tenderness Extremities: Yes: WNL Edema: No Labs: CBC, BMP 05/17/17 04:15 05/17/17 04:15 Imaging - Results Chest X-ray: Report Reviewed Cat Scan: Report Reviewed Problem List - Problems (1) Fall Assessment/Plan: -patient presents with second fall within 7 days -this time with alcohol intoxication, unclear if intoxicated on last presentation -patient very unstable on exam -admit to med/surg, unsafe discharge home -PT consult -fall risk precautions -concern patient may need SNF placement Code(s): W19.XXXA - UNSPECIFIED FALL, INITIAL ENCOUNTER Qualifiers: Encounter type: initial encounter Qualified Code(s): W19.XXXA - Unspecified fall, initial encounter (2) Alcohol intoxication Assessment/Plan: -patient says she has drank only 2 times in past 4 months -however concerned she may be minimizing her drinking as well -clearly intoxicated on exam, states she only had 1 glass of wine last night -admit to med/surg -hydration with IVF -monitor for withdrawals Code(s): F10.929 - ALCOHOL USE, UNSPECIFIED WITH INTOXICATION, UNSPECIFIED Qualifiers: Complication of substance-induced condition: uncomplicated Qualified Code(s ): F10.920 - Alcohol use, unspecified with intoxication, uncomplicated (3) Diarrhea Assessment/Plan: -patient with 7 day history of diarrhea -says imodium worked, but then occurred again -will check stool for infectious causes -will obtain AXR, consider possible impaction with overflow since was taking imodium Code(s): R19.7 - DIARRHEA, UNSPECIFIED (4) Parkinson disease Assessment/Plan: -continue home regimen Code(s): G20 - PARKINSON'S DISEASE (5) Spinal stenosis Assessment/Plan: -PT consult and fall risk precautions Code(s): M48.00 - SPINAL STENOSIS, SITE UNSPECIFIED Qualifiers: Spinal region: lumbosacral Qualified Code(s): M48.07 - Spinal stenosis, lumbosacral region (6) Weakness Assessment/Plan: -PT consult Code(s): R53.1 - WEAKNESS
[2017-05-17] MEDS ORDERED: ALPRAZolam 0.25 MG TABLET ONE (11:05)
[2017-05-17] MEDS: ALPRAZolam 0.25 MG TABLET PO PRN (11:07)
[2017-05-17] MEDS ORDERED: CARBIDOPA/LEVODOPA 25/100 TABLET (FP) ONE ×3 (11:11→22:06)
[2017-05-17] MEDS ORDERED: DONEPEZIL HCL 5 MG TABLET (FP) ONE (11:11)
[2017-05-17] MEDS: CARBIDOPA/LEVODOPA 25/100 TABLET (FP) PO SCH ×3 (11:14→22:13)
[2017-05-17] MEDS: DONEPEZIL HCL 5 MG TABLET (FP) PO SCH (11:14)
[2017-05-17] MEDS: SODIUM CHLORIDE 1,000 ML IV SCH (11:37)
[2017-05-18 07:44] LABS: BASO % 0.4 % (0-2.0); EOS % 0.8 % (0-4.5); HEMATOCRIT 37.8 % (32.4-45.2); HEMOGLOBIN 12.6 GM/dL (10.7-15.3); LYMPH % 23.1 % (8-40); MCH 32.3 pg (25.7-33.7); MCHC 33.4 g/dl (32.0-36.0); MEAN CELL VOLUME 96.7 fl (80-96); MEAN PLT VOLUME 6.9 fl (7.5-11.1); MONO % 7.8 % (3.8-10.2); NEUT % 67.9 % (42.8-82.8); PLATELET COUNT 162 K/MM3 (134-434); RBC 3.91 M/mm3 (3.60-5.2); RDW 13.3 % (11.6-15.6); WHITE BLOOD COUNT 7.2 K/mm3 (4.0-10.0)
[2017-05-18] MEDS: CARBIDOPA/LEVODOPA 25/100 TABLET (FP) PO SCH ×3 (08:02→22:53)
[2017-05-18 08:09] LABS: ANION GAP 9 (8-16); BLOOD UREA NITROGEN 20 mg/dL (7-18); CALCIUM 8.6 mg/dL (8.5-10.1); CHLORIDE 107 mmol/L (98-107); CO2 25 mmol/L (21-32); CREATININE 0.9 mg/dL (0.55-1.02); GLUCOSE,RANDOM 94 mg/dL (74-106); MAGNESIUM 1.9 mg/dL (1.8-2.4); PHOSPHOROUS 2.7 mg/dL (2.5-4.9); POTASSIUM 3.6 mmol/L (3.5-5.1); SODIUM 141 mmol/L (136-145)
[2017-05-18] MEDS: ACETAMINOPHEN 325 MG TABLET (FP) PO PRN (09:14)
[2017-05-18] MEDS: DONEPEZIL HCL 5 MG TABLET (FP) PO SCH (10:32)
[2017-05-18] MEDS: ENOXAPARIN NA (PORCINE) 40 MG/0.4 ML DISP.SYRIN SQ SCH (10:32)
[2017-05-18] MEDS: SODIUM CHLORIDE 1,000 ML IV SCH (14:31)
[2017-05-18] MEDS: ALPRAZolam 0.25 MG TABLET PO PRN (14:32)
--- NOTE | 2017-05-18 14:45 | PN ---
Progress Note, Physician Chief Complaint: Feeling a little better, less pain. Denies heavy alcohol use, saying she only had a glass of wine last week (when she had fallen) and this week (when she fell again). Did not want to continue to pay for aides, so not getting any currently. Diarrhea seems to have stopped. - Current Medication List Current Medications: Active Medications Acetaminophen (Tylenol -) 650 mg PO Q4H PRN PRN Reason: FEVER OR PAIN Last Admin: 05/18/17 09:14 Dose: 650 mg Alprazolam (Xanax -) 0.25 mg PO Q8H PRN PRN Reason: ANXIETY Last Admin: 05/18/17 14:32 Dose: 0.25 mg Carbidopa/Levodopa (Sinemet 25/100 -) 1 each PO TID MILLIE Last Admin: 05/18/17 14:32 Dose: 1 each Donepezil HCl (Aricept -) 10 mg PO DAILY [facility] Last Admin: 05/18/17 10:32 Dose: 10 mg Enoxaparin Sodium (Lovenox -) 40 mg SQ DAILY MILLIE Last Admin: 05/18/17 10:32 Dose: 40 mg - Objective Vital Signs: Vital Signs Temperature 98.3 F 05/17/17 23:58 Pulse Rate 94 H 05/18/17 02:46 Respiratory Rate 18 05/18/17 02:46 Blood Pressure 148/84 05/18/17 02:46 O2 Sat by Pulse Oximetry (%) 97 05/17/17 23:28 Constitutional: Yes: No Distress, Calm Eyes: Yes: Conjunctiva Clear, EOM Intact HENT: Yes: Atraumatic, Normocephalic Neck: Yes: Supple, Trachea Midline Cardiovascular: Yes: Regular Rate and Rhythm, S1, S2. No: Murmur Respiratory: Yes: Regular, CTA Bilaterally. No: Rales, Rhonchi, Wheezes Gastrointestinal: Yes: Normal Bowel Sounds, Soft. No: Distention, Tenderness Edema: No Neurological: Yes: Alert, Oriented Labs: CBC, BMP 05/18/17 07:00 05/18/17 07:00 Assessment/Plan Current Active Problems Alcohol intoxication (Acute) Closed head injury (Acute) Contusion, hip (Acute) Diarrhea (Acute) Lumbar strain (Acute) Neck strain (Acute) -will need STR for balance training, as evidenced by 2 falls in past week at home -then will require 24h aides again at home -neurology eval, as seems to have increasd tremor here (needs dose adjustment of Parkinsons meds?) -BUN increased -will stop IVF
--- NOTE | 2017-05-18 19:20 | CON.NEURO ---
Consult - History of Present Illness Chief Complaint: fall History of Present Illness: Ms Colbert is an 81 year old female who comes in with repeated falls. She was here last weekend after sustaining a fall, she was discharged secondary to no trauma. She says she had 1 glass of wine last night and went to bed. At 3am she got up to use the bathroom and fell. She is unclear on how she fell, however she says she did not pass out or lose consciousness. She says she did not hit her head or have trauma with the fall. She says her left leg hurts, but this is more because of the position in her bed. Her other complaint is diarrhea. She says she goes 4-5 times a day and it is liquid. It is normal color and no blood. This has been present for 1 week. At first it was responsive to imodium but it returned. She denies fevers, chills, lightheadedness, headache, changes in vision, chest pain, shortness of breath, nausea, vomiting, difficulty or pain on urination, or swelling. I saw and examined the pt at the beside.She denies any new symptoms ; she has had dx as PD years ago and takes sinemet 2 or 3 times a day. - Past Medical History [employer]ING [employer] WORK[employer]: Yes: Parkinson's Musculoskeletal: Yes: Other (spinal stenosis) - Past Surgical History Past Surgical History: Yes: None - Alcohol/Substance Use Hx Alcohol Use: Yes (patient said had 2 drinks in 4 months but is intoxicated on exam) History of Substance Use: reports: None - Smoking History Smoking history: Never smoked Have you smoked in the past 12 months: No Aproximately how many cigarettes per day: 0 - Social History ADL: Family Assistance History of Recent Travel: No Home Medications - Allergies Allergies/Adverse Reactions: Allergies Allergy/AdvReac Type Severity Reaction Status Date / Time No Known Allergies Allergy Verified 05/17/17 03:55 - Home Medications Home Medications: Ambulatory Orders Acetaminophen [Tylenol .Regular Strength -] 650 mg PO Q4H PRN #0 tablet Alprazolam [Xanax] 0.25 mg PO Q8H PRN #30 tablet MDD 1mg 02/19/17 Incontinence Pad,Liner,Disp [Protective Pads] 1 each [facility] DAILY #30 each 02/19/17 Carbidopa/Levodopa 25/100 [Sinemet 25/100 -] 1 each PO TID 05/10/17 Donepezil HCl [Aricept -] 10 mg PO DAILY 05/10/17 Family Disease History - Family Disease History Family Disease History: Other: Mother (rheumatoid arthritis) Review of Systems - Review of Systems Constitutional: reports: No Symptoms (All 14 organs were reviewed and -ve beside HPI.) Physical Exam-Neuro Vital Signs: Vital Signs Temperature 97.3 F L 05/18/17 16:25 Pulse Rate 86 05/18/17 16:25 Respiratory Rate 20 05/18/17 16:25 Blood Pressure 129/73 05/18/17 16:25 O2 Sat by Pulse Oximetry (%) 97 05/17/17 23:28 Constitutional: Yes: Well Nourished, No Distress Neck: Yes: Supple Cardiovascular: Yes: Regular Rate and Rhythm Respiratory: Yes: CTA Bilaterally Musculoskeletal: Yes: WNL Edema: No Psychiatric: Yes: Alert, Oriented Labs: CBC, BMP 05/18/17 07:00 05/18/17 07:00 - Neuro Exam Level Of Consciousness: Yes: Oriented to Person, Oriented to Place, Oriented to Time Eyes: Yes: PERRLA Speech: WNL Cranial Nerves II-XII Intact: Yes Gag: Present DTR's: 1+ Left Bicep, 1+ Right Bicep, 1+ Left Tricep, 1+ Right Tricep, 1+ Left Brachioradialis, 1+ Right Brachioradialis, 1+ Left Achilles, 1+ Right Achilles Response to light touch: Normal Response to pain prick: Normal Movement Disorders: Tremors (Mild resting temor R UE ; no cogwheeling at wristd. ) Coordination: Normal: Finger to Nose Motor Strength: 4/5: Left Leg, Right Leg, 5/5: Left Arm, Right Arm Gait: Deferred Problem List - Problems (1) Alcohol intoxication Code(s): F10.929 - ALCOHOL USE, UNSPECIFIED WITH INTOXICATION, UNSPECIFIED Qualifiers: Complication of substance-induced condition: uncomplicated Qualified Code(s ): F10.920 - Alcohol use, unspecified with intoxication, uncomplicated (2) Diarrhea Code(s): R19.7 - DIARRHEA, UNSPECIFIED (3) Fall Code(s): W19.XXXA - UNSPECIFIED FALL, INITIAL ENCOUNTER Qualifiers: Encounter type: initial encounter Qualified Code(s): W19.XXXA - Unspecified fall, initial encounter Assessment/Plan 81 y/o WF w h/o PD , alcohol abuse p/w fall and diarrhea ; fall post alcohol use in the setting of PD and gait dysfx.CTH wo no acute event; on exam R UE resting and postural tremor and diffuse weakness on LEs. 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 THX Santiago Guy MD
[2017-05-19] MEDS: CARBIDOPA/LEVODOPA 25/100 TABLET (FP) PO SCH ×3 (06:15→21:01)
[2017-05-19 07:45] LABS: BASO % 0.6 % (0-2.0); EOS % 1.2 % (0-4.5); HEMATOCRIT 38.2 % (32.4-45.2); HEMOGLOBIN 12.6 GM/dL (10.7-15.3); LYMPH % 33.9 % (8-40); MCH 32.2 pg (25.7-33.7); MCHC 33.1 g/dl (32.0-36.0); MEAN CELL VOLUME 97.5 fl (80-96); MONO % 8.5 % (3.8-10.2); NEUT % 55.8 % (42.8-82.8); PLATELET COUNT 157 K/MM3 (134-434); RBC 3.91 M/mm3 (3.60-5.2); WHITE BLOOD COUNT 6.2 K/mm3 (4.0-10.0)
[2017-05-19 07:49] LABS: ALBUMIN 3.7 g/dl (3.4-5.0); ANION GAP 10 (8-16); BLOOD UREA NITROGEN 23 mg/dL (7-18); CALCIUM 8.6 mg/dL (8.5-10.1); CHLORIDE 106 mmol/L (98-107); CO2 26 mmol/L (21-32); CREATININE 0.8 mg/dL (0.55-1.02); GLUCOSE,RANDOM 87 mg/dL (74-106); POTASSIUM 3.6 mmol/L (3.5-5.1); SGOT/AST 20 U/L (15-37); SGPT/ALT 12 U/L (12-78); SODIUM 142 mmol/L (136-145); TOT PROT 6.4 g/dl (6.4-8.2)
[2017-05-19 07:50] LABS: ALK PHOS 71 U/L (45-117)
[2017-05-19] MEDS: DONEPEZIL HCL 5 MG TABLET (FP) PO SCH (09:43)
[2017-05-19] MEDS: ENOXAPARIN NA (PORCINE) 40 MG/0.4 ML DISP.SYRIN SQ SCH (09:43)
[2017-05-19] MEDS: ACETAMINOPHEN 325 MG TABLET (FP) PO PRN (09:43)
--- NOTE | 2017-05-19 11:27 | PN ---
Progress Note, Physician History of Present Illness: Patient feeling OK today. Assisted to bathroom without problems. Notes some back pain, but tolerable currently. Has less of a tremor today compared to yesterday. - Current Medication List Current Medications: Active Medications Acetaminophen (Tylenol -) 650 mg PO Q4H PRN PRN Reason: FEVER OR PAIN Last Admin: 05/19/17 09:43 Dose: 650 mg Alprazolam (Xanax -) 0.25 mg PO Q8H PRN PRN Reason: ANXIETY Last Admin: 05/18/17 14:32 Dose: 0.25 mg Carbidopa/Levodopa (Sinemet 25/100 -) 1 each PO TID [facility] Last Admin: 05/19/17 06:15 Dose: 1 each Donepezil HCl (Aricept -) 10 mg PO DAILY [facility] Last Admin: 05/19/17 09:43 Dose: 10 mg Enoxaparin Sodium (Lovenox -) 40 mg SQ DAILY [facility] Last Admin: 05/19/17 09:43 Dose: 40 mg - Objective Vital Signs: Vital Signs Temperature 97.6 F 05/19/17 07:24 Pulse Rate 82 05/19/17 07:24 Respiratory Rate 18 05/19/17 07:24 Blood Pressure 146/81 05/19/17 07:24 O2 Sat by Pulse Oximetry (%) 97 05/18/17 21:00 Constitutional: Yes: No Distress, Calm Eyes: Yes: Conjunctiva Clear, EOM Intact Neck: Yes: Supple, Trachea Midline Cardiovascular: Yes: Regular Rate and Rhythm, S1, S2. No: Murmur Respiratory: Yes: Regular, CTA Bilaterally. No: Rales, Rhonchi, Wheezes Gastrointestinal: Yes: Normal Bowel Sounds, Soft. No: Distention, Tenderness Edema: No Labs: CBC, BMP 05/19/17 06:00 05/19/17 06:00 Assessment/Plan Current Active Problems Alcohol intoxication (Acute) Closed head injury (Acute) Contusion, hip (Acute) Diarrhea (Acute) Lumbar strain (Acute) Neck strain (Acute) -will need STR -discussed in detail with patient, at first not wanting to go, but seems more accepting currently, as she would make more gains at STR than with home PT -cont PT here until JAVED done and applications made for STR, as unsafe at home currently
[2017-05-19] MEDS: ALPRAZolam 0.25 MG TABLET PO PRN (12:56)
[2017-05-20] MEDS: CARBIDOPA/LEVODOPA 25/100 TABLET (FP) PO SCH ×3 (06:20→21:10)
[2017-05-20] MEDS: ACETAMINOPHEN 325 MG TABLET (FP) PO PRN ×2 (06:36→13:14)
[2017-05-20 08:22] LABS: ANION GAP 10 (8-16); BLOOD UREA NITROGEN 30 mg/dL (7-18); CALCIUM 8.7 mg/dL (8.5-10.1); CHLORIDE 107 mmol/L (98-107); CO2 27 mmol/L (21-32); GLUCOSE,RANDOM 83 mg/dL (74-106); POTASSIUM 3.7 mmol/L (3.5-5.1); SODIUM 144 mmol/L (136-145)
[2017-05-20] MEDS: DONEPEZIL HCL 5 MG TABLET (FP) PO SCH (10:23)
[2017-05-20] MEDS: ENOXAPARIN NA (PORCINE) 40 MG/0.4 ML DISP.SYRIN SQ SCH (10:23)
--- NOTE | 2017-05-20 10:23 | PN ---
Progress Note, Physician History of Present Illness: Feels OK, mainly tired. Back pain has been tolerable. Has not had any signs of alcohol withdrawal. - Current Medication List Current Medications: Active Medications Acetaminophen (Tylenol -) 650 mg PO Q4H PRN PRN Reason: FEVER OR PAIN Last Admin: 05/20/17 06:36 Dose: 650 mg Alprazolam (Xanax -) 0.25 mg PO Q8H PRN PRN Reason: ANXIETY Last Admin: 05/19/17 12:56 Dose: 0.25 mg Carbidopa/Levodopa (Sinemet 25/100 -) 1 each PO TID [facility] Last Admin: 05/20/17 06:20 Dose: 1 each Donepezil HCl (Aricept -) 10 mg PO DAILY [facility] Last Admin: 05/19/17 09:43 Dose: 10 mg Enoxaparin Sodium (Lovenox -) 40 mg SQ DAILY [facility] Last Admin: 05/19/17 09:43 Dose: 40 mg - Objective Vital Signs: Vital Signs Temperature 97.8 F 05/20/17 06:00 Pulse Rate 81 05/20/17 06:00 Respiratory Rate 20 05/20/17 06:00 Blood Pressure 155/83 05/20/17 06:00 O2 Sat by Pulse Oximetry (%) 97 05/19/17 21:00 Constitutional: Yes: No Distress, Calm Neck: Yes: Supple, Trachea Midline Cardiovascular: Yes: Regular Rate and Rhythm, S1, S2. No: Murmur Respiratory: Yes: Regular, CTA Bilaterally. No: Rales, Rhonchi, Wheezes Gastrointestinal: Yes: Normal Bowel Sounds, Soft. No: Distention, Tenderness Edema: No Labs: CBC, BMP 05/19/17 06:00 05/20/17 05:35 Assessment/Plan Current Active Problems Alcohol intoxication (Acute) Closed head injury (Acute) Contusion, hip (Acute) Diarrhea (Acute) Lumbar strain (Acute) Neck strain (Acute) -advised STR for gait training, with multiple falls at home, given her Parkinsons disease -PT, JAVED for STR
[2017-05-20] MEDS: ALPRAZolam 0.25 MG TABLET PO PRN (13:14)
[2017-05-21] MEDS: ACETAMINOPHEN 325 MG TABLET (FP) PO PRN ×2 (05:58→14:34)
[2017-05-21] MEDS: CARBIDOPA/LEVODOPA 25/100 TABLET (FP) PO SCH ×3 (05:59→21:29)
[2017-05-21] MEDS: ALPRAZolam 0.25 MG TABLET PO PRN ×2 (10:01→21:29)
[2017-05-21] MEDS: ENOXAPARIN NA (PORCINE) 40 MG/0.4 ML DISP.SYRIN SQ SCH (10:01)
[2017-05-21] MEDS: DONEPEZIL HCL 5 MG TABLET (FP) PO SCH (10:01)
--- NOTE | 2017-05-21 17:19 | PN ---
Progress Note, Physician Chief Complaint: Ms Colbert without complaint. No cp, sob, n/v. - Current Medication List Current Medications: Active Medications Acetaminophen (Tylenol -) 650 mg PO Q4H PRN PRN Reason: FEVER OR PAIN Last Admin: 05/21/17 14:34 Dose: 650 mg Alprazolam (Xanax -) 0.25 mg PO Q8H PRN PRN Reason: ANXIETY Last Admin: 05/21/17 10:01 Dose: 0.25 mg Carbidopa/Levodopa (Sinemet 25/100 -) 1 each PO TID [facility] Last Admin: 05/21/17 14:34 Dose: 1 each Donepezil HCl (Aricept -) 10 mg PO DAILY [facility] Last Admin: 05/21/17 10:01 Dose: 10 mg Enoxaparin Sodium (Lovenox -) 40 mg SQ DAILY [facility] Last Admin: 05/21/17 10:01 Dose: 40 mg - Objective Vital Signs: Vital Signs Temperature 36.9 C 05/21/17 15:04 Pulse Rate 80 05/21/17 15:04 Respiratory Rate 16 05/21/17 15:04 Blood Pressure 125/74 05/21/17 15:04 O2 Sat by Pulse Oximetry (%) 97 05/21/17 09:00 Constitutional: Yes: Well Nourished, No Distress, Calm Cardiovascular: Yes: Regular Rate and Rhythm. No: Gallop, Murmur, Rub Respiratory: Yes: Regular, CTA Bilaterally. No: Rales, Rhonchi, Wheezes Gastrointestinal: Yes: Normal Bowel Sounds, Soft. No: Distention, Tenderness Extremities: Yes: WNL Edema: No Labs: CBC, BMP 05/19/17 06:00 05/20/17 05:35 Problem List - Problems (1) Fall Code(s): W19.XXXA - UNSPECIFIED FALL, INITIAL ENCOUNTER Qualifiers: Encounter type: initial encounter Qualified Code(s): W19.XXXA - Unspecified fall, initial encounter (2) Alcohol intoxication Code(s): F10.929 - ALCOHOL USE, UNSPECIFIED WITH INTOXICATION, UNSPECIFIED Qualifiers: Complication of substance-induced condition: uncomplicated Qualified Code(s ): F10.920 - Alcohol use, unspecified with intoxication, uncomplicated (3) Diarrhea Code(s): R19.7 - DIARRHEA, UNSPECIFIED (4) Parkinson disease Code(s): G20 - PARKINSON'S DISEASE (5) Spinal stenosis Code(s): M48.00 - SPINAL STENOSIS, SITE UNSPECIFIED Qualifiers: Spinal region: lumbosacral Qualified Code(s): M48.07 - Spinal stenosis, lumbosacral region (6) Weakness Code(s): R53.1 - WEAKNESS Assessment/Plan (1) Fall Assessment/Plan: -appreciate PT assistance -patient would benefit from SNF since with repeated fall Code(s): W19.XXXA - UNSPECIFIED FALL, INITIAL ENCOUNTER Qualifiers: Encounter type: initial encounter Qualified Code(s): W19.XXXA - Unspecified fall, initial encounter (2) Alcohol intoxication Assessment/Plan: -resolved -no withdrawal noted Code(s): F10.929 - ALCOHOL USE, UNSPECIFIED WITH INTOXICATION, UNSPECIFIED Qualifiers: Complication of substance-induced condition: uncomplicated Qualified Code(s ): F10.920 - Alcohol use, unspecified with intoxication, uncomplicated (3) Diarrhea Assessment/Plan: -resolved Code(s): R19.7 - DIARRHEA, UNSPECIFIED (4) Parkinson disease Assessment/Plan: -continue home regimen Code(s): G20 - PARKINSON'S DISEASE (5) Spinal stenosis Assessment/Plan: -PT consulted and following -fall risk precautions Code(s): M48.00 - SPINAL STENOSIS, SITE UNSPECIFIED Qualifiers: Spinal region: lumbosacral Qualified Code(s): M48.07 - Spinal stenosis, lumbosacral region (6) Weakness Assessment/Plan: -PT consulted and following Code(s): R53.1 - WEAKNESS
[2017-05-22 06:08] VITALS: TEMP 98.2
[2017-05-22] MEDS: CARBIDOPA/LEVODOPA 25/100 TABLET (FP) PO SCH ×2 (06:52→13:02)
[2017-05-22] MEDS: ACETAMINOPHEN 325 MG TABLET (FP) PO PRN ×2 (07:39→17:49)
[2017-05-22] MEDS: DONEPEZIL HCL 5 MG TABLET (FP) PO SCH (09:54)
[2017-05-22] MEDS: ENOXAPARIN NA (PORCINE) 40 MG/0.4 ML DISP.SYRIN SQ SCH (09:54)
--- NOTE | 2017-05-22 12:36 | PN ---
Progress Note, Physician Chief Complaint: Ms Colbert without complaint. No cp, sob, n/v. - Current Medication List Current Medications: Active Medications Acetaminophen (Tylenol -) 650 mg PO Q4H PRN PRN Reason: FEVER OR PAIN Last Admin: 05/22/17 07:39 Dose: 650 mg Alprazolam (Xanax -) 0.25 mg PO Q8H PRN PRN Reason: ANXIETY Last Admin: 05/21/17 21:29 Dose: 0.25 mg Carbidopa/Levodopa (Sinemet 25/100 -) 1 each PO TID [facility] Last Admin: 05/22/17 06:52 Dose: 1 each Donepezil HCl (Aricept -) 10 mg PO DAILY [facility] Last Admin: 05/22/17 09:54 Dose: 10 mg Enoxaparin Sodium (Lovenox -) 40 mg SQ DAILY [facility] Last Admin: 05/22/17 09:54 Dose: 40 mg - Objective Vital Signs: Vital Signs Temperature 36.8 C 05/22/17 06:00 Pulse Rate 98 H 05/22/17 06:00 Respiratory Rate 20 05/22/17 06:00 Blood Pressure 158/92 05/22/17 06:00 O2 Sat by Pulse Oximetry (%) 97 05/21/17 21:00 Constitutional: Yes: Well Nourished, No Distress, Calm Cardiovascular: Yes: Regular Rate and Rhythm. No: Gallop, Murmur, Rub Respiratory: Yes: Regular, CTA Bilaterally. No: Rales, Rhonchi, Wheezes Gastrointestinal: Yes: Normal Bowel Sounds, Soft. No: Distention, Tenderness Extremities: Yes: WNL Edema: No Labs: CBC, BMP 05/19/17 06:00 05/20/17 05:35 Problem List - Problems (1) Fall Code(s): W19.XXXA - UNSPECIFIED FALL, INITIAL ENCOUNTER Qualifiers: Encounter type: initial encounter Qualified Code(s): W19.XXXA - Unspecified fall, initial encounter (2) Alcohol intoxication Code(s): F10.929 - ALCOHOL USE, UNSPECIFIED WITH INTOXICATION, UNSPECIFIED Qualifiers: Complication of substance-induced condition: uncomplicated Qualified Code(s ): F10.920 - Alcohol use, unspecified with intoxication, uncomplicated (3) Diarrhea Code(s): R19.7 - DIARRHEA, UNSPECIFIED (4) Parkinson disease Code(s): G20 - PARKINSON'S DISEASE (5) Spinal stenosis Code(s): M48.00 - SPINAL STENOSIS, SITE UNSPECIFIED Qualifiers: Spinal region: lumbosacral Qualified Code(s): M48.07 - Spinal stenosis, lumbosacral region (6) Weakness Code(s): R53.1 - WEAKNESS Assessment/Plan (1) Fall Assessment/Plan: -appreciate PT assistance -patient would benefit from SNF since with repeated fall -continue PT while here Code(s): W19.XXXA - UNSPECIFIED FALL, INITIAL ENCOUNTER Qualifiers: Encounter type: initial encounter Qualified Code(s): W19.XXXA - Unspecified fall, initial encounter (2) Alcohol intoxication Assessment/Plan: -resolved -no withdrawal noted Code(s): F10.929 - ALCOHOL USE, UNSPECIFIED WITH INTOXICATION, UNSPECIFIED Qualifiers: Complication of substance-induced condition: uncomplicated Qualified Code(s ): F10.920 - Alcohol use, unspecified with intoxication, uncomplicated (3) Diarrhea Assessment/Plan: -resolved Code(s): R19.7 - DIARRHEA, UNSPECIFIED (4) Parkinson disease Assessment/Plan: -continue home regimen Code(s): G20 - PARKINSON'S DISEASE (5) Spinal stenosis Assessment/Plan: -PT consulted and following -fall risk precautions Code(s): M48.00 - SPINAL STENOSIS, SITE UNSPECIFIED Qualifiers: Spinal region: lumbosacral Qualified Code(s): M48.07 - Spinal stenosis, lumbosacral region (6) Weakness Assessment/Plan: -PT consulted and following Code(s): R53.1 - WEAKNESS
[2017-05-22] MEDS: ALPRAZolam 0.25 MG TABLET PO PRN (13:02)
[2017-05-22 14:51] VITALS: BP 138/72; PULSE 84
--- NOTE | 2017-05-22 16:04 | DS ---
Physical Examination Vital Signs: Vital Signs Temperature 36.8 C 05/22/17 14:49 Pulse Rate 84 05/22/17 14:49 Respiratory Rate 16 05/22/17 14:49 Blood Pressure 138/72 05/22/17 14:49 O2 Sat by Pulse Oximetry (%) 97 05/21/17 21:00 Labs: CBC, BMP 05/19/17 06:00 05/20/17 05:35 Discharge Summary Reason For Visit: FALL Current Active Problems Alcohol intoxication (Acute) Closed head injury (Acute) Contusion, hip (Acute) Diarrhea (Acute) Lumbar strain (Acute) Neck strain (Acute) Hospital Course: (1) Fall Code(s): W19.XXXA - UNSPECIFIED FALL, INITIAL ENCOUNTER Qualifiers: Encounter type: initial encounter Qualified Code(s): W19.XXXA - Unspecified fall, initial encounter (2) Alcohol intoxication Code(s): F10.929 - ALCOHOL USE, UNSPECIFIED WITH INTOXICATION, UNSPECIFIED Qualifiers: Complication of substance-induced condition: uncomplicated Qualified Code(s ): F10.920 - Alcohol use, unspecified with intoxication, uncomplicated (3) Diarrhea Code(s): R19.7 - DIARRHEA, UNSPECIFIED (4) Parkinson disease Code(s): G20 - PARKINSON'S DISEASE (5) Spinal stenosis Code(s): M48.00 - SPINAL STENOSIS, SITE UNSPECIFIED Qualifiers: Spinal region: lumbosacral Qualified Code(s): M48.07 - Spinal stenosis, lumbosacral region (6) Weakness Code(s): R53.1 - WEAKNESS Ms Colbert is a pleasant 81 year old female who comes in with repeated falls. She was admitted to the hospital secondary to multiple presentation because of falls at home. She was seen by PT and evaluated, it was felt she would benefit from SNF placement. She was intoxicated on presentation but did not go through withdrawal, suspect secondary to holiday celebrations. Currently she is doing well and her pain is controlled. She is safe for discharge to SNF for further care. Condition: Stable - Instructions Diet, Activity, Other Instructions: regular diet. Up with assistance, further activity per PT at SNF Referrals: Kenroy Mcrae MD [Staff Physician] - [facility] - Home Medications Comprehensive Discharge Medication List: Ambulatory Orders Acetaminophen [Tylenol .Regular Strength -] 650 mg PO Q4H PRN #0 tablet Alprazolam [Xanax] 0.25 mg PO Q8H PRN #30 tablet MDD 1mg 02/19/17 Carbidopa/Levodopa 25/ [Sinemet -] 1 each PO TID 05/10/17 Donepezil HCl [Aricept -] 10 mg PO DAILY 05/10/17
== END 2017-05-22 18:18 | DRG 897 ==
LOC: JER 03:52 → OBSVTOIN 08:01 → JERBED 08:01 → UNDOADMOB 08:08 → JERBED 08:08 → J8W 22:34
PROVIDERS: ADMIT Specialist; ATTEND Specialist
DX: F10.920 Alcohol use, unspecified with intoxication, uncomplicated (principal); S70.01XA Contusion of right hip, initial encounter; S16.1XXA Strain of muscle, fascia and tendon at neck level, initial encounter; S39.012A Strain of muscle, fascia and tendon of lower back, initial encounter; G20 Parkinson's disease; M48.00 Spinal stenosis, site unspecified; R19.7 Diarrhea, unspecified; R53.1 Weakness; S09.8XXA Other specified injuries of head, initial encounter; W18.39XA Other fall on same level, initial encounter; Y92.090 Kitchen in other non-institutional residence as the place of occurrence of the external cause
CPT/HCPCS: 36415; 70450-TC; 71020-TC; 72100-TC; 72125-TC; 73523-TC; 74000-TC; 80048; 80053; 80307; 81003; 81015; 82272; 83735; 84100; 85025; 87045; 87046; 87177; 87186; 87205; 87209; 97116-GP; 97162-GP; 99285-25

== ENCOUNTER 2017-06-06 12:06 | Emergency (ER) | payer BC ==
[2017-06-06 12:46] VITALS: TEMP 97.7; BMI 21.6
[2017-06-06] MEDS ORDERED: CARBIDOPA/LEVODOPA 25/100 TABLET (FP) PO ONE (12:58)
[2017-06-06] MEDS ORDERED: CARBIDOPA/LEVODOPA 25/100 TABLET (FP) ONE (13:07)
--- NOTE | 2017-06-06 13:44 | PDOC ---
Attending Attestation - Resident Resident Name: Bin Yoo - ED Attending Attestation I have performed the following: I have examined & evaluated the patient, The case was reviewed & discussed with the resident, I agree w/resident's findings & plan, Exceptions are as noted - Physicial Exam PE: GENERAL: Awake, alert, and fully oriented, in no acute distress HEAD: +Abrasions to the nasal bridge, L superior orbital rim. No bony tenderness. EYES: PERRLA, EOMI (no signs of entrapment), sclera anicteric, conjunctiva clear ENT: Auricles normal inspection, hearing grossly normal, nares patent, oropharynx clear without exudates. Moist mucosa NECK: Normal ROM, supple, no lymphadenopathy, JVD, or masses LUNGS: Breath sounds equal, clear to auscultation bilaterally. No wheezes, and no crackles HEART: Regular rate and rhythm, normal S1 and S2, no murmurs, rubs or gallops ABDOMEN: Soft, nontender, normoactive bowel sounds. No guarding, no rebound. No masses EXTREMITIES: Normal range of motion, no edema. No clubbing or cyanosis. No cords, erythema, or tenderness NEUROLOGICAL: Cranial nerves II through XII grossly intact. Normal speech. Moving all extremities. +Fine resting tremors to hands. SKIN: Warm, Dry, normal turgor, no rashes or lesions noted. <Latonya Kruger - Last Filed: 06/06/17 14:57> - HPI HPI: 06/06/17 15:09 Patient is a 81 year old female, from [facility], with a significant past medical history of Parkinson's, who presents to the ED with complaints of left sided face pain, s/p fall that occured 1 hour prior to ED arrival. Patient reports walking from her bedroom to hallway with her walker when she tripped over her walker and fell on the floor. She reports hitting the front of her head on the floor causing immediate pain. Patient states she doesn't know how hard she fell but states she was able to hear the contact her head made to the floor. Denies chest pain, SOB. Denies nausea, vomiting. Denies loss of consciousness. Denies change in vision. Denies numbness, tingles. Denies any other symptoms. Allergies: None Social history: No smoking. No alcohol. No illicit drugs. Surgical history: None PMD: Dr. Kenroy Mcrae. - Medical Decision Making 06/06/17 15:09 Documentation prepared by Derian Jose, acting as medical staff assistant for Latonya Kruger MD, /DO. <Derian Jose - Last Filed: 06/06/17 15:09>
--- NOTE | 2017-06-06 15:14 | PDOC ---
History of Present Illness - General Chief Complaint: Injury Stated Complaint: FALL Time Seen by Provider: 06/06/17 12:26 History Source: Patient Exam Limitations: No Limitations - History of Present Illness Initial Comments: 06/06/17 15:08 The patient is a 81F with a PMH of SVT, Parkinsons disease, spinal stenosis, and HTN who presents to the ED after sustaining a fall at [facility]. The patient states that she was walking with her walker and then fell down. She does not know why but she states that she has a history of multiple falls. She denies any CP, SOB, nausea, vomiting, palpitations, dizziness, lightheadedness, changes in vision, numbness, tingling, or weakness, before, during, and after the fall. Past History - Past Medical History Allergies/Adverse Reactions: Allergies Allergy/AdvReac Type Severity Reaction Status Date / Time No Known Allergies Allergy Verified 06/06/17 12:46 Home Medications: Ambulatory Orders Acetaminophen [Tylenol .Regular Strength -] 650 mg PO Q4H PRN #0 tablet Alprazolam [Xanax] 0.25 mg PO Q8H PRN #30 tablet MDD 1mg 02/19/17 Carbidopa/Levodopa 25/100 [Sinemet 25/100 -] 1 each PO TID 05/10/17 Donepezil HCl [Aricept -] 10 mg PO DAILY 05/10/17 Anemia: No Cardiac Disorders: Yes (SVT) COPD: No DVT: No Diabetes: Yes (Parkinsons Disease) GI Disorders: Yes (?stomach ulcer) HTN: Yes (NO MED) - Surgical History Abdominal Surgery: Yes (ulcers,removal of polyps) - Immunization History Immunization Up to Date: Yes - Suicide/Smoking/Psychosocial Hx Smoking Status: No Smoking History: Never smoked Have you smoked in the past 12 months: No Number of Cigarettes Smoked Daily: 0 Cigars Per Day: 0 Information on smoking cessation initiated: No Hx Alcohol Use: No Drug/Substance Use Hx: No Substance Use Type: None Hx Substance Use Treatment: No Review of Systems - Review of Systems Able to Perform ROS?: Yes Comments:: 06/06/17 15:11 GENERAL/CONSTITUTIONAL: Positive for fall. No fever or chills. No weakness. HEAD, EYES, EARS, NOSE AND THROAT: No change in vision. No ear pain or discharge. No sore throat. GASTROINTESTINAL: No nausea, vomiting, diarrhea, constipation, or abdominal pain. GENITOURINARY: No dysuria, frequency, hematuria, or change in urination. CARDIOVASCULAR: No chest pain, palpitations, or lightheadedness. RESPIRATORY: No cough, wheezing, shortness of breath, or hemoptysis. MUSCULOSKELETAL: No joint or muscle swelling or pain. No neck or back pain. SKIN: Positive for abrasion over L side of face with swelling. No rash or lesions. NEUROLOGIC: No headache, numbness, tingling, weakness, loss of consciousness, or change in strength/sensation. ENDOCRINE: No increased thirst. No abnormal weight change. HEMATOLOGIC/LYMPHATIC: No anemia, easy bleeding, or history of blood clots. ALLERGIC/IMMUNOLOGIC: No hives or skin allergy. Is the patient limited Bengali proficient: No *Physical Exam - Vital Signs Last Vital Signs Temp Pulse Resp BP Pulse Ox 97.7 F 88 17 174/95 96 06/06/17 12:10 06/06/17 12:10 06/06/17 12:10 06/06/17 12:10 06/06/17 12:10 - Physical Exam Comments: 06/06/17 15:11 GENERAL: Well developed, well nourished. Awake and alert. No acute distress. HEENT: Normocephalic, atraumatic. Hearing grossly normal. Moist mucous membranes. PERRLA, EOMI. No conjunctival pallor. Sclera are non-icteric. Oropharynx is clear. NECK: Supple. Full ROM. No JVD. CARDIOVASCULAR: Regular rate and rhythm. No murmurs, rubs, or gallops. PULMONARY: No evidence of respiratory distress. Lungs clear to auscultation bilaterally. No wheezing, rales or rhonchi. ABDOMINAL: Soft. Non-tender. Non-distended. No rebound or guarding. GENITOURINARY: No CVA tenderness bilaterally. MUSCULOSKELETAL: Normal range of motion at all joints. No bony deformities or tenderness. EXTREMITIES: No cyanosis. No clubbing. No edema. No calf tenderness. SKIN: Multiple abrasions over L upper face. No tenderness to palpation. Hematoma over L eyebrow. Warm and dry. Normal capillary refill. NEUROLOGICAL: Alert, awake, appropriate. Cranial nerves 2-12 intact. No deficits to light touch and temperature in face, upper extremities and lower extremities. No motor deficits in the in face, upper extremities and lower extremities. Normal speech. Gait is normal without ataxia. PSYCHIATRIC: Cooperative. Good eye contact. Appropriate mood and affect. ED Treatment Course - RADIOLOGY Radiology Studies Ordered: Category Date Time Status FACIAL BONES CT W/O CONTRAST [CT] Stat CT Scan 06/06/17 12:[address] WITHOUT CONTRAST [CT] Stat CT Scan 06/06/17 12:27 Completed - Medications Given in the ED: ED Medications Discontinued Medications Generic Name Dose Route Start Last Admin Trade Name Freq PRN Reason Stop Dose Admin Carbidopa/Levodopa 1 each 06/06/17 12:58 06/06/17 13:29 Sinemet 25/100 - PO 06/06/17 12:59 1 each ONCE ONE Administration Medical Decision Making - Medical Decision Making 06/06/17 15:13 The patient is an 81F with a hx of multiple falls who presents to the ED after sustaining another fall. The fall and the patient's history are most likely mechanical. Head CT and CT of facial bones are negative for fracture. Pt instructed to follow up with Dr. Mcrae. *DC/Admit/Observation/Transfer Diagnosis at time of Disposition: Fall Qualifiers: Encounter type: subsequent encounter Qualified Code(s): W19.XXXD - Unspecified fall, subsequent encounter - Discharge Dispostion Disposition: HOME Condition at time of disposition: Stable Admit: No - Referrals Referrals: Kenroy Mcrae MD [Primary Care Provider] - - Patient Instructions Printed Discharge Instructions: How to Prevent Falls Additional Instructions: Please return to the ER if symptoms persist, worsen, or new symptoms arise. Please follow up with your primary care physician in 2-3 days. Please return to the ER if you have any signs or symptoms of chest pain, shortness of breath, uncontrollable fever, chills, nausea, vomiting, numbness, tingling, or weakness in any part of your body, changes in vision, or slurred speech. - Post Discharge Activity
[2017-06-06 18:23] VITALS: BP 168/90; PULSE 78
== END 2017-06-06 17:24 | disposition home or self-care (01) ==
LOC: JER 12:06
DX: S00.81XA Abrasion of other part of head, initial encounter (principal); Z91.81 History of falling; W18.39XA Other fall on same level, initial encounter; Y93.01 Activity, walking, marching and hiking; Y92.122 Bedroom in nursing home as the place of occurrence of the external cause; Y99.8 Other external cause status; R26.89 Other abnormalities of gait and mobility; Z99.89 Dependence on other enabling machines and devices; I10 Essential (primary) hypertension; G20 Parkinson's disease; F02.80 Dementia in other diseases classified elsewhere, unspecified severity, without behavioral disturbance, psychotic disturbance, mood disturbance, and anxiety; Z87.19 Personal history of other diseases of the digestive system
CPT/HCPCS: 70450-TC; 70486-TC; 99282-25

== ENCOUNTER 2017-08-17 16:48 | Emergency (ER) | payer BC, OTHER ==
[2017-08-17 16:56] VITALS: TEMP 97; BMI 19.8
--- NOTE | 2017-08-17 18:11 | PDOC ---
History of Present Illness - General Chief Complaint: Injury Stated Complaint: LACERATION Time Seen by Provider: 08/17/17 17:55 - History of Present Illness Initial Comments: 08/17/17 18:03 82 yo F with h/o Parkinsons who p/w closed head injury 2/2 mechanical fall. Pt. home health aide at bedside. Per pt. and health aide, she was ambulating to bathroom with her assistive device, when she turned around to sit down she fell backwards hitting her head on the "basin." Now p/w left sided post head lac. Fall was unwitnessed and unprovoked. Home health aide was in kitchen at time of incident and pt. reports being down on ground for 5 seconds before returning to standing position. Denies back, neck, or joint trauma, She reports minimal bleeding, and denies symptoms. Denies CARCAMO, vision change, LOC, convulsions, N/V, F/C, CP, SOB, cough, wheezing, leg swelling, abdominal pain, diarrhea, constipation, urinary complaints, weakness, sensory changes. Does not recall last tetanus. Denies anticoagulation. Last mechanical fall with no asx. injury ( 05/05). Denies alcohol intoxication. Past History - Past Medical History Allergies/Adverse Reactions: Allergies Allergy/AdvReac Type Severity Reaction Status Date / Time No Known Allergies Allergy Verified 08/17/17 16:55 Home Medications: Ambulatory Orders Acetaminophen [Tylenol .Regular Strength -] 650 mg PO Q4H PRN #0 tablet Alprazolam [Xanax] 0.25 mg PO Q8H PRN #30 tablet MDD 1mg 02/19/17 Carbidopa/Levodopa 25/100 [Sinemet 25/100 -] 1 each PO TID 05/10/17 Donepezil HCl [Aricept -] 10 mg PO DAILY 05/10/17 Anemia: No Cardiac Disorders: Yes (SVT) COPD: No DVT: No Diabetes: Yes (Parkinsons Disease) GI Disorders: Yes (?stomach ulcer) HTN: Yes (NO MED) - Surgical History Abdominal Surgery: Yes (ulcers,removal of polyps) - Immunization History Immunization Up to Date: Yes - Suicide/Smoking/Psychosocial Hx Smoking Status: No Smoking History: Never smoked Have you smoked in the past 12 months: No Number of Cigarettes Smoked Daily: 0 Cigars Per Day: 0 Hx Alcohol Use: No Drug/Substance Use Hx: No Substance Use Type: None Hx Substance Use Treatment: No Review of Systems - Review of Systems Comments:: 08/17/17 18:11 GENERAL/CONSTITUTIONAL: + Head injury. No fever or chills. No weakness. HEAD, EYES, EARS, NOSE AND THROAT: No change in vision. No ear pain or discharge. No sore throat. CARDIOVASCULAR: No chest pain or shortness of breath RESPIRATORY: No cough, wheezing, or hemoptysis. GASTROINTESTINAL: No nausea, vomiting, diarrhea or constipation. GENITOURINARY: No dysuria, frequency, or change in urination. MUSCULOSKELETAL: No joint or muscle swelling or pain. No neck or back pain. SKIN: No rash NEUROLOGIC: No headache, vertigo, loss of consciousness, or change in strength/ sensation. ENDOCRINE: No increased thirst. No abnormal weight change HEMATOLOGIC/LYMPHATIC: No anemia, easy bleeding, or history of blood clots. ALLERGIC/IMMUNOLOGIC: No hives or skin allergy. *Physical Exam - Vital Signs Last Vital Signs Temp Pulse Resp BP Pulse Ox 97 F L 78 18 128/66 99 08/17/17 16:51 08/17/17 16:51 08/17/17 16:51 08/17/17 16:51 08/17/17 16:51 - Physical Exam Comments: 08/17/17 18:13 GENERAL: Awake, alert, and fully oriented, in no acute distress HEAD: 2 cm left sided vertical superiro posterior occipital head laceration, with absent subcutaneous involvement. Not actively bleeding. normocephalic.Absent C spine tenderness. EYES: PERRLA, EOMI, sclera anicteric, conjunctiva clear ENT: Hearing grossly normal, nares patent, oropharynx clear without exudates. Moist mucosa NECK: Normal ROM, supple, no lymphadenopathy, JVD, or masses LUNGS: No distress, speaks full sentences, clear to auscultation bilaterally HEART: Regular rate and rhythm, normal S1 and S2, no murmurs, rubs or gallops, peripheral pulses normal and equal bilaterally. EXTREMITIES : Normal inspection, Normal range of motion, no edema. No clubbing or cyanosis. NEUROLOGICAL: Cranial nerves II through XII grossly intact. Normal speech, no focal sensorimotor deficits. BL LE 3/5 ( baseline) . BL LE 5/5. Mild dysmetrra on FTN. SKIN: Warm, Dry, normal turgor, no rashes or lesions noted Procedures - Laceration/Wound Repair Left Posterior Head Wound Length: to 2.5 cm Wound Explored: clean, no foreign body present Wound's Depth, Shape: superficial, linear Irrigated w/ Saline: Yes Betadine Prep: No Wound Debrided: minimal Wound Repaired With: Unique Suture Size/Type: other Layer Closure: No Medical Decision Making - Medical Decision Making 08/17/17 18:11 82 yo F with h/o Parkinsons who p/w closed head injury ( post. head lac ) 2/2 mechanical fall during ambulation to bathroom with her assistive device. Fall was unwitnessed and unprovoked.On ground for 5 seconds before returning to standing position. Denies CARCAMO, back, neck, or joint trauma, vision change, LOC, convulsions, N/V, F/C, CP, SOB, cough, wheezing, leg swelling, abdominal pain, diarrhea, constipation, urinary complaints, weakness, sensory changes. Does not recall last tetanus. Denies anticoagulation. Physical exam notable for 2 cm left sided vertical superior posterior occipital head laceration, with absent subcutaneous involvement. Not actively bleeding. HDS. Although, pt. has absent neuro deficits will obtain head imaging to r/o SAH, hematoma. Low suspicion C- Spine injury. Nexus criteria low risk. Patient with no evidence of infection. ED Course: CT HEAD NON CON, C-SPINE NON CON 08/17/17 18:18 Boostrix 08/17/17 19:14 3 unique applied to wound site w/ no complications. 08/17/17 19:16 CT HEAD Pending. Signed out to Dr. Wayne worrell team in stable condition. *DC/Admit/Observation/Transfer Diagnosis at time of Disposition: Closed head injury Qualifiers: Encounter type: initial encounter Qualified Code(s): S09.90XA - Unspecified injury of head, initial encounter - Discharge Dispostion Disposition: HOME Condition at time of disposition: Stable Admit: No - Referrals Referrals: Kenroy Mcrae MD [Primary Care Provider] - - Patient Instructions Printed Discharge Instructions: How to Prevent Falls, DI for Closed Head Injury Additional Instructions: Please return to the emergency department with any new or worsening symptoms or concerns. Please follow up with your primary care physician within 72 hours. Please return to the emergency department within the next 10 days for removal of unique. - Post Discharge Activity - Attestations Physician Attestion: 08/17/17 18:27 I attest to the information provided in this note.
[2017-08-17] MEDS ORDERED: DIPHTH,PERTUSS(ACELL),TET 0.5 ML DISP.SYRIN IM ONE (18:17)
--- NOTE | 2017-08-17 18:42 | PDOC ---
Attending Attestation - Resident Resident Name: Toan Miranda - ED Attending Attestation I have performed the following: I have examined & evaluated the patient, The case was reviewed & discussed with the resident, I agree w/resident's findings & plan, Exceptions are as noted - Medical Decision Making 08/17/17 18:40 I, Dr. Kacey Lane, DO, attest that this document has been prepared under my direction and personally reviewed by me in its entirety. I further attest, that it accurately reflects all work, treatment, procedures and medical decision -making performed by me. a/p: 82yo female with freq falls from parkinsons -will check head ct and ct c spine -will update boostrix -will need sutures of 3cm lac in back of head -FROM of cervical spine -no chest wall ttp -no pelvis ttp -FROM of UE and LE -will monitor and reassess -no dysuria <Kacey Lane - Last Filed: 08/17/17 18:40> - HPI HPI: 08/17/17 19:48 The patient is an 82-year-old female, accompanied by home health aide, with a significant past medical history of frequent falls from Parkinsons , who presents to the ED with a closed head injury s/p mechanical fall today. The patient states that she was walking to the bathroom and as she turned to sit down she fell backwards, hitting her head on the basin. The patient sustained a laceration to the left side of her head. She denies any loss of consciousness, but was down on the floor for approximately 5 seconds before getting back up. The patient denies any neck pain or back pain. Denies any visionary changes. Denies any fever, chills, nausea, vomiting, diarrhea, or abdominal pain. Denies any chest pain or shortness of breath. PCP: Dr. Kenroy Mcrae - Physicial Exam PE: 08/17/17 19:49 GENERAL: Awake, alert, and fully oriented, in no acute distress HEAD: (+)3 cm laceration to the left side of head, actively bleeding, pain at laceration site. EYES: PERRLA, EOMI, sclera anicteric, conjunctiva clear ENT: Auricles normal inspection, hearing grossly normal, nares patent, oropharynx clear without exudates. Moist mucosa NECK: Normal ROM, supple, no lymphadenopathy, JVD, or masses LUNGS: Breath sounds equal, clear to auscultation bilaterally. No wheezes, and no crackles HEART: Regular rate and rhythm, normal S1 and S2, no murmurs, rubs or gallops ABDOMEN: Soft, nontender, normoactive bowel sounds. No guarding, no rebound. No masses EXTREMITIES: Normal range of motion, no edema. No clubbing or cyanosis. No cords, erythema, or tenderness NEUROLOGICAL: Cranial nerves II through XII grossly intact. Normal speech, normal gait SKIN: Warm, Dry, normal turgor. <Renea Valle - Last Filed: 08/17/17 19:51> Attestations - Attestations 08/17/17 19:51 Documentation prepared by Renea Valle, acting as medical physicist for Kacey Lane DO. <Renea Valle - Last Filed: 08/17/17 19:51>
[2017-08-17 20:46] VITALS: BP 131/72; PULSE 85
--- NOTE | 2017-08-17 23:18 | PDOC ---
*Physical Exam - Vital Signs Last Vital Signs Temp Pulse Resp BP Pulse Ox 97 F L 85 18 131/72 99 08/17/17 16:51 08/17/17 20:45 08/17/17 20:45 08/17/17 20:45 08/17/17 20:45 ED Treatment Course - RADIOLOGY Radiology Studies Ordered: Category Date Time Status SPINE-CERVICAL [RAD] Stat Radiology 08/17/17 20:37 Taken - Medications Given in the ED: ED Medications Discontinued Medications Generic Name Dose Route Start Last Admin Trade Name Freq PRN Reason Stop Dose Admin Diphtheria/Tetanus/Acell Pertussis 0.5 ml 08/17/17 18:17 08/17/17 19:25 Boostrix - IM 08/17/17 18:18 0.5 ml .ONCE ONE Administration Medical Decision Making - Medical Decision Making Patient signed out in stable condition pending CT reads. CT significant for posterior spinous process fracture without any instability noted on follow up flexion films. Discussed case with Dr. Flores and he advised to place in a soft collar and have her follow up with him in office. Will patient home with collar , return precautions, and orthopedic follow up. 08/17/17 23:13 *DC/Admit/Observation/Transfer Diagnosis at time of Disposition: Closed head injury Qualifiers: Encounter type: initial encounter Qualified Code(s): S09.90XA - Unspecified injury of head, initial encounter Cervical spine fracture Qualifiers: Encounter type: initial encounter Cervical vertebra fracture level: C6 Fracture type: closed Fracture morphology: other fracture Fracture alignment: displaced Qualified Code(s): S12.590A - Other displaced fracture of sixth cervical vertebra, initial encounter for closed fracture - Discharge Dispostion Disposition: HOME Condition at time of disposition: Stable - Referrals Referrals: Kenroy Mcrae MD [Primary Care Provider] - Zain Flores MD [Staff Physician] - - Patient Instructions Printed Discharge Instructions: How to Prevent Falls, DI for Closed Head Injury Additional Instructions: You have a fracture of your C6 vertebra that is stable. Please wear the soft collar until you follow up with your orthopedic surgeon. Please return to the emergency department with any new or worsening symptoms or concerns. You may use Tylenol for any pain that you have. Please return to the emergency department within the next 10 days for removal of unique. - Post Discharge Activity
== END 2017-08-17 23:53 | disposition home or self-care (01) ==
LOC: JER 16:48
PROC: 3E0234Z Introduction of Serum, Toxoid and Vaccine into Muscle, Percutaneous Approach (ICD-10-PCS; principal; 2017-08-17)
PROC: 0HQ0XZZ Repair Scalp Skin, External Approach (ICD-10-PCS; 2017-08-17)
DX: S01.01XA Laceration without foreign body of scalp, initial encounter (principal); W01.198A Fall on same level from slipping, tripping and stumbling with subsequent striking against other object, initial encounter; Y93.E8 Activity, other personal hygiene; Y92.031 Bathroom in apartment as the place of occurrence of the external cause; Y99.8 Other external cause status; I10 Essential (primary) hypertension; G20 Parkinson's disease; I49.8 Other specified cardiac arrhythmias
CPT/HCPCS: 12001; 12011; 70450-TC; 72050-TC-FY; 72125-TC; 90471; 90715; 99283-25

== ENCOUNTER 2019-05-01 14:00 | Emergency (ER) | payer BC ==
[2019-05-01 14:16] VITALS: BMI 22.6
--- NOTE | 2019-05-01 15:20 | PDOC ---
History of Present Illness - General Chief Complaint: Altered Mental Status Stated Complaint: AMS Time Seen by Provider: 05/01/19 14:37 - History of Present Illness Initial Comments: 05/01/19 16:32 83 yo F PMH Parkinson's disease, hx recurrent falls, hx SVT, presenting with AMS. Per home health aide, patient was talking to people who were not there and appearing less oriented than usual. Patient reports that she was told that she may have fallen, although she has no memory of this, and denies hallucinations and being more confused than usual. Has no current complaints and believes herself to be at her mental baseline. Specifically denies CP, SOB, abd pain, urinary symptoms, constipation/diarrhea, CARCAMO, N/V, fevers/chills. Reports having bronchitis 1 month ago which resolved after about 1 week. Past History - Past Medical History Allergies/Adverse Reactions: Allergies Allergy/AdvReac Type Severity Reaction Status Date / Time No Known Allergies Allergy Verified 08/23/17 15:42 Home Medications: Ambulatory Orders Acetaminophen [Tylenol .Regular Strength -] 650 mg PO Q4H PRN #0 tablet Alprazolam [Xanax] 0.25 mg PO Q8H PRN #30 tablet MDD 1mg 02/19/17 Carbidopa/Levodopa 25/100 [Sinemet 25/100 -] 1 each PO TID 05/10/17 Donepezil HCl [Aricept -] 10 mg PO DAILY 05/10/17 Cephalexin [Keflex] 500 mg PO BID #14 capsule 05/01/19 Anemia: No Cardiac Disorders: Yes (SVT) COPD: No DVT: No Diabetes: Yes (Parkinsons Disease) GI Disorders: Yes (?stomach ulcer) HTN: Yes (NO MED) - Surgical History Abdominal Surgery: Yes (ulcers,removal of polyps) - Immunization History Immunization Up to Date: Yes - Psycho Social/Smoking Cessation Hx Smoking Status: No Smoking History: Never smoked Have you smoked in the past 12 months: No Number of Cigarettes Smoked Daily: 0 If you are a former smoker, when did you quit?: 1998 Cigars Per Day: 0 Hx Alcohol Use: No Drug/Substance Use Hx: No Substance Use Type: None Hx Substance Use Treatment: No Review of Systems - Review of Systems Comments:: 05/01/19 16:37 GENERAL/CONSTITUTIONAL: No fever or chills. No weakness. HEAD, EYES, EARS, NOSE AND THROAT: No change in vision. No ear pain or discharge. No sore throat. CARDIOVASCULAR: No chest pain or shortness of breath. RESPIRATORY: No cough, wheezing, or hemoptysis. GASTROINTESTINAL: No nausea, vomiting, diarrhea or constipation. GENITOURINARY: No dysuria, frequency, or change in urination. MUSCULOSKELETAL: No joint or muscle swelling or pain. No neck or back pain. SKIN: No rash NEUROLOGIC: No headache, vertigo, loss of consciousness, or change in strength/ sensation. ENDOCRINE: No increased thirst. No abnormal weight change. HEMATOLOGIC/LYMPHATIC: No anemia, easy bleeding, or history of blood clots. ALLERGIC/IMMUNOLOGIC: No hives or skin allergy *Physical Exam - Vital Signs Last Vital Signs Temp Pulse Resp BP Pulse Ox 99.8 F H 89 20 169/84 96 05/01/19 14:00 05/01/19 14:00 05/01/19 14:00 05/01/19 14:00 05/01/19 14:00 - Physical Exam 05/01/19 16:38 Gen: thin, NAD Neuro: AAOX3 (knows her own name and birthday, thinks it is June, knows she is at [facility] and why she is here), CN II-XII intact, FTN intact, EOMI with poor visual tracking, PERRLA, 5/5 strength, SILT, tremulous HEENT: atraumatic, normocephalic, dry mucous membranes Neck: trachea midline, supple CV: regular rate, regular rhythm, no murmurs, rubs, or gallops Pulm: CTA b/l, no wheezing Abd: soft, non-distended, non-tender MSK: full ROM, intact pulses Extr: no edema, no deformities Skin: warm, dry ED Treatment Course - LABORATORY CBC & Chemistry Diagram: 05/01/19 15:22 05/01/19 15:22 Medical Decision Making - Medical Decision Making 05/01/19 16:32 Concern for potential septic changes causing AMS vs acute cranial pathology. - sepsis workup - CXR - EKG - CT head non con - UA/UC - reassess 05/01/19 16:40 Labs and urine unremarkable. Will f/u CT scan. EKG with normal sinus at 82 bpm, late R wave progression. Discharge - Discharge Information Problems reviewed: Yes Clinical Impression/Diagnosis: UTI (urinary tract infection) Qualifiers: Urinary tract infection type: site unspecified Hematuria presence: without hematuria Qualified Code(s): N39.0 - Urinary tract infection, site not specified - Additional Discharge Information Prescriptions: Cephalexin [Keflex] 500 mg PO BID #14 capsule - Follow up/Referral Referrals: Kenroy Mcrae MD [Primary Care Provider] - - Patient Discharge Instructions Patient Printed Discharge Instructions: Urinary Tract Infection Additional Instructions: Take Keflex as prescribed follow-up with your doctor this week return to the emergency department for any severe worsening symptoms or for any concerns. - Post Discharge Activity
[2019-05-01 15:33] LABS: VENOUS PC02 50.1 mmHg (38-52); VENOUS PH 7.37 (7.31-7.41)
[2019-05-01 15:34] LABS: VENOUS PO2 < 49 mmHg (28-48)
[2019-05-01 15:38] LABS: BASO % 0.6 % (0-2.0); EOS % 0.4 % (0-4.5); HEMOGLOBIN 12.5 GM/dL (10.7-15.3); LYMPH % 16.7 % (8-40); MCH 33.2 pg (25.7-33.7); MCHC 33.7 g/dl (32.0-36.0); MEAN CELL VOLUME 98.6 fl (80-96); MEAN PLT VOLUME 7.5 fl (7.5-11.1); MONO % 9.1 % (3.8-10.2); NEUT % 73.2 % (42.8-82.8); PLATELET COUNT 173 K/MM3 (134-434); RBC 3.75 M/mm3 (3.60-5.2); RDW 12.9 % (11.6-15.6); WHITE BLOOD COUNT 7.2 K/mm3 (4.0-10.0)
[2019-05-01 15:44] LABS: EPI CELLS 11.6 /HPF (0-5/HPF); HYALINE CASTS 3 /lpf (0-8); PH,URINE 6.5 (5.0-8.0); URINE APPEARANCE CLEAR; URINE BACTERIA 48.9 /hpf (NEGATIVE); URINE BILIRUBIN NEGATIVE (NEGATIVE); URINE COLOR YELLOW; URINE GLUCOSE (UA) NEGATIVE (NEGATIVE); URINE KETONE TRACE (NEGATIVE); URINE LEUK ESTERASE 1+ (NEGATIVE); URINE NITRITE NEGATIVE (NEGATIVE); URINE PROTEIN TRACE (NEGATIVE); URINE RBC 2 /hpf (0-4); URINE UROBILINOGEN 0.2 mg/dL (0.2-1.0); URINE WBC 8 /hpf (0-5)
[2019-05-01 16:07] LABS: INR 1.07 (0.83-1.09); PROTHROMBIN TIME (PATIENT) 12.6 SEC (9.7-13.0)
[2019-05-01 16:08] LABS: ALBUMIN 4.2 g/dl (3.4-5.0); BLOOD UREA NITROGEN 32.5 mg/dL (7-18); CALCIUM 9.2 mg/dL (8.5-10.1); CREATININE 1.1 mg/dL (0.55-1.3); POTASSIUM 4.7 mmol/L (3.5-5.1)
[2019-05-01 16:10] LABS: ACTIVATED PTT 32.2 SECONDS (25.2-36.5)
--- NOTE | 2019-05-01 17:04 | PDOC ---
Documentation entered by Mili Morillo SCRIBE, acting as scribe for Rudy Giron MD. Rudy Giron MD: This documentation has been prepared by the Ilia corbett Xhesika, SCRIBE, under my direction and personally reviewed by me in its entirety. I confirm that the documentation accurately reflects all work, treatment, procedures, and medical decision making performed by me. Attending Attestation - Resident Resident Name: Jay Shelby - ED Attending Attestation I have performed the following: I have examined & evaluated the patient, The case was reviewed & discussed with the resident, I agree w/resident's findings & plan, Exceptions are as noted - HPI HPI: 05/01/19 16:28 The patient is an 83-year-old female, accompanied by daughter, with a significant past medical history of Parkinsons, who presents to the ED BIBA with weakness and pain the last few months. Daughter at bedside, reports the patient has a aid/helper on Saturday and Fridays and this morning the aid noticed the patient was disoriented, weak and walking with assistance. Daughter at bedside notes the patient looks weak, however, patient is talking significantly better since this morning. The patient denies chest pain, shortness of breath, headache and dizziness. Denies fever, chills, cough, nausea, vomiting, diarrhea and constipation. Denies dysuria, frequency, urgency and hematuria. Allergies:, NKDA Social Hx: Denies current smoking, drinking, or other substance usage. - Physicial Exam PE: 05/01/19 16:30 Vitals: Triage Vital signs reviewed General Appearance: no acute distress, well nourished well developed, Neck: Supple;No Nuchal rigidity Chest Wall: Nontender Cardiac: Regular rate and rhythm, no murmurs, no rubs, no gallops, Lungs: Clear to auscultation bilateral, good air movement bilaterally, Abdomen: Soft, nondistended, normal bowel sounds, nontender to palpation Extremities: Full range of motion to all extremities, no cyanosis, clubbing, or edema Skin: Warm and dry, no rashes or lesions, no petechiae Neuro: Strength intact to all extremities, Sensation intact to all extremities, Psych: normal mood, normal affect - Medical Decision Making 05/01/19 17:44 83 years old brief episode of altered mental status now is closer to her baseline her daughter is at the bedside Her work-up in the emergency department included a head CT blood work and urinalysis. Her urinalysis is suggestive of UTI she will be treated with ceftriaxone we have offered the family admission for further evaluation and management however they feel that patient is very close to her baseline mental status they would prefer to go home with a trial of antibiotics if there is any significant change or deterioration of symptoms they will return to the emergency department Findings, the need for follow-up with strict return instructions discussed with patient and family. Discharge - Discharge Information Problems reviewed: Yes Clinical Impression/Diagnosis: UTI (urinary tract infection) Qualifiers: Urinary tract infection type: site unspecified Hematuria presence: without hematuria Qualified Code(s): N39.0 - Urinary tract infection, site not specified - Admission No - Additional Discharge Information Prescriptions: Cephalexin [Keflex] 500 mg PO BID #14 capsule - Follow up/Referral Referrals: Kenroy Mcrae MD [Primary Care Provider] - - Patient Discharge Instructions Patient Printed Discharge Instructions: Urinary Tract Infection Additional Instructions: Take Keflex as prescribed follow-up with your doctor this week return to the emergency department for any severe worsening symptoms or for any concerns. - Post Discharge Activity
[2019-05-01] MEDS ORDERED: CEFTRIAXONE 1 GM in DEXTROSE 5%-WATER - 100 ML IVPB ONE (17:08)
[2019-05-01] MEDS ORDERED: cefTRIAXone SODIUM 1 GM VIAL ONE (18:30)
[2019-05-01 18:57] VITALS: BP 138/78; PULSE 85; TEMP 97.9
--- NOTE | 2019-05-02 10:20 | EKG ---
Test Reason : Blood Pressure : / mmHG Vent. 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
== END 2019-05-01 18:57 | disposition home or self-care (01) ==
LOC: JER 14:00
DX: Z87.891 Personal history of nicotine dependence (principal); I47.1 Supraventricular tachycardia; G20 Parkinson's disease
CPT/HCPCS: 36415; 70450-TC; 71045-TC-FY; 80053; 81003; 82803; 83605; 84484; 85025; 85610; 85730; 87040; 87086; 93005; 93010; 99283-25

== ENCOUNTER 2019-11-28 12:10 | Emergency (ER) | payer BC ==
[2019-11-28 12:44] VITALS: BMI 19.2
--- NOTE | 2019-11-28 13:25 | PDOC ---
History of Present Illness - General Chief Complaint: Pain, Acute Stated Complaint: RT ARM BROKEN - History of Present Illness Initial Comments: 84 yo female wit PMH of parkinson's dementia and frequent falls comes in for casting of a right arm fracture that occurred on November 17 (10days ago). She was diagnosed with a fracture arm at another ED where she was splinted and sent to follow up with an orthopedic doctor. The orthopedic doctor could not reduce/cast her at the office due to pt agitation with her parkinson's. She was told on the phone that she can be casted at this ED and come in. Unfortunately we do not cast here and can only splint. She is otherwise stable with a clear forearm deformity. History obtained by daughter due to her baseline dementia. 11/28/19 14:19 Past History - Medical History Allergies/Adverse Reactions: Allergies Allergy/AdvReac Type Severity Reaction Status Date / Time No Known Allergies Allergy Verified 11/28/19 14:27 Home Medications: Ambulatory Orders Acetaminophen [Tylenol .Regular Strength -] 650 mg PO Q4H PRN #0 tablet 02/01/17 Alprazolam [Xanax] 0.25 mg PO Q8H PRN #30 tablet MDD 1mg 02/19/17 Donepezil HCl [Aricept -] 10 mg PO DAILY 05/10/17 Alprazolam 0.25 mg PO TID 11/28/19 Carbidopa/Levodopa [Carbidopa-Levodopa 25-250 Tab] 1 each PO TID 11/28/19 Methenamine Hippurate [Hiprex [Nf] -] 1 gm PO BID 11/28/19 Midodrine HCl 2.5 mg PO BID 11/28/19 Midodrine HCl 10 mg PO DAILY 11/28/19 Tramadol HCl 50 mg PO DAILY 11/28/19 Anemia: No Cardiac Disorders: Yes (SVT) COPD: No DVT: No Diabetes: Yes (Parkinsons Disease) GI Disorders: Yes (?stomach ulcer) HTN: Yes (NO MED) - Surgical History Abdominal Surgery: Yes (ulcers,removal of polyps) - Immunization History Immunization Up to Date: Yes - Psycho-Social/Smoking History Smoking Status: No Smoking History: Never smoked Have you smoked in the past 12 months: No Number of Cigarettes Smoked Daily: 0 If you are a former smoker, when did you quit?: 1997 Cigars Per Day: 0 - Substance Abuse Hx (Audit-C & DAST Scrn) How often the patient has a drink containing alcohol: Never Score: In Men: 4 or > Positive; In Women: 3 or > Positive: 0 Screen Result (Pos requires Nsg. Audit-10AR): Negative In the last yr the pt used illegal drug/Rx for NonMed reason: No Score: Yes response is considered Positive: 0 Screen Result (Positive result requires Nsg. DAST-10): Negative Review of Systems - Review of Systems Able to Perform ROS?: Yes Constitutional: No: Chills, Diaphoresis, Fever HEENTM: No: Blurred Vision, Recent change in vision, Double Vision Respiratory: No: Cough, Orthopnea, Shortness of Breath Cardiac (ROS): No: Chest Pain, Edema, Irregular Heart Rate, Palpitations ABD/GI: No: Constipated, Diarrhea, Nausea, Vomiting : No: Burning, Dysuria, Urgency Musculoskeletal: Yes: Joint Pain (wrist pain), Joint Swelling, Joint Stiffness Integumentary: Yes: Bruising, Erythema Neurological: No: Headache, Numbness, Paresthesia, Tingling Psychiatric: No: Anxiety, Depression, Mood Swings *Physical Exam - Vital Signs Last Vital Signs Temp Pulse Resp BP Pulse Ox 98.5 F 81 20 113/64 95 11/28/19 12:35 11/28/19 12:35 11/28/19 12:35 11/28/19 12:35 11/28/19 12:35 - Physical Exam General Appearance: Yes: Appropriately Dressed. No: Apparent Distress, Disheveled HEENT: positive: EOMI, Normal Voice Respiratory/Chest: positive: Lungs Clear, Normal Breath Sounds Cardiovascular: positive: Regular Rhythm, Regular Rate, S1, S2 Gastrointestinal/Abdominal: positive: Flat, Soft. negative: Tender Extremity: positive: Other (clear deformation of right distal forearm and wrist with overlyings reddness and swelling. ) Integumentary: positive: Swelling, Bruising Neurologic: positive: Alert, Normal Mood/Affect. negative: Fully Oriented Medical Decision Making - Medical Decision Making Ms Colbert is a 84 yo female with PMH of parkinson's dementia brought in for reevaluation of a right arm fracture by her daughter. X-rays confirmed the right arm fracture that was sustained 10 days ago. We consulted ortho who were unable to come into the ED for casting but suggested she receive a sugartong splint and to follow up with their ortho office saturday for out patient casting. 11/28/19 15:31 Discharge - Discharge Information Problems reviewed: Yes Clinical Impression/Diagnosis: Forearm fractures, both bones, closed Condition: Stable Disposition: HOME - Admission No - Follow up/Referral Referrals: Kenroy Mcrae MD [Primary Care Provider] - () Lan Guevara MD [Staff Physician] - - Patient Discharge Instructions - Post Discharge Activity
--- NOTE | 2019-11-28 15:50 | PDOC ---
Documentation entered by José Manuel Oneal SCRIBE, acting as scribe for Jose Farmer MD. Jose Farmer MD: This documentation has been prepared by the Jm corbett Alexis, SCRIBE, under my direction and personally reviewed by me in its entirety. I confirm that the documentation accurately reflects all work, treatment, procedures, and medical decision making performed by me. Attending Attestation - Resident Resident Name: Buddy Arriaza - ED Attending Attestation I have performed the following: I have examined & evaluated the patient, The case was reviewed & discussed with the resident, I agree w/resident's findings & plan, Exceptions are as noted - HPI HPI: 11/28/19 15:48 The patient is an 84 year old female with a significant past medical history of dementia, Parkinson's Disease, HTN, SVT, and stomach ulcer who presents to the ED for evaluation of a right forearm fracture after a fall on 11/18/19. Patients daughter provides history due to pt's dementia. She states that she went to the ED 10 days ago when she fell, and her arm was splinted. Pt was given orthopedics follow up. However, the orthopedist who saw her yesterday was unable to reduce and cast her arm due to her severe dementia. Pt was then instructed to go to an ER for further management. Social Hx: Quit smoking cigarettes in 1997. Allergies: NKDA PCP: Dr. Mcrae - Physicial Exam PE: 11/28/19 14:52 See resident exam - Medical Decision Making 11/28/19 15:53 84 F with R distal radius and ulna fx. - Repeat XR obtained Discussed with orthopedics network pricing consultant, who state they will be able to reduce and cast it in the office on Saturday. Pt placed in sugartong splint. Hand-written discharge instructions given to pt, including follow up instructions. Pt is well appearing, with normal vitals. Clinically stable for DC at this time. I discussed the physical exam findings, ancillary test results and final diagnoses with the patient. I answered all of the patient's questions. The patient was satisfied with the care received and felt comfortable with the discharge plan and treatment plan. The patient agrees to follow up with the primary care physician within 24-72 hours. Please note this patient was evaluated during the COVID-19 crisis with the presidential Pollock Act Declaration and the [place] governor executive order number 202. He/she was evaluated and clinical decisions were made relative to healthcare system resources as well as clinical picture during a pandemic crisis situation. Discharge - Discharge Information Problems reviewed: Yes Clinical Impression/Diagnosis: Forearm fractures, both bones, closed, Fall, Dementia Condition: Stable Disposition: HOME - Follow up/Referral Referrals: Kenroy Aleman MD [Staff Physician] - Lan Guevara MD [Staff Physician] - Kenroy Mcrae MD [Primary Care Provider] - () - Patient Discharge Instructions - Post Discharge Activity Procedures - Splinting Splint Location: Right: Wrist Pre-Proc Neuro Vasc Exam: normal Hand-Made Type: orthoglass Splint Type: Yes: Sugar Tong Post-Proc Neuro Vasc Exam: normal Chas Bandage: yes
--- NOTE | 2019-11-28 16:18 | PDOC ---
*Physical Exam - Vital Signs Last Vital Signs Temp Pulse Resp BP Pulse Ox 98.5 F 81 20 113/64 95 11/28/19 12:35 11/28/19 12:35 11/28/19 12:35 11/28/19 12:35 11/28/19 12:35 ED Treatment Course - RADIOLOGY Radiology Studies Ordered: Category Date Time Status FOREARM- RIGHT [RAD] Stat Radiology 11/28/19 14:09 Taken WRIST- RIGHT [RAD] Stat Radiology 11/28/19 14:10 Taken Medical Decision Making - Medical Decision Making Sugar tong splint was placed. Pt discharged with instructions to follow up with ortho outpatient. Discharge - Discharge Information Problems reviewed: Yes Clinical Impression/Diagnosis: Forearm fractures, both bones, closed Condition: Stable Disposition: HOME - Admission No - Follow up/Referral Referrals: Lan Guevara MD [Staff Physician] - Kenroy Mcrae MD [Primary Care Provider] - () Kenroy Aleman MD [Staff Physician] - - Patient Discharge Instructions - Post Discharge Activity
[2019-11-28 16:29] VITALS: BP 121/72; PULSE 77; TEMP 97.1
== END 2019-11-28 16:33 | disposition home or self-care (01) ==
LOC: JER 12:10
DX: S52.91XA Unspecified fracture of right forearm, initial encounter for closed fracture (principal); Z48.00 Encounter for change or removal of nonsurgical wound dressing
CPT/HCPCS: 73090-TC-RT-FY; 73110-TC-RT-FY; 99284-25